=== PATIENT | female | born 1940 | race Caucasian/White ===

== ENCOUNTER → 2017-07-17 12:26 | Outpatient (CLI) | payer MEDICARE, OTHER, SELFPAY ==
--- NOTE | 2017-07-17 12:28 | BI_ITS ---
MAMMOGRAPHY - BILATERAL SCREENING REASON FOR EXAM: Female, 77 years old. Routine annual screening examination. PERTINENT HISTORY: Sister with breast cancer. TECHNIQUE: Digital bilateral breast polly (3D mammographic acquisition) in the CC and MLO projections. 2-D mediolateral oblique (MLO) and craniocaudad (CC) views of both breasts were obtained. CAD: Full Field Digital Mammography with Computer Added Detection was performed. COMPARISON: Comparison is made with prior study dated July 04, 2016 and June 26, 2015. FINDINGS: Breast Composition: There are scattered areas of fibroglandular density. There are no dominant masses or suspicious calcifications. No other significant abnormalities are identified. There has been no significant change since the prior study. BI/SCREENING MAMM (CAD), BILAT IMPRESSION: Stable bilateral screening mammogram. Yearly follow-up mammogram recommended. (A) ASSESSMENT CATEGORY: BIRADS Category 1: Negative. A letter regarding these results will be sent to the patient by the facility within 30 days. Approximately 10% of breast cancers are not detected by mammography. A normal mammogram should not delay biopsy of a clinically suspicious abnormality. [id number] Electronically Signed: Ash Pizarro MD at 14:23 EDT Tel [phone], Service support ,
== END ==
PROVIDERS: Family Provider Internal Medicine; PCP Internal Medicine; Visit Provider Internal Medicine
DX: Z12.31 Encounter for screening mammogram for malignant neoplasm of breast (principal); Z80.3 Family history of malignant neoplasm of breast
CPT/HCPCS: 77063; 77067

== ENCOUNTER → 2017-08-05 12:29 | Outpatient (CLI) | payer MEDICARE, OTHER, SELFPAY ==
--- NOTE | 2017-08-05 12:32 | STE_ITS ---
Reason For Study: Chest Pain Stress Results Protocol: Dobutamine Stress Echo Maximum Predicted HR: 145 bpm Target HR: 123 bpm% Maximum Pre dicted HR: 85 % DurationHeart Rate Stage (mm:ss) (bpm) BPCom ment Baseline 60 134/70 No Chest Pain DSE 10 MCG 3:01 58 138/64No Chest Pain DSE 20 MCG 3:00 82 138/71No Chest Pain DSE 30 MCG 3:00 11 3 127/61No Chest Pain DSE 40 MCG 1:47 12 3 154/49No Chest Pain Recovery 68 138/65 No Chest Pain Stress Duration: 10:48 mm:ss Maximum Stress HR: 123 bpmME TS: 1 Baseline Echocardiogram Findings The estimated ejection fraction is 65 %. Stress Echo Wall motion Data Resting WMIntermediate WMStress WM Resting Wall Motion Wall Motion Stress No regional wall motion No regional wall motion abnormalities noted. abnormalities noted. EKG Data The baseline ECG demonstrates normal sinus rhythm with at rate of _ beats per minute. The patient was titrated from 10 mcg to a maximum of 40 mcg of dobutamine during the stress. During dobutamine infusion, there were no ST or T wave changes noted to suggest ischemia. No clinical angina was noted. This was 85% of maximum predicted heart rate. The maximum heart rate attained was 123 beats per minute. Interpretation Summary The estimated ejection fraction is 65 %. Normal adequate dobutamine echocardiogram. Negative for ischemia by EKG and echocardiographic criteria. No anginal symptoms noted. Rare PVCs noted. Appropriate blood pressure response to dobutamine. Test terminated due to the attainment of target heart rate. Final LVEF is 75%. No complications. Ordering Physician: Jose Cannon Referring Physician: Jose Cannon Performed By: Eugenia Hills, ZENY, RVT
== END ==
PROVIDERS: Family Provider Internal Medicine; PCP Internal Medicine; Visit Provider Internal Medicine Cardiovascular Disease
DX: R07.9 Chest pain, unspecified (principal)
CPT/HCPCS: 93017; 93350; J7030; A4216

== ENCOUNTER → 2017-08-18 09:40 | Outpatient (CLI) | payer MEDICARE, OTHER, SELFPAY ==
[2017-08-18 11:17] LABS: AST(SGOT) 20 U/L (15-37); Alanine Aminotransfer ALT/SGPT 18 U/L (13-56); Albumin, Serum 3.5 g/dL (3.2-5.0); Alkaline Phosphatase 95 U/L (45-117); Bilirubin, Direct 0.11 mg/dL (0.00-0.30); Cholesterol 159 mg/dL (200); Globulin 3.4 g/dL (2.2-4.2); High Density Lipoprotein 47 mg/dL; Protein, Total 6.9 g/dL (6.4-8.2); Triglycerides 144 mg/dL; Very Low Density Lipoprotein 29 mg/dL (5-40)
== END ==
PROVIDERS: Family Provider Internal Medicine; PCP Internal Medicine; Visit Provider Internal Medicine Cardiovascular Disease
DX: E78.5 Hyperlipidemia, unspecified (principal); Z79.899 Other long term (current) drug therapy
CPT/HCPCS: 36415; 80061; 80076

== ENCOUNTER → 2018-05-25 11:33 | Outpatient (CLI) | payer MEDICARE, OTHER, SELFPAY ==
--- NOTE | 2018-05-25 11:37 | RAD_ITS ---
STUDY: X-RAY CHEST REASON FOR EXAM: Female, 78 years old. Chest pain. Cough TECHNIQUE: PA and lateral views of the chest. COMPARISON: Comparison is made with prior study dated February 25, 2017. FINDINGS: Hyperinflation. The lungs are clear. There is no demonstrated pleural abnormality. Normal size heart. Normal mediastinum and padmaja. Normal visualized pulmonary arteries. There is atherosclerotic tortuosity of the aortic arch and descending thoracic aorta. There is demineralization of the osseous structures. Mild levoscoliosis. Normal visualized ribs, clavicles, and shoulders. There is no demonstrated abnormality of the visualized soft tissue structures of the upper abdomen. RAD/Chest PA and Lateral IMPRESSION: Hyperinflation. The lungs are clear. Electronically Signed: Ash Pizarro MD at 12:26 EST , Service support ,
== END ==
PROVIDERS: Family Provider Internal Medicine; PCP Internal Medicine; Referring Provider Nurse Practitioner; Visit Provider Nurse Practitioner
DX: R05 Cough (principal)
CPT/HCPCS: 71046

== ENCOUNTER → 2018-07-19 08:25 | Outpatient (CLI) | payer MEDICARE, OTHER, SELFPAY ==
--- NOTE | 2018-07-19 08:29 | US_ITS ---
STUDY: THYROID ULTRASOUND REASON FOR EXAM: Female, 78 years old. Status post total thyroidectomy. Follow-up after treatment. TECHNIQUE: Ultrasound evaluation of the thyroid was performed with real-time and static delcid-scale imaging. COMPARISON: Thyroid ultrasound dated February 04, 2016. FINDINGS: RIGHT LOBE: The patient has had a total thyroidectomy. There are no demonstrated solid, cystic or complex lesions. LEFT LOBE: Patient has had a total thyroidectomy. There are no demonstrated solid, cystic or complex lesions. Prominent lymph nodes were measured. One node within the right neck measures 15.7 x 6.1 x 8.3 mm. This has benign appearance. A node was measured in the left neck measuring 7.8 x 2.8 x 7.1 mm. US/Thyroid IMPRESSION: Status post total thyroidectomy without sonographic evidence for tumor recurrence. Electronically Signed: Shanelle Quinones MD at 5:57 EDT , Service support ,
--- NOTE | 2018-07-19 08:52 | CDU_ITS ---
Reason For Study: Arteriosclerosis Rt. Velocities/BP Lt. Velocities/BP Prox CCA 70/14 cm/sec. Prox CCA 74/15 cm/sec. Mid CCA 45/12 cm/sec. Mid CCA 58/16 cm/sec. Dist CCA 50/13 cm/sec. Dist CCA 66/15 cm/sec. Prox ICA 145/32 cm/sec. Prox ICA 66/18 cm/sec. Mid ICA 114/25 cm/sec. Mid ICA 71/22 cm/sec. Dist ICA 98/28 cm/sec. Dist ICA 57/19 cm/sec. Rt. ICA/CCA = 3.3. Lt. ICA/CCA = 1.2. Prox ECA 57/7 cm/sec. Prox ECA 70/7 cm/sec. Rt. Vert. 45/12 cm/sec. Lt. Vert. 75/20 cm/sec. Right Extracranial There is heterogeneous, irregular atherosclerotic plaque noted in the right common carotid artery. There is heterogeneous, smooth atherosclerotic plaque noted in the right internal carotid artery. There is heterogeneous, smooth atherosclerotic plaque noted in the right external carotid artery. Antegrade flow is noted in the right vertebral artery. There is heterogeneous, irregular atherosclerotic plaque noted in the right bulb. Left Extracranial There is heterogeneous, irregular atherosclerotic plaque noted in the left common carotid artery. There is intimal thickening but no significant atherosclerotic plaque noted in the left internal carotid artery. There is intimal thickening but no significant atherosclerotic plaque noted in the left external carotid artery. Antegrade flow is noted in the left vertebral artery. Procedure Carotid Duplex [id number]. Exam performed in department. Interpretation Summary Moderate (50-69%) stenosis right extracranial internal carotid. Mild (<50%) stenosis left extracranial internal carotid. Flow within the vertebral arteries is antegrade bilaterally. Ordering Physician: Geeta Cruz Referring Physician: Geeta Cruz Performed By: Eugenia Hills, RDCS, RVT
== END ==
PROVIDERS: Family Provider Internal Medicine; PCP Internal Medicine; Referring Provider Internal Medicine; Visit Provider Internal Medicine
DX: I65.23 Occlusion and stenosis of bilateral carotid arteries (principal); C73 Malignant neoplasm of thyroid gland
CPT/HCPCS: 76536; 93880

== ENCOUNTER → 2018-08-13 08:59 | Outpatient (CLI) | payer MEDICARE, OTHER, SELFPAY ==
[2018-08-12 15:17] VITALS: BMI 26.2
[2018-08-13 09:43] LABS: Absolute Lymphocyte Count 1.31 X10^3/ul (0.83-4.51); Absolute Neutrophil Count 2.9 X10^3/uL (2.0-7.7); Basophil# 0.02 X10^3/uL; Basophil% 0.4 % (0-1); Eosinophil# 0.22 X10^3/uL; Eosinophils% 4.5 % (0-5); Hematocrit 39.6 % (37-47); Hemoglobin 13.1 g/dl (12.0-15.0); Lymphocyte # 1.31 X10^3/ul (4.0); Lymphocyte % 26.9 % (19-41); Mean Corp Hgb Conc 33.1 g/gl (32-36); Mean Corpuscular Hgb 29.1 pg (27.0-32.0); Mean Platelet Vol. 10.4 fl (6.2-12.0); Monocyte# 0.38 X10^3/uL; Monocyte% 7.8 % (0-10); Neutrophil # 2.93 X10^3/uL (2.7-7.7); Neutrophil % 60.2 % (47-70); Platelet Count 193 K/mm3 (150-450); White Blood Count 4.9 K/mm3 (4.4-11.0)
[2018-08-13 09:47] LABS: POSITIVE COUNT NO; POSITIVE DIFFERENTIAL NO; POSITIVE MORPHOLOGY NO
[2018-08-13 09:51] LABS: Prothrombin Time (Protime)PT. 13.1 SECONDS (11.7-14.9)
[2018-08-13 09:52] LABS: Partial Thromboplast Time 28.6 Seconds (24.1-36.2)
[2018-08-13 10:22] LABS: AST(SGOT) 23 U/L (15-37); Alanine Aminotransfer ALT/SGPT 18 U/L (13-56); Albumin, Serum 3.7 g/dL (3.2-5.0); Alkaline Phosphatase 85 U/L (45-117); Anion Gap 6 (5-15); BUN 20 mg/dL (7-18); BUN/Creat Ratio 19.8 RATIO (10-20); Bilirubin, Direct 0.14 mg/dL (0.00-0.30); Calcium,Total 8.9 mg/dL (8.5-10.1); Chloride 109 mmol/L (98-107); Cholesterol 171 mg/dL (200); Creatinine, Serum 1.01 mg/dL (0.55-1.02); EST Glomerular Filtration Rate 57 mL/min (>60); Est Glom Filt Rate - Afr Amer 68 mL/min (>60); Globulin 3.3 g/dL (2.2-4.2); Glucose 83 mg/dL (74-106); High Density Lipoprotein 66 mg/dL; Sodium Level 142 mmol/L (136-145); Triglycerides 91 mg/dL; Very Low Density Lipoprotein 18 mg/dL (5-40)
== END ==
PROVIDERS: Family Provider Internal Medicine; PCP Internal Medicine; Referring Provider Internal Medicine Cardiovascular Disease; Visit Provider Internal Medicine Cardiovascular Disease
DX: R07.9 Chest pain, unspecified (principal); R55 Syncope and collapse; E78.5 Hyperlipidemia, unspecified; Z86.73 Personal history of transient ischemic attack (TIA), and cerebral infarction without residual deficits
CPT/HCPCS: 36415; 80048; 80061; 80076; 85025; 85610; 85730

== ENCOUNTER 2018-08-18 07:56 | Day surgery (SDC) | payer MEDICARE, OTHER, SELFPAY ==
[2018-08-12 15:17] VITALS: BMI 26.2
--- NOTE | 2018-08-12 15:35 | HP_ITS ---
HPI HPI Surgical H&P: Yes Details: Chief Complaint: Routine f/u Details: Referring physician: Dr. Diego Mrs. oBne is a very pleasant 78-year-old female, with a history of hypertension, hypercholesterolemia, status post CVA approximately 4 years ago with residual tingling and mild weakness on the right upper and lower extremity as well as a mild dysarthria. She also has a history of papillary thyroid cancer status post total thyroidectomy in 2011, status post CHRISTINE/BSO in 1985, and status post appendectomy. She was incidentally found to have a large hiatal hernia when she was dilated for hematuria in December 2012. She was referred to our office for preop risk stratification, and underwent a stress echocardiogram in on 07/13/13 which was negative for inducible ischemia. In addition she underwent an echocardiogram shows normal LV function. From a cardiac standpoint she reports that she denies any exertional chest pain, angina but does complain of dyspnea with both exertion as well as at rest. She attributes this to her severe hiatal hernia. This is been going on constantly over the last several years. She underwent a non-walking SPECT Cardiolite on 08/19/11 which was negative for inducible ischemia. Her LVEF at that time was 70%. She reports she underwent a left heart catheterization after having several palpitations during a stress test in 1994. This was done by Dr. Chang at [facility]. I do not have those reports in front of me however she reports that her coronary arteries were normal, and no additional stenting was required. The patient reports that she underwent her esophageal dilatation without complications. However, she has had 2 episodes of lightheadedness and dizziness one of which cause her to lose sight, and blackout however she did not lose consciousness. This was while she was watering her plants, and the other time when she was in a very hot area in an outside sale. She has never actually lost consciousness,but rather is had presyncope. She is taking and tolerating her medicines well as well as the higher dose of Lopressor. She denies any palpitations. Her main complaint is fatigue and tiredness during the day. Her last stress test in September 2016 was negative for inducible ischemia. Since her last visit, the patient has had 2 episodes of presyncope, one when she was walking up an escalator, where she had a sit down at the top, became very lightheaded, recovering only after 15 minutes. The other time occurred at home. In addition she has had several episodes of exertional jaw pain to bilateral jaws. She denies any chest pain. Her most recent stress test was a dobutamine echocardiogram on 08/05/2017 which was negative for inducible ischemia. In our office today her blood pressure is 140/70 sitting and standing, and pulse is 56 and regular. Her physical exam is as below. Her lipids As a 08/15/16 show an LDL of 88 and HDL of 58. Her lipids as of 08/18/2017 showing LDL of 83 and HDL of 47.. EKG dated 06/14/15 showed normal sinus rhythm, normal axis, normal intervals, no evidence of previous myocardial infarction or acute changes. Echo dated 12/20/15 showed EF of 65%, stage I diastolic dysfunction, mild TR, RVSP of 42 mmHg. Intake Vital Signs 08/12/18 Height 5 ft 1 in 08/12/18 Weight: 139 lb 08/12/18 Body Mass Index (BMI) 26.2 08/12/18 Blood Pressure 140/70 H 08/12/18 Blood Pressure Location Lt brachial 08/12/18 Blood Pressure Position Sitting 08/12/18 Respiratory Rate 20 H 08/12/18 Pulse Rate 56 L 08/12/18 Pulse Source Auscultation Intake Visit Reasons: 6 M FU Allergies cephalexin monohydrate [From Keflex] Allergy (Severe, Verified 08/09/18 17:51) Vomiting lisinopril Allergy (Severe, Verified 08/09/18 17:51) Anaphylaxis peanut Allergy (Severe, Verified 08/09/18 17:51) Unknown shellfish derived Allergy (Severe, Verified 08/09/18 17:51) Anaphylaxis Penicillins [PCN] Allergy (Unknown, Verified 08/09/18 17:51) Anaphylaxis cefixime [From Suprax] Adverse Reaction (Severe, Verified 08/09/18 17:51) Vomiting doxycycline Adverse Reaction (Severe, Verified 08/09/18 17:51) Vomiting erythromycin base Adverse Reaction (Severe, Verified 08/09/18 17:51) hives grass pollen Adverse Reaction (Severe, Verified 08/09/18 17:51) Unknown metronidazole [From Flagyl] Adverse Reaction (Severe, Verified 08/09/18 17:51) Unknown ragweed pollen Adverse Reaction (Severe, Verified 08/09/18 17:51) Unknown tetracycline Adverse Reaction (Severe, Verified 08/09/18 17:51) Unknown Sulfa (Sulfonamide Antibiotics) Adverse Reaction (Intermediate, Verified 08/09/18 17:51) Unknown adhesive tape Adverse Reaction (Mild, Verified 08/09/18 17:51) Rash levofloxacin [From Levaquin] Adverse Reaction (Verified 08/09/18 17:51) Hives cats Adverse Reaction (Severe, Uncoded 07/02/17 09:52) Unknown histamine Adverse Reaction (Severe, Uncoded 07/02/17 09:52) Unknown peanuts Adverse Reaction (Severe, Uncoded 07/02/17 09:53) unknown trees Adverse Reaction (Severe, Uncoded 07/02/17 09:51) Unknown weeds Adverse Reaction (Severe, Uncoded 07/02/17 09:52) Unknown Medications Azelastine HCl [Astelin] 2 spray NASAL BID 12/16/15 [History Confirmed 08/12/18] HydrOXYzine [Atarax] 25 mg PO QHS 12/16/15 [History Confirmed 08/12/18] Potassium Chloride [K-Dur] 20 meq PO BID 12/16/15 [History Confirmed 08/12/18] Pantoprazole Sodium [Protonix] 20 mg PO BID 01/16/16 [History Confirmed 08/12/18] Albuterol IH (ProAir) [Proair Hfa] 2 puff INHALATION Q4H PRN PRN 01/29/16 [History Confirmed 08/12/18] Epi Pen (for allergic rxn) 0.3 mg IM X1 01/29/16 [History Confirmed 08/12/18] aspirin 81 mg tablet,delayed release 81 mg PO .daily #30 tab 07/02/17 [Rx Confirmed 08/12/18] conjugated estrogens 0.625 mg tablet 10 mg PO 2XW tab 07/02/17 [History Confirmed 08/12/18] metoprolol tartrate 50 mg tablet See Rx Instructions PO BID 07/02/17 [History Confirmed 08/12/18] Citalopram [Celexa] 20 mg PO DAILY 09/28/17 [History Confirmed 08/12/18] Clopidogrel Bisulfate [Plavix] 75 mg PO DAILY 09/28/17 [History Confirmed 08/12/18] Latanoprost 0.005% [Xalatan Opthalmic] EACHEYE DAILY 09/28/17 [History Confirmed 08/12/18] calcium polycarbophil 625 mg tablet 1,250 mg PO DAILY 02/08/18 [History Confirmed 08/12/18] ergocalciferol (vitamin D2) 50,000 unit capsule 50,000 unit PO .COMPLEX 02/08/18 [History Confirmed 08/12/18] rosuvastatin 10 mg tablet 10 mg PO DAILY #90 tab 08/06/18 [Rx Confirmed 08/12/18] levothyroxine 150 mcg tablet 150 mcg PO DAILY 08/12/18 [History Confirmed 08/12/18] [facility] Medical History Hypothyroidism (Chronic) PAC (premature atrial contraction) (Chronic) Rectocele (Chronic) History of thyroid cancer (Chronic) Stroke (Chronic) Dyslipidemia (Chronic) SVT (supraventricular tachycardia) (Acute) PVC (premature ventricular contraction) (Chronic) HTN (hypertension) (Chronic) Atrial tachycardia (Acute) GERD (gastroesophageal reflux disease) (Acute) History of hysterectomy (Acute) Stroke (Acute) Syncope (Acute) Thyroid disease (Acute) fundus repair (Acute) Surgical History History of repair of hiatal hernia (Chronic) H/O thyroidectomy (Acute) History of appendectomy (Acute) History of cholecystectomy (Acute) History of esophagogastroduodenoscopy (EGD) (Acute) Family History Father Cancer Mother Arthritis Heart disease CVA (cerebral vascular accident) Tuberculosis Breast cancer Skin cancer Social History Smoking Status: Never smoker ROS Const Const: Positive for other (A couple episodes of near syncope and things turning black since last ov.); negative for fatigue, weakness, body ache, fever(s), headache(s), chills, frequent falls, night sweats, daytime sleepiness, difficulty sleeping, excessive sweating, weight gain, weight loss, increased appetite, poor appetite or anorexia Eyes Eyes: Negative for blind spots, loss of peripheral vision, transient loss of vision, blurry vision, change in vision, double vision, floaters, tunnel vision or other ENT ENT: Negative for headache(s), dizziness, hearing loss, tinnitus, Nosebleed/epistaxis, balance problems, post nasal drip, lip swelling, tongue swelling, bleeding gums, hoarseness, neck pain, dry mouth or other Cardio Chest Pain: No (Has had some jaw pain a few times.) Palpitations: Yes ([place] heart racing when had near syncope episodes.) feels like its: fast Edema: None Muscle aches with walking: None Resp Respiratory: Positive for SOB with activity; negative for SOB at rest, SOB orthopnea\SOB lying down, Cough, Coughing up blood/hemoptysis, chest congestion, pain on inspiration, snoring, stridor, wheezing, crackles, paroxysmal nocturnal dyspnea or other GI GI: Negative nausea, vomiting, heartburn, constipation, belching, bloating, cramping, vomiting blood/hematemesis, bright, red blood in stools, black,tarry stools, loose stools, Difficulty Swallowing or other : Negative for hematuria, frequent nighttime urination/ nocturia, erectile dysfunction or abnormal vaginal bleeding Musc Musc: Negative for muscle aches/ myalgia, muscle weakness, joint pain or balance problems Skin Skin: Negative redness, non-healing lesions, rash, unusual bruising, skin ulcer, wounds, jaundice or other Neuro Neuro: Negative for dizziness, lightheadedness, near syncope, syncope, orthostatic symptoms, frequent falls, headache(s), weakness, confusion, memory loss, restless legs, blurry vision, double vision, vertigo, seizures, lack of coordination or other Satish Hematologic/Lymphatic: Negative for easy bleeding, easy bruising, enlarged lymph nodes or other Endo Endo: Negative for fatigue, cold intolerance, heat intolerance, excessive sweating, flushing, increased thirst/drinking, increased hunger, hair loss, hair growth or other Psych Psych: Negative for anxiety, depression, thoughts of harming anyone, thoughts of harming yourself, visual hallucinations, panic attacks or audible hallucinations Allergy Allergy/Immunology: Negative for throat swelling, Negative for tongue swelling, Negative for hives, Negative for rash, Negative for lip swelling Cardiology Exam Const Appearance: cooperative, healthy appearing and no acute distress Nutritional Appearance: well nourished Orientation: alert, oriented x3 and oriented to person Head Head: normal to inspection, normocephalic and atraumatic Nose: external nose normal Face and Sinus: face symmetric Mouth: oral mucosae normal Eyes General: appearance normal, both eyes and all related structures Eyelids: eyelids normal Conjunctivae: conjunctivae normal Pupils: PERRL and normal by confrontation EOM: EOM intact bilaterally Neck Neck: normal visual inspection and full ROM Carotids: normal carotid upstroke Chest Chest inspection: normal inspection of the chest Auscultation: Bilateral: Clear to Auscultation Cardio Palpation: normal PMI Rate: regular rate Rhythm: regular rhythm Heart sounds: S1 normal and S2 normal GI GI: normal to inspection, no hepatosplenomegaly and bowel sounds present Neuro General: alert, awake, oriented x3, CN's II-XI intact bilaterally and moves all extremities Skin Skin: no rashes or lesions noted Extremities Pulses: Normal: Right Femoral Pulse, Left Femoral Pulse, Right Dorsalis Pedis Pulse, Left Dorsalis Pedis Pulse, Right Posterior Tibial Pulse, Left Posterior Tibial Pulse, Right Radial Pulse, Left Radial Pulse Lower Extremity Edema: None: Bilateral Psych Psychological: normal affect Assessment & Plan 1. Chest pain R07.9 Plan 1. Chest pain: Patient has both episodes of chest pain but more importantly bilateral jaw pain with exertion, her last stress test was less than 1 year ago which was a dobutamine echocardiogram which was negative for inducible ischemia. I am concerned that the patient may have symptoms related to coronary artery disease particularly with her syncope and dyspnea. I recommended that she undergo a diagnostic left heart catheterization. In preparation for this she will continue on baby aspirin and Plavix. Orders Orders: 12 Lead EKG performed by [facility] Today Left Heart Cath/COR/LV Percut Today Basic Metabolic Profile (BMP) Today Prothrombin Time w/INR Today CBC W/Diff, Automated Today Chest PA and Lateral Today 2. Dyslipidemia E78.5 Plan 2. Hyperlipidemia: Her LDL and HDL cholesterol are fairly well-controlled. Continue Crestor. Orders Orders: Lipid Profile Today Liver Profile Today Chest PA and Lateral Today 3. Syncope R55 Plan 3. Syncope: I am concerned that the patient has had 2 episodes of syncope in the last 6 months, and that we do not have an adequate diagnosis. She appears to have normal LV function and a normal stress test less than 1 year ago. As part of her syncope work-up and given her jaw pain, I recommend that she undergo a left heart catheterization as well as a 30-day event monitor. 4. Return to office in 6 months. This note was generated using a voice recognition system and there may be incorrect words, spelling or punctuation that were not noted when reviewing the office note prior to saving. Orders Orders: Basic Metabolic Profile (BMP) Today Chest PA and Lateral Today Plan Detail Other Orders Orders: Lipid Profile Today I63.9 Liver Profile Today I63.9 Chest PA and Lateral Today I47.1 Follow Up +6M (Davis) Coding Level of Care Code Off vis,est,level 3 Diagnoses Chest pain R07.9 Dyslipidemia E78.5 Syncope R55 Coding Level of Care Code Off vis,est,level 3 Diagnoses Chest pain R07.9 Dyslipidemia E78.5 Syncope R55 Supplemental Info Supplemental Information Labs LDL Cholesterol 83 mg/dL (0-130) 08/18/17 HDL Cholesterol 47 mg/dL (40-) 08/18/17 Triglycerides 144 mg/dL (-199) 08/18/17 VLDL Cholesterol 29 mg/dL (5-40) 08/18/17 Diagnostics Electrocardiogram 09/12/16 Echocardiogram 07/08/13 Stress Echocardiogram 08/05/17 Abdomen Ultrasound 09/06/14 Chest X-Ray 05/25/18 Pulmonary Pulmonary Function Test 01/21/16 08/12/18 1535 <Electronically signed by Jose Cannon MD> Date Jose Cannon MD
[2018-08-17 08:51] VITALS: BMI 26.2
[2018-08-18] VITALS (27 sets, daily range): BP systolic 114–168; BP diastolic 60–99; PULSE 50–65; RESP 11–21; TEMP 36.5–36.8; O2SAT 92–100; BMI 24.5; BMI 26.2
--- NOTE | 2018-08-18 10:18 | PCM.HP.BLA ---
Problem List (1) Chest pain Status: Acute (2) SVT (supraventricular tachycardia) Status: Acute (3) Dyslipidemia Status: Chronic (4) HTN (hypertension) Status: Chronic (5) PAC (premature atrial contraction) Status: Chronic History and Physical Date of Admission: 08/18/18 HPI HPI Surgical H&P: Yes Details: Chief Complaint: Routine f/u Details: Referring physician: Dr. Diego Mrs. Bone is a very pleasant 78-year-old female, with a history of hypertension, hypercholesterolemia, status post CVA approximately 4 years ago with residual tingling and mild weakness on the right upper and lower extremity as well as a mild dysarthria. She also has a history of papillary thyroid cancer status post total thyroidectomy in 2011, status post CHRISTINE/BSO in 1985, and status post appendectomy. She was incidentally found to have a large hiatal hernia when she was dilated for hematuria in December 2012. She was referred to our office for preop risk stratification, and underwent a stress echocardiogram in on 07/13/13 which was negative for inducible ischemia. In addition she underwent an echocardiogram shows normal LV function. From a cardiac standpoint she reports that she denies any exertional chest pain, angina but does complain of dyspnea with both exertion as well as at rest. She attributes this to her severe hiatal hernia. This is been going on constantly over the last several years. She underwent a non-walking SPECT Cardiolite on 08/19/11 which was negative for inducible ischemia. Her LVEF at that time was 70%. She reports she underwent a left heart catheterization after having several palpitations during a stress test in 1994. This was done by Dr. Chang at [facility]. I do not have those reports in front of me however she reports that her coronary arteries were normal, and no additional stenting was required. The patient reports that she underwent her esophageal dilatation without complications. However, she has had 2 episodes of lightheadedness and dizziness one of which cause her to lose sight, and blackout however she did not lose consciousness. This was while she was watering her plants, and the other time when she was in a very hot area in an outside sale. She has never actually lost consciousness,but rather is had presyncope. She is taking and tolerating her medicines well as well as the higher dose of Lopressor. She denies any palpitations. Her main complaint is fatigue and tiredness during the day. Her last stress test in September 2016 was negative for inducible ischemia. Since her last visit, the patient has had 2 episodes of presyncope, one when she was walking up an escalator, where she had a sit down at the top, became very lightheaded, recovering only after 15 minutes. The other time occurred at home. In addition she has had several episodes of exertional jaw pain to bilateral jaws. She denies any chest pain. Her most recent stress test was a dobutamine echocardiogram on 08/05/2017 which was negative for inducible ischemia. In our office today her blood pressure is 140/70 sitting and standing, and pulse is 56 and regular. Her physical exam is as below. Her lipids As a 08/15/16 show an LDL of 88 and HDL of 58. Her lipids as of 08/18/2017 showing LDL of 83 and HDL of 47.. EKG dated 06/14/15 showed normal sinus rhythm, normal axis, normal intervals, no evidence of previous myocardial infarction or acute changes. Echo dated 12/20/15 showed EF of 65%, stage I diastolic dysfunction, mild TR, RVSP of 42 mmHg. Intake Vital Signs 08/12/18 Height 5 ft 1 in 08/12/18 Weight: 139 lb 08/12/18 Body Mass Index (BMI) 26.2 08/12/18 Blood Pressure 140/70 H 08/12/18 Blood Pressure Location Lt brachial 08/12/18 Blood Pressure Position Sitting 08/12/18 Respiratory Rate 20 H 08/12/18 Pulse Rate 56 L 08/12/18 Pulse Source Auscultation Intake Visit Reasons: 6 M FU Allergies cephalexin monohydrate [From Keflex] Allergy (Severe, Verified 08/09/18 17:51) Vomiting lisinopril Allergy (Severe, Verified 08/09/18 17:51) Anaphylaxis peanut Allergy (Severe, Verified 08/09/18 17:51) Unknown shellfish derived Allergy (Severe, Verified 08/09/18 17:51) Anaphylaxis Penicillins [PCN] Allergy (Unknown, Verified 08/09/18 17:51) Anaphylaxis cefixime [From Suprax] Adverse Reaction (Severe, Verified 08/09/18 17:51) Vomiting doxycycline Adverse Reaction (Severe, Verified 08/09/18 17:51) Vomiting erythromycin base Adverse Reaction (Severe, Verified 08/09/18 17:51) hives grass pollen Adverse Reaction (Severe, Verified 08/09/18 17:51) Unknown metronidazole [From Flagyl] Adverse Reaction (Severe, Verified 08/09/18 17:51) Unknown ragweed pollen Adverse Reaction (Severe, Verified 08/09/18 17:51) Unknown tetracycline Adverse Reaction (Severe, Verified 08/09/18 17:51) Unknown Sulfa (Sulfonamide Antibiotics) Adverse Reaction (Intermediate, Verified 08/09/18 17:51) Unknown adhesive tape Adverse Reaction (Mild, Verified 08/09/18 17:51) Rash levofloxacin [From Levaquin] Adverse Reaction (Verified 08/09/18 17:51) Hives cats Adverse Reaction (Severe, Uncoded 07/02/17 09:52) Unknown histamine Adverse Reaction (Severe, Uncoded 07/02/17 09:52) Unknown peanuts Adverse Reaction (Severe, Uncoded 07/02/17 09:53) unknown trees Adverse Reaction (Severe, Uncoded 07/02/17 09:51) Unknown weeds Adverse Reaction (Severe, Uncoded 07/02/17 09:52) Unknown Medications Azelastine HCl [Astelin] 2 spray NASAL BID 12/16/15 [History Confirmed 08/12/18] HydrOXYzine [Atarax] 25 mg PO QHS 12/16/15 [History Confirmed 08/12/18] Potassium Chloride [K-Dur] 20 meq PO BID 12/16/15 [History Confirmed 08/12/18] Pantoprazole Sodium [Protonix] 20 mg PO BID 01/16/16 [History Confirmed 08/12/18] Albuterol IH (ProAir) [Proair Hfa] 2 puff INHALATION Q4H PRN PRN 01/29/16 [History Confirmed 08/12/18] Epi Pen (for allergic rxn) 0.3 mg IM X1 01/29/16 [History Confirmed 08/12/18] aspirin 81 mg tablet,delayed release 81 mg PO .daily #30 tab 07/02/17 [Rx Confirmed 08/12/18] conjugated estrogens 0.625 mg tablet 10 mg PO 2XW tab 07/02/17 [History Confirmed 08/12/18] metoprolol tartrate 50 mg tablet See Rx Instructions PO BID 07/02/17 [History Confirmed 08/12/18] Citalopram [Celexa] 20 mg PO DAILY 09/28/17 [History Confirmed 08/12/18] Clopidogrel Bisulfate [Plavix] 75 mg PO DAILY 09/28/17 [History Confirmed 08/12/18] Latanoprost 0.005% [Xalatan Opthalmic] EACHEYE DAILY 09/28/17 [History Confirmed 08/12/18] calcium polycarbophil 625 mg tablet 1,250 mg PO DAILY 02/08/18 [History Confirmed 08/12/18] ergocalciferol (vitamin D2) 50,000 unit capsule 50,000 unit PO .COMPLEX 02/08/18 [History Confirmed 08/12/18] rosuvastatin 10 mg tablet 10 mg PO DAILY #90 tab 08/06/18 [Rx Confirmed 08/12/18] levothyroxine 150 mcg tablet 150 mcg PO DAILY 08/12/18 [History Confirmed 08/12/18] [facility] Medical History Hypothyroidism (Chronic) PAC (premature atrial contraction) (Chronic) Rectocele (Chronic) History of thyroid cancer (Chronic) Stroke (Chronic) Dyslipidemia (Chronic) SVT (supraventricular tachycardia) (Acute) PVC (premature ventricular contraction) (Chronic) HTN (hypertension) (Chronic) Atrial tachycardia (Acute) GERD (gastroesophageal reflux disease) (Acute) History of hysterectomy (Acute) Stroke (Acute) Syncope (Acute) Thyroid disease (Acute) fundus repair (Acute) Surgical History History of repair of hiatal hernia (Chronic) H/O thyroidectomy (Acute) History of appendectomy (Acute) History of cholecystectomy (Acute) History of esophagogastroduodenoscopy (EGD) (Acute) Family History Father Cancer Mother Arthritis Heart disease CVA (cerebral vascular accident) Tuberculosis Breast cancer Skin cancer Social History Smoking Status: Never smoker ROS Const Const: Positive for other (A couple episodes of near syncope and things turning black since last ov.); negative for fatigue, weakness, body ache, fever(s), headache(s), chills, frequent falls, night sweats, daytime sleepiness, difficulty sleeping, excessive sweating, weight gain, weight loss, increased appetite, poor appetite or anorexia Eyes Eyes: Negative for blind spots, loss of peripheral vision, transient loss of vision, blurry vision, change in vision, double vision, floaters, tunnel vision or other ENT ENT: Negative for headache(s), dizziness, hearing loss, tinnitus, Nosebleed/epistaxis, balance problems, post nasal drip, lip swelling, tongue swelling, bleeding gums, hoarseness, neck pain, dry mouth or other Cardio Chest Pain: No (Has had some jaw pain a few times.) Palpitations: Yes (Irving heart racing when had near syncope episodes.) feels like its: fast Edema: None Muscle aches with walking: None Resp Respiratory: Positive for SOB with activity; negative for SOB at rest, SOB orthopnea\SOB lying down, Cough, Coughing up blood/hemoptysis, chest congestion, pain on inspiration, snoring, stridor, wheezing, crackles, paroxysmal nocturnal dyspnea or other GI GI: Negative nausea, vomiting, heartburn, constipation, belching, bloating, cramping, vomiting blood/hematemesis, bright, red blood in stools, black,tarry stools, loose stools, Difficulty Swallowing or other : Negative for hematuria, frequent nighttime urination/ nocturia, erectile dysfunction or abnormal vaginal bleeding Musc Musc: Negative for muscle aches/ myalgia, muscle weakness, joint pain or balance problems Skin Skin: Negative redness, non-healing lesions, rash, unusual bruising, skin ulcer, wounds, jaundice or other Neuro Neuro: Negative for dizziness, lightheadedness, near syncope, syncope, orthostatic symptoms, frequent falls, headache(s), weakness, confusion, memory loss, restless legs, blurry vision, double vision, vertigo, seizures, lack of coordination or other Satish Hematologic/Lymphatic: Negative for easy bleeding, easy bruising, enlarged lymph nodes or other Endo Endo: Negative for fatigue, cold intolerance, heat intolerance, excessive sweating, flushing, increased thirst/drinking, increased hunger, hair loss, hair growth or other Psych Psych: Negative for anxiety, depression, thoughts of harming anyone, thoughts of harming yourself, visual hallucinations, panic attacks or audible hallucinations Allergy Allergy/Immunology: Negative for throat swelling, Negative for tongue swelling, Negative for hives, Negative for rash, Negative for lip swelling Cardiology Exam Const Appearance: cooperative, healthy appearing and no acute distress Nutritional Appearance: well nourished Orientation: alert, oriented x3 and oriented to person Head Head: normal to inspection, normocephalic and atraumatic Nose: external nose normal Face and Sinus: face symmetric Mouth: oral mucosae normal Eyes General: appearance normal, both eyes and all related structures Eyelids: eyelids normal Conjunctivae: conjunctivae normal Pupils: PERRL and normal by confrontation EOM: EOM intact bilaterally Neck Neck: normal visual inspection and full ROM Carotids: normal carotid upstroke Chest Chest inspection: normal inspection of the chest Auscultation: Bilateral: Clear to Auscultation Cardio Palpation: normal PMI Rate: regular rate Rhythm: regular rhythm Heart sounds: S1 normal and S2 normal GI GI: normal to inspection, no hepatosplenomegaly and bowel sounds present Neuro General: alert, awake, oriented x3, CN's II-XI intact bilaterally and moves all extremities Skin Skin: no rashes or lesions noted Extremities Pulses: Normal: Right Femoral Pulse, Left Femoral Pulse, Right Dorsalis Pedis Pulse, Left Dorsalis Pedis Pulse, Right Posterior Tibial Pulse, Left Posterior Tibial Pulse, Right Radial Pulse, Left Radial Pulse Lower Extremity Edema: None: Bilateral Psych Psychological: normal affect Assessment & Plan 1. Chest pain R07.9 Plan 1. Chest pain: Patient has both episodes of chest pain but more importantly bilateral jaw pain with exertion, her last stress test was less than 1 year ago which was a dobutamine echocardiogram which was negative for inducible ischemia. I am concerned that the patient may have symptoms related to coronary artery disease particularly with her syncope and dyspnea. I recommended that she undergo a diagnostic left heart catheterization. In preparation for this she will continue on baby aspirin and Plavix. Orders Orders: 12 Lead EKG performed by BMS Today Left Heart Cath/COR/LV Percut Today Basic Metabolic Profile (BMP) Today Prothrombin Time w/INR Today CBC W/Diff, Automated Today Chest PA and Lateral Today 2. Dyslipidemia E78.5 Plan 2. Hyperlipidemia: Her LDL and HDL cholesterol are fairly well-controlled. Continue Crestor. Orders Orders: Lipid Profile Today Liver Profile Today Chest PA and Lateral Today 3. Syncope R55 Plan 3. Syncope: I am concerned that the patient has had 2 episodes of syncope in the last 6 months, and that we do not have an adequate diagnosis. She appears to have normal LV function and a normal stress test less than 1 year ago. As part of her syncope work-up and given her jaw pain, I recommend that she undergo a left heart catheterization as well as a 30-day event monitor. 4. Return to office in 6 months. This note was generated using a voice recognition system and there may be incorrect words, spelling or punctuation that were not noted when reviewing the office note prior to saving. 5. Patient has had no additional changes to her history and physical examination since her last visit in the office. Left heart catheterization is to follow. Orders Orders: Basic Metabolic Profile (BMP) Today Chest PA and Lateral Today Plan Detail Other Orders Orders: Lipid Profile Today I63.9 Liver Profile Today I63.9 Chest PA and Lateral Today I47.1 Follow Up +6M (Cannon) Coding Level of Care Code Off vis,est,level 3 Diagnoses Chest pain R07.9 Dyslipidemia E78.5 Syncope R55 Coding Level of Care Code Off vis,est,level 3 Diagnoses Chest pain R07.9 Dyslipidemia E78.5 Syncope R55 Supplemental Info Supplemental Information Labs LDL Cholesterol 83 mg/dL (0-130) 08/18/17 HDL Cholesterol 47 mg/dL (40-) 08/18/17 Triglycerides 144 mg/dL (-199) 08/18/17 VLDL Cholesterol 29 mg/dL (5-40) 08/18/17 Diagnostics Electrocardiogram 09/12/16 Echocardiogram 07/08/13 Stress Echocardiogram 08/05/17 Abdomen Ultrasound 09/06/14 Chest X-Ray 05/25/18 Pulmonary Pulmonary Function Test 01/21/16
--- NOTE | 2018-08-18 11:19 | CL.I_ITS ---
Patient Name: VAZQUEZ JAMIL Study Date: 08/18/2018 Performing: Jose Cannon MD Ht: 61.02 inches 155 cm : 1940 Wt: 138.89 lbs 63 kg Age: 78 Gender: female BSA: 1.62 PROCEDURE(S) PERFORMED [id number]/COR/LV [id number] W OR WO PTCA, SINGLE CORONARY ARTERY [id number], CORONARY OR GRAFT, INITIAL VESSEL CLINICAL PROFILE AND CO-MORBIDITIES Indications: New Onset Angina <= 2 months, Suspected CAD, Cardiac Arrythmia Heart Failure: None Stress/Imaging Date: 08/05/2018 Stress Echocardiogram: Negative Angina Classification Anginal Classification w/in 2 Weeks: CCS III CAD Presentations: Unstable angina. Other: Dyspnea on exertion. Comorbidities/Risk Factors: Hypertension Dyslipidemia Cerebrovascular Disease CONCLUSIONS Normal Left Ventricular systolic function LVEF: by LV gram 65 % Elevated Left Ventricular End Diastolic Pressure Single vessel CAD of the mid OM#1 Non obstructive coronary arteries Successful PTCA/DYLLAN mid OM#1 with a 2.25 x 20 Promus Synergy; 75%-->0%, no dissection. FFR of proximal LCX negative. RECOMMENDATIONS FFR of proximal LCX and PCI of mid OM#1 Highly recommend quitting all tobacco products Follow up with primary wound nurse Risk factor modification ASA Indefinitley Plavix for at least 12 months Routine post interventional care Refer for Outpatient Cardiac Rehab Manual sheath removal per protocol Follow up with Dr. Cannon Manual sheath removal as pt is too shallow for Mynx closure. Start Imdur 30mg po qd for HTN and CHAIREZ; pt need low dose diuretic. DESCRIPTION OF PROCEDURE The patient arrived to the procedure lab. The risks and benefits of the procedure as well as a full d escription of our services here and lack of surgical backup were fully explained to the patient and/o r their significant other prior to the catheterization. The Timeout was completed, verifying the merlin ect patient and procedure. The patient's procedural site was prepped and draped in the usual fashion. Local anesthetic was given subcutaneously to right groin region with Lidocaine 2%. Using a modified Seldinger technique, arterial access was obtained via the right femoral artery, a 4Fr sheath was inse rted. Left Coronary Artery selective angiography was performed in multiple views using a 4 Fr. JL5 c atheter. Right Coronary Artery selective angiography was then performed in multiple views using a 4 F r. 3DRC catheter. Left Ventriculography was performed in MATHUR projection using a 4 Fr. Pigtail cathete r. LV to AO pullback pressures were then recorded. Left Coronary Artery selective angiography was performed in multiple views using a 4 Fr. JL6 catheterThe images were reviewed and op tions discussed. A decision was then made to proceed with an Intervention, IVUS or other adjunct proc edure. Arterial sheath was exchanged for a 6 Fr Sheath. EBU 3.5 Guide catheter was inserted and engaged into the LCA. The FFR/iFR wire was inserted. Adenosine was then given per protocol. Pressures and FFR /iFR were then recorded. FFR Ratio Baseline: 1.0 FFR Ratio post Adenosine: 0.98 FFR wire Guide wire w as repositioned to the 1st OM 2.0x12 Emerge Balloon catheter was advanced across lesion in the first obtuse marginal, mid. PTCA balloon inflated at 6 atms for 8 secs. Angiogram performed post balloon di latation. 2.25x16 synergy Drug Eluting stent was advanced across the lesion in the first obtuse sue nal, mid. Drug Eluting stent was removed intact, failed to cross lesion 2.25x20 synergy Drug Eluting stent was advanced across the lesion in the first diagonal, mid. Angiogram performed post stent deplo yment. The arterial sheath was sutured in place and capped CORONARY ANGIOGRAPHY DOMINANCE: Left Dominant LEFT HEART ASSESSMENT Left Ventricular Ejection Fraction: by LV Gram 65 % Normal Left Ventricular systolic function Elevated Left Ventricular End Diastolic Pressure Normal LV wall motion LEFT MAIN: Mild calcification, Non-obstructive LEFT ANTERIOR DESCENDING ARTERY: Mild calcification, Mild luminal irregularities less than 30% CIRCUMFLEX ARTERY: PROX CIRC: 30 % Stenosis OM 1: Mid - 75 % Stenosis RIGHT CORONARY ARTERY: Angiographically normal INTERVENTION INFORMATION LESION SITE: Circumflex (Proximal) Lesion Complexity: Non-High/Non-C, lesion at bifurcation: No, thrombus present: No, lesion length: 12 mm, culprit lesion: No Pre Stenosis: 30 % Pre intervention VIRAJ flow: 3 PROCEDURE: FFR FFR of proximal LCX=0.98 Post Stenosis: 30 % Post intervention VIRAJ flow: 3 Lesion Devices: to becience 12 Pressure Tubing PhishLabstronic 6 Fr EBU3.5 100cm Guide Catheter LESION SITE: 1st OM (Mid) Lesion Complexity: Non-High/Non-C, lesion at bifurcation: No, thrombus present: No, lesion length: 20 mm, culprit lesion: Yes Pre Stenosis: 75 % Pre intervention VIRAJ flow: 3 PROCEDURE: Drug Eluting Stent with pre dilatation. Post Stenosis: 0 % Post intervention VIRAJ flow: 3 Lesion Devices: Medtronic 6 Fr EBU3.5 100cm Guide Catheter Anthony Sci EMERGE MR 2.00x12 BALLOON Anthony Sci Synergy MR DYLLAN 2.25x16 Anthony Sci Synergy MR DYLLAN 2.25x20 COMPLICATIONS PROCEDURE MEDICATIONS Oxygen: 2 L/min via nasal cannula Adenosine drip for FFR 18.8 ml IV @ 08/18/2018 10:48:31 Heparin 6000 unit(s) IV 08/18/2018 10:41:25 Nitro 200 mcg IC 08/18/2018 10:37:46 Nitro 200 mcg IC 08/18/2018 10:37:46 Nitro glycerin 25mg / 250ml D5W @ 5 mcg/min IV started 08/18/2018 11:04:19 IV Bolus: .9 NaCl 200 ml total 08/18/2018 11:04:33 SUMMARY OF HEMODYNAMIC DATA Time AIR REST ECG 08:18:06 ECG 09:57:27 LV 178/-21, 16 10:34:33 LV 185/-20, 17 10:34:40 LVp 176/-21, 15 10:34:46 AOp 175/67 (109) 10:34:51 AO 170/66 (107) SA 10:34:57 Signed By Jose Cannon MD On 08/18/2018 11:19:13 Jose Cannon MD
[2018-08-18 11:20] LABS: ACT Activated Clotting Time 241 sec (74-137)
--- NOTE | 2018-08-18 12:44 | EKG12_ITS ---
Test Reason : AM EKG Blood Pressure : / mmHG Vent. Rate : 058 BPM Atrial Rate : 058 BPM P-R Int : 152 ms QRS Dur : 090 ms QT Int : 442 ms P-R-T Axes : 070 039 059 degrees QTc Int : 433 ms Sinus bradycardia Otherwise normal ECG When compared with ECG of 18-AUG-2018 11:57, MANUAL COMPARISON REQUIRED, DATA IS UNCONFIRMED Confirmed by KAYLAH TADEO ([id number]), makeup editor JW HARPER ([id number]) on 08/23/2018 2:28:54 PM Referred By: Jose Cannon Confirmed By:MILTON TADEO
[2018-08-18] MEDS: 0.9% Normal Saline 1,000 ML 150 ML IV (13:34)
--- NOTE | 2018-08-18 14:02 | CRPHASE1 ---
Patient Communication PHII Cardiac Rehab Discussed with Patient:: Yes Guide to Cardiac Rehab Given to Patient:: Yes Cardiac Rehab Facility Choice List Given to Patient:: Yes - [place] Choice Program [facility] CR PHII:: Communication Given to CR, Refer to [facility] Refer Phase II Cardiac Rehab:: Yes Sessions:: 36 sessions - 3 days/wk, 12 weeks Risk Factors/Lifestyle Smoking Status: Never smoker Hx Obesity: Yes Height: 1.55 m Weight:: 63 kg BMI: 26.2 Post-Menopausal: Yes ETOH: No Caffeine: Yes Substance Abuse: No Risk Factor for Sedentary Lifestyle: Lowest Risk Family History: Family History (Last Reviewed 08/12/18 @ 15:11 by Carey Loja) Father Cancer Mother Arthritis Heart disease CVA (cerebral vascular accident) Tuberculosis Breast cancer Skin cancer Phase I Education Given On:: [place] Issues Affecting Care:: None Knowledge of Condition:: Yes Hospital Course Cardiac Cath Date:: 08/18/18 Medical/Surgical History Angina:: Yes - JAW Diabetes Type II:: No Hypertension:: Yes CEA:: Yes PTCA:: Yes Discharge/Home/Social Eval Discharge Disposition: Home Marital Status: Cardiac Rehabilitation Info Cardiac Rehabilitation Program Information: Cardiac Rehabilitation is important for patients like you who are recovering from a heart problem. Cardiac rehabilitation programs are recognized as integral to the continued care of the patient with coronary heart disease. The cardiac rehabilitation program is designed to optimize a patient's physical, psychological, and social functioning. Health healthcare sales representative work in cardiac rehabilitation programs and assist you with getting the treatments you need to get stronger and healthier - like exercise, healthy eating habits, and medications. Cardiac rehabilitation has been show to help people with heart problems live longer and have better life enjoyment than people who do not go to cardiac rehabilitation. Please contact the Cardiac Rehabilitation Program at [facility] at in two weeks if you have not heard from them.
--- NOTE | 2018-08-18 14:06 | CRPHASE1_ITS ---
Patient Communication PHII Cardiac Rehab Discussed with Patient:: Yes Guide to Cardiac Rehab Given to Patient:: Yes Cardiac Rehab Facility Choice List Given to Patient:: Yes - [facility] PHII:: Communication Given to CR, Refer to [facility] Refer Phase II Cardiac Rehab:: Yes Sessions:: 36 sessions - 3 days/wk, 12 weeks Risk Factors/Lifestyle Smoking Status: Never smoker Hx Obesity: Yes Height: 1.55 m Weight:: 63 kg BMI: 26.2 Post-Menopausal: Yes ETOH: No Caffeine: Yes Substance Abuse: No Risk Factor for Sedentary Lifestyle: Lowest Risk Family History: Family History (Last Reviewed 08/12/18 @ 15:11 by Carey Loja) Father Cancer Mother Arthritis Heart disease CVA (cerebral vascular accident) Tuberculosis Breast cancer Skin cancer Phase I Education Given On:: [place] Issues Affecting Care:: None Knowledge of Condition:: Yes Hospital Course Cardiac Cath Date:: 08/18/18 Medical/Surgical History Angina:: Yes - JAW Diabetes Type II:: No Hypertension:: Yes CEA:: Yes PTCA:: Yes Discharge/Home/Social Eval Discharge Disposition: Home Marital Status: Cardiac Rehabilitation Info Cardiac Rehabilitation Program Information: Cardiac Rehabilitation is important for patients like you who are recovering from a heart problem. Cardiac rehabilitation programs are recognized as integral to the continued care of the patient with coronary heart disease. The cardiac rehabilitation program is designed to optimize a patient's physical, psychological, and social functioning. Health childcare center director work in cardiac rehabilitation programs and assist you with getting the treatments you need to get stronger and healthier - like exercise, healthy eating habits, and medications. Cardiac rehabilitation has been show to help people with heart problems live longer and have better life enjoyment than people who do not go to cardiac rehabilitation. Please contact the Cardiac Rehabilitation Program at [facility] at in two weeks if you have not heard from them.
--- NOTE | 2018-08-18 14:06 | CRPH1.INSTRU ---
General Education CAD and cardiac anatomy and function:: Patient communicates acknowledgment Explanation of diagnoses and procedures:: Patient communicates acknowledgment Sign/Symptoms of KS:: Patient communicates acknowledgment Antiplatelet therapy: Needs reinforcement Proper use of NTG-SL: Needs reinforcement Emergency procedures and activation of EMS: Patient communicates acknowledgment Compliance of all prescribed medications: Needs reinforcement Smoking Patient Nicotine/Smoking Risk Factors Are:: Never smoked Dyslipidemia Patient Dyslipidemia Risk Factors Are:: Total Cholesterol - 171, Triglycerides - 91, HDL - 87, LDL - 66 Recommendations Include:: Lipid profile provided Hypertension Hypertension:: Patient communicates acknowledgment Heart Disease Heart Disease Response Code:: Patient communicates acknowledgment Diabetes Patient Diabetes Risk Factors Are:: No documented hx of diabetes Metabolic Syndrome Patient Metabolic Syndrome Risk Factors Are [3 of 5]:: Hypertension Metabolic Syndrome Response Code:: Patient communicates acknowledgment Sedentary Patient Sedentary Risk Factors Are:: Lack of regular exercise Sedentary Response Code:: Patient communicates acknowledgment Stress Patient Stress Risk Factors Are:: Patient denies stress as a risk factor
[2018-08-18] MEDS: Sucralfate 1 GM Tablet PO (18:23)
[2018-08-18] MEDS: Latanoprost 0.005% 1 Bottle 1 DRP EACH EYE (21:28)
[2018-08-18] MEDS: Metoprolol Tartrate 25 MG Tablet PO (21:29)
[2018-08-18] MEDS: hydrOXYzine PAM 25 MG Capsule PO (21:29)
[2018-08-18] MEDS: Atorvastatin Calcium 20 MG Tablet PO (21:30)
[2018-08-19] VITALS (13 sets, daily range): BP systolic 122–157; BP diastolic 56–111; PULSE 51–72; RESP 8–20; TEMP 36.4–36.6; O2SAT 96–100
[2018-08-19] MEDS: amLODIPine 5 MG Tablet PO (00:24)
[2018-08-19 03:27] LABS: Hematocrit 35.7 % (37-47); Hemoglobin 11.7 g/dl (12.0-15.0); Mean Corp Hgb Conc 32.8 g/gl (32-36); Mean Corpuscular Hgb 28.6 pg (27.0-32.0); Mean Corpuscular Volume 87.3 fL (81-99); Mean Platelet Vol. 10.6 fl (6.2-12.0); Platelet Count 155 K/mm3 (150-450); RBC Distribution Width CV 13.9 % (11.6-14.6); RBC Distribution Width SD 43.1 fl (35.1-43.9); Red Blood Count 4.09 M/mm3 (4.2-5.4); White Blood Count 6.4 K/mm3 (4.4-11.0)
[2018-08-19 03:28] LABS: Scan Indicated on CBC? Y/N NO
[2018-08-19 03:38] LABS: Anion Gap 6 (5-15); BUN 18 mg/dL (7-18); BUN/Creat Ratio 18.9 RATIO (10-20); Calcium,Total 8.2 mg/dL (8.5-10.1); Chloride 109 mmol/L (98-107); Cholesterol 147 mg/dL (200); Creatinine, Serum 0.95 mg/dL (0.55-1.02); EST Glomerular Filtration Rate 60 mL/min (>60); Est Glom Filt Rate - Afr Amer 73 mL/min (>60); Estimated Creatinine Clearance 38.02 ml/min; Glucose 85 mg/dL (74-106); High Density Lipoprotein 58 mg/dL; Potassium 4.1 mmol/L (3.5-5.1); Sodium Level 142 mmol/L (136-145); Triglycerides 90 mg/dL; Very Low Density Lipoprotein 18 mg/dL (5-40)
--- NOTE | 2018-08-19 06:34 | PCM.DC.CCA ---
Discharge Diet: Low fat/ Low Cholesterol Discharge Activity: Return to Normal Activity May shower in (days): 1 - No tub baths for 5 days May resume sexual activity in: 1-2 weeks Weight Bearing Status: Weight bearing as tolerated Lifting Restrictions: Do not lift anything greater than 10 pounds for 3 days Call your doctor if your incision/area has: Continuous Slow Oozing, Sudden Increased Bleeding, Increased Pain/ Swelling, Increased Redness, Foul Smelling Discharge, Swelling at the incision site Call your doctor if you observe: Fever of 101 or Higher, Shortness of breath, Chest pain Remove Dressing in (days):: 1 Cleanse incision/area with: Soap & Water Additional Instructions: You will continue with aspirin therapy. He will remain on Plavix therapy for at least one year. If anyone asks you to stop this medication, please call the [facility] Office first at [phone]. You are scheduled for a post hospital follow-up with Dr. Cannon on 09/03/2018 at 10 AM. 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 cefixime [From Suprax] Adverse Reaction (Severe, Verified 08/09/18 17:51) Vomiting doxycycline Adverse Reaction (Severe, Verified 08/09/18 17:51) Vomiting erythromycin base Adverse Reaction (Severe, Verified 08/09/18 17:51) hives grass pollen Adverse Reaction (Severe, Verified 08/09/18 17:51) Unknown metronidazole [From Flagyl] Adverse Reaction (Severe, Verified 08/09/18 17:51) Unknown ragweed pollen Adverse Reaction (Severe, Verified 08/09/18 17:51) Unknown tetracycline Adverse Reaction (Severe, Verified 08/09/18 17:51) Unknown Sulfa (Sulfonamide Antibiotics) Adverse Reaction (Intermediate, Verified 08/09/18 17:51) Unknown adhesive tape Adverse Reaction (Mild, Verified 08/09/18 17:51) Rash levofloxacin [From Levaquin] Adverse Reaction (Verified 08/09/18 17:51) Hives cats Adverse Reaction (Severe, Uncoded 07/02/17 09:52) Unknown histamine Adverse Reaction (Severe, Uncoded 07/02/17 09:52) Unknown peanuts Adverse Reaction (Severe, Uncoded 07/02/17 09:53) unknown trees Adverse Reaction (Severe, Uncoded 07/02/17 09:51) Unknown weeds Adverse Reaction (Severe, Uncoded 07/02/17 09:52) Unknown Medications to take at Discharge Azelastine HCl [Astelin] 2 spray NASAL BID 12/16/15 HydrOXYzine [Atarax] 25 mg PO QHS 12/16/15 Potassium Chloride [K-Dur] 20 meq PO BID 12/16/15 Albuterol IH (ProAir) [Proair Hfa] 2 puff INHALATION Q4H PRN PRN 01/29/16 Epi Pen (for allergic rxn) 0.3 mg IM X1 01/29/16 aspirin 81 mg tablet,delayed release 81 mg PO .daily #30 tab 07/02/17 conjugated estrogens 0.625 mg tablet 10 mg PO 2XW tab 07/02/17 metoprolol tartrate 50 mg tablet See Rx Instructions PO BID 07/02/17 Citalopram [Celexa] 20 mg PO DAILY 09/28/17 Clopidogrel Bisulfate [Plavix] 75 mg PO DAILY 09/28/17 Latanoprost 0.005% [Xalatan Opthalmic] 1 drop EACHEYE DAILY 09/28/17 calcium polycarbophil 625 mg tablet 1,250 mg PO DAILY 02/08/18 ergocalciferol (vitamin D2) 50,000 unit capsule 50,000 unit PO .COMPLEX 02/08/18 rosuvastatin 10 mg tablet 10 mg PO DAILY #90 tab 08/06/18 levothyroxine 150 mcg tablet 150 mcg PO DAILY 08/12/18 Sucralfate [Carafate] 1 gm PO BID 08/18/18 Losartan Potassium [Cozaar] 25 mg PO DAILY tablet 08/19/18 Orders to be completed after discharge: Phase II, Outpatient Cardiac Rehab Location: None Selected Primary Care Physician: Anthony,Geeta, DO [Primary Care Provider] - Test Results: Test results from this visit will be discussed in further detail at your follow-up appointment, if applicable. Please Follow Up With: Dr. Cannon When: 09/03/2018 at 10 AM Proposed Discharge Date: 08/19/18 Cardiac Rehabilitation Info Cardiac Rehabilitation Program Information: Cardiac Rehabilitation is important for patients like you who are recovering from a heart problem. Cardiac rehabilitation programs are recognized as integral to the continued care of the patient with coronary heart disease. The cardiac rehabilitation program is designed to optimize a patient's physical, psychological, and social functioning. Health child day care teacher work in cardiac rehabilitation programs and assist you with getting the treatments you need to get stronger and healthier - like exercise, healthy eating habits, and medications. Cardiac rehabilitation has been show to help people with heart problems live longer and have better life enjoyment than people who do not go to cardiac rehabilitation. Please contact the Cardiac Rehabilitation Program at [facility] at in two weeks if you have not heard from them.
--- NOTE | 2018-08-19 06:38 | DCINST_ITS ---
Discharge Diet: Low fat/ Low Cholesterol Discharge Activity: Return to Normal Activity May shower in (days): 1 - No tub baths for 5 days May resume sexual activity in: 1-2 weeks Weight Bearing Status: Weight bearing as tolerated Lifting Restrictions: Do not lift anything greater than 10 pounds for 3 days Call your doctor if your incision/area has: Continuous Slow Oozing, Sudden Increased Bleeding, Increased Pain/ Swelling, Increased Redness, Foul Smelling Discharge, Swelling at the incision site Call your doctor if you observe: Fever of 101 or Higher, Shortness of breath, Chest pain Remove Dressing in (days):: 1 Cleanse incision/area with: Soap & Water Additional Instructions: You will continue with aspirin therapy. He will remain on Plavix therapy for at least one year. If anyone asks you to stop this medication, please call the [facility] Office first at [phone]. You are scheduled for a post hospital follow-up with Dr. Cannon on 09/03/2018 at 10 AM. 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 cefixime [From Suprax] Adverse Reaction (Severe, Verified 08/09/18 17:51) Vomiting doxycycline Adverse Reaction (Severe, Verified 08/09/18 17:51) Vomiting erythromycin base Adverse Reaction (Severe, Verified 08/09/18 17:51) hives grass pollen Adverse Reaction (Severe, Verified 08/09/18 17:51) Unknown metronidazole [From Flagyl] Adverse Reaction (Severe, Verified 08/09/18 17:51) Unknown ragweed pollen Adverse Reaction (Severe, Verified 08/09/18 17:51) Unknown tetracycline Adverse Reaction (Severe, Verified 08/09/18 17:51) Unknown Sulfa (Sulfonamide Antibiotics) Adverse Reaction (Intermediate, Verified 08/09/18 17:51) Unknown adhesive tape Adverse Reaction (Mild, Verified 08/09/18 17:51) Rash levofloxacin [From Levaquin] Adverse Reaction (Verified 08/09/18 17:51) Hives cats Adverse Reaction (Severe, Uncoded 07/02/17 09:52) Unknown histamine Adverse Reaction (Severe, Uncoded 07/02/17 09:52) Unknown peanuts Adverse Reaction (Severe, Uncoded 07/02/17 09:53) unknown trees Adverse Reaction (Severe, Uncoded 07/02/17 09:51) Unknown weeds Adverse Reaction (Severe, Uncoded 07/02/17 09:52) Unknown Medications to take at Discharge Azelastine HCl [Astelin] 2 spray NASAL BID 12/16/15 HydrOXYzine [Atarax] 25 mg PO QHS 12/16/15 Potassium Chloride [K-Dur] 20 meq PO BID 12/16/15 Albuterol IH (ProAir) [Proair Hfa] 2 puff INHALATION Q4H PRN PRN 01/29/16 Epi Pen (for allergic rxn) 0.3 mg IM X1 01/29/16 aspirin 81 mg tablet,delayed release 81 mg PO .daily #30 tab 07/02/17 conjugated estrogens 0.625 mg tablet 10 mg PO 2XW tab 07/02/17 metoprolol tartrate 50 mg tablet See Rx Instructions PO BID 07/02/17 Citalopram [Celexa] 20 mg PO DAILY 09/28/17 Clopidogrel Bisulfate [Plavix] 75 mg PO DAILY 09/28/17 Latanoprost 0.005% [Xalatan Opthalmic] 1 drop EACHEYE DAILY 09/28/17 calcium polycarbophil 625 mg tablet 1,250 mg PO DAILY 02/08/18 ergocalciferol (vitamin D2) 50,000 unit capsule 50,000 unit PO .COMPLEX 02/08/18 rosuvastatin 10 mg tablet 10 mg PO DAILY #90 tab 08/06/18 levothyroxine 150 mcg tablet 150 mcg PO DAILY 08/12/18 Sucralfate [Carafate] 1 gm PO BID 08/18/18 Losartan Potassium [Cozaar] 25 mg PO DAILY tablet 08/19/18 Orders to be completed after discharge: Phase II, Outpatient Cardiac Rehab Location: None Selected Primary Care Physician: Anthony,Geeta, DO [Primary Care Provider] - Test Results: Test results from this visit will be discussed in further detail at your follow- up appointment, if applicable. Please Follow Up With: Dr. Cannon When: 09/03/2018 at 10 AM Proposed Discharge Date: 08/19/18 Cardiac Rehabilitation Info Cardiac Rehabilitation Program Information: Cardiac Rehabilitation is important for patients like you who are recovering from a heart problem. Cardiac rehabilitation programs are recognized as integral to the continued care of the patient with coronary heart disease. The cardiac rehabilitation program is designed to optimize a patient's physical, psychological, and social functioning. Health grounds caretaker work in cardiac rehabilitation programs and assist you with getting the treatments you need to get stronger and healthier - like exercise, healthy eating habits, and medications. Cardiac rehabilitation has been show to help people with heart problems live longer and have better life enjoyment than people who do not go to cardiac rehabilitation. Please contact the Cardiac Rehabilitation Program at [facility] at in two weeks if you have not heard from them.
[2018-08-19] MEDS: Levothyroxine 150 MCG Tablet PO (07:16)
[2018-08-19] MEDS: Aspirin E.C. 81 MG Tablet PO (08:10)
[2018-08-19] MEDS: Sucralfate 1 GM Tablet PO (08:10)
--- NOTE | 2018-08-19 08:50 | PCM.PN.CARD ---
Subjectve: Patient doing very well this morning, no 24-hour events. Telemetry showed normal sinus rhythm with a burst of SVT and PVCs. No chest pain. The patient feels much better since angioplasty. Right groin is clean/dry/intact, without evidence of thrills, bruits or hematoma. EKG shows normal sinus rhythm, no acute changes. Hemoglobin and creatinine are within nominal limits. Objective: Vital Signs Temp Pulse Resp BP Pulse Ox 97.5 F L 56 L 16 133/86 H 96 08/19/18 04:00 08/19/18 06:00 08/19/18 06:00 08/19/18 06:00 08/19/18 06:00 Oxygen Delivery Method Room Air Weight: 139 lb 1.787 oz Body Mass Index (BMI) 24.5 Intake and Output for Last 24 Hours 08/17/18 08/18/18 08/19/18 23:59 23:59 23:59 Intake Total 2090 / 2090 150 / 150 Output Total 900 / 900 300 / 300 Balance 1190 / 1190 -150 / -150 General: Awake, Alert, Oriented x 3 HEENT: PERRL, EOMI, Sclera Non Icteric Neck: Supple, Good ROM, No Lymph Node Enlargement Lungs: Clear to auscultation Cardiovascular: Regular Rhythm, Normal S1, Normal S2, No Murmurs, No Rubs, No Gallops Vascular: No Carotid Bruits, Normal Femoral Pulses, Normal Radial Pulses, Normal Dorsalis Pedal Pulse, Normal Posterior Tibial Pulses Abdomen: Bowel Sounds Present, Soft, Non Tender, No HSM, No Organomegaly Extremities: No Cyanosis, No Clubbing, No edema Neurological: No Focal Motor or Sensory Deficit 08/19/18 03:05: WBC 6.4, RBC 4.09 L, Hgb 11.7 L, Hct 35.7 L, MCV 87.3, MCH 28.6, MCHC 32.8, RDW 13.9, RDW Differential 43.1, Plt Count 155, MPV 10.6 08/19/18 03:05: Sodium 142, Potassium 4.1, Chloride 109 H, Carbon Dioxide 27.0, Anion Gap 6, BUN 18, Creatinine 0.95, Est GFR (MDRD) Af Amer 73, Est GFR (MDRD) Non-Af 60, BUN/Creatinine Ratio 18.9, Glucose 85, Calcium 8.2 L, Triglycerides 90, Cholesterol 147, LDL Cholesterol 71, VLDL Cholesterol 18, HDL Cholesterol 58 Rhythm: EKG: ECHO: Stress Test: Cardiac Cath: PCI: CT Surgery: Holter monitor: EPS: PPM: CXR: Chest CT Scan: Medical Necessity - Tobacco Use Smoking Status: Never smoker Assessment/Plan 1. Coronary artery disease: The patient was found to have a significant obtuse marginal stenosis requiring a 2.25 ex-20 Promus Synergy stent. She also had a questionable proximal left circumflex and a dominant vessel which was evaluated with FFR which was found to be normal. The patient feels much better, and I believe a good component of her shortness of breath is due to hypertension. We will start the patient on losartan 25 mg p.o. daily and titrate up from there. Should the patient continue to have dyspnea on exertion despite optimal medical therapy during cardiac rehab I have a low threshold to return for angioplasty and stenting of her circumflex artery despite the FFR evaluation. Patient will be discharged home today follow-up with Dr. Cannon going forward. She will be enrolled in cardiac rehab at which time we will adjust her antihypertensive medications and titrate this for optimal blood pressure control. 2. Hyperlipidemia: We will continue Lipitor therapy. Her LDL and HDL cholesterol are optimized. Her LDL is 71 and her HDL is 58. 3. Patient will be discharged home and follow-up with Dr. Cannon going forward. Code Visit Inpatient E&M: 49968 Subs Hosp L2
[2018-08-19] MEDS: Isosorbide Mononitrate 30 MG Tablet PO (09:37)
[2018-08-19] MEDS: Citalopram 20 MG Tablet PO (09:38)
[2018-08-19] MEDS: Metoprolol Tartrate 25 MG Tablet PO (09:38)
[2018-08-19] MEDS: Losartan Potassium 25 MG Tablet PO (09:38)
[2018-08-19] MEDS: Clopidogrel Bisulfate 75 MG Tablet PO (09:38)
[2018-08-19] MEDS: Azelastine HCl NASAL.SRY 2 SPRAY NASAL (09:41)
--- NOTE | 2018-08-19 10:00 | EKG12_ITS ---
Test Reason : POST PCI Blood Pressure : / mmHG Vent. Rate : 052 BPM Atrial Rate : 052 BPM P-R Int : 154 ms QRS Dur : 088 ms QT Int : 456 ms P-R-T Axes : 063 026 033 degrees QTc Int : 424 ms Sinus bradycardia Otherwise normal ECG When compared with ECG of 12-SEP-2016 15:43, No significant change was found Confirmed by KAYLAH TADEO ([id number]), editorial project manager JW HARPER ([id number]) on 08/23/2018 2:31:09 PM Referred By: Jose Cannon Confirmed By:MILTON TADEO
[2018-08-24 12:46] LABS: ACT Activated Clotting Time 153 sec (74-137)
[2018-08-24 12:46] LABS: ACT Activated Clotting Time 180 sec (74-137)
== END 2018-08-19 11:05 | disposition home or self-care (01) ==
LOC: CLSP 07:57 → ICU 10:55
PROVIDERS: Family Provider Internal Medicine; PCP Internal Medicine; Referring Provider Internal Medicine Cardiovascular Disease; Visit Provider Internal Medicine Cardiovascular Disease
DX: I25.110 Atherosclerotic heart disease of native coronary artery with unstable angina pectoris (principal); I10 Essential (primary) hypertension; E78.5 Hyperlipidemia, unspecified; I69.322 Dysarthria following cerebral infarction; I49.1 Atrial premature depolarization; E03.9 Hypothyroidism, unspecified; K44.9 Diaphragmatic hernia without obstruction or gangrene; K21.9 Gastro-esophageal reflux disease without esophagitis; Z79.02 Long term (current) use of antithrombotics/antiplatelets; Z79.82 Long term (current) use of aspirin; Z79.899 Other long term (current) drug therapy; Z88.0 Allergy status to penicillin; Z88.1 Allergy status to other antibiotic agents; Z88.2 Allergy status to sulfonamides; Z85.850 Personal history of malignant neoplasm of thyroid; Z95.5 Presence of coronary angioplasty implant and graft; Z90.49 Acquired absence of other specified parts of digestive tract; Z90.722 Acquired absence of ovaries, bilateral
CPT/HCPCS: 80048; 80061; 85027; 85347; 92928; 93005; 93458; 93571; 97802; J0153; J7030; J7040; C1725; C1769; C1874; C1887; C1894; C9600; Q9967

== ENCOUNTER → 2018-08-24 08:43 | Outpatient (CLI) | payer MEDICARE, OTHER, SELFPAY ==
[2018-08-18 12:42] VITALS: BMI 24.5
[2018-08-18 14:05] VITALS: BMI 26.2
--- NOTE | 2018-08-24 08:48 | PCM.CR.HP2 ---
CR - History & Physical - General Arrival date:: 08/24/18 Arrival time:: 08:45 Date of Referral:: 08/18/18 Date of CR Evaluation:: 08/24/18 Referring Physician: DR. FER MANZO Primary Diagnosis: PTCA, PCI W/CORONARY STENT PLACEMENT - History of Present Cardiac Event Onset Date: Enter Onset Date of cardiac illnesses in Comment field below PTCA or coronary stenting:: Yes - 08/18/2018 Type of Symptoms:: SHORTNESS OF BREATH WITH W/EXERTION WELL AT REST. SHE HAD BEEN HOSPITALIZED AT AGE OF 4 WITH PNEUMONIA AND DUE TO LONG HOSPITALIZATION HAD TO BE REINSTRUCTED IN WALKING ETC. SHE UNDERWENT PRE-OPERATIVE TESTING AFTER HAVING SEVERAL PALPITATIONS DURING 2 EPISODES OF PRESYNCOPE AND RELATED JAW PAIN TO BILATERAL JAWS. Interventions with present event:: HEART CATH. Were there any complications?: NONE - Medications Home Medications: Ambulatory Orders Medication Instructions Recorded Azelastine HCl [Astelin] 2 spray NASAL BID 12/16/15 HydrOXYzine [Atarax] 25 mg PO QHS 12/16/15 Potassium Chloride [K-Dur] 20 meq PO BID 12/16/15 Albuterol IH (ProAir) [Proair Hfa] 2 puff INHALATION Q4H PRN PRN 01/29/16 Epi Pen (for allergic rxn) 0.3 mg IM X1 01/29/16 aspirin 81 mg tablet,delayed 81 mg PO .daily #30 tab 07/02/17 release conjugated estrogens 0.625 mg 10 mg PO 2XW tab 07/02/17 tablet metoprolol tartrate 50 mg tablet See Rx Instructions PO BID 07/02/17 Citalopram [Celexa] 20 mg PO DAILY 09/28/17 Clopidogrel Bisulfate [Plavix] 75 mg PO DAILY 09/28/17 Latanoprost 0.005% [Xalatan 1 drop EACHEYE DAILY 09/28/17 Opthalmic] calcium polycarbophil 625 mg tablet 1,250 mg PO DAILY 02/08/18 ergocalciferol (vitamin D2) 50,000 50,000 unit PO .COMPLEX 02/08/18 unit capsule rosuvastatin 10 mg tablet 10 mg PO DAILY #90 tab 08/06/18 levothyroxine 150 mcg tablet 150 mcg PO DAILY 08/12/18 Sucralfate [Carafate] 1 gm PO BID 08/18/18 Losartan Potassium [Cozaar] 25 mg PO DAILY tablet 08/19/18 losartan 25 mg tablet 25 mg PO DAILY #90 tab 08/19/18 - Allergies 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 cefixime [From Suprax] Adverse Reaction (Severe, Verified 08/09/18 17:51) Vomiting doxycycline Adverse Reaction (Severe, Verified 08/09/18 17:51) Vomiting erythromycin base Adverse Reaction (Severe, Verified 08/09/18 17:51) hives grass pollen Adverse Reaction (Severe, Verified 08/09/18 17:51) Unknown metronidazole [From Flagyl] Adverse Reaction (Severe, Verified 08/09/18 17:51) Unknown ragweed pollen Adverse Reaction (Severe, Verified 08/09/18 17:51) Unknown tetracycline Adverse Reaction (Severe, Verified 08/09/18 17:51) Unknown Sulfa (Sulfonamide Antibiotics) Adverse Reaction (Intermediate, Verified 08/09/18 17:51) Unknown adhesive tape Adverse Reaction (Mild, Verified 08/09/18 17:51) Rash levofloxacin [From Levaquin] Adverse Reaction (Verified 08/09/18 17:51) Hives cats Adverse Reaction (Severe, Uncoded 07/02/17 09:52) Unknown histamine Adverse Reaction (Severe, Uncoded 07/02/17 09:52) Unknown peanuts Adverse Reaction (Severe, Uncoded 07/02/17 09:53) unknown trees Adverse Reaction (Severe, Uncoded 07/02/17 09:51) Unknown weeds Adverse Reaction (Severe, Uncoded 07/02/17 09:52) Unknown - Sleep Disorder Evaluation Hx of Sleep Apnea: No Do you snore loudly (louder than talking or can be heard through closed doors)?: Yes - SOMETIMES, WAKES HER UP AND REPOSITIONS HERSELF IN BED. Do you often feel tired/ fatigued/ sleepy during daytime?: Yes Has anyone observed you stop breathing during sleep?: No History of Hypertension (for STOP score): Yes STOP Results: Positive Advanced Directives - Advanced Directives Power of Casualty Claims Supervisor: No Living Will: No Advance Directives Information Provided: Yes Advance Directives on File: No DNR Order?:: No - MOLST See MOLST form: No Past Medical History - Past Medical Illness Medical History: Past Medical History (Last Updated 08/18/18 @ 12:05 by Carey Loja) Atherosclerotic heart disease of [place] coronary artery without angina pectoris (Chronic) I25.10 Successful PTCA/DYLLAN mid OM#1 with a 2.25 x 20 Promus Synergy; FFR of proximal LCX negative. PER PRABHJOT @ [facility] 08/18/2018 Near syncope (Acute) R55 Jaw pain (Acute) R68.84 Chest pain (Acute) R07.9 Hypothyroidism (Chronic) E03.9 PAC (premature atrial contraction) (Chronic) I49.1 Rectocele (Chronic) N81.6 History of thyroid cancer (Chronic) Z85.850 Stroke (Chronic) I63.9 Dyslipidemia (Chronic) E78.5 SVT (supraventricular tachycardia) (Acute) I47.1 PVC (premature ventricular contraction) (Chronic) I49.3 HTN (hypertension) (Chronic) I10 Atrial tachycardia I47.1 GERD (gastroesophageal reflux disease) K21.9 History of hysterectomy Z90.710 Stroke I63.9 Syncope R55 Thyroid disease E07.9 fundus repair - Past Surgical History Surgical History: Past Surgical History (Last Reviewed 08/24/18 @ 09:13 by Jeremias Mckeon, DRAPERY INSTALLER, BEHAVIORAL HEALTH THERAPIST, BS) Stented coronary artery (Chronic) Onset Date: 08/18/18 Z95.5 Successful PTCA/DYLLAN mid OM#1 with a 2.25 x 20 Promus Synergy; FFR of proximal LCX negative. PER DJN @ [facility] 08/18/2018 History of repair of hiatal hernia (Chronic) Z98.890, Z87.19 H/O thyroidectomy E89.0 History of appendectomy Z90.49 History of cholecystectomy Z90.49 History of esophagogastroduodenoscopy (EGD) Z98.890 with biopsies Surgical History: hysterectomy, - - appendectemy, left ovary removed, hysterectemy,thyroid eventually totally removed, cataract surgery, achilles tendon, cholecystectemy, selvin - Family History Summary Family History: Family History (Last Reviewed 08/12/18 @ 15:11 by Carey Loja) Father Cancer Mother Arthritis Heart disease CVA (cerebral vascular accident) Tuberculosis Breast cancer Skin cancer Social History - Smoking History Smoking Status: Never smoker Hx Tobacco Use: No Hx Smoking Exposure: No - Substance Abuse Hx Substance Use: No - Occupation Occupation (List type of work in comments):: Retired - Hobbies, Recreation, Social Activities Hobbies: Reading - LOVE TO READ NOVELS., Exercise - YEARS AGO DID EXERCISE CLASSES, WALKING, AND JAZZERCISE. LAST 6 MONTHS HAVE REALLY SLOWED DOWN. Recreational Activities: I am able to engage in most, but not all activities Social Environment - Status Marital Status: - Current Living Arrangements Living Environment:: Spouse - Children How many children do you have?: 0 - Safety Do you feel safe in your surroundings?: Yes Review of Systems - Review of Systems Hints: Right click = Denies (Slash). Left click = Reports ([place]) Review of Present Symptoms: Reports: Shortness of Breath at Rest, Shortness of Breath with Exertion - ONGOING SHORTNESSOF BREATH AND HAS HAD THAT FOR A LONG TIME. THE SHORTNESS OF BREATH HAS REALLY SLOWED HER DOWN OVER THE PAST FEW YEARS., Fatigue, Appetite - Normal, Appetite - Special Diet - TRY TO EAT HEALTHY; NO SALT SHAKER!, Sleep - Normal. Denies: Dizziness/Lightheadedness, Sexual Changes - Pain Is Patient Pain Free?: Yes Pain Location: none Pain Level: 0/10 Risk Factor Assessment - Chief Complaint Chief Complaint: PATIENT IS A VERY PLEASENT 78 YR OLD FEMALE WHO PRESENTS TO CR TODAY FOLLOWING RECENT PCIW/CORONARY STENT DONE ON 08/18/[address] MANZO. SHE HAS A HISTORY OF PAPILLARY THYROID CANCER STATUS POST THYROIDECTOMY IN 2011, STATUS POST CHRISTINE/BSO IN 1985, AND STATUS POST APPENDECTOMY. SHE WAS INCIDENTLY FOUND TO HAVE A LARGE HIATAL HERNIA WHICH SHE UNDERWENT SURGERY. - Vital Signs Temperature: 98.7 F Respiratory Rate: 14 Pulse Ox: 95 Blood Pressure: 132/68 Nailbeds:: NORMAL - Pulse Pulse Rate: 56 Pulse Rhythm: Regular - Hypertension Blood Pressure Sitting - Right Arm: 140/70 Blood Pressure Sitting - Left Arm: 132/68 - Stress Stress: - - DENIED ANY STRESS - Blood Cholesterol/Lipids Total Cholesterol (mg/dL) Goal = less than 200 mg/dL: 147 HDL Cholesterol (mg/dL) Goal = less than 40 mg/dL: 58 LDL Cholesterol (mg/dL) Goal = less than 70 mg/dL: 71 Triglycerides (mg/dL) Goal = less than 150 mg/dL: 90 - Diabetes Nutrition Referral for Diabetes: No - Obesity Height: 5 ft 1 in Weight:: 139 lb Weight in Pounds: 139.0 lbs Weight Source: Standing Scale Body Mass Index (BMI): 26.2 Nutritional Referral for Obesity: No - Physical Inactivity Physical Inactivity: Reg Exercise 30 min/day - ACTIVE DAILY MORE THAN 30 MINUTES EACH DAY. - Risk Stratification Risk Guidelines: Lowest Risk: Risk Factor for Smoking, Risk Factor for Dyslipidemia, Risk Factor for Diabetes, Risk Factor for Obesity, Risk Factor for Hypertension, Risk Factor for Sedentary Lifestyle, Risk Factor for Depression - For Smoking Smoking Risk Guidelines: Smoking Low Risk: None or quit greater than 6 months ago. Smoking Moderate Risk: Smoker or quit 6 months or less ago. Smoking High Risk: Smoker - For Dyslipidemia Dyslipidemia Risk Guidelines: Low Risk: Moderate Risk: High Risk: 15-25% fat 25.1-29% fat >/= 30% fat. <7% sat fat 7-9% sat fat >9% sat fat. <150 mg chol 150-299 mg chol >/= 300 mg chol. LDL <100 LDL 100-129 LDL >/= 130. Chol/HDL ratio <5.0 Chol/HDL ratio 5.0-6.0 Chol/HDL ratio >6.0. Triglycerides <100 Triglycerides 100-149 Triglycerides >/= 150 - For Diabetes Mellitus Diabetes Risk Guidelines: Diabetes Low Risk: HgA1c <6.5% and/or FBG <120. Diabetes Moderate Risk: HgA1c 6.6-7.9% and/or FBG 120-180. Diabetes High Risk: HgA1c >/= 8% and/or FBG >180 - For Obesity/Overweight Obesity/Overweight Risk Guidelines: Obesity Low Risk: BMI <25.0. Obesity Moderate Risk: BMI 25-29.9. Obesity High Risk: BMI >/= 30.0 - For Hypertension Hypertension Risk Guidelines: Hypertension Low Risk: Systolic <120 and Diastolic <80. Hypertension Moderate Risk: Systolic 120-139 and Diastolic 80-89. Hypertension High Risk: Systolic >/= 140 and Diastolic >/= 90 - For Sedentary Lifestyle Sedentary Lifestyle Risk Guidelines: Sedentary Lifestyle Low Risk: >/= 1,500 kcal/week. Sedentary Lifestyle Moderate Risk: 700-1,499 kcal/week. Sedentary Lifestyle High Risk: < 700 kcal/week - For Depression Depression Risk Guidelines: Depression Low Risk: Not clinically depressed. Depression Moderate Risk: Mildly depressed. Depression High Risk: Clinically depressed - Family History Family History: Family History (Last Reviewed 08/12/18 @ 15:11 by Carey Loja) Father Cancer Mother Arthritis Heart disease CVA (cerebral vascular accident) Tuberculosis Breast cancer Skin cancer Motivation - Motivation to Participate On a scale of 1 to 10, how prepared are you to commit to attending program?: 5 - I know it is something I need to do. What do you see as barriers to successfully being able to complete the program?: syncope prior to PCI; just don't want to experience that again. What do you see as the benefits of succesfully completing the program? In other words, what do you hope to get out of participating in the program?: being able to walk neighborhood and incline around our home. Are there issues you are dealing with that will interfere with completing the program?: none; maybe just preset doctor appointments Do you have a spouse or signficant other, family or friends who will help support you to complete the program?: yes
--- NOTE | 2018-08-24 09:08 | CR.ITP_ITS ---
General Information - General Information Admitting Diagnosis: PCI W/CORONARY STENT PLACEMENT - Education/Goals Barriers to Learning: None Individual Counseling: Initial Assessment: High Blood Pressure, Sedentary Lifestyle Cardiac Rehabilitation Goals: 1. Maintain the individual as the primary focus of care. 2. To improve the patient's quality of life. 3. Identification of cardiac risk factors and provide cardiac risk factor management. 4. Enhance the psychosocial status of the patient. 5. Reconditioning enough to allow the patient to resume customary activities. 6. Control symptoms of cardiac disease Scale for measuring improvement of personal goals: Enter appropriate number in Comments. 2 = Unchanged. 3 = Slightly Better. 4 = Moderate Improvement. 5 = Met my Goal Personal Goals: Initial Assessment: Improve energy level, Participate in home exercise program, Improve knowledge of cardiac disease, Improve muscle strength and endurance, Improve diet and eating habits (eat healthier), Control risk factors (learn risk factor modification) Exercise - Initial Assessment - Visit Date of Eval: 08/24/18 Session #:: 0 - START ON - Stages of Change Stages of Change:: Action - Physician Prescribed Exercise Modalities: Treadmill, Rower, Airdyne, NuStep Frequency (days/week): 3x/week for 12 weeks [36 sessions] Duration (Minutes):: 30-45 MIN Intensity: 60-80% age predicted maximum heart rate reserve METs - Progression: 0.5-1.0 MET, RPE 11-14 WEEK: 2.5 Target Heart Rate:: 94-122 - Hypertension Do any of the following apply?: Yes, Medication Resting Blood Pressure:: 140/70 - Intervention Home Exercise/Activity Goal:: Moderate Exercise 30 min/day x 5 days/wk - Education Goals:: Warm-up, RPE ANA Scale, S/S, Safe Exercise, Self-Monitoring - Exercise Program Goals Exercise Program Goals: Aerobic Activity >30 min, B/P <130/80 Nutrition - Initial Assessment - Program Goals Nutrition Program Goals: LDL <70. Total Cholesterol <200. HDL >45. Triglycerides <150. HgbA1C <7%. BMI <25 - Visit Date of Assessment:: 08/24/18 - Stages of Change Stages of Change:: Action - Lipids Total Cholesterol (mg/dL) Goal = less than 200 mg/dL: 147 HDL Cholesterol (mg/dL) Goal = less than 45 mg/dL: 58 LDL Cholesterol (mg/dL) Goal = less than 70 mg/dL: 71 Triglycerides (mg/dL) Goal = less than 150 mg/dL: 90 - Diabetes Diabetes:: No Insulin: No Non-Insulin Dependent?: No Do you monitor your blood sugar at home?: No - Weight Management Height: 5 ft 1 in Weight:: 139 lb Body Fat %:: 26.2 - Intervention Referral to dietitian:: No Referral to Diabetic Clinic:: No Will attend diet classes:: Yes - Education Gave educational materials for:: Healthy eating Tobacco - Initial Assessment - Program Goals Tobacco Program Goals: Complete smoking cessation. Attend education classes. Improve Knowledge Test score - Stage of Change Stages of Change:: Action - Learning Barriers Learning Barriers: Ready to Learn - Family Support Do you have family support?: Yes - Tobacco Use Tobacco Use: Non-smoker Do you use smokeless tobacco?: No - Intervention Smoking Cessation Referral:: No Individual Education/Counseling:: No Education Schedule Given:: Yes - Education Gave educational material for:: Coronary artery disease, Risk factors, Sexuality, Medical compliance, Cardiac A&P, Angina signs & symptoms Psychosocial - Initial Assess - Target Goals Target Goals: Assess presence or absence of depression. Using a valid screening tool, maximizes coping skills. Positive support system - Stages of Change Stages of Change:: Action - Psychosocial Test Tool Used:: HANDS Depression Questionnaire - Intervention PS - Interventions: Yes Attend Stress Management Classes, No Referral to Mental Health, No Referral to [facility] Case Management, No Referral to Physician, No Uses Stress Management Skills - Education Gave educational materials for:: Coping techniques, Signs & symptoms of depression, Stress management, Relaxation techniques - Patient/Program Goal Preventative Medication(s):: Aspirin, Clopidogrel, Beta nury, Statin/lipid - Assistive Devices Assistive Devices:: None Fall Risk Assessed:: Yes Patient Health Questionnaire Initial Assessment 1. Little interest or pleasure in doing things: Not at all 2. Feeling down, depressed, or hopeless: Not at all 3. Trouble falling or staying asleep, or sleeping too much: Nearly every day 4. Feeling tired or having little energy: Nearly every day 5. Poor appetite or overeating: Not at all 6. Feeling bad about yourself -- or that you are a failure or have let yourself or your family down: Not at all 7. Trouble concentrating on things, such as reading the newspaper or watching television: More than half the days 8. Moving or speaking so slowly that other people could have noticed. Or the opposite - being so fidgety or restless that you have been moving around a lot more than usual: Several days 9. Thoughts that you would be better off , or of hurting yourself in some way: Not at all How difficult have these problems made it for you to do your work, take care of things at home, or get along with other people?: Somewhat difficult Total Score: 9 NERY-Q SV Test - Statements CAD is a disease of the arteries in the heart: False Examples of risk factors for heart disease: True Angina is chest pain or discomfort: True The benefits of resistance training include: True Eating more meat and dairy products: False Anti-platelet medications such as aspirin are important: True The only effective way to manage stress: False An exercise warm-up slowly increases heart rate: True Prepared, processed foods usually have high sodium: True Depression is common after a heart attack: True The statin medications lower cholesterol: True To control blood pressure, lower the amount of sodium: True If someone gets chest discomfort during walking: False Transfats are partially hydrogenated vegetable oils: True Sleep apnea that is not treated increases the risk: False To control cholesterol, one should become a vegetarian: False Someone knows if he/she is exercising at the right level: False Diabetes cannot be prevented with exercise & health eating: True Stress is a large risk for heart attack: True A diet that can help lower blood pressure is rich in: True - Total Score Total Correct Responses: 18 Self-Efficacy Initial Assessment We would like to know how confident you are in doing certain activities. Please select your confidence level for:: Select your confidence level for the following using the scale 1-10 where 1 is not at all confident and 10 is totally confident. Your score is the average of all 6 responses. Fatigue: How confident are you that you can keep the fatigue caused by your disease from interfering with the things you want to do? Select Number: 1 Physical Discomfort or Pain: How confident are you that you can keep the physical discomfort or pain of your disease from interfering with the things you want to do? Select Number: 1 Emotional Distress: How confident are you that you can keep the emotional distress caused by your disease from interfering with the things you want to do? Select Number: 4 Other Symptoms or Health Problems: How confident are you that you can keep other symptoms or health problems from interfering with the things you want to do? Select Number: 3 Different Tasks and Activities: How confident are you that you can do the different tasks and activities needed to manage your health condition so as to reduce your need to see a doctor? Select Number: 4 Medication: How confident are you that you can do things other than just taking medication to reduce how much your illness affects your everyday life? Select Number: 4 Total Score:: 2 Nutrition Survey - Nutrition Survey Instructions Scoring Instructions: Scoring is as follows: Yes = 1 points. No = 0 point. Patient score that is >/=12 is considered to be at potential nutritional risk and could benefit from a referral to a registered dietitian. - Nutrition Survey Initial Have you lost >10 lbs over the past 2 months without trying?: No Are you following a special diet at home for diabetes, low fat, or low salt?: Yes Are you interested in meeting with a dietitian for help understanding your diet?: Yes Do you eat less than 3 meals a day?: No Do you eat fatty meats (swanson, sausage, ribs, etc), fried foods, desserts, large amounts of salad dressings, margarine, butter, or cheese most days?: Yes - SOMEWHAT Do you have food allergies? [Enter types in comment field]: Yes - PEANUTS, CAILIFLOWER, PEAS, PEPPER Do you eat in restaurants more than 3 times a week?: Yes Do you season food with salt, seasoning salt, or garlic salt?: Yes - SOMETIMES Do you used canned, boxed, frozen meals, or soups, seasoning packets?: Yes - Patient could benefit from individual consult with Diet[facility] Nutrit[facility] Services [phone] Total Score:: 7
[2018-08-24 09:35] VITALS: BP 140/70
[2018-08-24 09:47] VITALS: BP 132/68; BP 140/70; PULSE 56; RESP 14; TEMP 37.1; O2SAT 95; BMI 26.2
== END ==
PROVIDERS: Family Provider Internal Medicine; PCP Internal Medicine; Referring Provider Internal Medicine Cardiovascular Disease; Visit Provider Internal Medicine Cardiovascular Disease
DX: I10 Essential (primary) hypertension (principal); E78.5 Hyperlipidemia, unspecified; E07.9 Disorder of thyroid, unspecified; K21.9 Gastro-esophageal reflux disease without esophagitis

== ENCOUNTER 2018-09-10 10:15 | Outpatient (RCR) | payer MEDICARE, OTHER, SELFPAY ==
[2018-08-18 14:05] VITALS: BMI 26.2
[2018-08-24 09:47] VITALS: BMI 26.2
== END 2018-09-10 23:59 ==
LOC: CR 10:15
PROVIDERS: Family Provider Internal Medicine; PCP Internal Medicine; Referring Provider Internal Medicine Cardiovascular Disease; Visit Provider Internal Medicine Cardiovascular Disease
DX: I25.10 Atherosclerotic heart disease of native coronary artery without angina pectoris (principal); Z95.5 Presence of coronary angioplasty implant and graft
CPT/HCPCS: 93798

== ENCOUNTER → 2018-09-23 14:55 | Outpatient (CLI) | payer MEDICARE, OTHER, SELFPAY ==
[2018-08-18 12:42] VITALS: BMI 24.5
[2018-08-18 14:05] VITALS: BMI 26.2
[2018-09-11 01:23] VITALS: BMI 26.2
--- NOTE | 2018-09-23 15:02 | BI_ITS ---
MAMMOGRAPHY - BILATERAL SCREENING REASON FOR EXAM: Female, 78 years old. Routine annual screening examination. PERTINENT HISTORY: Sister with breast cancer. TECHNIQUE: Digital bilateral breast marisol (3D mammographic acquisition) in the CC and MLO projections. 2-D mediolateral oblique (MLO) and craniocaudad (CC) views of both breasts were obtained. CAD: Full Field Digital Mammography with Computer Added Detection was performed. COMPARISON: Comparison is made with prior study dated July 17, 2017 and July 04, 2016. FINDINGS: Breast Composition: There are scattered areas of fibroglandular density. There are no dominant masses or suspicious calcifications. No other significant abnormalities are identified. There has been no significant change since the prior study. BI/SCREEN MAMM (CAD) W/MARISOL BILAT IMPRESSION: Stable bilateral screening mammogram. Yearly follow-up mammogram recommended. (A) ASSESSMENT CATEGORY: BIRADS Category 1: Negative. A letter regarding these results will be sent to the patient by the facility within 30 days. Approximately 10% of breast cancers are not detected by mammography. A normal mammogram should not delay biopsy of a clinically suspicious abnormality. [id number] Electronically Signed: Ash Pizarro, at 8:26 EDT , Service support ,
[2018-09-23 15:23] LABS: Absolute Lymphocyte Count 1.36 X10^3/ul (0.83-4.51); Absolute Neutrophil Count 2.7 X10^3/uL (2.0-7.7); Basophil# 0.02 X10^3/uL; Basophil% 0.4 % (0-1); Eosinophil# 0.18 X10^3/uL; Eosinophils% 3.8 % (0-5); Hematocrit 36.8 % (37-47); Hemoglobin 12.1 g/dl (12.0-15.0); Lymphocyte # 1.36 X10^3/ul (4.0); Lymphocyte % 28.8 % (19-41); Mean Corp Hgb Conc 32.9 g/gl (32-36); Mean Corpuscular Volume 88.2 fL (81-99); Mean Platelet Vol. 10.4 fl (6.2-12.0); Monocyte# 0.45 X10^3/uL; Monocyte% 9.5 % (0-10); Neutrophil # 2.72 X10^3/uL (2.7-7.7); Neutrophil % 57.5 % (47-70); Platelet Count 160 K/mm3 (150-450); RBC Distribution Width CV 13.4 % (11.6-14.6); Red Blood Count 4.17 M/mm3 (4.2-5.4); White Blood Count 4.7 K/mm3 (4.4-11.0)
--- NOTE | 2018-09-23 15:23 | BD_ITS ---
STUDY: DUAL ENERGY X-RAY ABSORPTIOMETRY / DXA REASON FOR EXAM: Female, 78 years old. The patient is postmenopausal. Loss of height. TECHNIQUE: Bone Mineral Density (BMD) measurements of lumbar spine and bilateral hips were obtained. COMPARISON: Comparison is made with prior study dated June 26, 2015. FINDINGS: Lumbar Spine (L1-L4): g/cm2 (1.095) / T-score (-0.9) / Z-score (0.9) Findings are suggestive of normal bone density with a low fracture risk. Left Femur Total: g/cm2 (0.895) / T-score (-0.9) / Z-score (0.9) Left Femoral Neck: g/cm2 (0.845) / T-score (-1.4) / Z-score (0.6) Right Femur Total: g/cm2 (0.837) / T-score (-1.4) / Z-score (0.5) Right Femoral Neck: g/cm2 (0.793) / T-score (-1.8) / Z-score (0.2) The T-Scores on the most recent prior examination were: Lumbar Spine (L1-L4): There has been worsening of bone density since the previous examination. Left Femur Total: which represents an improvement of 0.6%. Right Femur Total: which represents a worsening of 5.4%. BD/Dexa Bone Density Study IMPRESSION: The patient is considered osteopenic as outlined below according to World [employer] Organization (WHO) criteria with a moderate fracture risk. There has been worsening of bone density since the previous examination. Reference Information: The T-score is the number of standard deviations above or below the standard which is normal for young adults at their peak bone mineral density. The World Health Organization (WHO) interprets the T-scores as follows: Above -1 Normal bone density Between -1 and -2.5 Osteopenia Equal to / or below -2.5 Osteoporosis As a practical clinical guideline, osteopenia may be graded as follows: Mild -1 through -1.5 Moderate -1.6 through -2.0 Severe -2.1 through -2.4 The Z-score is the number of standard deviations above or below age-matched controls. A Z-score of less than -1.5 would be considered abnormal. References: 1. NIH Osteoporosis and Related Bone Diseases http://www.osteo.org 2. International Society for Clinical Densitometry http://www.iscd.org 3. National Osteoporosis Foundation http://www.nof.org Electronically Signed: Ash Pizarro, at 9:54 EDT , Service support ,
[2018-09-23 15:24] LABS: POSITIVE COUNT NO; POSITIVE DIFFERENTIAL NO; POSITIVE MORPHOLOGY NO
[2018-09-23 16:09] LABS: ALB/GLOB Ratio 0.9 RATIO (0.9-2.4); AST(SGOT) 21 U/L (15-37); Alanine Aminotransfer ALT/SGPT 18 U/L (13-56); Albumin, Serum 3.2 g/dL (3.2-5.0); Alkaline Phosphatase 86 U/L (45-117); Anion Gap 6 (5-15); BUN 21 mg/dL (7-18); BUN/Creat Ratio 19.4 RATIO (10-20); Calcium,Total 8.9 mg/dL (8.5-10.1); Chloride 109 mmol/L (98-107); Creatinine, Serum 1.08 mg/dL (0.55-1.02); EST Glomerular Filtration Rate 52 mL/min (>60); Est Glom Filt Rate - Afr Amer 63 mL/min (>60); Globulin 3.4 g/dL (2.2-4.2); Glucose 85 mg/dL (74-106); Potassium 4.3 mmol/L (3.5-5.1); Protein, Total 6.6 g/dL (6.4-8.2); Sodium Level 144 mmol/L (136-145); Thyroid Stim Hormone (TSH) 0.14 uIU/mL (0.358-3.74)
[2018-09-28 16:06] LABS: Thyroglobulin Antibody < 1.0 IU/mL (0.0-0.9)
== END ==
PROVIDERS: Family Provider Internal Medicine; PCP Internal Medicine; Referring Provider Internal Medicine Medical Oncology; Visit Provider Internal Medicine
DX: Z12.31 Encounter for screening mammogram for malignant neoplasm of breast (principal); Z78.0 Asymptomatic menopausal state; Z85.850 Personal history of malignant neoplasm of thyroid; Z80.3 Family history of malignant neoplasm of breast
CPT/HCPCS: 36415; 77063; 77067; 77080; 80053; 84443; 85025; 86800

== ENCOUNTER 2018-10-08 10:15 | Outpatient (RCR) | payer MEDICARE, OTHER, SELFPAY ==
[2018-08-18 14:05] VITALS: BMI 26.2
[2018-09-11 01:23] VITALS: BMI 26.2
[2018-09-24 08:58] VITALS: BP 112/62; BP 134/64
--- NOTE | 2018-09-24 08:58 | CR.ITP_ITS ---
Exercise - 30-day Assessment - Visit Date of Eval: 09/24/18 Session #:: 9 - Stages of Change Stages of Change:: Action - Physician Prescribed Exercise Modalities: Treadmill, Airdyne, NuStep Frequency (days/week): 3 Duration (Minutes):: 30-45 Intensity: 60-80% age predicted maximum heart rate reserve METs - Progression: 0.5-1.0 MET, RPE 11-14 WEEK: 3.1 (patient lacks motivation to increase intensity) Target Heart Rate:: 94-122 w/max HR 83 - Hypertension Resting Blood Pressure:: 112/62 Peak Exercise Blood Pressure:: 134/64 Medication Changes:: No - Intervention Home Exercise/Activity Goal:: Sitting Time <3 hrs/day - Education Goals:: Warm-up, RPE ANA Scale, S/S, Safe Exercise, Self-Monitoring - Exercise Program Goals Exercise Program Goals: Aerobic Activity >30 min Nutrition - Initial Assessment - Program Goals Nutrition Program Goals: LDL <70. Total Cholesterol <200. HDL >45. Triglycerides <150. HgbA1C <7%. BMI <25 - Diabetes Do you monitor your blood sugar at home?: No Nutrition - 30-Day Assessment - Program Goals Nutrition Program Goals: LDL <70. Total Cholesterol <200. HDL >45. Triglyceri tati <150. HgbA1C <7%. BMI <25 - Visit Date of Eval: 09/24/18 - Stages of Change Stages of Change:: Action - Lipids Has the patient seen the dietitian?: No - Diabetes Diabetes:: No - Weight Management Weight:: 139 lb - stable - Intervention Referral to dietitian:: No Referral to Diabetic Clinic:: No Will attend diet classes:: Yes - Education Attended class for:: Healthy eating Tobacco - Initial Assessment - Program Goals Tobacco Program Goals: Complete smoking cessation. Attend education classes. Improve Knowledge Test score - Learning Barriers Learning Barriers: Ready to Learn Tobacco - 30-Day Assessment - Program Goals Tobacco Program Goals: Complete smoking cessation. Attend education classes. Improve Knowledge Test score - Stage of Change Stages of Change:: Action - Learning Barriers Learning Barriers: Participates in education - Family Support Do you have family support?: Yes - Tobacco Use Tobacco Use: Non-smoker Do you use smokeless tobacco?: No - Intervention Education Schedule Given:: Yes - Education Attended class for:: Coronary artery disease, Risk factors, Sexuality, Medical compliance, Cardiac A&P, Angina signs & symptoms Psychosocial - Initial Assess - Target Goals Target Goals: Assess presence or absence of depression. Using a valid screening tool, maximizes coping skills. Positive support system - Psychosocial Test Tool Used:: HANDS Depression Questionnaire - Assistive Devices Fall Risk Assessed:: Yes Psychosocial - 30-Day Assess - Target Goals Target Goals: Assess presence or absence of depression. Using a valid screening tool, maximizes coping skills. Positive support system - Stages of Change Stages of Change:: Action - Psychosocial Test Tool Used:: HANDS Depression Questionnaire - Intervention PS - Interventions: Yes Attend Stress Management Classes, No Referral to Mental Health, No Referral to [facility] Case Management, No Referral to Physician, No Uses Stress Management Skills - Education Attended classes for:: Coping techniques, Signs & symptoms of depression, Stress management, Relaxation techniques - Patient/Program Goal Preventative Medication(s):: Aspirin, Clopidogrel, Beta nury, Statin/lipid - Assistive Devices Assistive Devices:: None Fall Risk Assessed:: Yes Patient Health Questionnaire 30-Day Re-eval Assessment 1. Little interest or pleasure in doing things: Not at all 2. Feeling down, depressed, or hopeless: Not at all 3. Trouble falling or staying asleep, or sleeping too much: More than half the days 4. Feeling tired or having little energy: Nearly every day 5. Poor appetite or overeating: Not at all 6. Feeling bad about yourself -- or that you are a failure or have let yourself or your family down: Not at all 7. Trouble concentrating on things, such as reading the newspaper or watching television: Several days 8. Moving or speaking so slowly that other people could have noticed. Or the opposite - being so fidgety or restless that you have been moving around a lot more than usual: Several days 9. Thoughts that you would be better off , or of hurting yourself in some way: Not at all How difficult have these problems made it for you to do your work, take care of things at home, or get along with other people?: Somewhat difficult Total Score: 7 Self-Efficacy 30-Day Re-eval Assessment We would like to know how confident you are in doing certain activities. Please select your confidence level for:: Select your confidence level for the following using the scale 1-10 where 1 is not at all confident and 10 is totally confident. Your score is the average of all 6 responses. Fatigue: How confident are you that you can keep the fatigue caused by your disease from interfering with the things you want to do? Select Number: 2 Physical Discomfort or Pain: How confident are you that you can keep the physical discomfort or pain of your disease from interfering with the things you want to do? Select Number: 2 Emotional Distress: How confident are you that you can keep the emotional distress caused by your disease from interfering with the things you want to do? Select Number: 5 Other Symptoms or Health Problems: How confident are you that you can keep other symptoms or health problems from interfering with the things you want to do? Select Number: 4 Different Tasks and Activities: How confident are you that you can do the different tasks and activities needed to manage your health condition so as to reduce your need to see a doctor? Select Number: 5 Medication: How confident are you that you can do things other than just taking medication to reduce how much your illness affects your everyday life? Select Number: 5 Total Score:: 3
== END 2018-10-10 23:59 ==
LOC: CR 10:15
PROVIDERS: Family Provider Internal Medicine; PCP Internal Medicine; Referring Provider Internal Medicine Cardiovascular Disease; Visit Provider Internal Medicine Cardiovascular Disease
DX: I25.10 Atherosclerotic heart disease of native coronary artery without angina pectoris (principal); Z95.5 Presence of coronary angioplasty implant and graft
CPT/HCPCS: 93798

== ENCOUNTER → 2018-10-11 13:09 | Outpatient (CLI) | payer MEDICARE, OTHER, SELFPAY ==
[2018-08-18 14:05] VITALS: BMI 26.2
[2018-09-29 14:41] VITALS: BMI 26.2
--- NOTE | 2018-10-11 13:10 | CT_ITS ---
STUDY: CT SOFT TISSUE NECK WITH CONTRAST REASON FOR EXAM: Female, 78 years old. History of thyroid cancer and hypertension. Surgery x 2 with lymph node removal. RADIATION DOSAGE (If Supplied By Facility): CTDIvol = ( 12.67 ) mGy, DLP = ( 325.83 ) mGycm TECHNIQUE: The patient was scanned in a multi-detector CT scanner. High resolution transaxial imaging was performed following intravenous administration of 75mL IV Isovue 300. Sagittal and coronal images were reconstructed. Individualized dose optimization techniques were used for this CT. COMPARISON: CT soft tissues of the neck March 16, 2017. FINDINGS: Normal bilateral parotid glands. Normal bilateral [employer] spaces. Normal bilateral parapharyngeal spaces. There is mixed calcified and noncalcified atherosclerotic plaque along the posterior wall of the right carotid bulb as well as at the proximal left subclavian artery without significant stenosis. Normal bilateral sublingual and submandibular glands and spaces. Normal visualized nasopharynx. Normal retropharyngeal space. Normal perivertebral space. Normal visualized bilateral faucial tonsils. The visualized tongue, tongue base and oropharynx are normal. The visualized cervical lymph nodes (levels I-) are within normal size limits, and maintain normal morphology. There is no demonstrated solid or cystic mass lesion. There is no abnormal contrast enhancement. Normal epiglottis, bilateral vallecula and hypopharynx. The pre-epiglottic and paraglottic adipose spaces are normal. Normal visualized bilateral piriform sinuses, aryepiglottic folds, vocal cords, and arytenoid-cricoid articulations. Normal subglottic trachea. The thyroid gland is surgically absent. Normal visualized pulmonary apices. Normal visualized paranasal sinuses. Incidental note of cathy bullosa of the left middle turbinate. There is stable multilevel degenerative changes of the cervical spine. CT/Soft Tissue Neck WITH Contrast IMPRESSION: 1. Prior thyroidectomy. No new mass or adenopathy of the soft tissues of the neck. 2. Stable mixed calcified and noncalcified atherosclerotic plaque at the right carotid bulb without hemodynamically significant stenosis. Electronically Signed: Eduardo Martinez MD at 13:50 EDT , Service support ,
== END ==
PROVIDERS: Family Provider Internal Medicine; PCP Internal Medicine; Referring Provider Internal Medicine Medical Oncology; Visit Provider Internal Medicine Medical Oncology
DX: Z85.850 Personal history of malignant neoplasm of thyroid (principal)
CPT/HCPCS: 70491; Q9967

== ENCOUNTER → 2018-10-19 08:46 | Outpatient (CLI) | payer MEDICARE, OTHER, SELFPAY ==
[2018-08-18 14:05] VITALS: BMI 26.2
[2018-09-29 14:41] VITALS: BMI 26.2
[2018-10-19 09:32] LABS: AST(SGOT) 18 U/L (15-37); Alanine Aminotransfer ALT/SGPT 16 U/L (13-56); Albumin, Serum 3.5 g/dL (3.2-5.0); Alkaline Phosphatase 88 U/L (45-117); Bilirubin, Direct 0.11 mg/dL (0.00-0.30); Cholesterol 155 mg/dL (200); Globulin 3.5 g/dL (2.2-4.2); High Density Lipoprotein 65 mg/dL; Triglycerides 77 mg/dL; Very Low Density Lipoprotein 15 mg/dL (5-40)
== END ==
PROVIDERS: Family Provider Internal Medicine; PCP Internal Medicine; Referring Provider Internal Medicine Cardiovascular Disease; Visit Provider Internal Medicine Cardiovascular Disease
DX: E78.5 Hyperlipidemia, unspecified (principal); I25.10 Atherosclerotic heart disease of native coronary artery without angina pectoris; Z79.899 Other long term (current) drug therapy
CPT/HCPCS: 36415; 80061; 80076

== ENCOUNTER 2018-11-10 10:15 | Outpatient (RCR) | payer MEDICARE, OTHER, SELFPAY ==
[2018-08-18 14:05] VITALS: BMI 26.2
[2018-09-29 14:41] VITALS: BMI 26.2
[2018-10-11 00:55] VITALS: BP 112/62; BP 134/64
--- NOTE | 2018-10-25 07:09 | PCM.CR.ITP ---
Exercise - 60-Day Assessment - Visit Date of Eval: 10/25/18 Session #:: 21 - Stages of Change Stages of Change:: Action - Physician Prescribed Exercise Modalities: Treadmill, Airdyne, NuStep Frequency (days/week): 3 Duration (Minutes):: 30-45 Intensity: 60-80% age predicted maximum heart rate reserve METs - Progression: 0.5-1.0 MET, RPE 11-14 WEEK: 3.9 Target Heart Rate:: 94-122 - Hypertension Resting Blood Pressure:: 120/74 Peak Exercise Blood Pressure:: 136/64 Medication Changes:: No - Intervention Home Exercise/Activity Goal:: Moderate Exercise 30 min/day x 5 days/wk - Education Goals:: Warm-up, RPE ANA Scale, S/S, Safe Exercise, Self-Monitoring - Exercise Program Goals Exercise Program Goals: Aerobic Activity >30 min Nutrition - Initial Assessment - Program Goals Nutrition Program Goals: LDL <70. Total Cholesterol <200. HDL >45. Triglycerides <150. HgbA1C <7%. BMI <25 - Diabetes Do you monitor your blood sugar at home?: No Nutrition - 60-Day Assessment - Program Goals Nutrition Program Goals: LDL <70. Total Cholesterol <200. HDL >45. Triglycerides <150. HgbA1C <7%. BMI <25 - Visit Date of Eval: 10/25/18 - Stages of Change Stages of Change:: Action - Lipids Has the patient seen the dietitian?: No - Diabetes Diabetes:: No - Weight Management Weight:: 138 lb 8 oz - stable +/- 1-2 pounds - Intervention Referral to dietitian:: No Referral to Diabetic Clinic:: No Will attend diet classes:: Yes - Education Attended class for:: Healthy eating Tobacco - Initial Assessment - Program Goals Tobacco Program Goals: Complete smoking cessation. Attend education classes. Improve Knowledge Test score - Learning Barriers Learning Barriers: Ready to Learn Tobacco - 60-Day Assessment - Program Goals Tobacco Program Goals: Complete smoking cessation. Attend education classes. Improve Knowledge Test score - Stage of Change Stages of Change:: Action - Learning Barriers Learning Barriers: Participates in education - Family Support Do you have family support?: Yes - Tobacco Use Tobacco Use: Non-smoker Do you use smokeless tobacco?: No - Intervention Smoking Cessation Referral:: No Education Schedule Given:: Yes - Education Attended class for:: Treating Heart Disease, How The Heart Works, What it means to have Heart Disease, How Coronary Artery Disease is Diagnosed, Heart Procedures, What Heart Medications Do, Risk Factors & Modifications, Living an Active Life, Nutrition, Emotions & Heart Disease, Stress Management & Relaxation, Sleep Disorders & Heart Disease Psychosocial - Initial Assess - Target Goals Target Goals: Assess presence or absence of depression. Using a valid screening tool, maximizes coping skills. Positive support system - Psychosocial Test Tool Used:: HANDS Depression Questionnaire - Assistive Devices Fall Risk Assessed:: Yes Psychosocial - 60-Day Assess - Target Goals Target Goals: Assess presence or absence of depression. Using a valid screening tool, maximizes coping skills. Positive support system - Stages of Change Stages of Change:: Action - Psychosocial Test Tool Used:: HANDS Depression Questionnaire - Intervention PS - Interventions: Yes Attend Stress Management Classes, Yes Uses Stress Management Skills, No Referral to Mental Health, No Referral to [facility] Case Management, No Referral to Physician - Education Attended classes for:: Coping techniques, Signs & symptoms of depression, Stress management, Relaxation techniques - Patient/Program Goal Preventative Medication(s):: Aspirin, DOMINGO inhibitor, Clopidogrel, Beta nury, Statin/lipid - Assistive Devices Assistive Devices:: None Fall Risk Assessed:: Yes Patient Health Questionnaire 60-Day Re-eval Assessment 1. Little interest or pleasure in doing things: Not at all 2. Feeling down, depressed, or hopeless: Not at all 3. Trouble falling or staying asleep, or sleeping too much: Several days 4. Feeling tired or having little energy: Not at all 5. Poor appetite or overeating: Not at all 6. Feeling bad about yourself -- or that you are a failure or have let yourself or your family down: Not at all 7. Trouble concentrating on things, such as reading the newspaper or watching television: Not at all 8. Moving or speaking so slowly that other people could have noticed. Or the opposite - being so fidgety or restless that you have been moving around a lot more than usual: Not at all 9. Thoughts that you would be better off , or of hurting yourself in some way: Not at all How difficult have these problems made it for you to do your work, take care of things at home, or get along with other people?: Not difficult at all Total Score: 1 Self-Efficacy 60-Day Re-eval Assessment We would like to know how confident you are in doing certain activities. Please select your confidence level for:: Select your confidence level for the following using the scale 1-10 where 1 is not at all confident and 10 is totally confident. Your score is the average of all 6 responses. Fatigue: How confident are you that you can keep the fatigue caused by your disease from interfering with the things you want to do? Select Number: 3 Physical Discomfort or Pain: How confident are you that you can keep the physical discomfort or pain of your disease from interfering with the things you want to do? Select Number: 3 Emotional Distress: How confident are you that you can keep the emotional distress caused by your disease from interfering with the things you want to do? Select Number: 3 Other Symptoms or Health Problems: How confident are you that you can keep other symptoms or health problems from interfering with the things you want to do? Select Number: 5 Different Tasks and Activities: How confident are you that you can do the different tasks and activities needed to manage your health condition so as to reduce your need to see a doctor? Select Number: 6 Medication: How confident are you that you can do things other than just taking medication to reduce how much your illness affects your everyday life? Select Number: 6 Total Score:: 4
[2018-10-25 07:13] VITALS: BP 120/74; BP 136/64
== END 2018-11-10 23:59 ==
LOC: CR 10:15
PROVIDERS: Family Provider Internal Medicine; PCP Internal Medicine; Referring Provider Internal Medicine Cardiovascular Disease; Visit Provider Internal Medicine Cardiovascular Disease
DX: I25.10 Atherosclerotic heart disease of native coronary artery without angina pectoris (principal); Z95.5 Presence of coronary angioplasty implant and graft
CPT/HCPCS: 93798

== ENCOUNTER 2018-11-26 13:00 | Outpatient (RCR) | payer MEDICARE, OTHER, SELFPAY ==
[2018-08-18 14:05] VITALS: BMI 26.2
[2018-10-26 13:13] VITALS: BMI 26.2
[2018-11-11 00:53] VITALS: BP 120/74; BP 136/64
--- NOTE | 2018-11-24 07:27 | PCM.CR.ITP ---
General Information - General Information Admitting Diagnosis: PCI With Stent - Education/Goals Barriers to Learning: None Cardiac Rehabilitation Goals: 1. Maintain the individual as the primary focus of care. 2. To improve the patient's quality of life. 3. Identification of cardiac risk factors and provide cardiac risk factor management. 4. Enhance the psychosocial status of the patient. 5. Reconditioning enough to allow the patient to resume customary activities. 6. Control symptoms of cardiac disease Scale for measuring improvement of personal goals: Enter appropriate number in Comments. 2 = Unchanged. 3 = Slightly Better. 4 = Moderate Improvement. 5 = Met my Goal Exercise - 90-Day Assessment - Visit Date of Eval: 11/24/18 Session #:: 35 - Stages of Change Stages of Change:: Action - Physician Prescribed Exercise Modalities: Treadmill, NuStep, SciFit Frequency (days/week): 3 Duration (Minutes):: 30-45 Intensity: 60-80% age predicted maximum heart rate reserve METs - Progression: 0.5-1.0 MET, RPE 11-14 WEEK: 3.9 Target Heart Rate:: 94-122 Max HR 91 - Hypertension Resting Blood Pressure:: 108/62 Peak Exercise Blood Pressure:: 144/70 - Education Goals:: Warm-up, RPE ANA Scale, S/S, Safe Exercise, Self-Monitoring - Exercise Program Goals Exercise Program Goals: Aerobic Activity >30 min, B/P <130/80 Nutrition - Initial Assessment - Program Goals Nutrition Program Goals: LDL <70. Total Cholesterol <200. HDL >45. Triglycerides <150. HgbA1C <7%. BMI <25 - Diabetes Do you monitor your blood sugar at home?: No Nutrition - 90-Day Assessment - Program Goals Nutrition Program Goals: LDL <70. Total Cholesterol <200. HDL >45. Triglycerides <150. HgbA1C <7%. BMI <25 - Visit Date of Eval: 11/24/18 - Stages of Change Stages of Change:: Action - Weight Management Weight:: 63.276 kg - Intervention Referral to dietitian:: No Referral to Diabetic Clinic:: No Will attend diet classes:: Yes - Education Attended class for:: Signs & symptoms of hypoglycemia, Signs & symptoms of hyperglycemia, Relate diabetes to coronary artery disease, Healthy eating Tobacco - Initial Assessment - Program Goals Tobacco Program Goals: Complete smoking cessation. Attend education classes. Improve Knowledge Test score - Learning Barriers Learning Barriers: Ready to Learn Tobacco - 90-Day Assessment - Program Goals Tobacco Program Goals: Complete smoking cessation. Attend education classes. Improve Knowledge Test score - Stage of Change Stages of Change:: Action - Learning Barriers Learning Barriers: Participates in education - Tobacco Use Tobacco Use: Non-smoker Do you use smokeless tobacco?: No - Intervention Smoking Cessation Referral:: No Individual Education/Counseling:: No Education Schedule Given:: Yes - Education Attended class for:: Treating Heart Disease, How The Heart Works, What it means to have Heart Disease, How Coronary Artery Disease is Diagnosed, Heart Procedures, What Heart Medications Do, Risk Factors & Modifications, Living an Active Life, Nutrition, Emotions & Heart Disease, Stress Management & Relaxation, Sleep Disorders & Heart Disease Psychosocial - Initial Assess - Target Goals Target Goals: Assess presence or absence of depression. Using a valid screening tool, maximizes coping skills. Positive support system - Psychosocial Test Tool Used:: HANDS Depression Questionnaire - Assistive Devices Fall Risk Assessed:: Yes Psychosocial - 90-Day Assess - Target Goals Target Goals: Assess presence or absence of depression. Using a valid screening tool, maximizes coping skills. Positive support system - Stages of Change Stages of Change:: Action - Psychosocial Test Tool Used:: HANDS Depression Questionnaire - Intervention PS - Interventions: Yes Attend Stress Management Classes, Yes Uses Stress Management Skills, No Referral to Mental Health, No Referral to [facility] Case Management, No Referral to Physician - Education Attended classes for:: Coping techniques, Signs & symptoms of depression, Stress management, Relaxation techniques - Assistive Devices Assistive Devices:: None Fall Risk Assessed:: Yes Patient Health Questionnaire 90-Day Re-eval Assessment 1. Little interest or pleasure in doing things: Not at all 2. Feeling down, depressed, or hopeless: Not at all 3. Trouble falling or staying asleep, or sleeping too much: Several days 4. Feeling tired or having little energy: Not at all 5. Poor appetite or overeating: Not at all 6. Feeling bad about yourself -- or that you are a failure or have let yourself or your family down: Not at all 7. Trouble concentrating on things, such as reading the newspaper or watching television: Not at all 8. Moving or speaking so slowly that other people could have noticed. Or the opposite - being so fidgety or restless that you have been moving around a lot more than usual: Not at all 9. Thoughts that you would be better off , or of hurting yourself in some way: Not at all How difficult have these problems made it for you to do your work, take care of things at home, or get along with other people?: Not difficult at all Total Score: 1 Self-Efficacy 90-Day Re-eval Assessment We would like to know how confident you are in doing certain activities. Please select your confidence level for:: Select your confidence level for the following using the scale 1-10 where 1 is not at all confident and 10 is totally confident. Your score is the average of all 6 responses. Fatigue: How confident are you that you can keep the fatigue caused by your disease from interfering with the things you want to do? Select Number: 4 Physical Discomfort or Pain: How confident are you that you can keep the physical discomfort or pain of your disease from interfering with the things you want to do? Select Number: 4 Emotional Distress: How confident are you that you can keep the emotional distress caused by your disease from interfering with the things you want to do? Select Number: 4 Other Symptoms or Health Problems: How confident are you that you can keep other symptoms or health problems from interfering with the things you want to do? Select Number: 5 Different Tasks and Activities: How confident are you that you can do the different tasks and activities needed to manage your health condition so as to reduce your need to see a doctor? Medication: How confident are you that you can do things other than just taking medication to reduce how much your illness affects your everyday life? Select Number: 6
[2018-11-24 07:31] VITALS: BP 108/62; BP 144/70
== END 2018-12-11 23:59 ==
LOC: CR 13:00
PROVIDERS: Family Provider Internal Medicine; PCP Internal Medicine; Referring Provider Internal Medicine Cardiovascular Disease; Visit Provider Internal Medicine Cardiovascular Disease
DX: I25.10 Atherosclerotic heart disease of native coronary artery without angina pectoris (principal); Z95.5 Presence of coronary angioplasty implant and graft
CPT/HCPCS: 93798

== ENCOUNTER → 2019-01-17 14:59 | Outpatient (CLI) | payer MEDICARE, OTHER, SELFPAY ==
[2018-08-18 14:05] VITALS: BMI 26.2
[2019-01-17 14:35] VITALS: BMI 26.2
--- NOTE | 2019-01-17 15:02 | EKG12_ITS ---
Test Reason : PREPROCEDURE Blood Pressure : / mmHG Vent. Rate : 062 BPM Atrial Rate : 062 BPM P-R Int : 148 ms QRS Dur : 088 ms QT Int : 444 ms P-R-T Axes : 082 036 055 degrees QTc Int : 450 ms Sinus rhythm with occasional Premature ventricular complexes and Possible Premature atrial complexes with Aberrant conduction Otherwise normal ECG Confirmed by DANELLE KRAMER, CARMINE ([id number]), sound editor IMELDA VILLEGAS ([id number]) on 01/19/2019 2:29:40 PM Referred By: Jose Cannon Confirmed By:CARMINE MCCLENDON MD
== END ==
PROVIDERS: Family Provider Internal Medicine; PCP Internal Medicine; Referring Provider Internal Medicine Cardiovascular Disease; Visit Provider Internal Medicine Cardiovascular Disease
DX: I25.10 Atherosclerotic heart disease of native coronary artery without angina pectoris (principal); R07.9 Chest pain, unspecified; Z95.5 Presence of coronary angioplasty implant and graft
CPT/HCPCS: 93005

== ENCOUNTER → 2019-01-26 10:54 | Outpatient (CLI) | payer MEDICARE, OTHER, SELFPAY ==
[2018-08-18 14:05] VITALS: BMI 26.2
[2019-01-17 14:23] VITALS: BMI 26.2
[2019-01-17 14:35] VITALS: BMI 26.2
--- NOTE | 2019-01-26 10:56 | ECHOD_ITS ---
Reason For Study: CP Procedure This was a 2D Doppler, Color Flow transthoracic echocardiogram. Exam performed in department. Left Ventricle Normal size and thickness. The estimated ejection fraction is 65 %. Stage 2 diastolic dysfunction. No regional wall motion abnormalities noted. Right Ventricle Normal size and thickness. Normal systolic function. Atria Normal left atrium. Normal right atrium. Normal atrial septum. Mitral Valve Mild diffuse mitral valve thickening. Mild (1+) mitral valve insufficiency. Tricuspid Valve Normal tricuspid valve. Mild (1+) tricuspid valve insufficiency. Right ventricular systolic pressure estimated to be 37 mmHg. Aortic Valve Trisinus/trileaflet aortic valve. Mild (1+) aortic valve insufficiency. Pulmonic Valve Normal pulmonic valve. Great Vessels Normal aortic root. Normal arch. Normal inferior vena cava. Inferior vena cava collapse with sniff. Pericardium/Pleural No pericardial effusion. MMode/2D Measurements & Calculations LVIDd: 4.1 cm IVSd: 1.0 cm LA dimension: 3.4 cm LVIDs: 2.3 cm LVPWd: 0.77 cm RVDd: 3.5 cm FS: 43.0 % LAV(MOD-bp): 45.0 ml LA A4 area: 16.2 cm2 RA A4 area: 11.7 cm2 LAV(MOD-bp) Indexed: 27.6 ml/m2 LAV(MOD-sp2): 44.3 ml LAV(MOD-sp4): 41.3 ml Time Measurements MV dec time: 0.17 sec Doppler Measurements & Calculations MV E max anoop: 90.1 cm/sec Lat Peak E' Anoop: 8.3 cm/sec Med Peak E' Anoop: 7.2 cm/sec MV A max anoop: 71.2 cm/sec E/E' lat: 10.9 E/E' med: 12.6 MV E/A: 1.3 MV V2 max: 83.6 cm/sec MV P1/2t max anoop: 83.6 cm/sec Ao V2 max: 144.9 cm/sec MV max P.8 mmHg MV P1/2t: 77.3 msec Ao max P.4 mmHg MV V2 mean: 40.0 cm/sec MV dec slope: 316.8 cm/sec2 Ao V2 mean: 93.0 cm/sec MV mean P.82 mmHg MVA(P1/2t): 2.8 cm2 Ao mean P.0 mmHg MV V2 VTI: 27.2 cm Ao V2 VTI: 31.3 cm AI max anoop: 501.8 cm/sec LV V1 max: 93.8 cm/sec MR max anoop: 491.1 cm/sec AI max P.7 mmHg LV V1 max P.5 mmHg MR max P.5 mmHg LV V1 mean P.7 mmHg MR mean anoop: 379.1 cm/sec AI dec slope: 207.9 cm/sec2 LV V1 mean: 60.1 cm/sec MR mean P.9 mmHg AI P1/2t: 706.9 msec LV V1 VTI: 21.3 cm MR VTI: 189.6 cm PA V2 max: 75.1 cm/sec PI end-d anoop: 91.5 cm/sec TR max anoop: 282.7 cm/sec TR max P.0 mmHg Interpretation Summary The estimated ejection fraction is 65 %. Stage 2 diastolic dysfunction. Mild (1+) mitral valve insufficiency. Mild (1+) tricuspid valve insufficiency. Right ventricular systolic pressure estimated to be 37 mmHg. Mild (1+) aortic valve insufficiency. Compared to echo report dated 09/13/2016, no appreciable changes noted. Ordering Physician: Jose Cannon Referring Physician: Jose Cannon Performed By: Phan Pacheco RCS
== END ==
PROVIDERS: Family Provider Internal Medicine; PCP Internal Medicine; Referring Provider Internal Medicine Cardiovascular Disease; Visit Provider Internal Medicine Cardiovascular Disease
DX: R07.9 Chest pain, unspecified (principal); I25.10 Atherosclerotic heart disease of native coronary artery without angina pectoris; Z95.5 Presence of coronary angioplasty implant and graft
CPT/HCPCS: 93306

== ENCOUNTER → 2019-01-28 13:26 | Outpatient (CLI) | payer MEDICARE, OTHER, SELFPAY ==
[2018-08-18 14:05] VITALS: BMI 26.2
[2019-01-17 14:23] VITALS: BMI 26.2
[2019-01-17 14:35] VITALS: BMI 26.2
--- NOTE | 2019-01-28 13:29 | STE_ITS ---
Reason For Study: CHEST PAIN Stress Results Protocol: Stress Echocardiogram Maximum Predicted HR: 144 bpm Target HR: 122 bpm % Maximum Predicted HR: 90 % DurationHeart Rate Stage (mm:ss) (bpm) BP Comment BASELINE 66 112/78 MODBRUCE- STAGE 1 3:00 97 124/74NO CP OR SOB MODBRUCE- STAGE 2 3:00 100 130/72SL SOB MODBRUCE- STAGE 3 3:00 114 124/64SOB, NO CP MODBRUCE- STAGE 4 1:27 130 / SOB, NO CP RECOVERY 75 122/84DENIES COMPLAINT Stress Duration: 10:27 mm:ss Maximum Stress HR: 130 bpm Baseline Echocardiogram Findings The estimated ejection fraction is 65 %. Stress Echo Wall motion Data Resting WM Intermediate WM Stress WM Wall Motion Stress No regional wall motion abnormalities noted. EKG Data The baseline ECG displays normal sinus rhythm. During stress, there were no ST or T wave changes noted to suggest ischemia. No clinical angina was noted. Interpretation Summary The estimated ejection fraction is 65 %. Normal, adequate, modified Celestine treadmill echocardiogram. Negative for ischemia by EKG and echocardiographic criteria. No anginal symptoms noted. Rare PVC during recovery. Appropriate blood pressure response to exercise. Average exercise capacity for age. Final LVEF is 75%. Test terminated due to the attainment of target heart rate and dyspnea. No complications. Ordering Physician: Jose Cannon Referring Physician: Jose Cannon Performed By: Larisa Archer, ZENY, RVT
== END ==
PROVIDERS: Family Provider Internal Medicine; PCP Internal Medicine; Referring Provider Internal Medicine Cardiovascular Disease; Visit Provider Internal Medicine Cardiovascular Disease
DX: I25.10 Atherosclerotic heart disease of native coronary artery without angina pectoris (principal); R07.9 Chest pain, unspecified; I47.1 Supraventricular tachycardia; I10 Essential (primary) hypertension; E78.5 Hyperlipidemia, unspecified; Z95.5 Presence of coronary angioplasty implant and graft
CPT/HCPCS: 93017; 93350

== ENCOUNTER → 2019-02-02 12:43 | Outpatient (CLI) | payer MEDICARE, OTHER, SELFPAY ==
[2018-08-18 14:05] VITALS: BMI 26.2
[2019-01-17 14:35] VITALS: BMI 26.2
--- NOTE | 2019-02-02 12:45 | CDU_ITS ---
Reason For Study: Syncope Rt. Velocities/BP Lt. Velocities/BP Prox CCA 70/11 cm/sec. Prox CCA 74/14 cm/sec. Mid CCA 57/10 cm/sec. Mid CCA 72/14 cm/sec. Dist CCA 41/10 cm/sec. Dist CCA 77/17 cm/sec. Prox ICA 81/11 cm/sec. Prox ICA 69/13 cm/sec. Mid ICA 109/22 cm/sec. Mid ICA 69/15 cm/sec. Dist ICA 103/20 cm/sec. Dist ICA 81/23 cm/sec. Rt. ICA/CCA = 1.9. Lt. ICA/CCA = 1.1. Prox ECA 177/15 cm/sec. Prox ECA 72/6 cm/sec. Rt. Vert. 47/7 cm/sec. Lt. Vert. 46/10 cm/sec. Right Extracranial There is heterogeneous, irregular atherosclerotic plaque noted in the right common carotid artery. There is heterogeneous, smooth atherosclerotic plaque noted in the right internal carotid artery. There is heterogeneous, irregular atherosclerotic plaque noted in the right external carotid artery. Antegrade flow is noted in the right vertebral artery. Left Extracranial There is heterogeneous, irregular atherosclerotic plaque noted in the left common carotid artery. There is intimal thickening but no significant atherosclerotic plaque noted in the left internal carotid artery. There is no significant atherosclerotic plaque noted in the left external carotid artery. Antegrade flow is noted in the left vertebral artery. Procedure Carotid Duplex 12533. Exam performed in department. Interpretation Summary Irregular calcific plague right carotid bulb, proximal internal and external carotid arteries. <50% stenosis right internal carotid <50% stenosis right external carotid No significant plague left internal or external carotid arteries. <50% stenosis left internal carotid <50% stenosis left external carotid Patent and antegrade vertebrals bilaterally No significant change since 07/19/18 other than no significant velocity elevation right internal carotid . Ordering Physician: Henrry Aguilar Referring Physician: Geeta Cruz Performed By: Eugenia Hills RDCS, RVT
== END ==
PROVIDERS: Family Provider Internal Medicine; PCP Internal Medicine; Referring Provider Psychiatry & Neurology Neurology; Visit Provider Psychiatry & Neurology Neurology
DX: R55 Syncope and collapse (principal)
CPT/HCPCS: 93880

== ENCOUNTER → 2019-09-26 11:25 | Outpatient (CLI) | payer MEDICARE, OTHER, SELFPAY ==
[2018-08-18 14:05] VITALS: BMI 26.2
[2019-01-17 14:35] VITALS: BMI 26.2
--- NOTE | 2019-09-26 11:28 | BI_ITS ---
MAMMOGRAPHY - BILATERAL SCREENING REASON FOR EXAM: Female, 79 years old. Routine annual screening examination. PERTINENT HISTORY: Sister with breast cancer. TECHNIQUE: Digital bilateral breast marisol (3D mammographic acquisition) in the CC and MLO projections. 2-D mediolateral oblique (MLO) and craniocaudad (CC) views of both breasts were obtained. CAD: Full Field Digital Mammography with Computer Added Detection was performed. COMPARISON: Comparison is made with prior examination dated 05/26/2018 and July 17, 2017. FINDINGS: Breast Composition: There are scattered areas of fibroglandular density. There are no dominant masses or suspicious calcifications. Stable macrocalcifications in the central portion of the left breast. No other significant abnormalities are identified. There has been no significant change since the prior study. BI/SCREEN MAMM (CAD) W/MARISOL BILAT IMPRESSION: Stable bilateral screening mammogram. Yearly follow-up mammogram recommended. (A) ASSESSMENT CATEGORY: BIRADS Category 2: Benign. A letter regarding these results will be sent to the patient by the facility within 30 days. Approximately 10% of breast cancers are not detected by mammography. A normal mammogram should not delay biopsy of a clinically suspicious abnormality. [id number] Electronically Signed: Ash Pizarro, at 12:28 EDT , Service support ,
== END ==
PROVIDERS: PCP Internal Medicine; Referring Provider Internal Medicine; Visit Provider Internal Medicine
DX: Z12.31 Encounter for screening mammogram for malignant neoplasm of breast (principal); Z78.0 Asymptomatic menopausal state
CPT/HCPCS: 77063; 77067

== ENCOUNTER → 2019-11-18 09:09 | Outpatient (CLI) | payer MEDICARE, OTHER, SELFPAY ==
[2018-08-18 14:05] VITALS: BMI 26.2
[2019-11-10 10:35] VITALS: BMI 26.9
[2019-11-18 10:38] LABS: AST(SGOT) 18 U/L (15-37); Alanine Aminotransfer ALT/SGPT 17 U/L (13-56); Albumin, Serum 3.7 g/dL (3.2-5.0); Alkaline Phosphatase 88 U/L (45-117); Bilirubin, Direct 0.16 mg/dL (0.00-0.30); Cholesterol 153 mg/dL (200); Globulin 3.3 g/dL (2.2-4.2); High Density Lipoprotein 58 mg/dL; Triglycerides 91 mg/dL; Very Low Density Lipoprotein 18 mg/dL (5-40)
== END ==
PROVIDERS: PCP Internal Medicine; Visit Provider Internal Medicine Cardiovascular Disease
DX: I25.10 Atherosclerotic heart disease of native coronary artery without angina pectoris (principal); E78.5 Hyperlipidemia, unspecified
CPT/HCPCS: 36415; 80061; 80076

== ENCOUNTER → 2019-11-21 10:50 | Outpatient (CLI) | payer MEDICARE, OTHER, SELFPAY ==
[2018-08-18 14:05] VITALS: BMI 26.2
[2019-11-10 10:35] VITALS: BMI 26.9
--- NOTE | 2019-11-21 10:51 | ART_ITS ---
Reason For Study: Claudication Procedure A bilateral lower extremity continuous wave Doppler with analog waveform analysis,segmental pressures,and ankle brachial indexes with exercise. Left Segmental Pressures Left brachial= 134mmHg. Left posterior tibial artery = 138mmHg. Left dorsalis pedis artery = 145mmHg. Left digit = 68 mmHg. The left dorsalis pedis waveforms are biphasic. The left posterior tibial artery waveforms are biphasic. Right Segmental Pressures Right brachial= 140mmHg. Right posterior tibial artery = 137mmHg. Right dorsalis pedis artery = 142mmHg. Right digit = 83 mmHg. The right dorsalis pedis waveforms are biphasic. The right posterior tibial artery waveforms are biphasic. Indices The right ankle brachial index by the dorsalis pedis is 1.01. The right ankle brachial index by the posterior tibial artery is 0.98. The right digital-brachial index is 0.59. The right post exercise ankle brachial index is 0.55. The left ankle brachial index by the dorsalis pedis is 1.04. The left ankle brachial index by the posterior tibial artery is 0.99. The left digital-brachial index is 0.49. The left post exercise ankle brachial index is 0.82. Interpretation Summary Normal resting bilateral lower extremity ankle-brachial indices however bilateral dorsalis pedis and posterior tibialis Doppler waveforms are only biphasic suspicious for moderately severe occlusive disease Digital brachial indices are abnormal Exercise indices are abnormal bilaterally more significantly on the right than the left with recovery on the left by 7 minutes and incomplete recovery of the right by 9 minutes Ordering Physician: Jose Cannon Referring Physician: Geeta Cruz M.D. Performed By: Marialuisa Nogueira RVT and Student
== END ==
PROVIDERS: PCP Internal Medicine; Referring Provider Internal Medicine Cardiovascular Disease; Visit Provider Internal Medicine Cardiovascular Disease
DX: I73.9 Peripheral vascular disease, unspecified (principal); M79.605 Pain in left leg; I25.10 Atherosclerotic heart disease of native coronary artery without angina pectoris; Z95.5 Presence of coronary angioplasty implant and graft; Z86.73 Personal history of transient ischemic attack (TIA), and cerebral infarction without residual deficits; E78.5 Hyperlipidemia, unspecified
CPT/HCPCS: 93924

== ENCOUNTER → 2020-01-06 09:13 | Outpatient (CLI) | payer MEDICARE, OTHER, SELFPAY ==
[2018-08-18 14:05] VITALS: BMI 26.2
[2019-11-10 10:35] VITALS: BMI 26.9
[2020-01-06 10:31] LABS: Glucose 75GTT - 30 minutes 129 mg/dL (100-160)
[2020-01-06 10:32] LABS: Glucose 75GTT - Fasting 87 mg/dL (70-99)
[2020-01-06 10:38] LABS: Vitamin B12 317 pg/mL (211-911)
[2020-01-06 10:50] LABS: CRP 4.24 mg/L (0.0-3.0); Thyroid Stim Hormone (TSH) 1.36 uIU/mL (0.358-3.74)
[2020-01-06 11:47] LABS: Glucose 75GTT - 60 minutes 116 mg/dL (100-160)
[2020-01-06 12:21] LABS: Glucose 75GTT - 120 minutes 92 mg/dL (70-140)
== END ==
PROVIDERS: PCP Internal Medicine; Referring Provider Psychiatry & Neurology Neurology; Visit Provider Psychiatry & Neurology Neurology
DX: G62.9 Polyneuropathy, unspecified (principal); R53.83 Other fatigue
CPT/HCPCS: 36415; 82607; 82951; 82952; 83921; 84443; 86140

== ENCOUNTER → 2020-01-23 08:13 | Outpatient (CLI) | payer MEDICARE, OTHER, SELFPAY ==
[2018-08-18 14:05] VITALS: BMI 26.2
[2019-11-10 10:35] VITALS: BMI 26.9
--- NOTE | 2020-01-23 08:16 | CT_ITS ---
HISTORY: PVD, RT BUTTOCK/LEG PAIN FOR YEARS TECHNIQUE: CT angiogram images of the abdomen, pelvis and lower extremities were obtained with 100mL Isovue-370 IV contrast. Enteric contrast was not administered. 3D MIP images reviewed to aid in vascular evaluation. Number of images including paperwork: [id number]. A radiation dose optimization technique was used for this scan. COMPARISON: None FINDINGS: AORTA: No aneurysm or dissection. Mild atherosclerotic plaque. VISCERAL ARTERIES: Unremarkable. RIGHT SIDE: Patent common iliac, internal iliac, external iliac, common femoral, femoral and popliteal arteries. Motion artifact somewhat limits evaluation of runoff arteries. There appears to be moderate diffuse disease of the anterior and posterior tibial arteries although both are opacified through the ankle. Patent right peroneal artery. LEFT SIDE: Patent common iliac, internal iliac, external iliac, common femoral, femoral and popliteal arteries. Motion artifact somewhat limits evaluation of runoff arteries. There appears to be moderate diffuse disease of the anterior and posterior tibial arteries. A segment of the distal anterior tibial artery is occluded in the lower leg with reconstitution distally. Patent left peroneal artery. VENOUS STRUCTURES: Limited evaluation due to phase of contrast but grossly unremarkable. CHEST BASE: No consolidation or pleural effusion. Small hiatal hernia. LIVER AND BILIARY TRACT: No concerning lesion in the imaged liver. Cholecystectomy. No significant biliary dilatation. SPLEEN: Unremarkable. PANCREAS: Unremarkable. ADRENAL GLANDS: Unremarkable. KIDNEYS/URETERS: Unremarkable. BOWEL: Unremarkable. LYMPH NODES: Unremarkable. FREE FLUID: No significant free fluid. FREE AIR: None. PELVIS: Decompressed bladder. Hysterectomy. OSSEOUS AND SOFT TISSUE STRUCTURES: No acute skeletal findings. Mild degenerative changes. CT/CTA Abd w/Runoff W/WO Contrast IMPRESSION: Bilateral runoff disease, as described. Individualized dose optimization techniques were used for this CT. at 0039 Reported and signed by: Betsy Rice MD Electronically Signed: Betsy Rice MD at 0:39 EDT Tel , Service support ,
== END ==
PROVIDERS: PCP Internal Medicine; Referring Provider Nurse Practitioner Primary Care; Visit Provider Nurse Practitioner Primary Care
DX: I73.9 Peripheral vascular disease, unspecified (principal); I70.209 Unspecified atherosclerosis of native arteries of extremities, unspecified extremity
CPT/HCPCS: 75635; Q9967

== ENCOUNTER → 2020-10-02 14:29 | Outpatient (CLI) | payer MEDICARE, OTHER, SELFPAY ==
[2018-08-18 14:05] VITALS: BMI 26.2
[2020-07-03 14:16] VITALS: BMI 26.9
--- NOTE | 2020-10-02 14:31 | BI_ITS ---
MAMMOGRAPHY - BILATERAL SCREENING 3-D TOMOSYNTHESIS REASON FOR EXAM: Female, 80 years old. Annual screening mammogram. PERTINENT HISTORY: No significant family history. TECHNIQUE: 2-D mammograms and 3-D Tomosynthesis of the breast (s) were performed. CAD was performed. COMPARISON: 09/23/2018. FINDINGS: The breast composition is composed of scattered fibroglandular density. Scattered benign calcifications are seen. No dense spiculated masses or suspicious microcalcifications are identified. No architectural distortion is identified. There is no skin thickening or retraction. There has been no significant change since the prior study. BI/SCRN MAMM (CAD)W/MARISOL BILAT IMPRESSION: No mammographic signs of malignancy. Routine yearly mammograms recommended. ASSESSMENT CATEGORY: BIRADS Category 2: Benign. A letter regarding these results will be sent to the patient by the facility within 30 days. FOLLOW UP RECOMMENDATION: Yearly follow up mammogram recommended. (A) Approximately 10% of breast cancers are not detected by mammography. A normal mammogram should not delay biopsy of a clinically suspicious abnormality. Electronically Signed: Ambrocio Cordova MD at 12:26 EDT , Service support ,
== END ==
PROVIDERS: PCP Internal Medicine; Referring Provider Internal Medicine; Visit Provider Internal Medicine
DX: Z12.31 Encounter for screening mammogram for malignant neoplasm of breast (principal); Z78.0 Asymptomatic menopausal state
CPT/HCPCS: 77063; 77067

== ENCOUNTER → 2020-10-10 09:22 | Outpatient (CLI) | payer MEDICARE, OTHER, SELFPAY ==
[2018-08-18 14:05] VITALS: BMI 26.2
[2020-07-03 14:16] VITALS: BMI 26.9
--- NOTE | 2020-10-10 09:36 | BD_ITS ---
STUDY: DUAL ENERGY X-RAY ABSORPTIOMETRY / DXA REASON FOR EXAM: Female, 80 years old. [id number]. The patient is postmenopausal. TECHNIQUE: Bone Mineral Density (BMD) measurements of lumbar spine and bilateral hips were obtained. COMPARISON: Comparison is made with prior study dated 06/26/2015. FINDINGS: Lumbar Spine (L1-L4): g/cm2 (1.098) / T-score (-0.7) / Z-score (1.1) Findings are suggestive of normal bone density with a low fracture risk. Left Femur Total: g/cm2 (0.875) / T-score (-1.1) / Z-score (0.9) Left Femoral Neck: g/cm2 (0.794) / T-score (-1.8) / Z-score (0.3) Right Femur Total: g/cm2 (0.836) / T-score (-1.4) / Z-score (0.6) Right Femoral Neck: g/cm2 (0.798) / T-score (-1.7) / Z-score (0.4) The T-Scores on the most recent prior examination were: Lumbar Spine (L1-L4): There has been worsening of bone density since the previous examination. Left Femur Total: which represents a worsening of 2.2%. Right Femur Total: which represents a worsening of 0.1%. BD/Dexa Bone Density Study IMPRESSION: The patient is considered osteopenic as outlined below according to World [employer] Organization (WHO) criteria with a moderate fracture risk. There has been worsening of bone density since the previous examination. Reference Information: The T-score is the number of standard deviations above or below the standard which is normal for young adults at their peak bone mineral density. The World Health Organization (WHO) interprets the T-scores as follows: Above -1 Normal bone density Between -1 and -2.5 Osteopenia Equal to / or below -2.5 Osteoporosis As a practical clinical guideline, osteopenia may be graded as follows: Mild -1 through -1.5 Moderate -1.6 through -2.0 Severe -2.1 through -2.4 The Z-score is the number of standard deviations above or below age-matched controls. A Z-score of less than -1.5 would be considered abnormal. References: 1. NIH Osteoporosis and Related Bone Diseases www osteo.org 2. International Society for Clinical Densitometry www iscd.org 3. National Osteoporosis Foundation www nof.org Electronically Signed: Ash Pizarro MD at 10:57 EDT , Service support ,
== END ==
PROVIDERS: PCP Internal Medicine; Referring Provider Internal Medicine; Visit Provider Internal Medicine
DX: Z78.0 Asymptomatic menopausal state (principal); M85.80 Other specified disorders of bone density and structure, unspecified site
CPT/HCPCS: 77080

== ENCOUNTER 2021-06-19 11:48 | Outpatient (CLI) | payer MEDICARE, OTHER, SELFPAY ==
[2018-08-18 14:05] VITALS: BMI 26.2
[2021-06-19 12:15] LABS: Troponin-I HS 7 pg/mL (3.0-54.0)
== END 2021-06-19 23:59 | disposition home or self-care (01) ==
LOC: LABSPEC 11:49
PROVIDERS: PCP Internal Medicine; Visit Provider Internal Medicine
DX: R07.89 Other chest pain (principal)
CPT/HCPCS: 84484

== ENCOUNTER 2021-07-17 07:08 | Outpatient (CLI) | payer MEDICARE, OTHER, SELFPAY ==
[2018-08-18 14:05] VITALS: BMI 26.2
--- NOTE | 2021-07-17 07:19 | ECHOD_ITS ---
Reason For Study: PHTN Procedure This was a 2D Doppler, Color Flow transthoracic echocardiogram. Exam performed in department. Left Ventricle Normal left ventricle. Left ventricular systolic function is normal. The estimated ejection fraction is 55 %. Stage 1 diastolic dysfunction. No regional wall motion abnormalities noted. Right Ventricle Normal RV size. Normal systolic function. Atria The left atrium is mildly enlarged. Normal right atrium. Mitral Valve Normal mitral valve. Tricuspid Valve Normal tricuspid valve. Mild (1+) tricuspid valve insufficiency. Pulmonary artery systolic pressure is 36 mmHg. Aortic Valve Trisinus/trileaflet aortic valve. Mild focal aortic valve calcification. Mild (1+) eccentric aortic valve insufficiency. Pulmonic Valve Normal pulmonic valve. Great Vessels Normal aortic root. The pulmonary artery is normal size. Normal inferior vena cava. Pericardium/Pleural No pericardial effusion. MMode/2D Measurements & Calculations LVIDd: 4.1 cm IVSd: 0.98 cm LAV(MOD-bp): 58.7 ml LVIDs: 2.4 cm LVPWd: 0.99 cm LAV(MOD-bp) Indexed: 35.9 ml/m2 RVDd: 3.0 cm FS: 41.0 % LAV(MOD-sp2): 55.0 ml LAV(MOD-sp4): 59.1 ml LA dimension(2D): 4.0 cm LA A4 area: 20.1 cm2 RA A4 area: 14.8 cm2 Time Measurements MV dec time: 0.21 sec Doppler Measurements & Calculations MV E max anoop: 93.9 cm/sec Lat Peak E' Anoop: 8.9 cm/sec Med Peak E' Anoop: 5.3 cm/sec MV A max anoop: 86.9 cm/sec E/E' lat: 10.5 E/E' med: 17.7 MV E/A: 1.1 Ao V2 max: 170.0 cm/sec AI max anoop: 449.3 cm/sec LV V1 max: 98.1 cm/sec Ao max P.6 mmHg AI max P.9 mmHg LV V1 max P.8 mmHg AI dec slope: 306.3 cm/sec2 AI P1/2t: 429.6 msec PA V2 max: 137.6 cm/sec TR max anoop: 288.6 cm/sec PI dec slope: 189.3 cm/sec2 TR max P.7 mmHg ECHO/Echo Complete Interpretation Summary Normal left ventricle. Left ventricular systolic function is normal. The estimated ejection fraction is 55 %. Stage 1 diastolic dysfunction. Mild (1+) eccentric aortic valve insufficiency. Pulmonary artery systolic pressure is 36 mmHg. Ordering Physician: Geeta Cruz Referring Physician: Geeta Cruz Performed By: Larisa Archer RDCS, RVT
--- NOTE | 2021-07-17 12:14 | STRESSREP ---
Stress Test Report Pharmacologic myocardial perfusion stress test. 81-year-old lady with a history of hypertension hyperlipidemia status post several vascular accident and coronary artery disease. Stress protocol: Resting EKG demonstrates sinus rhythm with a rate of 63 bpm normal intervals are noted resting blood pressure is 122/72 mmHg. Occasional premature ventricular complexes noted. 0.4 mg of regadenoson was infused per usual protocol followed by rapid intravenous saline flush injection continuous EKG monitoring was performed. The maximum heart rate attained was 86 bpm which was 60% of max impact at heart rate the maximum workload was 1 metabolic equivalent. At rest were no ST or T wave changes noted to suggest abnormal flow reserve and at peak infusion nonspecific ST changes were noted with did not meet the criteria for ischemia. No clinical angina was noted. Myocardial perfusion protocol. 12.0 mCi of technetium 99m sestamibi was injected at rest. 0.4 mg of regadenoson was infused per usual protocol. At peak infusion 36.0 mCi of technetium 99m sestamibi was injected stress images were obtained stress and rest images were reconstructed in comparing the short axis vertical long and horizontal long axis. Gated images were also obtained. Perfusion SPECT analysis: Review of the stress images demonstrate normal uptake of tracer noted in all areas of the myocardium. The resting images similarly demonstrate normal uptake of tracer noted in all areas of the myocardium. No previous infarct is noted. Gated SPECT analysis: The gated ejection fraction was normal. Conclusion: Normal pharmacologic myocardial perfusion stress test.
== END 2021-07-17 23:59 | disposition home or self-care (01) ==
PROVIDERS: PCP Internal Medicine; Referring Provider Internal Medicine; Visit Provider Internal Medicine
DX: R07.89 Other chest pain (principal); I27.20 Pulmonary hypertension, unspecified; Z51.89 Encounter for other specified aftercare
CPT/HCPCS: 78452; 93017; 93225; 93226; 93306; A9500; A4216; J2785

== ENCOUNTER → 2021-10-04 | Outpatient (CLI) | payer MEDICARE, OTHER, SELFPAY ==
[2018-08-18 14:05] VITALS: BMI 26.2
--- NOTE | 2021-10-04 08:28 | BI_ITS ---
MAMMOGRAPHY - BILATERAL SCREENING REASON FOR EXAM: Female, 81 years old. Routine annual screening examination. PERTINENT HISTORY: Sister with breast cancer. TECHNIQUE: Digital bilateral breast marisol (3D mammographic acquisition) in the CC and MLO projections. 2-D mediolateral oblique (MLO) and craniocaudad (CC) views of both breasts were obtained. CAD: Full Field Digital Mammography with Computer Added Detection was performed. COMPARISON: Comparison mammogram from 10/02/2020, 09/26/2019, 09/23/2018, 07/17/2017. FINDINGS: Breast Composition: There are scattered areas of fibroglandular density. There are no dominant masses or suspicious calcifications. Stable scattered bilateral benign-appearing calcifications. No other significant abnormalities are identified. There has been no significant change since the prior study. BI/SCRN MAMM (CAD)W/MARISOL BILAT IMPRESSION: Stable bilateral screening mammogram. Yearly follow-up mammogram recommended. (A) ASSESSMENT CATEGORY: BIRADS Category 2: Benign. A letter regarding these results will be sent to the patient by the facility within 30 days. Approximately 10% of breast cancers are not detected by mammography. A normal mammogram should not delay biopsy of a clinically suspicious abnormality. [id number] Electronically Signed: Mitchel Bates, at 16:14 EDT ,
== END | disposition home or self-care (01) ==
LOC: OPBI 08:27
PROVIDERS: PCP Internal Medicine; Visit Provider Internal Medicine
DX: Z12.31 Encounter for screening mammogram for malignant neoplasm of breast (principal); Z80.3 Family history of malignant neoplasm of breast
CPT/HCPCS: 77063; 77067

== ENCOUNTER 2021-12-31 10:35 | Inpatient (IN) | payer MEDICARE, OTHER, SELFPAY ==
[2018-08-18 14:05] VITALS: BMI 26.2
[2021-12-31] VITALS (13 sets, daily range): BP systolic 123–150; BP diastolic 54–116; PULSE 59–90; RESP 16–23; TEMP 35.7–36.7; O2SAT 94–100; BMI 26.5; BMI 26.9
[2021-12-31 11:02] LABS: Absolute Lymphocyte Count 1.55 X10^3/uL (0.83-4.51); Basophil# 0.03 X10^3/uL; Basophil% 0.6 % (0-1); Eosinophil# 0.17 X10^3/uL; Eosinophils% 3.3 % (0-5); Hematocrit 41.1 % (37-47); Hemoglobin 13.6 g/dL (12.0-15.0); Lymphocyte # 1.55 X10^3/ul (0.83-4.51); Lymphocyte % 29.6 % (19-41); Mean Corp Hgb Conc 33.1 g/dL (32-36); Mean Corpuscular Hgb 29.9 pg (27.0-32.0); Mean Corpuscular Volume 90.3 fL (81-99); Monocyte# 0.52 X10^3/uL; Monocyte% 9.9 % (0-10); NRBC Flagged by Analyzer 0 % (0-5); Neutrophil # 2.95 X10^3/uL (2.7-7.7); Neutrophil % 56.4 % (47-70); Platelet Count 189 K/mm3 (150-450); RBC Distribution Width CV 13.2 % (11.6-14.6); RBC Distribution Width SD 44.2 fl (35.1-43.9); Red Blood Count 4.55 M/mm3 (4.2-5.4); White Blood Count 5.2 K/mm3 (4.4-11.0)
[2021-12-31] MEDS: Aspirin 81 MG TAB.CHEW 324 MG PO (11:02)
[2021-12-31] MEDS: Nitroglycerin SL (ED/IMG/CATH) 0.4 MG TABLET SL (11:03)
[2021-12-31 11:15] LABS: Prothrombin Time (Protime)PT. 12.9 SECONDS (11.7-14.9)
[2021-12-31 11:22] LABS: Anion Gap 8 (5-15); BUN 22 mg/dL (7-18); Calcium,Total 9.7 mg/dL (8.5-10.1); Chloride 109 mmol/L (98-107); Creatinine, Serum 1.22 mg/dL (0.55-1.02); EST Glomerular Filtration Rate 45 mL/min (>60); Est Glom Filt Rate - Afr Amer 55 mL/min (>60); Estimated Creatinine Clearance 29.57 ml/min; Glucose 100 mg/dL (74-106); Magnesium 1.9 mg/dL (1.6-2.6); Potassium 3.6 mmol/L (3.5-5.1); Sodium Level 142 mmol/L (136-145); Troponin-I HS (w/2H Reflex) 55 pg/mL (3.0-54.0)
--- NOTE | 2021-12-31 11:25 | RAD_ITS ---
INDICATION: chest pain EXAMINATION/TECHNIQUE: X-RAY - XR Chest 2 Views COMPARISON: 05/25/2018. FINDINGS: LINES/DEVICES: None. LUNGS: No consolidation, edema or effusion. No pneumothorax. MEDIASTINUM AND CARDIOVASCULAR STRUCTURES: Cardiac silhouette not enlarged. Central airways and mediastinal contour are unremarkable. BONES AND SOFT TISSUES: Unremarkable. RAD/Chest PA and Lateral IMPRESSION: No radiographic evidence of acute cardiopulmonary disease. Electronically Signed: Ronald Combs MD at 11:48 EDT ,
--- NOTE | 2021-12-31 12:07 | ED.VIS.CHEST ---
HPI History of Present Illness Chief Complaint: Chest Pain Informant: patient Narrative Narrative: Patient is a 81-year-old female with history of coronary artery disease, prior stent placement, hypertension, hyperlipidemia and stroke presenting with chest pain. Patient states she woke up this morning and had pretty severe pain in the middle of her chest that she describes as a pressure. Denies any radiation of pain. She had associated nausea and an episode of vomiting. This lasted on and off for about an hour. She is a patient of Dr. Calix and notes that she did recently have a chemical stress test. She reports that prior to seeing Dr. Calix she saw Dr. Cannon and was told that she likely needed another stent. She notes that she has been having increased episodes of chest discomfort and shortness of breath for the past few months that seem be worse with exertion. She denies any fever or chills. No other complaints at this time States has been compliant with her home medications but did not take anything today. Chart view shows that patient had a stress test on 07/17/21 which was normal. Prior Similar Symptoms: With Prior [facility] Medical History Atherosclerotic heart disease of [place] coronary artery without angina pectoris Diarrhea Dyslipidemia Essential (primary) hypertension GERD (gastroesophageal reflux disease) History of CVA (cerebrovascular accident) History of thyroid cancer Hypothyroidism Near syncope PAC (premature atrial contraction) PVC (premature ventricular contraction) Rectocele SVT (supraventricular tachycardia) Syncope Home Medications azelastine 137 mcg (0.1 %) nasal spray aerosol 2 spray NASAL BID Check with primary doctor 12/16/15 [History Last Taken 12/30/21] hydroxyzine HCl 25 mg tablet 25 mg PO QHS anxiety 12/16/15 [History Last Taken 12/30/21] epinephrine 0.3 mg/0.3 mL injection, auto-injector 0.3 mg IM X1 allergic reaction 01/29/16 [History Last Taken Unknown] citalopram 20 mg tablet 20 mg PO DAILY mood 09/28/17 [History Last Taken 12/30/21] clopidogrel 75 mg tablet 75 mg PO DAILY blood thinner 09/28/17 [History Last Taken 12/30/21] latanoprost 0.005 % eye drops 1 drp EACHEYE DAILY eye 09/28/17 [History Last Taken 12/30/21] calcium polycarbophil 625 mg tablet (FiberCon) 1,250 mg PO DAILY Check with primary doctor 02/08/18 [History Last Taken 12/30/21] ergocalciferol (vitamin D2) 1,250 mcg (50,000 unit) capsule 50,000 unit PO .COMPLEX supplement 02/08/18 [History Last Taken 12/30/21] sucralfate 1 gram tablet 1 gm PO BID Check with primary doctor 08/18/18 [History Last Taken 12/30/21] levothyroxine 112 mcg tablet 112 mcg PO DAILY thyroid 07/04/21 [History Last Taken 12/30/21] metoprolol tartrate 50 mg tablet 50 mg PO BID blood pressure 07/04/21 [History Last Taken 12/30/21] rosuvastatin 20 mg tablet 20 mg PO DAILY cholesterol 07/04/21 [History Last Taken 12/30/21] aspirin 81 mg tablet,delayed release 81 mg PO DAILY Check with primary doctor 12/31/21 [History Last Taken 12/31/21] losartan 25 mg tablet 25 mg PO DAILY blood pressure\ 12/31/21 [History Last Taken 12/30/21] potassium chloride 20 mEq tablet,extended release(part/cryst) 20 meq PO BID hypokalemia 12/31/21 [History Last Taken 12/30/21] Allergy/AdvReac Type Severity Reaction Status Date / Time cephalexin monohydrate Allergy Severe Vomiting Verified 12/31/21 10:37 [From Keflex] lisinopril Allergy Severe Anaphylaxis Verified 12/31/21 10:37 peanut Allergy Severe Unknown Verified 12/31/21 10:37 shellfish derived Allergy Severe Anaphylaxis Verified 12/31/21 10:37 Penicillins [PCN] Allergy Unknown Anaphylaxis Verified 12/31/21 10:37 cat dander AdvReac Severe NEEDS Verified 12/31/21 10:37 FOLLOW-UP cefixime [From Suprax] AdvReac Severe Vomiting Verified 12/31/21 10:37 doxycycline AdvReac Severe Vomiting Verified 12/31/21 10:37 erythromycin base AdvReac Severe hives Verified 12/31/21 10:37 grass pollen AdvReac Severe Unknown Verified 12/31/21 10:37 metronidazole [From Flagyl] AdvReac Severe Unknown Verified 12/31/21 10:37 ragweed pollen AdvReac Severe Unknown Verified 12/31/21 10:37 tetracycline AdvReac Severe Unknown Verified 12/31/21 10:37 tree and shrub pollen AdvReac Severe NEEDS Verified 12/31/21 10:37 FOLLOW-UP weed pollen AdvReac Severe NEEDS Verified 12/31/21 10:37 FOLLOW-UP Sulfa (Sulfonamide AdvReac Intermediate Unknown Verified 12/31/21 10:37 Antibiotics) adhesive tape AdvReac Mild Rash Verified 12/31/21 10:37 levofloxacin [From Levaquin] AdvReac Hives Verified 12/31/21 10:37 Family History Father Cancer Mother Arthritis Heart disease CVA (cerebral vascular accident) Tuberculosis Breast cancer Skin cancer Surgical History fundus repair H/O thyroidectomy History of appendectomy History of cholecystectomy History of coronary artery stent placement (08/18/18) History of esophagogastroduodenoscopy (EGD) History of hysterectomy History of repair of hiatal hernia Social History (Updated 12/31/21 @ 14:15 by Brittani Matt) housing: house Smoking Status: Never smoker ROS ROS ED Constitutional Constitutional ED: Denies chills or fever(s) Eyes Eyes: Denies blurry vision ENT ENT ED: Denies sore throat Cardiovascular Cardiovascular: Reports as per HPI and chest pain Respiratory/Chest Respiratory/Chest: Reports dyspnea; Denies cough Gastrointestinal Gastrointestinal: Reports nausea and vomiting; Denies abdominal pain Genitourinary Genitourinary ED: Denies dysuria Musculoskeletal Musculoskeletal: Denies back pain or neck pain Integumentary Denies rash Neurologic Neurologic: Denies headache(s) or weakness Psychiatric Psychiatric: Denies anxiety Hematologic/Lymphatic Hematologic/Lymphatic: Denies easy bleeding or easy bruising EXAM Physical Exam Const Vital Signs: 12/31/21 10:37 12/31/21 10:58 12/31/21 10:59 Temperature 97.4 F L Temperature Source Temporal Pulse Rate 69 Pulse Strength Respiratory Rate 20 H Respiratory Effort Respiratory Depth Respiratory Pattern Normal Blood Pressure 134/87 H Blood Pressure Mean 102 Blood Pressure Source Blood Pressure Position Blood Pressure Location Pulse Ox 100 Oxygen Delivery Method Room Air Room Air 12/31/21 11:03 12/31/21 11:46 12/31/21 12:37 Temperature 98.1 F Temperature Source Temporal Pulse Rate 74 67 64 Pulse Strength Respiratory Rate 17 23 H Respiratory Effort Respiratory Depth Respiratory Pattern Blood Pressure 145/116 H 125/61 H 134/67 H Blood Pressure Mean 82 89 Blood Pressure Source Blood Pressure Position Blood Pressure Location Pulse Ox 95 94 Oxygen Delivery Method Room Air Room Air 12/31/21 13:55 12/31/21 14:21 12/31/21 14:00 Temperature 97.1 F L Temperature Source Temporal Pulse Rate 67 Pulse Strength Normal (2+) Respiratory Rate 16 Respiratory Effort Normal Non-Labored Respiratory Depth Normal Respiratory Pattern Normal Blood Pressure 150/54 H Blood Pressure Mean 86 Blood Pressure Source Monitor Blood Pressure Position Semi-Fowlers Blood Pressure Location Right Arm Pulse Ox 100 Oxygen Delivery Method Room Air Room Air 12/31/21 13:34 Temperature Temperature Source Pulse Rate 59 L Pulse Strength Respiratory Rate Respiratory Effort Respiratory Depth Respiratory Pattern Blood Pressure Blood Pressure Mean Blood Pressure Source Blood Pressure Position Blood Pressure Location Pulse Ox Oxygen Delivery Method Positive well nourished and well developed General Appearance ED: well developed and NAD HEENT Reports moist mucous membranes normocephalic and atraumatic Eyes PERRL and EOMs intact bilaterally Neck supple and no JVD Chest Wall inspection of chest normal and palpation of chest normal Resp normal respiratory effort and clear to auscultation bilaterally Cardio regular rate, regular rhythm and no murmurs Peripheral Pulses: pulses 2+ throughout GI normal to inspection, nondistended, normoactive bowel sounds Extremity normal to inspection General Extremety ED: Negative for edema General Extremity: Negative for edema Neuro oriented x3 Motor Exam: Negative for general weakness Psych mental status grossly normal Mood & Affect: tearful Skin no rashes or lesions noted Heart Score History: Highly Suspicious ECG: Significant ST-Depression Age: >/= 65 years Risk Factors: >/= 3 Risk Factors or History of CAD Troponin: >1 - <3 Normal Limit Score: 9 MDM MDM MDM Narrative Medical decision making narrative: Patient evaluated for sudden onset of chest pain. EKG shows ST depressions in the anterior lateral leads . Patient given sublingual nitroglycerin with resolution of her pain. Her high since he troponin is mildly elevated at 55. Given concerning history, EKG changes and elevated troponin Case discussed with Dr. Levi, we reviewed the patient's chart. We will start patient on a heparin drip with likely plans for cardiac catheterization tomorrow with trending of troponins today. Patient is agreeable to this plan of care. Lab Data Attestation: I reviewed the patient's lab results. Labs: Laboratory Results - last 24 hr 12/31/21 12/31/21 12/31/21 10:40 10:40 10:40 WBC 5.2 RBC 4.55 Hgb 13.6 Hct 41.1 MCV 90.3 MCH 29.9 MCHC 33.1 RDW Std Deviation 44.2 H RDW Coeff of Onur 13.2 Plt Count 189 MPV 10.0 Immature Gran % (Auto) 0.200 Neut % (Auto) 56.4 Lymph % (Auto) 29.6 [place] % (Auto) 9.9 Eos % (Auto) 3.3 Baso % (Auto) 0.6 Absolute Neuts (auto) 3.0 Absolute Lymphs (auto) 1.55 Nucleated RBC % 0 PT 12.9 INR 1.0 APTT Sodium 142 Potassium 3.6 Chloride 109 H Carbon Dioxide 25.0 Anion Gap 8 BUN 22 H Creatinine 1.22 H Estim Creat Clear Calc 29.57 Est GFR (MDRD) Af Amer 55 L Est GFR (MDRD) Non-Af 45 L BUN/Creatinine Ratio 18.0 Glucose 100 Calcium 9.7 Phosphorus Magnesium 1.9 Troponin I High Sens 55 H 12/31/21 12/31/21 12/31/21 10:40 10:40 13:06 WBC RBC Hgb Hct MCV MCH MCHC RDW Std Deviation RDW Coeff of Onur Plt Count MPV Immature Gran % (Auto) Neut % (Auto) Lymph % (Auto) [place] % (Auto) Eos % (Auto) Baso % (Auto) Absolute Neuts (auto) Absolute Lymphs (auto) Nucleated RBC % PT INR APTT 26.9 Sodium Potassium Chloride Carbon Dioxide Anion Gap BUN Creatinine Estim Creat Clear Calc Est GFR (MDRD) Af Amer Est GFR (MDRD) Non-Af BUN/Creatinine Ratio Glucose Calcium Phosphorus 3.2 Magnesium Troponin I High Sens 231 H* Radiography Chest X-Ray - ED: 2 View, Read by ED Physician and No Acute Disease Diagnostic Testing: Clinical Impression(s) from Imaging Studies Chest X-Ray 12/31/21 11:25 IMPRESSION: No radiographic evidence of acute cardiopulmonary disease. Electronically Signed: Ronald Combs MD at 11:48 EDT , Rhythm Strip Rhythm Strip: Sinus Rhythm Rate: 67 Ectopy: PVC(s) EKG Initial EKG: Attestation: I personally reviewed and interpreted this EKG as follows: Interpretation: Sinus Rhythm Comments: Sinus rhythm at a rate of 67 with PVCs Normal axis Normal intervals ST depressions in anterior lateral leads New compared to prior EKG on 01/17/ Discharge Plan Dx/Rx/DC Orders Clinical Impression: NSTEMI, initial episode of care, Chest pain, Abnormal ECG Disposition Disposition: Acute Care Hospital [facility] Discharge Date/Time: 12/31/21 13:16
--- NOTE | 2021-12-31 12:27 | PCM.HP.STD ---
HPI - General General Date of Admission: 12/31/21 Date of Service: 12/31/21 Chief Complaint: Chest pressure and shortness of breath on exertion worse for last few weeks HPI Narrative VAZQUEZ JAMIL, is a 81 F with history of coronary artery status post stent in obtuse marginal in 2018 came to ER for gradual worsening of shortness of breath and chest pressure for few weeks. Patient stated she has mild shortness of breath on exertion started about 6 months ago when this problem is getting worse as he feels even at rest. In reviewing Dr. Cannon note in August 2018, it seems patient had dyspnea on exertion at that time was thought to be due to hypotension and losartan 25 mg daily was started then. She also feels chest pressure midsternal, 10/10 intensity mainly on exertion, climbing stairs but sometimes even on minimal exertion. Yesterday she had shortness of breath even at rest that prompted her to come to ED. Denies dizziness, lightheadedness, syncope now but she has history of vasovagal syncope. She follows Dr. Calix last visit was in June 2021. In ED, twelve-lead EKG shows mild ST depression in the anterior lateral leads. Patient was given nitroglycerin sublingual, chest pain resolved. First isolated troponin 55, upper lipid normal. Second troponin pending. Patient was given aspirin 325 and started on heparin drip and further admitted. [facility] Medical History Atherosclerotic heart disease of [place] coronary artery without angina pectoris Diarrhea Dyslipidemia Essential (primary) hypertension GERD (gastroesophageal reflux disease) History of CVA (cerebrovascular accident) History of thyroid cancer Hypothyroidism Near syncope PAC (premature atrial contraction) PVC (premature ventricular contraction) Rectocele SVT (supraventricular tachycardia) Syncope Home Medications azelastine 137 mcg (0.1 %) nasal spray aerosol 2 spray NASAL BID Check with primary doctor 12/16/15 [History Last Taken 09/12/16] hydroxyzine HCl 25 mg tablet 25 mg PO QHS anxiety 12/16/15 [History Last Taken 09/11/16] epinephrine 0.3 mg/0.3 mL injection, auto-injector 0.3 mg IM X1 allergic reaction 01/29/16 [History Last Taken Unknown] citalopram 20 mg tablet 20 mg PO DAILY Check with primary doctor 09/28/17 [History Last Taken Unknown] clopidogrel 75 mg tablet 75 mg PO DAILY blood thinner 09/28/17 [History Last Taken 08/17/18] latanoprost 0.005 % eye drops 1 drp EACHEYE DAILY Check with primary doctor 09/28/17 [History Last Taken Unknown] calcium polycarbophil 625 mg tablet (FiberCon) 1,250 mg PO DAILY Check with primary doctor 02/08/18 [History Last Taken Unknown] ergocalciferol (vitamin D2) 1,250 mcg (50,000 unit) capsule 50,000 unit PO .COMPLEX Check with primary doctor 02/08/18 [History Last Taken Unknown] sucralfate 1 gram tablet 1 gm PO BID Check with primary doctor 08/18/18 [History Last Taken 08/18/18] levothyroxine 112 mcg tablet 112 mcg PO DAILY thyroid 07/04/21 [History Last Taken Unknown] metoprolol tartrate 50 mg tablet 50 mg PO BID blood pressure 07/04/21 [History Last Taken Unknown] rosuvastatin 20 mg tablet 20 mg PO DAILY cholesterol 07/04/21 [History Last Taken Unknown] aspirin 81 mg tablet,delayed release 81 mg PO DAILY Check with primary doctor 12/31/21 [History Last Taken Unknown] losartan 25 mg tablet 25 mg PO DAILY blood pressure\ 12/31/21 [History Last Taken Unknown] potassium chloride 20 mEq tablet,extended release(part/cryst) 20 meq PO BID hypokalemia 12/31/21 [History Last Taken Unknown] Allergy/AdvReac Type Severity Reaction Status Date / Time cephalexin monohydrate Allergy Severe Vomiting Verified 12/31/21 10:37 [From Keflex] lisinopril Allergy Severe Anaphylaxis Verified 12/31/21 10:37 peanut Allergy Severe Unknown Verified 12/31/21 10:37 shellfish derived Allergy Severe Anaphylaxis Verified 12/31/21 10:37 Penicillins [PCN] Allergy Unknown Anaphylaxis Verified 12/31/21 10:37 cat dander AdvReac Severe NEEDS Verified 12/31/21 10:37 FOLLOW-UP cefixime [From Suprax] AdvReac Severe Vomiting Verified 12/31/21 10:37 doxycycline AdvReac Severe Vomiting Verified 12/31/21 10:37 erythromycin base AdvReac Severe hives Verified 12/31/21 10:37 grass pollen AdvReac Severe Unknown Verified 12/31/21 10:37 metronidazole [From Flagyl] AdvReac Severe Unknown Verified 12/31/21 10:37 ragweed pollen AdvReac Severe Unknown Verified 12/31/21 10:37 tetracycline AdvReac Severe Unknown Verified 12/31/21 10:37 tree and shrub pollen AdvReac Severe NEEDS Verified 12/31/21 10:37 FOLLOW-UP weed pollen AdvReac Severe NEEDS Verified 12/31/21 10:37 FOLLOW-UP Sulfa (Sulfonamide AdvReac Intermediate Unknown Verified 12/31/21 10:37 Antibiotics) adhesive tape AdvReac Mild Rash Verified 12/31/21 10:37 levofloxacin [From Levaquin] AdvReac Hives Verified 12/31/21 10:37 Family History Father Cancer Mother Arthritis Heart disease CVA (cerebral vascular accident) Tuberculosis Breast cancer Skin cancer Surgical History fundus repair H/O thyroidectomy History of appendectomy History of cholecystectomy History of coronary artery stent placement (08/18/18) History of esophagogastroduodenoscopy (EGD) History of hysterectomy History of repair of hiatal hernia Social History Smoking Status: Never smoker ROS ROS Narrative Constitutional: Reports fatigue and weakness. No fever HEENT: History of vasovagal syncope. Reports systems reviewed and no addt'l complaints, except as documented Respiratory/Chest: As described in HPI Gastrointestinal: Denies coffee ground emesis, hematemesis or vomiting Genitourinary: Denies burning urination or new urinary tract symptoms Musculoskeletal: Reports mild knee joint pain and limited range of motion. Mild gait incoordination, fall. Uses cane Neurologic: Denies seizure-like activity skin: skin bruise over left posterior calf due to recent fall. Endocrinology: Reports systems reviewed and no addt'l complaints, except as documented Hematologic/Lymphatic: Reports systems reviewed and no addt'l complaints, except as documented Rest 14 ROS are negative except as mentioned in HPI Vital Signs Vital Signs Vital Signs: 12/31/21 10:37 12/31/21 10:58 12/31/21 10:59 Temperature 97.4 F L Temperature Source Temporal Pulse Rate 69 Respiratory Rate 20 H Respiratory Pattern Normal Blood Pressure 134/87 H Blood Pressure Mean 102 Pulse Ox 100 Oxygen Delivery Method Room Air Room Air 12/31/21 11:03 12/31/21 11:46 Temperature Temperature Source Pulse Rate 74 67 Respiratory Rate 17 Respiratory Pattern Blood Pressure 145/116 H 125/61 H Blood Pressure Mean 82 Pulse Ox 95 Oxygen Delivery Method Room Air Weight Weight: 145 lb 1.027 oz Body Mass Index (BMI) 26.5 Physical Exam Narrative Physical exam General: Alert, Oriented x3, Cooperative HEENT: Atraumatic, PERRLA, EOMI, Normocephalic Oral: No Gingival or Mucosal Lesions/ Ulcerations Neck: Supple, No JVD, Negative Carotid Bruits Lungs: Air entry equal in bilateral lung bases. No crepitation/rhonchi Cardiovascular: Regular rate, Regular Rhythm, Normal S1, Normal S2, No murmurs Abdomen: Bowel Sounds Present, Soft, Non Tender, Non-Distended : No renal angle tenderness. No suprapubic tenderness. Extremities: Mild bilateral ankle edema, Capillary Refill Less than 3 Seconds Skin: Small skin bruise/ecchymosis on left calf due to fall. No hematoma or ulcer Musculoskeletal: No Tenderness to Palpation of Joints or Extremities. Mild bilateral knee arthritis Neurological: Cranial nerves II-XII grossly intact, DTR 2+/4 and Symmetrical, Neuro grossly intact Psych/Mental Status: Normal Affect, Appropriate. Results Lab / Micro Data Result Diagrams: 12/31/21 10:40 12/31/21 10:40 Labs: Laboratory Results - last 24 hr 12/31/21 10:40: WBC 5.2, RBC 4.55, Hgb 13.6, Hct 41.1, MCV 90.3, MCH 29.9, MCHC 33.1, RDW Std Deviation 44.2 H, RDW Coeff of Onur 13.2, Plt Count 189, MPV 10.0, Immature Gran % (Auto) 0.200, Neut % (Auto) 56.4, Lymph % (Auto) 29.6, [place] % (Auto) 9.9, Eos % (Auto) 3.3, Baso % (Auto) 0.6, Absolute Neuts (auto) 3.0, Absolute Lymphs (auto) 1.55, Nucleated RBC % 0 12/31/21 10:40: PT 12.9, INR 1.0 12/31/21 10:40: Sodium 142, Potassium 3.6, Chloride 109 H, Carbon Dioxide 25.0, Anion Gap 8, BUN 22 H, Creatinine 1.22 H, Estim Creat Clear Calc 29.57, Est GFR (MDRD) Af Amer 55 L, Est GFR (MDRD) Non-Af 45 L, BUN/Creatinine Ratio 18.0, Glucose 100, Calcium 9.7, Magnesium 1.9, Troponin I High Sens 55 H Rhythm Strip Rhythm Strip: Sinus Rhythm Rate: 67 Ectopy: PVC(s) Radiology Impression Chest X-Ray 12/31/21 11:25 IMPRESSION: No radiographic evidence of acute cardiopulmonary disease. Electronically Signed: Ronald Combs MD at 11:48 EDT , Assessment & Plan Assessment/Plan (1) NSTEMI, initial episode of care: PLAN: This is 81-year-old pleasant lady admitted with ongoing chest pressure and shortness of breath for last few months to weeks, got worse recently. 1. Atypical chest pain/non-STEMI with history of coronary artery PCI in August 2018 and chronic HFpEF: VIRAJ risk score is 6 out of 7. Patient is being admitted in PCU. Is started on aspirin, heparin drip. Furnace Tapper is consulted. Patient has recent myocardial pharmacological stress test in July 2021 reported normal. 2D echo was done reported EF 55%, normal LV systolic function, stage I diastolic dysfunction, mild AI, RVSP 36 mmHg consistent with chronic HFpEF. Serum magnesium and phosphorus level are normal. Second troponin is high at 231. Trend troponin and repeat EKG on admission. Possible cardiac cath tomorrow AM. Lipid profile tomorrow AM. 2. Essential primary hypertension: Blood pressure is controlled. Continue home medication 3. Dyslipidemia: On rosuvastatin. 4. Thyroid cancer thyroid lobectomy, hypothyroidism on levothyroxine: She follows Dr. Wynne. Clinically in remission thyroglobulin antibody less than 1.0 in September 2021. Thyroglobulin less than 2.0 in October 2019. TSH ordered tomorrow AM. 5. Other comorbidities include SVT, PVC, GERD: Home medication reconciliation done. VTE prophylaxis: Patient is on heparin drip. Living will/advanced directive/end of life care: Patient does not have living will or advanced directive. Her is power of document review attorney for health. After discussion of benefits/risks procedures involved with full code, DNR CC arrest and DNR CC, the patient opted for DNRCC arrest with no intubation Patient does not want artificial life support including intubation, tube feed, ventilator and/chest compression, central venous catheter, vasopressor and DC shock if needed Total time spent in [id number] encounter in discussion of advanced directive 16 minutes. Laboratory Results 12/31/21 10:40: WBC 5.2, RBC 4.55, Hgb 13.6, Hct 41.1, MCV 90.3, MCH 29.9, MCHC 33.1, RDW Std Deviation 44.2 H, RDW Coeff of Onur 13.2, Plt Count 189, MPV 10.0, Immature Gran % (Auto) 0.200, Neut % (Auto) 56.4, Lymph % (Auto) 29.6, [place] % (Auto) 9.9, Eos % (Auto) 3.3, Baso % (Auto) 0.6, Absolute Neuts (auto) 3.0, Absolute Lymphs (auto) 1.55, Nucleated RBC % 0 12/31/21 10:40: PT 12.9, INR 1.0 12/31/21 10:40: Sodium 142, Potassium 3.6, Chloride 109 H, Carbon Dioxide 25.0, Anion Gap 8, BUN 22 H, Creatinine 1.22 H, Estim Creat Clear Calc 29.57, Est GFR (MDRD) Af Amer 55 L, Est GFR (MDRD) Non-Af 45 L, BUN/Creatinine Ratio 18.0, Glucose 100, Calcium 9.7, Magnesium 1.9, Troponin I High Sens 55 H 12/31/21 10:40: APTT 26.9 12/31/21 10:40: Phosphorus 3.2 12/31/21 13:06: Troponin I High Sens 231 H* Clinical Impression(s) from Imaging Studies Chest X-Ray 12/31/21 11:25 IMPRESSION: No radiographic evidence of acute cardiopulmonary disease. Charges/Coding Visit Charges Inpatient E&M: 61222 Init Hosp L3 Procedures Hospitalists Procedures: 36340 Advncd Care Plan 30 Min
[2021-12-31] MEDS: Heparin Injection (Vial) 5,000 UNIT/ML VIAL 4500 UNIT IV (12:46)
[2021-12-31] MEDS: HEPARIN/D5w 25,000 UNITS 25,000 UNITS/250 ML IV.SOLN. 10 UNITS CONT INF (12:46)
[2021-12-31 12:54] LABS: Phosphorus 3.2 mg/dL (2.5-4.9)
[2021-12-31 12:58] LABS: Reflex Troponin-HS? (from REC) Y
[2021-12-31 13:06] LABS: Partial Thromboplast Time 26.9 Seconds (24.1-36.2)
--- NOTE | 2021-12-31 13:12 | NURSING ---
[address] UNSTABLE ANGINA
[2021-12-31 13:49] LABS: Troponin-I HS 231 pg/mL (3.0-54.0)
--- NOTE | 2021-12-31 14:51 | CON.PCM.CA_ITS ---
Assessment & Plan Assessment/Plan (1) NSTEMI, initial episode of care: PLAN: The patient presents with findings compatible with an acute non-ST segment elevation NM. At the present time she appears to be symptomatically improved. She will continue to be monitored. She will continue medical therapy which will include antiplatelet therapy, nitrates, beta-blockers, lipid-lowering agents, and anticoagulant therapy as deemed appropriate. She will be scheduled for upcoming further evaluation with diagnostic cardiac catheterization. The procedure and risks of been discussed with her with her present. She was agreeable to this approach. (2) CAD (coronary artery disease): PLAN: The patient has a history of CAD. She now presents with symptoms concerning for unstable angina pectoris/an acute coronary syndrome compatible with an acute non-ST segment elevation NM. Her noninvasive studies have been noted. She will continue medical management. She will be scheduled for upcoming diagnostic cardiac catheterization. (3) History of coronary artery stent placement: PLAN: The patient has undergone previous evaluation and care leading to PCI the OM distribution as noted. At the present time based upon her acute coronary syndrome event she will continue medical therapy and be scheduled for upcoming diagnostic cardiac catheterization. (4) Cardiac dysrhythmia: PLAN: The patient has a history of PACs and PVCs as well as PSVT. She has demonstrated her PACs and PVCs on her ECG. She appears to be stable with her underlying cardiac ectopy and dysrhythmias at this time. She will continue her current therapy which does include beta-nury therapy. (5) Syncope: PLAN: The patient states she has a history of vasovagal syncope. She denies any recent events. She will need to be monitored for any recurrent similar type events. (6) Dyslipidemia: PLAN: The patient has been on lipid-lowering therapy with rosuvastatin/Crestor. Her medications will be continued and adjusted accordingly. (7) Essential (primary) hypertension: PLAN: The patient has a history of hypertension. Her blood pressures will be followed. Her medicines can be adjusted as necessary. Addt'l Comments The above was discussed and viewed with the patient with her present. They were both agreeable to the aforementioned evaluation care plan. The patient's case has been previously discussed with Dr. Khalil of the [facility] emergency department staff. Thank you for allowing me to participate in the care of your patient. This note was generated using a voice recognition system and there may be incorrect words, spelling or punctuation that were not noted when reviewing the office note prior to saving. HPI Consult Data Date of Consult: 12/31/21 HPI Narrative HPI Narrative: VAZQUEZ JAMIL, is a 81 year old white female who presents for evaluation of symptoms of unstable angina and findings compatible with an acute non-ST segment elevation NM superimposed upon a history of underlying CAD status post previous PTCA/stent (), cardiac dysrhythmia history with PACs, PVCs, PSVT, history of syncope, hyperlipidemia, hypertension, CVA, hypothyroidism, and thyroid carc inoma. She states she was doing well until recently. Recently she has noted intermittent episodes of chest discomfort but more so has noted progressive shortness of breath/dyspnea including difficulty going up a flight of stairs. She notes today she had approximately 1 hours worth of centralized chest pressure associated with nausea, emesis, and diaphoresis. She also felt somewhat more short of breath. She was subsequently brought to the emergency department for further evaluation. By the time she arrived here she felt better. She notes in the emergency department she received medical therapy with aspirin and nitroglycerin sublingual. After the nitroglycerin sublingual she states her pain dissipated. She has denied orthopnea or PND. She has had no ongoing peripheral pitting edema. She states she does have a history of syncope which she states she was told it was vasovagal mediated syncope. She states she has not had a syncopal event recently. In the emergency department her initial high-sensitivity troponin I level was 55. It is subsequently increased to 231. Her initial ECG done rated sinus rhythm with PACs/PVCs and non-specific ST/T wave abnormality concerning for m yocardial ischemia in the anterior lateral distribution. A follow-up ECG performed at the time of her cardiovascular consultation demonstrated sinus rhythm with improvement in her previously noted ST/T wave abnormality. Chest x- ray was reported as demonstrating no acute cardiopulmonary disease process. She had undergone previous noninvasive cardiovascular evaluation earlier this year. This included a transthoracic echocardiogram and a pharmacologic stress nuclear imaging study. Her previous diagnostic cardiac catheterization/PCI procedure was performed in August 2018 at [facility]. [facility], LATER [facility] Medical History Atherosclerotic heart disease of koi coronary artery without angina pectoris Diarrhea Dyslipidemia Essential (primary) hypertension GERD (gastroesophageal reflux disease) History of CVA (cerebrovascular accident) History of thyroid cancer Hypothyroidism Near syncope PAC (premature atrial contraction) PVC (premature ventricular contraction) Rectocele SVT (supraventricular tachycardia) Syncope Home Medications azelastine 137 mcg (0.1 %) nasal spray aerosol 2 spray NASAL BID Check with primary doctor 12/16/15 [History Last Taken 12/30/21] hydroxyzine HCl 25 mg tablet 25 mg PO QHS anxiety 12/16/15 [History Last Taken 12/30/21] epinephrine 0.3 mg/0.3 mL injection, auto-injector 0.3 mg IM X1 allergic r eaction 01/29/16 [History Last Taken Unknown] citalopram 20 mg tablet 20 mg PO DAILY mood 09/28/17 [History Last Taken 12/30/21] clopidogrel 75 mg tablet 75 mg PO DAILY blood thinner 09/28/17 [History Last Taken 12/30/21] latanoprost 0.005 % eye drops 1 drp EACHEYE DAILY eye 09/28/17 [History Last T aken 12/30/21] calcium polycarbophil 625 mg tablet (FiberCon) 1,250 mg PO DAILY Check with primary doctor 02/08/18 [History Last Taken 12/30/21] ergocalciferol (vitamin D2) 1,250 mcg (50,000 unit) capsule 50,000 unit PO .COMPLEX supplement 02/08/18 [History Last Taken 12/30/21] sucralfate 1 gram tablet 1 gm PO BID Check with primary doctor 08/18/18 [History Last Taken 12/30/21] levothyroxine 112 mcg tablet 112 mcg PO DAILY thyroid 07/04/21 [History Last Taken 12/30/21] metoprolol tartrate 50 mg tablet 50 mg PO BID blood pressure 07/04/21 [History Last Taken 12/30/21] rosuvastatin 20 mg tablet 20 mg PO DAILY cholesterol 07/04/21 [History Last Taken 12/30/21] aspirin 81 mg tablet,delayed release 81 mg PO DAILY Check with primary doctor 12/31/21 [History Last Taken 12/31/21] losartan 25 mg tablet 25 mg PO DAILY blood pressure\ 12/31/21 [History Last Taken 12/30/21] potassium chloride 20 mEq tablet,extended release(part/cryst) 20 meq PO BID hypokalemia 12/31/21 [History Last Taken 12/30/21] Allergy/AdvReac Type Severity Reaction Status Date / Time cephalexin monohydrate Allergy Severe Vomiting Verified 12/31/21 10:37 [From Keflex] lisinopril Allergy Severe Anaphylaxis Verified 12/31/21 10:37 peanut Allergy Severe Unknown Verified 12/31/21 10:37 shellfish derived Allergy Severe Anaphylaxis Verified 12/31/21 10:37 Penicillins [PCN] Allergy Unknown Anaphylaxis Verified 12/31/21 10:37 cat dander AdvReac Severe NEEDS Verified 12/31/21 10:37 FOLLOW-UP cefixime [From Suprax] AdvReac Severe Vomiting Verified 12/31/21 10:37 doxycycline AdvReac Severe Vomiting Verified 12/31/21 10:37 erythromycin base AdvReac Severe hives Verified 12/31/21 10:37 grass pollen AdvReac Severe Unknown Verified 12/31/21 10:37 metronidazole [From Flagyl] AdvReac Severe Unknown Verified 12/31/21 10:37 ragweed pollen AdvReac Severe Unknown Verified 12/31/21 10:37 tetracycline AdvReac Severe Unknown Verified 12/31/21 10:37 tree and shrub pollen AdvReac Severe NEEDS Verified 12/31/21 10:37 FOLLOW-UP weed pollen AdvReac Severe NEEDS Verified 12/31/21 10:37 FOLLOW-UP Sulfa (Sulfonamide AdvReac Intermediate Unknown Verified 12/31/21 10:37 Antibiotics) adhesive tape AdvReac Mild Rash Verified 12/31/21 10:37 levofloxacin [From Levaquin] AdvReac Hives Verified 12/31/21 10:37 Family History Father Cancer Mother Arthritis Heart disease CVA (cerebral vascular accident) Tuberculosis Breast cancer Skin cancer Surgical History fundus repair H/O thyroidectomy History of appendectomy History of cholecystectomy History of coronary artery stent placement (08/18/18) History of esophagogastroduodenoscopy (EGD) History of hysterectomy History of repair of hiatal hernia Social History (Updated 12/31/21 @ 14:15 by Brittani Matt) housing: house Smoking Status: Never smoker ROS Constitutional Constitutional: Reports as per HPI Eyes Eyes: Reports as per HPI ENT HEENT: Reports as per HPI Cardiovascular Cardiovascular: Reports chest pain at rest, diaphoresis, dyspnea on exertion, nausea and vomiting Respiratory/Chest Respiratory/Chest: Reports dyspnea on exertion Gastrointestinal Gastrointestinal: Reports nausea and vomiting Genitourinary Genitourinary: Reports as per HPI Musculoskeletal Musculoskeletal: Reports as per HPI Integumentary Integumentary: Reports as per HPI Neurologic Neurologic: Reports as per HPI Physical Exam Const alert, oriented x3 and no apparent distress HEENT normocephalic, head/scalp atraumatic and hearing grossly normal bilaterally Eyes PERRL, EOMs intact bilaterally, conjunctivae normal and no scleral icterus Neck full ROM, supple and no JVD Carotids: normal carotid upstroke Resp normal respiratory effort and clear to auscultation bilaterally Cardio regular rate, regular rhythm, S1 normal heart sound and S2 normal heart sound GI normal to inspection, nondistended, normoactive bowel sounds Extremity normal to inspection, full ROM and no pedal edema Skin no rashes or lesions noted Psych mental status grossly normal Risk Stratification Risk Stratification Applicable: Yes Age >/= 65: Yes >/= 3 CAD Risk Factors (HTN, HLD, DM, family hx of CAD, or current smoker): Yes Aspirin Use in the Past 7 Days: Yes Severe Angina (>/= episodes in 24 hours): Yes EKG ST Changes >/= 0.5mm: Yes Positive Cardiac Marker: Yes VIRAJ Risk Stratification Score: 6 VIRAJ % Risk: 41% Risk Procedure Criteria Type of Procedure Procedure Type: Elective Elective Risks - COVID COVID Risk Discussion: The surgeon/proceduralist and patient have discussed in detail the risk of expo sure to and/or potential harm posed by the COVID-19 virus with having a surgery/procedure at this time versus the risk of delaying the surgery/procedure. It is not possible to know either the risk of delaying the surgery or procedure or chance of getting an infection with perfect accuracy, but a joint decision was made between the patient and the surgeon/proceduralist to proceed at this time with the scheduled surgery/procedure as indicated on the consent form. Objective Data Vital Signs: Vital Signs Temp Pulse Resp BP Pulse Ox O2 Del Method 97.1 F L 67 16 150/54 H 100 Room Air 12/31/21 13:55 12/31/21 13:55 12/31/21 13:55 12/31/21 13:55 12/31/21 13:55 12/31/21 14:00 Oxygen Delivery Method Room Air Weight: 142 lb 13.753 oz Body Mass Index (BMI) 26.9 Lab / Micro Data Result Diagrams: 12/31/21 10:40 12/31/21 10:40 Labs: Laboratory Results - last 24 hr 12/31/21 10:40: WBC 5.2, RBC 4.55, Hgb 13.6, Hct 41.1, MCV 90.3, MCH 29.9, MCHC 33.1, RDW Std Deviation 44.2 H, RDW Coeff of Onur 13.2, Plt Count 189, MPV 10.0, Immature Gran % (Auto) 0.200, Neut % (Auto) 56.4, Lymph % (Auto) 29.6, [place] % (Auto) 9.9, Eos % (Auto) 3.3, Baso % (Auto) 0.6, Absolute Neuts (auto) 3.0, Absolute Lymphs (auto) 1.55, Nucleated RBC % 0 12/31/21 10:40: PT 12.9, INR 1.0 12/31/21 10:40: Sodium 142, Potassium 3.6, Chloride 109 H, Carbon Dioxide 25.0, Anion Gap 8, BUN 22 H, Creatinine 1.22 H, Estim Creat Clear Calc 29.57, Est GFR (MDRD) Af Amer 55 L, Est GFR (MDRD) Non-Af 45 L, BUN/Creatinine Ratio 18.0, Glucose 100, Calcium 9.7, Magnesium 1.9, Troponin I High Sens 55 H 12/31/21 10:40: APTT 26.9 12/31/21 10:40: Phosphorus 3.2 12/31/21 13:06: Troponin I High Sens 231 H* Rhythm Strip Rhythm Strip: Sinus Rhythm Rate: 67 Ectopy: PVC(s) Cardiology Labs/Tests 12/31/21 10:40: WBC 5.2, RBC 4.55, Hgb 13.6, Hct 41.1, MCV 90.3, MCH 29.9, MCHC 33.1, Plt Count 189, MPV 10.0, Immature Gran % (Auto) 0.200, Neut % (Auto) 56.4, Lymph % (Auto) 29.6, [place] % (Auto) 9.9, Eos % (Auto) 3.3, Baso % (Auto) 0.6, Absolute Neuts (auto) 3.0, Nucleated RBC % 0 12/31/21 10:40: PT 12.9, INR 1.0 12/31/21 10:40: Sodium 142, Potassium 3.6, Chloride 109 H, Carbon Dioxide 25.0, Anion Gap 8, BUN 22 H, Creatinine 1.22 H, Est GFR (MDRD) Af Amer 55 L, Est GFR (MDRD) Non-Af 45 L, BUN/Creatinine Ratio 18.0, Glucose 100, Calcium 9.7, Magnesium 1.9 12/31/21 10:40: APTT 26.9 12/31/21 10:40: Phosphorus 3.2 Rhythm: Sinus rhythm EKG: As noted above ECHO: 07-17-2021 Interpretation Summary Normal left ventricle. Left ventricular systolic function is normal. The estimated ejection fraction is 55 %. Stage 1 diastolic dysfunction. Mild (1+) eccentric aortic valve insufficiency. Pulmonary artery systolic pressure is 36 mmHg. Stress Test: 07-17-2021 Stress Test Report Pharmacologic myocardial perfusion stress test. 81-year-old lady with a history of hypertension hyperlipidemia status post several vascular accident and coronary artery disease. Stress protocol: Resting EKG demonstrates sinus rhythm with a rate of 63 bpm normal intervals are noted resting blood pressure is 122/72 mmHg.? Occasional premature ventricular complexes noted.? 0.4 mg of regadenoson was infused per usual protocol followed by rapid intravenous saline flush injection continuous EKG monitoring was performed.? The maximum heart rate attained was 86 bpm which was 60% of max impact at heart rate the maximum workload was 1 metabolic equivalent.? At rest were no ST or T wave changes noted to suggest abnormal flow reserve and at peak infusion nonspecific ST changes were noted with did not meet the criteria for ischemia.? No clinical angina was noted. Myocardial perfusion protocol. 12.0 mCi of technetium 99m sestamibi was injected at rest.? 0.4 mg of regadenoson was infused per usual protocol.? At peak infusion 36.0 mCi of technetium 99m sestamibi was injected stress images were obtained stress and rest images were reconstructed in comparing the short axis vertical long and horizontal long axis.? Gated images were also obtained. Perfusion SPECT analysis: Review of the stress images demonstrate normal uptake of tracer noted in all areas of the myocardium.? The resting images similarly demonstrate normal uptake of tracer noted in all areas of the myocardium.? No previous infarct is noted. Gated SPECT analysis: The gated ejection fraction was normal. Conclusion: Normal pharmacologic myocardial perfusion stress test. Cardiac Cath/PCI: 08-18-2018 CONCLUSIONS Normal Left Ventricular systolic function LVEF: by LV gram 65 % Elevated Left Ventricular End Diastolic Pressure Single vessel CAD of the mid OM#1 Non obstructive coronary arteries Successful PTCA/DYLLAN mid OM#1 with a 2.25 x 20 Promus Synergy; 75%-->0%, no dissection. FFR of proximal LCX negative. RECOMMENDATIONS FFR of proximal LCX and PCI of mid OM#1 Highly recommend quitting all tobacco products Follow up with primary gambling supervisor Risk factor modification ASA Indefinitley Plavix for at least 12 months Routine post interventional care Refer for Outpatient Cardiac Rehab Manual sheath removal per protocol Follow up with Dr. Cannon Manual sheath removal as pt is too shallow for Mynx closure. Start Imdur 30mg po qd for HTN and CHAIREZ; pt need low dose diuretic. DESCRIPTION OF? PROCEDURE The patient arrived to the procedure lab. The risks and benefits of the procedure as well as a full description of our services here and lack of surgical backup were fully explained to the patient and/or their significant other prior to the catheterization. The Timeout was completed, verifying the correct patient and procedure. The patient's procedural site was prepped and draped in the usual fashion. Local anesthetic was given subcutaneously to right groin region with Lidocaine 2%. Using a modified Seldinger technique, arterial access was obtained via the right femoral artery, a 4Fr sheath was inserted.? Left Coronary Artery selective angiography was performed in multiple views using a 4 Fr. JL5 catheter. Right Coronary Artery selective angiography was then performed in multiple views using a 4 Fr. 3DRC catheter. Left Ventriculography was performed in MATHUR projection using a 4 Fr. Pigtail catheter. LV to AO pullback pressures were then recorded. Left Coronary Artery selective angiography was performed in multiple views using a 4 Fr. JL6 catheterThe images were reviewed and options discussed. A decision was then made to proceed with an Intervention, IVUS or other adjunct procedure. ? ? Arterial sheath was exchanged for a 6 Fr Sheath. EBU 3.5 Guide catheter was inserted and engaged into the LCA. The FFR/iFR wire was inserted. Adenosine was then given per protocol. Pressures and FFR/iFR were then recorded. FFR Ratio Baseline: 1.0 FFR Ratio post Adenosine: 0.98 FFR wire Guide wire was repositioned to the 1st OM 2.0x12 Emerge Balloon catheter was advanced across lesion in the first obtuse marginal, mid. PTCA balloon inflated at 6 atms for 8 secs. Angiogram performed post balloon dilatation. 2.25x16 synergy Drug Eluting stent was advanced across the lesion in the first obtuse marginal, mid. Drug Eluting stent was removed intact, failed to cross lesion 2.25x20 synergy Drug Eluting stent was advanced across the lesion in the first diagonal, mid. Angiogram performed post stent deployment. ? The arterial sheath was sutured in place and capped CORONARY ANGIOGRAPHY DOMINANCE:? Left Dominant LEFT HEART ASSESSMENT Left Ventricular Ejection Fraction: by LV Gram 65 % Normal Left Ventricular systolic function Elevated Left Ventricular End Diastolic Pressure Normal LV wall motion LEFT MAIN: ?Mild calcification, Non-obstructive LEFT ANTERIOR DESCENDING ARTERY: Mild calcification, Mild luminal irregularities less than 30% CIRCUMFLEX ARTERY: PROX CIRC: 30 % Stenosis OM 1: Mid - 75 % Stenosis RIGHT CORONARY ARTERY: Angiographically normal INTERVENTION INFORMATION LESION SITE: Circumflex (Proximal) Lesion Complexity: Non-High/Non-C, lesion at bifurcation: No, thrombus present: No, lesion length: 12 mm, culprit lesion: No ?Pre Stenosis: 30 % Pre intervention VIRAJ flow: 3 PROCEDURE: FFR FFR of proximal LCX=0.98 Post Stenosis: 30 %? Post intervention VIRAJ flow: 3 Lesion Devices: Patel Creative Logic Mediacience 12 Pressure Tubing Medtronic 6 Fr EBU3.5 100cm Guide Catheter LESION SITE: 1st OM (Mid) Lesion Complexity: Non-High/Non-C, lesion at bifurcation: No, thrombus present: No, lesion length: 20 mm, culprit lesion: Yes ?Pre Stenosis: 75 %? Pre intervention VIRAJ flow: 3 PROCEDURE: Drug Eluting Stent with pre dilatation. Post Stenosis: 0 %? Post intervention VIRAJ flow: 3 Lesion Devices: Medtronic 6 Fr EBU3.5 100cm Guide Catheter Anthony Sci EMERGE MR 2.00x12 BALLOON Anthony Sci Synergy MR DYLLAN 2.25x16 Anthony Sci Synergy MR DYLLAN 2.25x20 Radiography Diagnostic Testing: Radiology Impression Chest X-Ray 12/31/21 11:25 IMPRESSION: No radiographic evidence of acute cardiopulmonary disease. Electronically Signed: Ronald Combs MD at 11:48 EDT ,
[2021-12-31] MEDS: Clopidogrel Bisulfate 75 MG Tablet PO (15:05)
[2021-12-31] MEDS: Potassium Chloride Oral Tablet 20 MEQ PO (16:17)
[2021-12-31] MEDS: Sucralfate 1 GM Tablet PO (16:17)
[2021-12-31 18:49] LABS: Troponin-I HS 466 pg/mL (3.0-54.0)
[2021-12-31 19:26] LABS: Partial Thromboplast Time 148.8 Seconds (24.1-36.2)
[2021-12-31] MEDS: Azelastine HCl NASAL.SRY 2 SPRAY NASAL (21:01)
[2021-12-31] MEDS: Atorvastatin Calcium 40 MG Tablet PO (21:02)
[2021-12-31] MEDS: DiphenhydrAMINE 25 MG Capsule 50 MG PO (21:02)
[2021-12-31] MEDS: predniSONE 20 MG Tablet 60 MG PO (21:03)
[2021-12-31] MEDS: Latanoprost 0.005% 1 Bottle 1 DRP EACH EYE (21:03)
[2021-12-31] MEDS: Metoprolol Tartrate 50 MG Tablet PO (21:03)
[2021-12-31] MEDS: Nitroglycerin Oint 1 INCH PACKET TD (23:17)
[2022-01-01] VITALS (22 sets, daily range): BP systolic 103–145; BP diastolic 46–96; PULSE 51–64; RESP 12–18; TEMP 35.8–36.6; O2SAT 95–99
[2022-01-01 04:04] LABS: Absolute Lymphocyte Count 0.77 X10^3/uL (0.83-4.51); Absolute Neutrophil Count 4.4 X10^3/uL (2.0-7.7); Basophil# 0.01 X10^3/uL; Basophil% 0.2 % (0-1); Eosinophil# 0.01 X10^3/uL; Eosinophils% 0.2 % (0-5); Hematocrit 39.2 % (37-47); Hemoglobin 12.5 g/dL (12.0-15.0); Lymphocyte # 0.77 X10^3/ul (0.83-4.51); Lymphocyte % 14.5 % (19-41); Mean Corp Hgb Conc 31.9 g/dL (32-36); Mean Corpuscular Hgb 28.9 pg (27.0-32.0); Mean Corpuscular Volume 90.7 fL (81-99); Mean Platelet Vol. 10.1 fl (6.2-12.0); Monocyte% 1.9 % (0-10); NRBC Flagged by Analyzer 0 % (0-5); Neutrophil # 4.39 X10^3/uL (2.7-7.7); Neutrophil % 82.8 % (47-70); Platelet Count 186 K/mm3 (150-450); RBC Distribution Width CV 13.2 % (11.6-14.6); RBC Distribution Width SD 43.4 fl (35.1-43.9); Red Blood Count 4.32 M/mm3 (4.2-5.4); White Blood Count 5.3 K/mm3 (4.4-11.0)
[2022-01-01 04:19] LABS: Partial Thromboplast Time 65.4 Seconds (24.1-36.2)
[2022-01-01 04:41] LABS: ALB/GLOB Ratio 0.9 RATIO (0.9-2.4); AST(SGOT) 25 U/L (15-37); Alanine Aminotransfer ALT/SGPT 19 U/L (13-56); Albumin, Serum 3.2 g/dL (3.2-5.0); Alkaline Phosphatase 74 U/L (45-117); Anion Gap 8 (5-15); BUN 20 mg/dL (7-18); BUN/Creat Ratio 16.4 RATIO (10-20); Calcium,Total 8.6 mg/dL (8.5-10.1); Chloride 109 mmol/L (98-107); Cholesterol 179 mg/dL (200); Creatinine, Serum 1.22 mg/dL (0.55-1.02); EST Glomerular Filtration Rate 45 mL/min (>60); Est Glom Filt Rate - Afr Amer 55 mL/min (>60); Estimated Creatinine Clearance 28.22 ml/min; Globulin 3.5 g/dL (2.2-4.2); Glucose 163 mg/dL (74-106); High Density Lipoprotein 61 mg/dL; Potassium 4.3 mmol/L (3.5-5.1); Protein, Total 6.7 g/dL (6.4-8.2); Sodium Level 140 mmol/L (136-145); Thyroid Stim Hormone (TSH) 0.27 uIU/mL (0.358-3.74); Triglycerides 52 mg/dL; Troponin-I HS 582 pg/mL (3.0-54.0); Very Low Density Lipoprotein 10 mg/dL (5-40)
--- NOTE | 2022-01-01 05:55 | EKG12_ITS ---
Test Reason : Blood Pressure : / mmHG Vent. Rate : 072 BPM Atrial Rate : 072 BPM P-R Int : 150 ms QRS Dur : 080 ms QT Int : 450 ms P-R-T Axes : 054 025 047 degrees QTc Int : 492 ms Sinus rhythm with occasional Premature ventricular complexes Prolonged QT Abnormal ECG When compared with ECG of 31-DEC-2021 10:38, MANUAL COMPARISON REQUIRED, DATA IS UNCONFIRMED Confirmed by OTIS KRAMER, FABIO ([id number]), video tape editor JW HARPER ([id number]) on 01/01/2022 1:42:14 PM Referred By: VENICE Confirmed By:FABIO BERG MD
[2022-01-01] MEDS: DiphenhydrAMINE 25 MG Capsule 50 MG PO (06:46)
[2022-01-01] MEDS: Nitroglycerin Oint 1 INCH PACKET TD (06:46)
[2022-01-01] MEDS: predniSONE 20 MG Tablet 60 MG PO (06:47)
[2022-01-01] MEDS: Levothyroxine 112 MCG Tablet PO (06:47)
[2022-01-01] MEDS: Metoprolol Tartrate 50 MG Tablet PO (06:47)
[2022-01-01] MEDS: Clopidogrel Bisulfate 75 MG Tablet PO (06:47)
[2022-01-01] MEDS: Aspirin E.C. 81 MG Tablet PO (06:48)
[2022-01-01] MEDS: Losartan Potassium 25 MG Tablet PO (06:48)
[2022-01-01] MEDS: Potassium Chloride Oral Tablet 20 MEQ PO ×2 (08:08→21:53)
[2022-01-01] MEDS: Azelastine HCl NASAL.SRY 2 SPRAY NASAL ×2 (08:09→21:44)
[2022-01-01] MEDS: Ergocalciferol 1.25 MG (50, 000 UNIT) Capsule PO (08:09)
[2022-01-01] MEDS: Citalopram 20 MG Tablet PO (08:10)
--- NOTE | 2022-01-01 12:17 | PN.HOSP_ITS ---
Subjective Subjective Follow-up for non-STEMI. Objective Data Objective Data Vital Signs: Vital Signs Temp Pulse Resp BP Pulse Ox O2 Del Method 98 F 55 L 16 133/67 H 97 Room Air 01/01/22 08:03 01/01/22 08:03 01/01/22 08:03 01/01/22 08:03 01/01/22 08:03 01/01/22 08:10 Oxygen Delivery Method Room Air Weight: 141 lb 12.116 oz Body Mass Index (BMI) 26.9 Intake & Output: Intake and Output for Last 24 Hours 12/30/21 12/31/21 01/01/22 23:59 23:59 23:59 Intake Total 67.33 / 67.33 43.05 / 43.05 Balance 67.33 / 67.33 43.05 / 43.05 Lab / Micro Data Result Diagrams: 01/01/22 03:51 01/01/22 03:51 Labs: Laboratory Results - last 24 hr 12/31/21 10:40: APTT 26.9 12/31/21 10:40: Phosphorus 3.2 12/31/21 13:06: Troponin I High Sens 231 H* 12/31/21 17:04: Troponin I High Sens 466 H* 12/31/21 18:46: APTT 148.8 H* 01/01/22 03:51: WBC 5.3, RBC 4.32, Hgb 12.5, Hct 39.2, MCV 90.7, MCH 28.9, MCHC 31.9 L, RDW Std Deviation 43.4, RDW Coeff of Onur 13.2, Plt Count 186, MPV 10.1, Immature Gran % (Auto) 0.400, Neut % (Auto) 82.8 H, Lymph % (Auto) 14.5 L, [place]urt[place] % (Auto) 1.9, Eos % (Auto) 0.2, Baso % (Auto) 0.2, Absolute Neuts (auto) 4.4, Absolute Lymphs (auto) 0.77 L, Nucleated RBC % 0 01/01/22 03:51: Sodium 140, Potassium 4.3, Chloride 109 H, Carbon Dioxide 23.0, Anion Gap 8, BUN 20 H, Creatinine 1.22 H, Estim Creat Clear Calc 28.22, Est GFR (MDRD) Af Amer 55 L, Est GFR (MDRD) Non-Af 45 L, BUN/Creatinine Ratio 16.4, Glucose 163 H, Calcium 8.6, Total Bilirubin 0.40, AST 25, ALT 19, Alkaline Phosphatase 74, Troponin I High Sens 582 H*, Total Protein 6.7, Albumin 3.2, Globulin 3.5, Albumin/Globulin Ratio 0.9, Triglycerides 52, Cholesterol 179, LDL Cholesterol 108, VLDL Cholesterol 10, HDL Cholesterol 61, TSH 0.27 L 01/01/22 03:51: APTT 65.4 H Rhythm Strip Rhythm Strip: Sinus Rhythm Rate: 67 Ectopy: PVC(s) Physical Exam Narrative Patient had mild chest pressure last evening/night with radiation to jaw. Shortness of breath is better. No dizziness lightheadedness. Plan for cardiac cath today Physical exam General: Alert, Oriented x3, Cooperative HEENT: Atraumatic, PERRLA, EOMI, Normocephalic Oral: No Gingival or Mucosal Lesions/ Ulcerations Neck: Supple, No JVD, Negative Carotid Bruits Lungs: Air entry equal in bilateral lung bases. No crepitation/rhonchi Cardiovascular: Regular rate, Regular Rhythm, Normal S1, Normal S2, No murmurs Abdomen: Bowel Sounds Present, Soft, Non Tender, Non-Distended : No renal angle tenderness. No suprapubic tenderness. Extremities: Mild bilateral ankle edema, Capillary Refill Less than 3 Seconds Skin: Small skin bruise/ecchymosis on left calf due to fall. No hematoma or ulcer Musculoskeletal: No Tenderness to Palpation of Joints or Extremities. Mild bilateral knee arthritis Neurological: Cranial nerves II-XII grossly intact, DTR 2+/4 and Symmetrical, Neuro grossly intact Psych/Mental Status: Normal Affect, Appropriate. Assessment & Plan Assessment/Plan (1) NSTEMI, initial episode of care: PLAN: This is 81-year-old pleasant lady admitted with ongoing chest pressure and shortness of breath for last few months to weeks, got worse recently. 1. Atypical chest pain/non-STEMI with history of coronary artery PCI in August 2018 and chronic HFpEF: VIRAJ risk score is 6 out of 7. Patient is being admitted in PCU. Is started on aspirin, heparin drip. Customer Assistance Associate is consulted. Patient has recent myocardial pharmacological stress test in July 2021 reported normal. 2D echo was done reported EF 55%, normal LV systolic function, stage I diastolic dysfunction, mild AI, RVSP 36 mmHg consistent with chronic HFpEF. Serum magnesium and phosphorus level are normal. Second troponin is high at 231. Trend troponin and repeat EKG on admission. 01/01: Repeat EKG shows mild visualization of anterolateral ischemia. Serial troponins were high. Patient went for cardiac cath today. Severe coronary artery disease, high-grade 95% proximal left circumflex, moderately severe disease involving distal circumflex, moderate calcification of LAD, diffuse up to 60% and severe disease of ostial first diagonal. EF by LV gram 60%. Normal systolic function. Patient had PCI to proximal and distal circumflex. Fasting profile shows LDL 108, triglyceride 52, TC 179, HDL 61. 2. Essential primary hypertension: Blood pressure is controlled. Continue home medication 3. Dyslipidemia: On rosuvastatin. 4. Thyroid cancer thyroid lobectomy, hypothyroidism on levothyroxine: She follows Dr. Wynne. Clinically in remission thyroglobulin antibody less than 1.0 in September 2021. Thyroglobulin less than 2.0 in October 2019. 01/01 TSH low 0.27. Free T4 tomorrow a.m. 5. Other comorbidities include SVT, PVC, GERD: Home medication reconciliation done. VTE prophylaxis: Patient is on heparin drip. Total time of the visit including total time spent in counseling or coordination of care, (more than 50% of the total time, spent in obtaining medical information from nurses and other ancillary care providers,explaining to the patient about labs, imaging, diagnosis and management of active complex medical conditions), discussion with consultants, review of labs and imaging is 40 minutes. Living will/advanced directive/end of life care: Patient does not have living will or advanced directive. Her is power of deputy attorney general for health. After discussion of benefits/risks procedures involved with full code, DNR CC arrest and DNR CC, the patient opted for DNRCC arrest with no intubation Patient does not want artificial life support including intubation, tube feed, ventilator and/chest compression, central venous catheter, vasopressor and DC shock if needed Laboratory Results 12/31/21 10:40: APTT 26.9 12/31/21 10:40: Phosphorus 3.2 12/31/21 13:06: Troponin I High Sens 231 H* 12/31/21 17:04: Troponin I High Sens 466 H* 12/31/21 18:46: APTT 148.8 H* 01/01/22 03:51: WBC 5.3, RBC 4.32, Hgb 12.5, Hct 39.2, MCV 90.7, MCH 28.9, MCHC 31.9 L, RDW Std Deviation 43.4, RDW Coeff of Onur 13.2, Plt Count 186, MPV 10.1, Immature Gran % (Auto) 0.400, Neut % (Auto) 82.8 H, Lymph % (Auto) 14.5 L, [place] % (Auto) 1.9, Eos % (Auto) 0.2, Baso % (Auto) 0.2, Absolute Neuts (auto) 4.4, Absolute Lymphs (auto) 0.77 L, Nucleated RBC % 0 01/01/22 03:51: Sodium 140, Potassium 4.3, Chloride 109 H, Carbon Dioxide 23.0, Anion Gap 8, BUN 20 H, Creatinine 1.22 H, Estim Creat Clear Calc 28.22, Est GFR (MDRD) Af Amer 55 L, Est GFR (MDRD) Non-Af 45 L, BUN/Creatinine Ratio 16.4, Glucose 163 H, Calcium 8.6, Total Bilirubin 0.40, AST 25, ALT 19, Alkaline Phosphatase 74, Troponin I High Sens 582 H*, Total Protein 6.7, Albumin 3.2, Globulin 3.5, Albumin/Globulin Ratio 0.9, Triglycerides 52, Cholesterol 179, LDL Cholesterol 108, VLDL Cholesterol 10, HDL Cholesterol 61, TSH 0.27 L 01/01/22 03:51: APTT 65.4 H Clinical Impression(s) from Imaging Studies Chest X-Ray 12/31/21 11:25 IMPRESSION: No radiographic evidence of acute cardiopulmonary disease. (2) CAD (coronary artery disease): Charges/Coding Visit Charges Inpatient E&M: 52891 Subs Hosp L3
--- NOTE | 2022-01-01 12:20 | PCM.PN.CARD ---
Subjective Subjective The patient was seen and evaluated. Underwent cardiac catheterization today Objective Data Vital Signs: Vital Signs Temp Pulse Resp BP Pulse Ox O2 Del Method 98 F 55 L 16 133/67 H 97 Room Air 01/01/22 08:03 01/01/22 08:03 01/01/22 08:03 01/01/22 08:03 01/01/22 08:03 01/01/22 08:10 Oxygen Delivery Method Room Air Weight: 141 lb 12.116 oz Body Mass Index (BMI) 26.9 Intake & Output: Intake and Output for Last 24 Hours 12/30/21 12/31/21 01/01/22 23:59 23:59 23:59 Intake Total 67.33 / 67.33 43.05 / 43.05 Balance 67.33 / 67.33 43.05 / 43.05 Lab / Micro Data Result Diagrams: 01/01/22 03:51 01/01/22 03:51 Labs: Laboratory Results - last 24 hr 12/31/21 10:40: APTT 26.9 12/31/21 10:40: Phosphorus 3.2 12/31/21 13:06: Troponin I High Sens 231 H* 12/31/21 17:04: Troponin I High Sens 466 H* 12/31/21 18:46: APTT 148.8 H* 01/01/22 03:51: WBC 5.3, RBC 4.32, Hgb 12.5, Hct 39.2, MCV 90.7, MCH 28.9, MCHC 31.9 L, RDW Std Deviation 43.4, RDW Coeff of Onur 13.2, Plt Count 186, MPV 10.1, Immature Gran % (Auto) 0.400, Neut % (Auto) 82.8 H, Lymph % (Auto) 14.5 L, Valley % (Auto) 1.9, Eos % (Auto) 0.2, Baso % (Auto) 0.2, Absolute Neuts (auto) 4.4, Absolute Lymphs (auto) 0.77 L, Nucleated RBC % 0 01/01/22 03:51: Sodium 140, Potassium 4.3, Chloride 109 H, Carbon Dioxide 23.0, Anion Gap 8, BUN 20 H, Creatinine 1.22 H, Estim Creat Clear Calc 28.22, Est GFR (MDRD) Af Amer 55 L, Est GFR (MDRD) Non-Af 45 L, BUN/Creatinine Ratio 16.4, Glucose 163 H, Calcium 8.6, Total Bilirubin 0.40, AST 25, ALT 19, Alkaline Phosphatase 74, Troponin I High Sens 582 H*, Total Protein 6.7, Albumin 3.2, Globulin 3.5, Albumin/Globulin Ratio 0.9, Triglycerides 52, Cholesterol 179, LDL Cholesterol 108, VLDL Cholesterol 10, HDL Cholesterol 61, TSH 0.27 L 01/01/22 03:51: APTT 65.4 H Rhythm Strip Rhythm Strip: Sinus Rhythm Rate: 67 Ectopy: PVC(s) Cardiology Labs/Tests 12/31/21 10:40: APTT 26.9 12/31/21 10:40: Phosphorus 3.2 12/31/21 18:46: APTT 148.8 H* 01/01/22 03:51: WBC 5.3, RBC 4.32, Hgb 12.5, Hct 39.2, MCV 90.7, MCH 28.9, MCHC 31.9 L, Plt Count 186, MPV 10.1, Immature Gran % (Auto) 0.400, Neut % (Auto) 82.8 H, Lymph % (Auto) 14.5 L, Valley % (Auto) 1.9, Eos % (Auto) 0.2, Baso % (Auto) 0.2, Absolute Neuts (auto) 4.4, Nucleated RBC % 0 01/01/22 03:51: Sodium 140, Potassium 4.3, Chloride 109 H, Carbon Dioxide 23.0, Anion Gap 8, BUN 20 H, Creatinine 1.22 H, Est GFR (MDRD) Af Amer 55 L, Est GFR (MDRD) Non-Af 45 L, BUN/Creatinine Ratio 16.4, Glucose 163 H, Calcium 8.6, Total Bilirubin 0.40, Triglycerides 52, Cholesterol 179, LDL Cholesterol 108, VLDL Cholesterol 10, HDL Cholesterol 61 01/01/22 03:51: APTT 65.4 H Rhythm: EKG: ECHO: Stress Test: Cardiac Cath: PCI: CT Surgery: Holter monitor: EPS: PPM: CXR: Chest CT Scan: Physical Exam Const alert, oriented x3 and no apparent distress HEENT normocephalic, head/scalp atraumatic and hearing grossly normal bilaterally Eyes PERRL, EOMs intact bilaterally, conjunctivae normal and no scleral icterus Neck full ROM, supple and no JVD Carotids: normal carotid upstroke Resp normal respiratory effort and clear to auscultation bilaterally Cardio regular rate, regular rhythm, S1 normal heart sound and S2 normal heart sound GI normal to inspection, nondistended, normoactive bowel sounds Extremity normal to inspection, full ROM and no pedal edema Skin no rashes or lesions noted Psych mental status grossly normal Assessment & Plan Assessment/Plan (1) NSTEMI, initial episode of care: PLAN: Patient had a non-ST elevation myocardial infarction. Underwent cardiac catheterization today which demonstrated a high-grade proximal 95% left circumflex artery stenosis. The previous stent in the obtuse marginal branch was patent. The LAD had 50 to 60% stenosis with a first diagonal with an 80% stenosis The distal circumflex artery had an 80% stenosis The right coronary artery was nondominant. Based on the above we will attempt PCI to the proximal left circumflex artery and the distal circumflex artery. (2) History of coronary artery stent placement: PLAN: Patient had previously stented first obtuse marginal branch. The plan to be to continue current medical therapy. (3) Essential (primary) hypertension: PLAN: Patient has a history of hypertension and will continue with aggressive risk factor modification (4) Dyslipidemia: PLAN: Patient has a history of hyperlipidemia and will continue with aggressive risk factor modification.
--- NOTE | 2022-01-01 12:29 | CL.D_ITS ---
Patient Name: VAZQUEZ JAMIL Study Date: 01/01/2022 Performing: Jay Calix MD Ht: 61 inches 154.94 cm : 1940 Wt: 141.76 lbs 64.3 kg Age: 81 Gender: female BSA: 1.63 PROCEDURE(S) PERFORMED DC01-([id number])LHC/COR/LV CLINICAL PROFILE AND INDICATIONS Indications: Other Heart Failure: None Stress/Imaging Stress/Image Study Performed: No CAD Presentations: Unstable angina. CONCLUSIONS Severe coronary disease involving the proximal left circumflex artery and moderately severe disease involving the distal circumflex artery. Moderate calcification noted of the left anterior descending artery and severe disease of the ostial first diagonal vessel. RECOMMENDATIONS Referred for immediate PCI DESCRIPTION OF PROCEDURE The patient arrived to the procedure lab. The risks and benefits of the procedure as well as a full description of our services here and current unavailability of surgical backup were fully explained to the patient and/or their significant other prior to the catheterization. The Timeout was completed, verifying the correct patient and procedure. The patient's procedural site was prepped and draped in the usual fashion. Local anesthetic was given subcutaneously to right radial region with Lidocaine 2%. Local anesthetic was given subcutaneously to right groin region with Lidocaine 2%. Using a modified Seldinger technique, arterial access was obtained via the right femoral artery, a 5Fr sheath was inserted. Left Coronary Artery selective angiography was performed in multiple views using a 5 Fr. JL4 catheter. Right Coronary Artery selective angiography was then performed in multiple views using a 5 Fr. 3DRC (Dennis) catheter. Left Ventriculography was performed in MATHUR projection using a 5 Fr. Pigtail catheter. LV to AO pullback pressures were then recorded. CORONARY ANGIOGRAPHY DOMINANCE: Left Dominant LEFT HEART ASSESSMENT Left Ventricular Ejection Fraction: by LV Gram 60 % Normal LV wall motion Normal Left Ventricular systolic function LEFT MAIN: Mild calcification LEFT ANTERIOR DESCENDING ARTERY: MID LAD: Moderate calcification, Diffusely diseased up to 60 % DIAGONAL 1: Ostial - 90 % Stenosis CIRCUMFLEX ARTERY: PROX CIRC: 95 % Stenosis DISTAL CIRC: 70 % Stenosis OM 1: Proximal - Previously placed stent is patent RAMUS: No significant disease noted RIGHT CORONARY ARTERY: Mild luminal irregularities COMPLICATIONS PROCEDURE MEDICATIONS Fentanyl 50 mcg IV Versed 1 mg IV Oxygen: 2 L/min via nasal cannula Heparin 5000 unit(s) IV 01/01/2022 12:25:52 Solu-cortef 100 mg IV 01/01/2022 12:03:58 SUMMARY OF HEMODYNAMIC DATA Time AIR REST AO 118/51 (77) SA 12:07:36 LV 130/10, 18 12:14:00 LV 130/11, 19 12:14:08 LV 120/15, 22 12:14:43 LV 121/15, 21 12:14:51 LVp 127/16, 23 12:14:57 AOp 0/-29 (58) 12:15:04 Signed By Jay Calix MD On 01/01/2022 12:28:53 Jay Calix MD
--- NOTE | 2022-01-01 13:15 | EKG12_ITS ---
Test Reason : AM EKG Blood Pressure : / mmHG Vent. Rate : 059 BPM Atrial Rate : 059 BPM P-R Int : 162 ms QRS Dur : 080 ms QT Int : 506 ms P-R-T Axes : 072 031 007 degrees QTc Int : 500 ms Sinus bradycardia with occasional Premature ventricular complexes Prolonged QT Abnormal ECG When compared with ECG of 31-DEC-2021 14:22, Inverted T waves have replaced nonspecific T wave abnormality in Inferior leads Confirmed by OTIS KRAMER, FABIO ([id number]), editorial cartoonist JW HARPER ([id number]) on 01/07/2022 1:07:19 PM Referred By: Celestine Confirmed By:FABIO BERG MD
--- NOTE | 2022-01-01 13:28 | CL.I_ITS ---
Patient Name: VAZQUEZ JAMIL Study Date: 01/01/2022 Performing: Sofy Ferrara MD Ht: 61 inches 154.94 cm : 1940 Wt: 141.76 lbs 64.3 kg Age: 81 Gender: female BSA: 1.63 PROCEDURE(S) PERFORMED IC01-([id number])PTCA, SINGLE CORONARY ARTERY CLINICAL PROFILE AND CO-MORBIDITIES Indications: Other Heart Failure: None Stress/Imaging Stress/Image Study Performed: No CAD Presentations: Unstable angina. CONCLUSIONS Successful DYLLAN Prox LCX using 3.0x13 mm stent, post-dilated distally using 3.5 mm balloon Successful DYLLAN distal LCX using 2.25x15 mm stent, post-dilated using 2.5 mm balloon RECOMMENDATIONS ASA Indefinitley Plavix for at least 12 months Routine post interventional care DESCRIPTION OF PROCEDURE The patient arrived to the procedure lab. The risks and benefits of the procedure as well as a full description of our services here and current unavailability of surgical backup were fully explained to the patient and/or their significant other prior to the catheterization. The Timeout was completed, verifying the correct patient and procedure. The patient's procedural site was prepped and draped in the usual fashion. Local anesthetic was given subcutaneously to right radial region with Lidocaine 2%. Local anesthetic was given subcutaneously to right groin region with Lidocaine 2% Using a modified Seldinger technique,arterial access was obtained via the right femoral artery, a 5Fr sheath was inserted. Left Coronary Artery selective angiography was performed in multiple views using a 5 Fr. JL4 catheter. Right Coronary Artery selective angiography was then performed in multiple views using a 5 Fr. 3DRC (Dennis) catheter. Left Ventriculography was performed in MATHUR projection using a 5 Fr. Pigtail catheter. LV to AO pullback pressures were then recorded. Arterial sheath was exchanged for a 6 Fr Sheath. cb3.5 Guide catheter was inserted and engaged into the LCA. runthrough Guide wire was advanced to the Circumflex. orsiro 3x13 Drug Eluting stent was inserted. Drug Eluting stent was advanced across the lesion in the circumflex, proximal. Angiogram performed pre stent deployment. Angiogram performed post stent deployment. nc emerge 3.5x8 Balloon catheter was inserted. Balloon catheter was advanced across lesion in the circumflex, proximal. emerge 3x12 nc Balloon catheter was inserted post stent. Angiogram performed pre balloon dilatation. Angiogram performed post balloon dilatation. Angiogram performed pre balloon dilatation. Angiogram performed post balloon dilatation. 2.25x15 Drug Eluting stent was inserted. Drug Eluting stent was advanced across the lesion in the circumflex, distal. Angiogram performed pre stent deployment. Angiogram performed post stent deployment. 2.5x15 nc emerge Balloon catheter was inserted. Balloon catheter was inserted post stent. Angiogram performed post balloon dilatation. Angiogram performed pre balloon dilatation. Contrast was injected through the sheath and the Right Iliac and Femoral artery were assessed for possible closure device. The arterial sheath was pulled and a Perclose closure device was deployed for hemostasis INTERVENTION INFORMATION LESION SITE: Circumflex (Proximal) Lesion Complexity: Non-High/Non-C, culprit lesion: Yes Pre Stenosis: 95 % Pre intervention VIRAJ flow: 3 PROCEDURE: Drug Eluting Stent with post dilatation Post Stenosis: 0 % Post intervention VIRAJ flow: 3 Lesion Devices: Cardinal 6 Fr XB3.5 100cm Guide Catheter Terumo .014 Runthrough Extra Floppy 180cm straight piALGO Technologiespromed[facility] MR DYLLAN 3.0x13 Anthony Sci [place] EMERGE MR 3.50x08 BALLOON Anthony Sci NC EMERGE MR 3.00x12 BALLOON LESION SITE: Circumflex (Distal) Lesion Complexity: Non-High/Non-C Pre Stenosis: 75 % Pre intervention VIRAJ flow: 3 PROCEDURE: Drug Eluting Stent with post dilatation Post Stenosis: 0 % Post intervention VIRAJ flow: 3 Lesion Devices: Cardinal 6 Fr XB3.5 100cm Guide Catheter Terumo .014 Runthrough Extra Floppy 180cm straight [facility] DYLLAN 2.25x15 Anthony Sci NC EMERGE MR 2.50x15 BALLOON COMPLICATIONS No Complications PROCEDURE MEDICATIONS Fentanyl 50 mcg IV Versed 1 mg IV Oxygen: 2 L/min via nasal cannula Heparin 5000 unit(s) IV 01/01/2022 12:25:52 Heparin 2000 unit(s) IV 01/01/2022 12:36:59 Nitro 200 mcg IC 01/01/2022 12:50:41 Plavix 300 mg PO 01/01/2022 13:06:20 Solu-cortef 100 mg IV 01/01/2022 12:03:58 SUMMARY OF HEMODYNAMIC DATA Time AIR REST AO 118/51 (77) SA 12:07:36 LV 130/10, 18 12:14:00 LV 130/11, 19 12:14:08 LV 120/15, 22 12:14:43 LV 121/15, 21 12:14:51 LVp 127/16, 23 12:14:57 AOp 0/-29 (58) 12:15:04 13:27:08 Signed By Sofy Ferrara MD On 01/01/2022 13:27:43 Sofy Ferrara MD
[2022-01-01] MEDS: 0.9% Normal Saline 1,000 ML 100 ML IV (13:45)
--- NOTE | 2022-01-01 14:28 | CASEMGMT ---
RN CM Face to Face with patient for initial transition planning/care coordination assessment. RN CM introduced self and role at [facility]. Patient lying in bed, alert and oriented, at bedside. Patient willing to participate in assessment and is able to answer all questions appropriately. Care providers, pharmacy, and demographics verified. Patient wishes to discharge home, denies need for home health at this time. Patient states she has no further needs or concerns at this time. CM to follow for discharge planning needs that may arise. PCP: Anthony Specialists: Lauren, neurologist; Fifi, chef german; Ricci, oncologist Preferred Pharmacy:[facility] Insurance: [employer], [employer] Prescription Benefit: yes Living Will/HPOA: none LNOK: Living Arrangements: Patient lives with in a single story home with 1 step to enter. Patient is independent at home. Transportation: self, DME/HHC: Patient states she has built in shower chair, cane, and walker at home. Patient denies previous HHC or SNF. Disposition Plan: Patient to discharge home with family support and follow-up plans in place. Marialuisa BARBOSA, RN, CM
--- NOTE | 2022-01-01 15:00 | CRPHASE1 ---
Patient Communication Former Patient:: Phase I, Phase II PHII Cardiac Rehab Discussed with Patient:: Yes Guide to Cardiac Rehab Given to Patient:: Yes Cardiac Rehab Facility Choice List Given to Patient:: Yes - pt chooses [facility] Choice Program [facility] CR PHII:: Communication Given to CR, Refer to [facility] Rehabilitation Consultant:: Sofy Ferrara Phase II Cardiac Rehab:: Yes Sessions:: 36 sessions - 3 days/wk, 12 weeks Cardiac Rehabilitation Info Cardiac Rehabilitation Program Information: Cardiac Rehabilitation is important for patients like you who are recovering from a heart problem. Cardiac rehabilitation programs are recognized as integral to the continued care of the patient with coronary heart disease. The cardiac rehabilitation program is designed to optimize a patient's physical, psychological, and social functioning. Health senior care manager work in cardiac rehabilitation programs and assist you with getting the treatments you need to get stronger and healthier - like exercise, healthy eating habits, and medications. Cardiac rehabilitation has been show to help people with heart problems live longer and have better life enjoyment than people who do not go to cardiac rehabilitation. Please contact the Cardiac Rehabilitation Program at [facility] at in two weeks if you have not heard from them.
--- NOTE | 2022-01-01 15:02 | CRPH1.INSTRU ---
General Education CAD and cardiac anatomy and function:: Needs reinforcement Explanation of diagnoses and procedures:: Needs reinforcement Sign/Symptoms of ND:: Needs reinforcement Antiplatelet therapy: Needs reinforcement Proper use of NTG-SL: Needs reinforcement Emergency procedures and activation of EMS: Needs reinforcement Compliance of all prescribed medications: Needs reinforcement Smoking Patient Nicotine/Smoking Risk Factors Are:: Non-smoker Dyslipidemia Dyslipidemia Response Code:: Needs reinforcement Overweight/Obesity Patient Overweight/Obesity Risk Factors Are:: BMI Normal [24-29 & > 65 years old] Hypertension Hypertension:: Needs reinforcement Heart Disease Heart Disease Response Code:: Needs reinforcement Diabetes Diabetes:: Not instructed Metabolic Syndrome Metabolic Syndrome Response Code:: Not instructed Sedentary Sedentary Response Code:: Needs reinforcement
--- NOTE | 2022-01-01 18:27 | NURSING ---
Reviewed charting with Pedro Vigil Rn.
[2022-01-01] MEDS: Atorvastatin Calcium 40 MG Tablet PO (21:44)
[2022-01-01] MEDS: Latanoprost 0.005% 1 Bottle 1 DRP EACH EYE (21:45)
[2022-01-02 03:00] VITALS: BP 104/51; PULSE 56; PULSE 61; RESP 18; TEMP 36.6; O2SAT 98
--- NOTE | 2022-01-02 03:00 | NURSING ---
0300 : [employer] called this RN into room d/t pt confusion talking about rearranging furniture and trying to get out of bed alone. NIH completed, score:0. vitals obtained and within normal limits. pt able to be reoriented and alert to person place & time. Pt assisted back into bed with this RN and [employer].
[2022-01-02 05:00] LABS: Hematocrit 31.7 % (37-47); Hemoglobin 10.2 g/dL (12.0-15.0); Mean Corp Hgb Conc 32.2 g/dL (32-36); Mean Corpuscular Hgb 28.8 pg (27.0-32.0); Mean Corpuscular Volume 89.5 fL (81-99); Mean Platelet Vol. 10.4 fl (6.2-12.0); Platelet Count 179 K/mm3 (150-450); RBC Distribution Width CV 13.6 % (11.6-14.6); Red Blood Count 3.54 M/mm3 (4.2-5.4); White Blood Count 11.6 K/mm3 (4.4-11.0)
--- NOTE | 2022-01-02 05:00 | NURSING ---
patients bed exit going off. pt told aide she is allowed to walk be herself and very irritated. This RN called to room and talking with patient. Charge nurse going in room with patient to talk after SHOT TUBE MACHINE TENDER and this RN in room. charge nurse in room with patient at this time.
--- NOTE | 2022-01-02 05:00 | NURSING ---
Pt up out of bed and getting loud with web services developer and primary RN called to the room. This relief charge weigher in to speak with pt. Pt states that she's getting dressed and going home because the RN and GED TUTOR accused her of having alzheimers last night when she woke up confused. This RN tried to explain that d/t her confusion her RN was concerned that she might have something acute happening like a stroke and that she did an NIHSS with her to test that, which this RN witnessed. This relief charge weigher also informed her that we, as nurses, don't have a test for Alzheimer's but pt continued to insist that her RN did an alzheimer's test on her. Pt states that she saw orbs on the floor that were going into the phones. This relief charge weigher attempted to understand what pt meant by this and investigate but ultimately explained that she might have been disoriented when she woke in a strange place in the dark. Pt continued to verbalize her distaste for the way she was treated because both her mom and sister had alzheimers and it was triggering and upsetting to be labeled this. This RN offered apologies and asked how to move forward, offered another RN in place of her current RN as well as not have web services developer back in room so that she would stay for wound care coordinator to see her and be discharged appropriately. Pt eventually agreed that she didn't need anything but was willing to stay.
[2022-01-02 05:33] LABS: AST(SGOT) 27 U/L (15-37); Alanine Aminotransfer ALT/SGPT 16 U/L (13-56); Albumin, Serum 2.9 g/dL (3.2-5.0); Alkaline Phosphatase 63 U/L (45-117); Anion Gap 8 (5-15); BUN 20 mg/dL (7-18); BUN/Creat Ratio 18.5 RATIO (10-20); Calcium,Total 7.9 mg/dL (8.5-10.1); Chloride 112 mmol/L (98-107); Creatinine, Serum 1.08 mg/dL (0.55-1.02); EST Glomerular Filtration Rate 52 mL/min (>60); Est Glom Filt Rate - Afr Amer 63 mL/min (>60); Estimated Creatinine Clearance 31.87 ml/min; Globulin 2.8 g/dL (2.2-4.2); Glucose 121 mg/dL (74-106); Potassium 3.9 mmol/L (3.5-5.1); Protein, Total 5.7 g/dL (6.4-8.2); Sodium Level 142 mmol/L (136-145)
[2022-01-02 07:02] VITALS: O2SAT 98
[2022-01-02 08:07] VITALS: BP 130/57; PULSE 64; RESP 16; TEMP 36.4; O2SAT 94
[2022-01-02] MEDS: Sucralfate 1 GM Tablet PO (08:16)
[2022-01-02] MEDS: Levothyroxine 112 MCG Tablet PO (08:16)
[2022-01-02] MEDS: Aspirin E.C. 81 MG Tablet PO (08:16)
[2022-01-02] MEDS: Azelastine HCl NASAL.SRY 2 SPRAY NASAL (08:17)
[2022-01-02] MEDS: Citalopram 20 MG Tablet PO (08:17)
[2022-01-02] MEDS: Potassium Chloride Oral Tablet 20 MEQ PO (08:17)
[2022-01-02 08:18] VITALS: BP 130/57; PULSE 64
[2022-01-02] MEDS: Clopidogrel Bisulfate 75 MG Tablet PO (08:18)
[2022-01-02] MEDS: Losartan Potassium 25 MG Tablet PO (08:18)
[2022-01-02] MEDS: Metoprolol Tartrate 50 MG Tablet PO (08:18)
--- NOTE | 2022-01-02 08:35 | PCM.PN.CARD ---
Subjective Subjective Patient seen and related. Appears to be doing quite well this morning. Objective Data Vital Signs: Vital Signs Temp Pulse Resp BP Pulse Ox O2 Del Method 97.6 F L 64 16 130/57 H 94 Room Air 01/02/22 08:07 01/02/22 08:18 01/02/22 08:07 01/02/22 08:18 01/02/22 08:07 01/02/22 08:07 Oxygen Delivery Method Room Air Weight: 141 lb 12.116 oz Body Mass Index (BMI) 26.9 Intake & Output: Intake and Output for Last 24 Hours 12/31/21 01/01/22 01/02/22 23:59 23:59 23:59 Intake Total 67.33 / 67.33 1103.05 / 1103.05 Balance 67.33 / 67.33 1103.05 / 1103.05 Lab / Micro Data Result Diagrams: 01/02/22 04:14 01/02/22 04:14 Labs: Laboratory Results - last 24 hr 01/02/22 04:14: WBC 11.6 H, RBC 3.54 L, Hgb 10.2 L, Hct 31.7 L, MCV 89.5, MCH 28.8, MCHC 32.2, RDW Std Deviation 45.0 H, RDW Coeff of Onur 13.6, Plt Count 179, MPV 10.4 01/02/22 04:14: Sodium 142, Potassium 3.9, Chloride 112 H, Carbon Dioxide 22.0, Anion Gap 8, BUN 20 H, Creatinine 1.08 H, Estim Creat Clear Calc 31.87, Est GFR (MDRD) Af Amer 63, Est GFR (MDRD) Non-Af 52 L, BUN/Creatinine Ratio 18.5, Glucose 121 H, Calcium 7.9 L, Total Bilirubin 0.50, AST 27, ALT 16, Alkaline Phosphatase 63, Total Protein 5.7 L, Albumin 2.9 L, Globulin 2.8, Albumin/Globulin Ratio 1.0 Rhythm Strip Rhythm Strip: Sinus Rhythm Rate: 67 Ectopy: PVC(s) Cardiology Labs/Tests 01/02/22 04:14: WBC 11.6 H, RBC 3.54 L, Hgb 10.2 L, Hct 31.7 L, MCV 89.5, MCH 28.8, MCHC 32.2, Plt Count 179, MPV 10.4 01/02/22 04:14: Sodium 142, Potassium 3.9, Chloride 112 H, Carbon Dioxide 22.0, Anion Gap 8, BUN 20 H, Creatinine 1.08 H, Est GFR (MDRD) Af Amer 63, Est GFR (MDRD) Non-Af 52 L, BUN/Creatinine Ratio 18.5, Glucose 121 H, Calcium 7.9 L, Total Bilirubin 0.50 Rhythm: EKG: ECHO: Stress Test: Cardiac Cath: PCI: CT Surgery: Holter monitor: EPS: PPM: CXR: Chest CT Scan: Physical Exam Const alert, oriented x3 and no apparent distress HEENT normocephalic, head/scalp atraumatic and hearing grossly normal bilaterally Eyes PERRL, EOMs intact bilaterally, conjunctivae normal and no scleral icterus Neck full ROM, supple and no JVD Carotids: normal carotid upstroke Resp normal respiratory effort and clear to auscultation bilaterally Cardio regular rate, regular rhythm, S1 normal heart sound and S2 normal heart sound GI normal to inspection, nondistended, normoactive bowel sounds Extremity normal to inspection, full ROM and no pedal edema Skin no rashes or lesions noted Psych mental status grossly normal Assessment & Plan Assessment/Plan (1) NSTEMI, initial episode of care: PLAN: Patient had a non-ST elevation myocardial infarction. Underwent cardiac catheterization today which demonstrated a high-grade proximal 95% left circumflex artery stenosis. The previous stent in the obtuse marginal branch was patent. The LAD had 50 to 60% stenosis with a first diagonal with an 80% stenosis The distal circumflex artery had an 80% stenosis The right coronary artery was nondominant. Based on the above she underwent angioplasty and stenting of the proximal and distal circumflex artery. This morning she is doing quite well. We will plan on discharging for for outpatient follow-up. (2) History of coronary artery stent placement: PLAN: Patient had previously stented first obtuse marginal branch. The plan to be to continue current medical therapy. (3) Essential (primary) hypertension: PLAN: Patient has a history of hypertension and will continue with aggressive risk factor modification (4) Dyslipidemia: PLAN: Patient has a history of hyperlipidemia and will continue with aggressive risk factor modification.
--- NOTE | 2022-01-02 08:38 | DCINST_ITS ---
Discharge Instructions Diet Discharge Diet: 2000 mg Sodium Diet Activity Discharge Activity: Return to Normal Activity Weight Bearing Status: Weight bearing as tolerated Dressing / Incision Call your doctor if you observe: Fever of 101 or Higher, Coldness, Increased Pain, Numbness or Tingling, Change in Color, Inability to urinate, Inability to have a bowel movement, Shortness of breath, Dizziness, Fainting spells, Swelling in the ankles, Chest pain, Prolonged hiccupping, Increased palpitations (irregular heartbeat), Calf discomfort and Uncontrolled pain Follow Up Care Test Results: Test results from this visit will be discussed in further detail at your follow- up appointment, if applicable. Discharge Plan Admission Admit Date/Time: 12/31/21 14:38 Primary Reason for Your Visit: Non-STEMI Attending Provider: Gael Sprague Primary Care Provider: Geeta Cruz Consulting Providers: Sergio Levi Discharge Orders/Prescriptions Prescriptions: New nitroglycerin 0.4 mg Tablet, Sublingual 0.4 mg sublingual Q5M PRN (Reason: Chest pain) Qty: 30 0RF levothyroxine 100 mcg tablet 100 mcg PO DAILY Qty: 30 2RF Continued calcium polycarbophil [FiberCon] 625 mg tablet 1,250 mg PO DAILY hydroxyzine HCl 25 MG tablet 25 mg PO QHS Label Comments: anxiety azelastine 1 SPRAY aerosol,spray 2 spray NASAL BID Label Comments: nasal spray epinephrine 0.3 MG syringe 0.3 mg IM X1 Label Comments: ALERGIC REACTION latanoprost 1 DROP bottle 1 drp EACHEYE DAILY citalopram 20 MG tablet 20 mg PO DAILY ergocalciferol (vitamin D2) 50,000 unit capsule 50,000 unit PO .COMPLEX Label Comments: 50,000 unit PO twice weekly; Rx Instructions: 50,000 unit PO twice weekly Thursday and Thursday. sucralfate 1 GM tablet 1 gm PO BID aspirin 81 mg tablet,delayed release (DR/EC) 81 mg PO DAILY potassium chloride 20 mEq tablet,ER particles/crystals 20 meq PO BID losartan 25 mg tablet 25 mg PO DAILY Qty: 30 2RF metoprolol tartrate 50 mg tablet 50 mg PO BID Qty: 60 1RF Label Comments: TAKE 1 TABLET TWICE DAILY rosuvastatin 20 mg tablet 20 mg PO DAILY Qty: 30 1RF clopidogrel 75 MG tablet 75 mg PO DAILY Qty: 30 3RF Discontinued levothyroxine 112 mcg tablet 112 mcg PO DAILY Label Comments: Take 1 tablet by mouth daily Referrals / Follow Up: Jay Calix MD [Med Staff - Active Staff] - 01/10/22 2:30 pm (or as scheduled) Geeta Cruz DO [Primary Care Provider] - 01/03/22 9:00 am Disposition Disposition (needs filled in before D/C Order can be placed): Home, Self Care
--- NOTE | 2022-01-02 08:55 | PCM.DC.SUM ---
Providers Date of Admission: 12/31/21 Date of Discharge: 01/02/22 Primary Care Physician: Dr. Geeta Cruz, Consultations 12/31/21 13:46 Consult: Cardiology Routine Consulting Provider: Sergio Levi Reason for Consult: Chest Pain/nstemi EMERGENT Consult: No MD Notified: Yes Date Notified: 12/31/21 Time Notified: 12:23 Method of Notification: ED Physician Initiated Reason For Visit: ATYPICAL CHEST PAIN Diagnosis Discharge Diagnosis (1) NSTEMI, initial episode of care: Status: Acute Code(s): I21.4 - Non-ST elevation (NSTEMI) myocardial infarction (2) History of coronary artery stent placement: Status: Resolved Code(s): Z95.5 - Presence of coronary angioplasty implant and graft (3) Essential (primary) hypertension: Status: Chronic Code(s): I10 - Essential (primary) hypertension (4) Dyslipidemia: Status: Chronic Code(s): E78.5 - Hyperlipidemia, unspecified Medications at Discharge Home Medications azelastine 137 mcg (0.1 %) nasal spray aerosol 2 spray NASAL BID Check with primary doctor 12/16/15 hydroxyzine HCl 25 mg tablet 25 mg PO QHS anxiety 12/16/15 epinephrine 0.3 mg/0.3 mL injection, auto-injector 0.3 mg IM X1 allergic reaction 01/29/16 citalopram 20 mg tablet 20 mg PO DAILY mood 09/28/17 latanoprost 0.005 % eye drops 1 drp EACHEYE DAILY eye 09/28/17 calcium polycarbophil 625 mg tablet (FiberCon) 1,250 mg PO DAILY Check with primary doctor 02/08/18 ergocalciferol (vitamin D2) 1,250 mcg (50,000 unit) capsule 50,000 unit PO .COMPLEX supplement 02/08/18 sucralfate 1 gram tablet 1 gm PO BID Check with primary doctor 08/18/18 aspirin 81 mg tablet,delayed release 81 mg PO DAILY Check with primary doctor 12/31/21 potassium chloride 20 mEq tablet,extended release(part/cryst) 20 meq PO BID hypokalemia 12/31/21 clopidogrel 75 mg tablet 75 mg PO DAILY blood thinner #30 tabs 01/02/22 levothyroxine 100 mcg tablet 100 mcg PO DAILY #30 tabs 01/02/22 losartan 25 mg tablet 25 mg PO DAILY blood pressure\ #30 tabs 01/02/22 metoprolol tartrate 50 mg tablet 50 mg PO BID blood pressure #60 tabs 01/02/22 nitroglycerin 0.4 mg sublingual tablet 0.4 mg sublingual Q5M PRN Chest pain #30 tabs 01/02/22 rosuvastatin 20 mg tablet 20 mg PO DAILY cholesterol #30 tabs 01/02/22 Hospital Course Summary of Care Provided Hospital Course: This is 81-year-old pleasant lady admitted with ongoing chest pressure and shortness of breath for last few months to weeks, got worse recently. 1. Atypical chest pain/non-STEMI with history of coronary artery PCI in August 2018 and chronic HFpEF: VIRAJ risk score is 6 out of 7. Patient is being admitted in PCU. Is started on aspirin, heparin drip. Corporate Attorney is consulted. Patient has recent myocardial pharmacological stress test in July 2021 reported normal. 2D echo was done reported EF 55%, normal LV systolic function, stage I diastolic dysfunction, mild AI, RVSP 36 mmHg consistent with chronic HFpEF. Serum magnesium and phosphorus level are normal. Second troponin is high at 231. Trend troponin and repeat EKG on admission. 01/01: Repeat EKG shows mild visualization of anterolateral ischemia. Serial troponins were high. Patient went for cardiac cath today. Severe coronary artery disease, high-grade 95% proximal left circumflex, moderately severe disease involving distal circumflex, moderate calcification of LAD, diffuse up to 60% and severe disease of ostial first diagonal. EF by LV gram 60%. Normal systolic function. Patient had PCI to proximal and distal circumflex. Fasting profile shows LDL 108, triglyceride 52, TC 179, HDL 61. 01/02: Uneventful night. Heart rate and blood pressure controlled. Patient has aspirin, Plavix, metoprolol, losartan and rosuvastatin at home, prescriptions given. New prescription for levothyroxine and nitroglycerin sublingual tablets given. Discussed with the thermal technician. Discharged home 2. Essential primary hypertension: Blood pressure is controlled. Continue home medication 3. Dyslipidemia: On rosuvastatin. 4. Thyroid cancer thyroid lobectomy, hypothyroidism on levothyroxine: She follows Dr. Wynne. Clinically in remission thyroglobulin antibody less than 1.0 in September 2021. Thyroglobulin less than 2.0 in October 2019. 01/01 TSH low 0.27. Free T4 tomorrow a.m. 5. Other comorbidities include SVT, PVC, GERD: Home medication reconciliation done. VTE prophylaxis: Heparin drip discontinued prior to heart cath. Discharge medication reconciliation done. Discharge follow-up instructions completed. Discharge process discussed with the patient and all questions were answered to patient's satisfaction. Total time spent, exact 35 minutes on discharge meds reconciliation, examination, coordination of care with nurses and ancillary staff, review of imaging and blood test and discussion with the patient on follow-up instructions. Living will/advanced directive/end of life care: Patient does not have living will or advanced directive. Her is power of insurance defense attorney for health. After discussion of benefits/risks procedures involved with full code, DNR CC arrest and DNR CC, the patient opted for DNRCC arrest with no intubation Patient does not want artificial life support including intubation, tube feed, ventilator and/chest compression, central venous catheter, vasopressor and DC shock if needed Laboratory Results 01/02/22 04:14: WBC 11.6 H, RBC 3.54 L, Hgb 10.2 L, Hct 31.7 L, MCV 89.5, MCH 28.8, MCHC 32.2, RDW Std Deviation 45.0 H, RDW Coeff of Onur 13.6, Plt Count 179, MPV 10.4 01/02/22 04:14: Sodium 142, Potassium 3.9, Chloride 112 H, Carbon Dioxide 22.0, Anion Gap 8, BUN 20 H, Creatinine 1.08 H, Estim Creat Clear Calc 31.87, Est GFR (MDRD) Af Amer 63, Est GFR (MDRD) Non-Af 52 L, BUN/Creatinine Ratio 18.5, Glucose 121 H, Calcium 7.9 L, Total Bilirubin 0.50, AST 27, ALT 16, Alkaline Phosphatase 63, Total Protein 5.7 L, Albumin 2.9 L, Globulin 2.8, Albumin/Globulin Ratio 1.0 Clinical Impression(s) from Imaging Studies Chest X-Ray 12/31/21 11:25 IMPRESSION: No radiographic evidence of acute cardiopulmonary disease. Physical Exam Narrative Patient had right groin approach after failed right radial artery wrist. No chest pain or shortness of breath. General: Alert, Oriented x3, Cooperative HEENT: Atraumatic, PERRLA, EOMI, Normocephalic Oral: No Gingival or Mucosal Lesions/ Ulcerations Neck: Supple, No JVD, Negative Carotid Bruits Lungs: Air entry equal in bilateral lung bases. No crepitation/rhonchi Cardiovascular: Regular rate, Regular Rhythm, Normal S1, Normal S2, No murmurs Abdomen: Bowel Sounds Present, Soft, Non Tender, Non-Distended : No renal angle tenderness. No suprapubic tenderness. Extremities: Mild bilateral ankle edema, Capillary Refill Less than 3 Seconds Skin: No hematoma bruise over right radial artery or right femoral artery access site. Small skin bruise/ecchymosis on left calf due to fall healed no hematoma or ulcer Musculoskeletal: No Tenderness to Palpation of Joints or Extremities. Mild bilateral knee arthritis Neurological: Cranial nerves II-XII grossly intact, DTR 2+/4 and Symmetrical, Neuro grossly intact Psych/Mental Status: Normal Affect, Appropriate. Weight / BMI Weight Weight: 141 lb 12.116 oz Body Mass Index (BMI) 26.9 ABG / Lab / Microbiology Data Result Diagrams: 01/02/22 04:14 01/02/22 04:14 Laboratory: Laboratory Results - last 24 hr 01/02/22 04:14: WBC 11.6 H, RBC 3.54 L, Hgb 10.2 L, Hct 31.7 L, MCV 89.5, MCH 28.8, MCHC 32.2, RDW Std Deviation 45.0 H, RDW Coeff of Onur 13.6, Plt Count 179, MPV 10.4 01/02/22 04:14: Sodium 142, Potassium 3.9, Chloride 112 H, Carbon Dioxide 22.0, Anion Gap 8, BUN 20 H, Creatinine 1.08 H, Estim Creat Clear Calc 31.87, Est GFR (MDRD) Af Amer 63, Est GFR (MDRD) Non-Af 52 L, BUN/Creatinine Ratio 18.5, Glucose 121 H, Calcium 7.9 L, Total Bilirubin 0.50, AST 27, ALT 16, Alkaline Phosphatase 63, Total Protein 5.7 L, Albumin 2.9 L, Globulin 2.8, Albumin/Globulin Ratio 1.0 D/C Instructions Discharge Diet: 2000 mg Sodium Diet Weight Bearing Status: Weight bearing as tolerated Call your doctor if you observe: Fever of 101 or Higher, Coldness, Increased Pain, Numbness or Tingling, Change in Color, Inability to urinate, Inability to have a bowel movement, Shortness of breath, Dizziness, Fainting spells, Swelling in the ankles, Chest pain, Prolonged hiccupping, Increased palpitations (irregular heartbeat), Calf discomfort and Uncontrolled pain Meaningful Use Info Meaningful Use Diagnoses (Choose all that apply): AMI AMI/Post PCI/Angioplasty Aspirin given w/in 24hrs of arrival?: Yes ASA at discharge?: Yes Statins at discharge?: Yes Justo/ARB at discharge?: Yes Beta Anabella at discharge?: Yes Done w/ Acute TX measure.: Yes Discharge Plan Admission Admit Date/Time: 12/31/21 14:38 Primary Reason for Your Visit: Non-STEMI Attending Provider: Gael Sprague Primary Care Provider: Geeta Cruz Consulting Providers: Sergio Levi Discharge Orders/Prescriptions Prescriptions: New nitroglycerin 0.4 mg Tablet, Sublingual 0.4 mg sublingual Q5M PRN (Reason: Chest pain) Qty: 30 0RF levothyroxine 100 mcg tablet 100 mcg PO DAILY Qty: 30 2RF Continued calcium polycarbophil [FiberCon] 625 mg tablet 1,250 mg PO DAILY hydroxyzine HCl 25 MG tablet 25 mg PO QHS Label Comments: anxiety azelastine 1 SPRAY aerosol,spray 2 spray NASAL BID Label Comments: nasal spray epinephrine 0.3 MG syringe 0.3 mg IM X1 Label Comments: ALERGIC REACTION latanoprost 1 DROP bottle 1 drp EACHEYE DAILY citalopram 20 MG tablet 20 mg PO DAILY ergocalciferol (vitamin D2) 50,000 unit capsule 50,000 unit PO .COMPLEX Label Comments: 50,000 unit PO twice weekly; Rx Instructions: 50,000 unit PO twice weekly Thursday and Thursday. sucralfate 1 GM tablet 1 gm PO BID aspirin 81 mg tablet,delayed release (DR/EC) 81 mg PO DAILY potassium chloride 20 mEq tablet,ER particles/crystals 20 meq PO BID losartan 25 mg tablet 25 mg PO DAILY Qty: 30 2RF metoprolol tartrate 50 mg tablet 50 mg PO BID Qty: 60 1RF Label Comments: TAKE 1 TABLET TWICE DAILY rosuvastatin 20 mg tablet 20 mg PO DAILY Qty: 30 1RF clopidogrel 75 MG tablet 75 mg PO DAILY Qty: 30 3RF Discontinued levothyroxine 112 mcg tablet 112 mcg PO DAILY Label Comments: Take 1 tablet by mouth daily Referrals / Follow Up: Jay Calix MD [Med Staff - Active Staff] - 01/10/22 2:30 pm (or as scheduled) Geeta Cruz DO [Primary Care Provider] - 01/03/22 9:00 am Disposition Disposition (needs filled in before D/C Order can be placed): Home, Self Care Charges/Coding Visit Charges Inpatient E&M: 64115 Disch Hosp
[2022-01-02 09:08] VITALS: PULSE 62
--- NOTE | 2022-01-02 10:23 | PHA.DC.MR ---
Pharmacy Service has performed discharge medication reconciliation for this patient. Home Medications azelastine 137 mcg (0.1 %) nasal spray aerosol 2 spray NASAL BID Check with primary doctor 12/16/15 hydroxyzine HCl 25 mg tablet 25 mg PO QHS anxiety 12/16/15 epinephrine 0.3 mg/0.3 mL injection, auto-injector 0.3 mg IM X1 allergic reaction 01/29/16 citalopram 20 mg tablet 20 mg PO DAILY mood 09/28/17 latanoprost 0.005 % eye drops 1 drp EACHEYE DAILY eye 09/28/17 calcium polycarbophil 625 mg tablet (FiberCon) 1,250 mg PO DAILY Check with primary doctor 02/08/18 ergocalciferol (vitamin D2) 1,250 mcg (50,000 unit) capsule 50,000 unit PO .COMPLEX supplement 02/08/18 sucralfate 1 gram tablet 1 gm PO BID Check with primary doctor 08/18/18 aspirin 81 mg tablet,delayed release 81 mg PO DAILY Check with primary doctor 12/31/21 potassium chloride 20 mEq tablet,extended release(part/cryst) 20 meq PO BID hypokalemia 12/31/21 clopidogrel 75 mg tablet 75 mg PO DAILY blood thinner #30 tabs 01/02/22 levothyroxine 100 mcg tablet 100 mcg PO DAILY #30 tabs 01/02/22 losartan 25 mg tablet 25 mg PO DAILY blood pressure\ #30 tabs 01/02/22 metoprolol tartrate 50 mg tablet 50 mg PO BID blood pressure #60 tabs 01/02/22 nitroglycerin 0.4 mg sublingual tablet 0.4 mg sublingual Q5M PRN Chest pain #30 tabs 01/02/22 rosuvastatin 20 mg tablet 20 mg PO DAILY cholesterol #30 tabs 01/02/22 The patient's discharge medication list was reviewed for discrepancies and discrepancies were resolved.
--- NOTE | 2022-01-02 10:41 | NURSING ---
Charting by Pedro Vigil reviewed.
== END 2022-01-02 10:31 | disposition home or self-care (01) | DRG 247 ==
LOC: ED 11:27 → PCU 12:38
PROVIDERS: Internal Medicine Cardiovascular Disease; Admitting Provider Internal Medicine; Emergency Provider Emergency Medicine; PCP Internal Medicine; Visit Provider Internal Medicine
DX: I21.4 Non-ST elevation (NSTEMI) myocardial infarction (principal); I47.1 Supraventricular tachycardia; I50.32 Chronic diastolic (congestive) heart failure; I11.0 Hypertensive heart disease with heart failure; I25.110 Atherosclerotic heart disease of native coronary artery with unstable angina pectoris; E78.5 Hyperlipidemia, unspecified; E89.0 Postprocedural hypothyroidism; K21.9 Gastro-esophageal reflux disease without esophagitis; I35.1 Nonrheumatic aortic (valve) insufficiency; M17.0 Bilateral primary osteoarthritis of knee; I49.3 Ventricular premature depolarization; Z66 Do not resuscitate; Z79.82 Long term (current) use of aspirin; Z79.02 Long term (current) use of antithrombotics/antiplatelets; Z79.890 Hormone replacement therapy; Z85.850 Personal history of malignant neoplasm of thyroid; Z86.73 Personal history of transient ischemic attack (TIA), and cerebral infarction without residual deficits; Z95.5 Presence of coronary angioplasty implant and graft
CPT/HCPCS: 36415; 71046; 80048; 80053; 80061; 83735; 84100; 84443; 84484; 85025; 85027; 85610; 85730; 92928; 93005; 93458; 99152; 99153; 99284; C1874; J7030; Q9967; A4216; C1725; C1760; C1769; C1887; C1894; C9600

== ENCOUNTER → 2022-01-24 | Outpatient (CLI) | payer MEDICARE, OTHER, SELFPAY ==
[2022-01-24 14:15] VITALS: BMI 28.5
[2022-01-24 16:34] LABS: Troponin-I HS 8 pg/mL (3.0-54.0)
== END | disposition home or self-care (01) ==
LOC: LAB 14:58
PROVIDERS: PCP Internal Medicine; Visit Provider Nurse Practitioner Family
DX: R10.9 Unspecified abdominal pain (principal); R68.84 Jaw pain; R06.02 Shortness of breath; I25.2 Old myocardial infarction
CPT/HCPCS: 36415; 84484

== ENCOUNTER → 2022-01-24 | Outpatient (CLI) | payer MEDICARE, OTHER, SELFPAY ==
[2018-08-18 14:05] VITALS: BMI 26.2
--- NOTE | 2022-01-24 13:52 | CR.HP_ITS ---
CR - History & Physical - General Arrival date:: 01/24/22 Arrival time:: 13:53 Date of Referral:: 01/03/22 Date of CR Evaluation:: 01/24/22 Referring Physician: Dr. Jay Calix Primary Diagnosis: NSTEMI, PCI w/coronary stenting - History of Present Cardiac Event Onset Date: Enter Onset Date of cardiac illnesses in Comment field below Acute Myocardial Infarction within 12 months:: Yes - NSTEMI 12/31/2021 PTCA or coronary stenting:: Yes - 12/31/2021 Type of Symptoms:: Midsternal chest pain, jaw and neck pain didn't realize it was the heart, then for about an hour the pain/pressure in the chest became worse and came to the hospital. Interventions with present event:: Heart cath Were there any complications?: None; has recurring pain in jaw difficulty chewing. - Sleep Disorder Evaluation Hx of Sleep Apnea: No Do you snore loudly (louder than talking or can be heard through closed doors)?: No Do you often feel tired/ fatigued/ sleepy during daytime?: Yes Has anyone observed you stop breathing during sleep?: No History of Hypertension (for STOP score): Yes STOP Results: Positive - Medications Home Medications: Ambulatory Orders Medication Instructions Recorded azelastine 137 mcg (0.1 %) nasal 2 spray NASAL BID Check with 12/16/15 spray aerosol primary doctor hydroxyzine HCl 25 mg tablet 25 mg PO QHS anxiety 12/16/15 epinephrine 0.3 mg/0.3 mL 0.3 mg IM X1 allergic reaction 01/29/16 injection, auto-injector citalopram 20 mg tablet 20 mg PO DAILY mood 09/28/17 latanoprost 0.005 % eye drops 1 drp EACHEYE DAILY eye 09/28/17 calcium polycarbophil 625 mg 1,250 mg PO DAILY Check with 02/08/18 tablet (FiberCon) primary doctor ergocalciferol (vitamin D2) 1,250 50,000 unit PO .COMPLEX supplement 02/08/18 mcg (50,000 unit) capsule sucralfate 1 gram tablet 1 gm PO BID Check with primary 08/18/18 doctor aspirin 81 mg tablet,delayed 81 mg PO DAILY Check with primary 12/31/21 release doctor potassium chloride 20 mEq 20 meq PO BID hypokalemia 12/31/21 tablet,extended release(part/cryst) clopidogrel 75 mg tablet 75 mg PO DAILY blood thinner #30 01/02/22 tabs levothyroxine 100 mcg tablet 100 mcg PO DAILY #30 tabs 01/02/22 losartan 25 mg tablet 25 mg PO DAILY blood pressure\ #30 01/02/22 tabs metoprolol tartrate 50 mg tablet 50 mg PO BID blood pressure #60 01/02/22 tabs nitroglycerin 0.4 mg sublingual 0.4 mg sublingual Q5M PRN Chest 01/02/22 tablet pain #30 tabs rosuvastatin 20 mg tablet 20 mg PO DAILY cholesterol #30 tabs 01/02/22 ranolazine 500 mg tablet,extended 500 mg PO BID #60 tabs 01/10/22 release,12 hr (Ranexa) - Allergies Allergies/Adverse Reactions: Allergies cephalexin monohydrate [From Keflex] Allergy (Severe, Verified 01/10/22 10:26) Vomiting lisinopril Allergy (Severe, Verified 01/10/22 10:26) Anaphylaxis peanut Allergy (Severe, Verified 01/10/22 10:26) Unknown shellfish derived Allergy (Severe, Verified 01/10/22 10:26) Anaphylaxis Penicillins [PCN] Allergy (Unknown, Verified 01/10/22 10:26) Anaphylaxis EXPERIANCED AT AGE 4YRS OLD-WAS TOLD TO NEVER HAVE PCN cat dander Adverse Reaction (Severe, Verified 01/10/22 10:26) NEEDS FOLLOW-UP cefixime [From Suprax] Adverse Reaction (Severe, Verified 01/10/22 10:26) Vomiting doxycycline Adverse Reaction (Severe, Verified 01/10/22 10:26) Vomiting erythromycin base Adverse Reaction (Severe, Verified 01/10/22 10:26) hives grass pollen Adverse Reaction (Severe, Verified 01/10/22 10:26) Unknown metronidazole [From Flagyl] Adverse Reaction (Severe, Verified 01/10/22 10:26) Unknown ragweed pollen Adverse Reaction (Severe, Verified 01/10/22 10:26) Unknown tetracycline Adverse Reaction (Severe, Verified 01/10/22 10:26) Unknown tree and shrub pollen Adverse Reaction (Severe, Verified 01/10/22 10:26) NEEDS FOLLOW-UP weed pollen Adverse Reaction (Severe, Verified 01/10/22 10:26) NEEDS FOLLOW-UP Sulfa (Sulfonamide Antibiotics) Adverse Reaction (Intermediate, Verified 01/10/22 10:26) Unknown adhesive tape Adverse Reaction (Mild, Verified 01/10/22 10:26) Rash levofloxacin [From Levaquin] Adverse Reaction (Verified 01/10/22 10:26) Hives Advanced Directives - Advanced Directives Power of Director Of Math: No Living Will: No Advance Directives Information Provided: Yes Advance Directives on File: No DNR Order?:: No - MOLST See MOLST form: No Past Medical History - Covid-19 Screening Fever: No Unexplained muscle aches: No Current respiratory symptoms: No Upper respiratory infections symptoms: No Gastro-intestinal symptoms: No - GERD and Thyroid Cancer Yyl-Azko-Zxdisg symptoms: No Has tested positive for COVID-19 in last 30 days: No Date of testin01/24/22 - Had two vaccines and One of the boosters Had contact w/person w/symptoms or Covid-19 (+) last 14 days: No Has High Risk Exposures ID'd by Health dept/Inf Control team: No 65 years or older:: Yes Lives in Assisted Living facility:: No Has a chronic lung disease or moderate to severe asthma:: No Has a serious heart condition:: Yes Immunocompromised:: No Diabetic:: No Has chronic kidney disease undergoing dialysis:: No Has liver disease:: No - Past Medical Illness Medical History: Past Medical History (Last Reviewed 01/10/22 @ 15:[address] Jay Calix MD) Atherosclerotic heart disease of [place] coronary artery without angina pectoris I25.10 Cardiac dysrhythmia I49.9 Diarrhea R19.7 Dyslipidemia E78.5 Essential (primary) hypertension I10 GERD (gastroesophageal reflux disease) K21.9 History of CVA (cerebrovascular accident) Z86.73 History of non-ST elevation myocardial infarction (NSTEMI) Onset Date: 12/31/21 I25.2 History of thyroid cancer Z85.850 No evidence of disease clinically. Hypothyroidism E03.9 Near syncope R55 PAC (premature atrial contraction) I49.1 PVC (premature ventricular contraction) I49.3 Rectocele N81.6 SVT (supraventricular tachycardia) I47.1 Syncope R55 Syncope R55 - Past Surgical History Surgical History: Past Surgical History (Last Reviewed 09/30/22 @ 15:[address] Jay Calix MD) fundus repair H/O thyroidectomy E89.0 History of appendectomy Z90.49 History of cholecystectomy Z90.49 History of coronary artery stent placement Onset Date: 01/01/22 Z95.5 PCI-DYLLAN mid OM#1 with a 2.25 x 20 Promus Synergy 08/18/2018; CGB-NOC-Vvfj LCX w/ 3.0 x 13 mm Orsiro Stent and DYLLAN- distal LCX w/ 2.25 x 15 mm Orsiro 12/31/2021 History of esophagogastroduodenoscopy (EGD) Z98.890 with biopsies History of hysterectomy Z90.710 History of repair of hiatal hernia Z98.890, Z87.19 Surgical History: hysterectomy, - - appendectemy, left ovary removed, hysterect ema,thyroid eventually totally removed, cataract surgery, achilles tendon, cholecystectemy, selvin - Family History Summary Family History: Family History (Last Reviewed 01/10/22 @ 15:[address] Jay Calix MD) Father Cancer Mother Arthritis Heart disease CVA (cerebral vascular accident) Tuberculosis Breast cancer Skin cancer Social History - Smoking History Smoking Status: Never smoker Hx Tobacco Use: No Hx Smoking Exposure: No - Alcohol Use Alcohol Usage: No - Substance Abuse Hx Substance Use: No - Occupation Occupation (List type of work in comments):: Retired - Hobbies, Recreation, Social Activities Hobbies: Walking, Exercise, Other - Geneology-history, going out to eat to be social. Recreational Activities: I am able to engage in a few activities Social Environment - Status Marital Status: - 0 - Current Living Arrangements Living Environment:: Spouse - Children How many children do you have?: 0 Do any of your children live nearby?: No - Safety Do you feel safe in your surroundings?: Yes - Assistance Do you need any assistance at home?: no Review of Systems - Review of Systems Hints: Right click = Denies (Slash). Left click = Reports ([place]) Review of Present Symptoms: Reports: Shortness of Breath with Exertion, Angina - still having the pressure in the chest, and jaw to the point it is difficult to eat., Dizziness/Lightheadedness, Fatigue, Heart Arrhythmia/Irregularities - H/O PVCs PACs, SVT, Appetite - Normal, Sleep - Normal. Denies: Shortness of Breath at Rest, Appetite - Special Diet, Sexual Changes - Pain Is Patient Pain Free?: Yes Pain Location: none Pain Level: 0/10 Risk Factor Assessment - Chief Complaint Chief Complaint: Patient is a 81 yr female patient of Dr. Calix who presents to CR following recent NSTEMI and PCI w/coronary stent. Patient is a previous CR patient who participated in CR following previous PCI and MIs. - Vital Signs Temperature: 97.6 F Respiratory Rate: 16 Pulse Ox: 97 Blood Pressure: 104/68 - Pulse Pulse Rate: 58 Pulse Rhythm: Regular - Hypertension Blood Pressure Sitting - Left Arm: 104/68 - Stress Stress: Recent - Blood Cholesterol/Lipids Total Cholesterol (mg/dL) Goal = less than 200 mg/dL: 179 HDL Cholesterol (mg/dL) Goal = less than 40 mg/dL: 61 LDL Cholesterol (mg/dL) Goal = less than 70 mg/dL: 108 Triglycerides (mg/dL) Goal = less than 150 mg/dL: 52 - Obesity Height: 5 ft Weight:: 146 lb Weight in Pounds: 146.0 lbs Weight Source: Estimated by Patient Body Mass Index (BMI): 28.5 Nutritional Referral for Obesity: No - Physical Inactivity Physical Inactivity: Reg Exercise 30 min/day - sits < 3 hours daily, physically active, Recreational activity - walking - Risk Stratification Risk Guidelines: Lowest Risk: Risk Factor for Smoking, Risk Factor for Dyslipidemia, Risk Factor for Diabetes, Risk Factor for Hypertension, Risk Factor for Sedentary Lifestyle, Moderate Risk: Risk Factor for Obesity - Family History Family History: Family History (Last Reviewed 01/10/22 @ 15:[address] Jay Calix MD) Father Cancer Mother Arthritis Heart disease CVA (cerebral vascular accident) Tuberculosis Breast cancer Skin cancer Motivation - Motivation to Participate On a scale of 1 to 10, how prepared are you to commit to attending program?: 10 - What do you see as barriers to successfully being able to complete the program?: get very short of breath with exercise. What do you see as the benefits of succesfully completing the program? In other words, what do you hope to get out of participating in the program?: getting healthier, increase stamina and endurance Are there issues you are dealing with that will interfere with completing the program?: shortness of breath, still having some pressure in upper abdomen and chest Do you have a spouse or signficant other, family or friends who will help support you to complete the program?: Yes
--- NOTE | 2022-01-24 13:53 | CR.ITP_ITS ---
Diagnosis - General Information Admitting Diagnosis: NSTEMI, PCI w/coronary stenting Secondary Diagnosis: ASHD Dyslipidemia, HTN, previous MT, Stents Barriers to Learning: No Barriers Stage of change r/t lifestyle modifications:: Action Gave educational material for:: Treating Heart Disease, Emotions & Heart Disease, Stress Management & Relaxation, Sleep Disorders & Heart Disease, How The Heart Works, What it means to have Heart Disease, How Coronary Artery Disease is Diagnosed, Heart Procedures, What Heart Medications Do, Risk Factors & Modifications, Living an Active Life, Nutrition - Education/Goals Individual Counseling: Initial Assessment: Abnormal Cholesterol Levels, High Blood Pressure Cardiac Rehabilitation Goals: 1. Maintain the individual as the primary focus of care. 2. To improve the patient's quality of life. 3. Identification of cardiac risk factors and provide cardiac risk factor management. 4. Enhance the psychosocial status of the patient. 5. Reconditioning enough to allow the patient to resume customary activities. 6. Control symptoms of cardiac disease Scale for measuring improvement of personal goals: Enter appropriate number in Comments. 2 = Unchanged. 3 = Slightly Better. 4 = Moderate Improvement. 5 = Met my Goal - Diagnosis & Disease Process Outcomes/Goals: Pt IDs own risk factors & lifestyle modifications by Session 10, Verbalizes symptoms of angina & response by session 3., Pt independently manages Plan/Interventions: Assist Pt to ID & engage in lifestyle modification to reduce CVD risk, Instruct on individual risk factors, Review symptoms of angina & emergency actions, Review secondary diagnosis & identify educational needs. - Safety Referral to Physical Therapy: No Referral to [facility] Case Management: No Fall Risk Assessed:: Yes Assistive Devices:: None Exercise - Initial Assessment - Visit Date of Eval: 01/24/22 Session #:: 0 - Pre-cardiac rehab evaluation Mets: Pre-: >7 METS for 30 minutes by discharge - Physician Prescribed Exercise Modalities: Treadmill, Airdyne, NuStep Frequency: 3x/week for 12 weeks [36 sessions] Intensity: 60-80% of age predicted maximum heart rate reserve Duration: 30 - 45 minutes Current METSs:: 4.0 Resting Blood Pressure: 104/68 - H/O Near Syncope/Collapse EKG Type: Sinus Bradycardia w/rare PVC, H/O SVT, PACs, PVCs - Outcomes & Goals Goals:: Verbalizes understanding of THR, RPE & goal METS by session 6, Documents in home exercise log/reports 30 min aerobic 5 day/wk by DC, Demonstrates accurate pulse taking by DC - Intervention & Plan Exercise Program Goals: Instruct on personal THR & RPE, Instruct on MET level & personal MET goal, Show patient to take own pulse /validate performance until accurate, Instruct on home exercise - Physical Activity Home Exercise Physical Activity - Home Exercise: Safe Exercise, Warm-up, Self-monitoring, Cool-Down, Home Exercise > 30 min Daily, Sitting Time <3 hours/daily - Outcomes & Goals Outcomes/Goals: Demonstrates correct Warm-up/exercise Cool-Down (S3) if = 2.5 METs, Verbalizes symptoms of exercise intolerance by Session 3 (S3), Demonstrate safe equipment use (S3) & follows exercise prescrition (6) - Intervention & Plan Plan/Intervention: Instruct warm-up & cool-down if exercising at > 2 METs, Instruct on symptoms of exercise intolerance & actions to take, Instruct & monitor on saf, Assess intial functional capacity & safety risk Nutrition - Initial Assessment - Program Goals Nutrition Program Goals: LDL <100 optimal. 100 - 129 Near optimal. 130 - 159 Borderline High. 160 - 189 High. Total Cholesterol <200 desirable. 200 - 239 Borderline High. >/= 240 High. HDL < 40 Low >/=60 High. Triglycerides <150 desirable. <199 optimal. VlDL 5 - 40. HgbA1C <7%. BMI <25 Patient has diagnosis of Hyperlipidemia (ICD E78)?: Yes - Visit Date of Assessment:: 01/24/22 Session #:: 0 - Pre-cardiac rehab evaluation - Cholesterol/Lipids (Other Core Measures) Triglycerides (mg/dL): 52 Total Cholesterol (mg/dL): 179 LDL Cholesterol (mg/dL): 108 HDL Cholesterol (mg/dL): 61 Determine presence & major risk factors that modify LDL goal: Hypertension or hypertensive medication, Family history of premature CHD in Male < 55 years: female <65 yearsFa, Age men > 45 years; women >/= 55 years Outcomes/Goals: Pt IDs own risk factors & lifestyle modifications by Session 10, Verbalizes symptoms of angina & response by session 3., Pt independently manages Intervention/Plan: Instruct on personal lipid levels & lipid goals/NCEP guidelines, Instruct on cholesterol Referral to dietitian:: Yes - Medical Nutrition Therapy - Diabetes (Other Core Measures) Diabetes Type: Not Applicable - Weight Mgt (Other Care) Not Applicable: Yes Height: 5 ft Weight:: 146 lb BMI: 28.5 Diagnosis Overweight/Obesity BMI> 30% ICD-10 E66: No Diagnosis High BMI/Morbid Obesity BMI> 35% ICD-10 Z68: No Outcomes/Goals: Pt sets, maintains & shows weight loss goal & trend during rehab Intervention/Plan: Instruct on ideal BMI & set weight loss goal w/patient - Healthy Eating Habits Will attend diet classes:: Yes Outcomes/Goals:: Consume diet rich in vegs,fruits,whole grain/high fiber,fish,lean meat, Limit sat/trans fats,cholesterol & added salts & sugars Intervention/Plan:: Assess current eating habits - Education Gave educational materials for:: Healthy eating Nutrition - 30-Day Assessment Nutrition - 60-Day Assessment Nutrition - 90-Day Assessment Nutrition - Final Assessment Core - Initial Assessment - Visit Date of Eval: 01/24/22 Session #:: 0 - Pre-cardiac Rehab Evaluation - Medication Compliance Preventative Medication(s):: Aspirin, Clopidogrel/P2Y12 inhibit, Statin/lipid, Beta nury H/O mental health issues: depression, anxiety, or addiction?: No Doesn?t believe in the benefits of treatment?: No Believes medications are unnecessary or harmful?: No Has a concern about medication side effects?: No Expresses concern over the cost of medications?: No Outcomes/Goals: Verbalizes medications,desired effect & common side effects @ DC, Pt self-reports following medication regimen, Keeps card in wallet w/medications listed by DC Interventions/plans: Instruct on medication effects & side effects, Review medication list w/patient every two weeks, Instruct importance of taking meds as ordered & assist problem solving - Tobacco Use Tobacco Use: Non-smoker - Hypertension Hypertension Diagnosis:: Hypertension ICD-10 I10 Resting Blood Pressure:: 104/68 [place] [employer] Hypertension Guidelines: [place] [employer] Hypertension Guidelines. Normal BP Less than 120/80. Elevated BP 120/80. Hypertension Stage 1: BP 130-139/80-89. Hypertesnion Stage 2: BP 140 or higher/90 or higher. Hypertension Crisis: BP higher than 180/120 Outcomes/Goals: Able to verbalize/achieve optimal blood pressure <130/80, Incorporates diet changes & exercise for blood pressure control by DC Interventions/plan: Instruct on optimal blood pressure, hypertension & medicati ons, Instruct on effects of sodium, alcohol, stress, exercise &hypertension - Tobacco Cessation Referral Smoking Cessation Referral:: No Individual Education/Counseling:: No Education Schedule Given:: Yes Core - 30-Day Assessment Core - 60-Day Assessment Core - 90 Day Assessment Core - Final Assessment Psychosocial - Initial Assess - VIsit Date of Eval: 01/24/22 Session #:: 0 - Pre-cardiac rehab evaluation Not Applicable: Yes History of previous Mental disease:: No - Psychosocial Test Tool Used:: [employer] Power QOL Cardiac, PHQ-9 Questionnaire phq-9 Severity: Severity. 1-4 Minimal Depression. 5-9 Mild Depression. 10-14 Moderate Depression. 15-19 Moderately Sever Depression. 20-27 Severe Depression. Rule: - Referral to Behavioral Health PS - Interventions: Yes Attend Stress Management Classes, No Referral to Behavioral Health if PHQ-9 score >9:, No Referral to [facility], No Referral to Physician if PHQ-9 if score is 5-9: - Outcomes/Goals: See list Psychosocial Outcomes/Goals:: ID's personal stressors & 2 strategies to manage stress by discharge - Intervention/Plan: See List Interventions/Plan:: Assess stressors,coping strategies & signs of derpression on admission, Instruct/assist pt to develop coping & personal stress Mgt strategies, Instruct patient to recognize signs & symptoms of depression, Instruct patient to recog Psychosocial - 30-Day Assess Psychosocial - 60-Day Assess Psychosocial - 90-Day Assess Psychosocial - Final Assessmen Nutrition Survey
[2022-01-24 14:15] VITALS: BP 104/68; BMI 28.5
[2022-01-24 14:33] VITALS: BP 104/68; PULSE 58; RESP 16; TEMP 36.4; O2SAT 97; BMI 28.5
== END | disposition home or self-care (01) ==
LOC: CR 13:47
PROVIDERS: PCP Internal Medicine; Referring Provider Internal Medicine Cardiovascular Disease; Visit Provider Internal Medicine Cardiovascular Disease
DX: I21.4 Non-ST elevation (NSTEMI) myocardial infarction (principal); Z95.5 Presence of coronary angioplasty implant and graft

== ENCOUNTER 2022-02-10 09:30 | Outpatient (RCR) | payer MEDICARE, OTHER, SELFPAY ==
[2022-01-24 14:15] VITALS: BMI 28.5
== END 2022-02-10 23:59 ==
LOC: CR 09:30
PROVIDERS: PCP Internal Medicine; Referring Provider Internal Medicine Cardiovascular Disease; Visit Provider Internal Medicine Cardiovascular Disease
DX: I21.4 Non-ST elevation (NSTEMI) myocardial infarction (principal); Z95.5 Presence of coronary angioplasty implant and graft
CPT/HCPCS: 93798

== ENCOUNTER → 2022-03-10 | Outpatient (CLI) | payer MEDICARE, OTHER, SELFPAY ==
[2022-02-24 14:09] VITALS: BMI 28.5
--- NOTE | 2022-03-10 12:57 | VDLE_ITS ---
Reason For Study: Pain RIGHT LEFT GSV is normal. GSV is normal. CFV is compressible, spontaneous, phasic, CFV is compressible, spontaneous, phasic, competent and demonstrates normal competent, and demonstrates normal augmentation. augmentation. FV is compressible, spontaneous, phasic, FV is compressible, spontaneous, phasic, competent and demonstrates normal competent and demonstrates normal augmentation. augmentation. POP V is compressible, spontaneous, phasic, POP V is compressible, spontaneous, phasic, competent and demonstrates normal competent and demonstrates normal augmentation. augmentation. T/P Trunk is compressible. T/P Trunk is compressible. PTV is compressible. PTV is compressible. RT PerV is compressible. LT PerV is compressible. Procedure This is a venous duplex using B-mode, color flow and spectral Doppler. Exam performed in department. A preliminary report was called and/or faxed to Sarah RUIZ. VL/Venous Duplex US - Charlie Extrem Interpretation Summary No evidence for acute deep venous thrombosis bilateral lower extremities with p atent and compressible bilateral great saphenous veins. Ordering Physician: Jay Calix Referring Physician: Geeta Cruz M.D. Performed By: Marialuisa Nogueira RVT
== END | disposition home or self-care (01) ==
LOC: CVS 12:56
PROVIDERS: PCP Internal Medicine; Referring Provider Internal Medicine Cardiovascular Disease; Visit Provider Internal Medicine Cardiovascular Disease
DX: M79.661 Pain in right lower leg (principal); M79.662 Pain in left lower leg; I25.10 Atherosclerotic heart disease of native coronary artery without angina pectoris; I25.2 Old myocardial infarction; Z95.5 Presence of coronary angioplasty implant and graft; Z86.73 Personal history of transient ischemic attack (TIA), and cerebral infarction without residual deficits
CPT/HCPCS: 93798; 93970

== ENCOUNTER 2022-03-12 09:30 | Outpatient (RCR) | payer MEDICARE, OTHER, SELFPAY ==
[2022-01-24 14:15] VITALS: BMI 28.5
--- NOTE | 2022-02-24 13:58 | PCM.CR.ITP ---
Diagnosis Exercise - 30-day Assessment - Visit Date of Eval: 02/24/22 Session #:: 13 - Physician Prescribed Exercise Modalities: Treadmill, NuStep, SciFit Frequency: 3x/week for 12 weeks [36 sessions] Intensity: 60-80% of age predicted maximum heart rate reserve Duration: 30 - 45 minutes Current METSs:: 3.0 Target Heart Rate:: 90-119 Current RPE:: 11 Maximum Excercise HR:: 76 Resting Blood Pressure: 124/52 Maximum Exercise Blood Pressure: 130/70 EKG Type: Sinus zaynab to Sinus rhythm with occas. episodes ectopic atrial rhythm Current Physical Activity or Exercising minutes: 37:28 - Outcomes & Goals Goals:: Verbalizes understanding of THR, RPE & goal METS by session 6, Documents in home exercise log/reports 30 min aerobic 5 day/wk by DC, Demonstrates accurate pulse taking by DC - Intervention & Plan Exercise Program Goals: Instruct on personal THR & RPE, Instruct on MET level & personal MET goal, Show patient to take own pulse /validate performance until accurate, Instruct on home exercise - 30-day Reassessments 30 day Reassessments:: Progressing - Physical Activity Home Exercise Physical Activity - Home Exercise: Safe Exercise, Warm-up, Self-monitoring, Cool-Down, Home Exercise > 30 min Daily, Sitting Time <3 hours/daily - Outcomes & Goals Outcomes/Goals: Demonstrates correct Warm-up/exercise Cool-Down (S3) if = 2.5 METs, Verbalizes symptoms of exercise intolerance by Session 3 (S3), Demonstrate safe equipment use (S3) & follows exercise prescrition (6) - Intervention & Plan Plan/Intervention: Instruct warm-up & cool-down if exercising at > 2 METs, Instruct on symptoms of exercise intolerance & actions to take, Instruct & monitor on saf, Assess intial functional capacity & safety risk - 30-day Reassessments 30 day Reassessments:: Met Nutrition - Initial Assessment Nutrition - 30-Day Assessment - Program Goals Nutrition Program Goals: LDL <100 optimal. 100 - 129 Near optimal. 130 - 159 Borderline High. 160 - 189 High. Total Cholesterol <200 desirable. 200 - 239 Borderline High. >/= 240 High. HDL < 40 Low >/=60 High. Triglycerides <150 desirable. <199 optimal. VlDL 5 - 40. HgbA1C <7%. BMI <25 Patient has diagnosis of Hyperlipidemia (ICD E78)?: Yes - Visit Date of Assessment:: 02/24/22 Session #:: 13 - last drawn 01/01/22 - Cholesterol/Lipids (Other Core Measures) Determine presence & major risk factors that modify LDL goal: Hypertension or hypertensive medication, Family history of premature CHD in Male < 55 years: female <65 yearsFa, Age men > 45 years; women >/= 55 years Outcomes/Goals: Pt IDs own risk factors & lifestyle modifications by Session 10, Verbalizes symptoms of angina & response by session 3., Pt independently manages Intervention/Plan: Instruct on personal lipid levels & lipid goals/NCEP guidelines, Instruct on cholesterol Referral to dietitian:: Yes - Medical Nutrition Therapy 30-day Reassessments:: Progressing - Diabetes (Other Core Measures) Diabetes Type: Not Applicable - Weight Mgt (Other Care) Not Applicable: Yes Height: 5 ft Weight:: 146 lb BMI: 28.5 Diagnosis Overweight/Obesity BMI> 30% ICD-10 E66: No Diagnosis High BMI/Morbid Obesity BMI> 35% ICD-10 Z68: No Outcomes/Goals: Pt sets, maintains & shows weight loss goal & trend during rehab Intervention/Plan: Instruct on ideal BMI & set weight loss goal w/patient, Assist pt to ID & incorporate diet changes for weight loss by S9 30 day Reassessments:: Progressing - Healthy Eating Habits Will attend diet classes:: Yes Outcomes/Goals:: Consume diet rich in vegs,fruits,whole grain/high fiber,fish,lean meat, Limit sat/trans fats,cholesterol & added salts & sugars Intervention/Plan:: Assess current eating habits 30-day Reassessments:: Progressing - Education Gave educational materials for:: Healthy eating Nutrition - 60-Day Assessment Nutrition - 90-Day Assessment Nutrition - Final Assessment Core - Initial Assessment Core - 30-Day Assessment - Visit Date of Eval: 02/24/22 Session #:: 13 - Medication Compliance Preventative Medication(s):: Aspirin, Clopidogrel/P2Y12 inhibit, Statin/lipid, Beta nury H/O mental health issues: depression, anxiety, or addiction?: No Doesn?t believe in the benefits of treatment?: No Believes medications are unnecessary or harmful?: No Has a concern about medication side effects?: No Expresses concern over the cost of medications?: No Outcomes/Goals: Verbalizes medications,desired effect & common side effects @ DC, Pt self-reports following medication regimen, Keeps card in wallet w/medications listed by DC Interventions/plans: Instruct on medication effects & side effects, Review medication list w/patient every two weeks, Instruct importance of taking meds as ordered & assist problem solving 30-day Reassessments:: Met - Tobacco Use Tobacco Use: Non-smoker - Hypertension Hypertension Diagnosis:: Hypertension ICD-10 I10 Resting Blood Pressure:: 124/52 [place] [employer] Hypertension Guidelines: [place] [employer] Hypertension Guidelines. Normal BP Less than 120/80. Elevated BP 120/80. Hypertension Stage 1: BP 130-139/80-89. Hypertesnion Stage 2: BP 140 or higher/90 or higher. Hypertension Crisis: BP higher than 180/120 Peak Exercise Blood Pressure:: 130/70 Outcomes/Goals: Able to verbalize/achieve optimal blood pressure <130/80, Incorporates diet changes & exercise for blood pressure control by DC Interventions/plan: Instruct on optimal blood pressure, hypertension & medications, Instruct on effects of sodium, alcohol, stress, exercise &hypertension 30 day Reassessments:: Met - Tobacco Cessation Referral Smoking Cessation Referral:: No Individual Education/Counseling:: No Education Schedule Given:: Yes Core - 60-Day Assessment Core - 90 Day Assessment Core - Final Assessment Psychosocial - Initial Assess Psychosocial - 30-Day Assess - VIsit Date of Eval: 02/24/22 Session #:: 13 Not Applicable: Yes History of previous Mental disease:: No - Psychosocial Test Tool Used:: PHQ-9 Questionnaire phq-9 Severity: Severity. 1-4 Minimal Depression. 5-9 Mild Depression. 10-14 Moderate Depression. 15-19 Moderately Sever Depression. 20-27 Severe Depression. Rule: - Referral to Behavioral Health PS - Interventions: Yes Attend Stress Management Classes, No Referral to Behavioral Health if PHQ-9 score >9:, No Referral to [facility], No Referral to Physician if PHQ-9 if score is 5-9: - Outcomes/Goals: See list Psychosocial Outcomes/Goals:: ID's personal stressors & 2 strategies to manage stress by discharge - Intervention/Plan: See List Interventions/Plan:: Assess stressors,coping strategies & signs of derpression on admission, Instruct/assist pt to develop coping & personal stress Mgt strategies, Instruct patient to recognize signs & symptoms of depression, Instruct patient to recog - 30-day Reassessments: 30 day Reassessments:: Progressing Psychosocial - 60-Day Assess Psychosocial - 90-Day Assess Psychosocial - Final Assessmen Patient Health Questionnaire 30-Day Re-eval Assessment 2. Feeling down, depressed, or hopeless: Nearly every day 3. Trouble falling or staying asleep, or sleeping too much: Nearly every day 4. Feeling tired or having little energy: Nearly every day 5. Poor appetite or overeating: Not at all 6. Feeling bad about yourself -- or that you are a failure or have let yourself or your family down: Not at all 7. Trouble concentrating on things, such as reading the newspaper or watching television: Not at all 8. Moving or speaking so slowly that other people could have noticed. Or the opposite - being so fidgety or restless that you have been moving around a lot more than usual: Not at all 9. Thoughts that you would be better off , or of hurting yourself in some way: Not at all How difficult have these problems made it for you to do your work, take care of things at home, or get along with other people?: Somewhat difficult Total Score: 9 Self-Efficacy 30-Day Re-eval Assessment We would like to know how confident you are in doing certain activities. Please select your confidence level for:: Select your confidence level for the following using the scale 1-10 where 1 is not at all confident and 10 is totally confident. Your score is the average of all 6 responses. Fatigue: How confident are you that you can keep the fatigue caused by your disease from interfering with the things you want to do? Select Number: 5 Physical Discomfort or Pain: How confident are you that you can keep the physical discomfort or pain of your disease from interfering with the things you want to do? Select Number: 5 Emotional Distress: How confident are you that you can keep the emotional distress caused by your disease from interfering with the things you want to do? Select Number: 7 Other Symptoms or Health Problems: How confident are you that you can keep other symptoms or health problems from interfering with the things you want to do? Select Number: 7 Different Tasks and Activities: How confident are you that you can do the different tasks and activities needed to manage your health condition so as to reduce your need to see a doctor? Select Number: 6 Medication: How confident are you that you can do things other than just taking medication to reduce how much your illness affects your everyday life? Select Number: 7 Total Score:: 6 Nutrition Survey - Nutrition Survey Initial Have you lost >10 lbs over the past 2 months without trying?: No Are you following a special diet at home for diabetes, low fat, or low salt?: No Are you interested in meeting with a dietitian for help understanding your diet?: No Do you eat less than 3 meals a day?: No Do you eat fatty meats (swanson, sausage, ribs, etc), fried foods, desserts, large amounts of salad dressings, margarine, butter, or cheese most days?: Yes Do you have food allergies? [Enter types in comment field]: No Do you eat in restaurants more than 3 times a week?: Yes Do you season food with salt, seasoning salt, or garlic salt?: No Do you used canned, boxed, frozen meals, or soups, seasoning packets?: Yes Total Score:: 3
[2022-02-24 14:09] VITALS: BP 124/52; BP 130/70; BMI 28.5
== END 2022-03-12 23:59 ==
LOC: CR 09:30
PROVIDERS: PCP Internal Medicine; Referring Provider Internal Medicine Cardiovascular Disease; Visit Provider Internal Medicine Cardiovascular Disease
DX: Z85.850 Personal history of malignant neoplasm of thyroid (principal); I25.2 Old myocardial infarction; E03.9 Hypothyroidism, unspecified; K21.9 Gastro-esophageal reflux disease without esophagitis
CPT/HCPCS: 93798

== ENCOUNTER 2022-04-11 09:30 | Outpatient (RCR) | payer MEDICARE, OTHER, SELFPAY ==
[2022-02-24 14:09] VITALS: BMI 28.5
[2022-03-13 00:36] VITALS: BP 124/52; BP 130/70
--- NOTE | 2022-03-26 08:23 | CR.ITP_ITS ---
Diagnosis Exercise - 60-day Assessment - Visit Date of Eval: 03/26/22 Session #:: 24 - Physician Prescribed Exercise Modalities: Treadmill, NuStep, SciFit Intensity: 60-80% of age predicted maximum heart rate reserve Current METSs:: 3.5 Target Heart Rate:: 91-119 Current RPE:: 10-13 Maximum Excercise HR:: 81 Resting Blood Pressure: 128/72 Maximum Exercise Blood Pressure: 128/72 EKG Type: SB to NSR with rare to occas episodes of ectopic atrial rhythm vs sinus arr - Outcomes & Goals Goals:: Verbalizes understanding of THR, RPE & goal METS by session 6, Documents in home exercise log/reports 30 min aerobic 5 day/wk by DC, Demonstrates accurate pulse taking by DC, Other additional outcome/goals: see below - Intervention & Plan Exercise Program Goals: Instruct on personal THR & RPE, Instruct on MET level & personal MET goal, Show patient to take own pulse /validate performance until accurate, Instruct on home exercise, Other additional plan/int - 30-day Reassessments 30 day Reassessments:: Progressing - THR explained - Physical Activity Home Exercise Physical Activity - Home Exercise: Safe Exercise, Warm-up, Self-monitoring, Cool-Down, Home Exercise > 30 min Daily, Sitting Time <3 hours/daily - Outcomes & Goals Outcomes/Goals: Demonstrates correct Warm-up/exercise Cool-Down (S3) if = 2.5 METs, Verbalizes symptoms of exercise intolerance by Session 3 (S3), Demonstrate safe equipment use (S3) & follows exercise prescrition (6), Other: See below - Intervention & Plan Plan/Intervention: Instruct warm-up & cool-down if exercising at > 2 METs, Instruct on symptoms of exercise intolerance & actions to take, Instruct & monitor on saf, Assess intial functional capacity & safety risk, Other See below - 30-day Reassessments 30 day Reassessments:: Progressing - cool down explained Nutrition - Initial Assessment Nutrition - 30-Day Assessment Nutrition - 60-Day Assessment - Program Goals Nutrition Program Goals: LDL <100 optimal. 100 - 129 Near optimal. 130 - 159 Borderline High. 160 - 189 High. Total Cholesterol <200 desirable. 200 - 239 Borderline High. >/= 240 High. HDL < 40 Low >/=60 High. Triglycerides <150 desirable. <199 optimal. VlDL 5 - 40. HgbA1C <7%. BMI <25 Patient has diagnosis of Hyperlipidemia (ICD E78)?: Yes - Visit Date of Assessment:: 03/26/22 Session #:: 24 - Cholesterol/Lipids (Other Core Measures) Determine presence & major risk factors that modify LDL goal: Hypertension or hypertensive medication, Low HDL cholesterol <40 mg/dL*, Family history of premature CHD in Male < 55 years: female <65 yearsFa, Age men > 45 years; women >/= 55 years Outcomes/Goals: Pt IDs own risk factors & lifestyle modifications by Session 10, Verbalizes symptoms of angina & response by session 3., Pt independently manages, Other Additional Outcomes/Goals: Intervention/Plan: Advocate for lipid panel cholesterol medication if applicable, Instruct on personal lipid levels & lipid goals/NCEP guidelines, Instruct on cholesterol, Other additional plan/int Referral to dietitian:: Yes - medical nutrition therapy 30-day Reassessments:: Progressing - risk factors explained - Diabetes (Other Core Measures) Diabetes Type: Not Applicable - Weight Mgt (Other Care) Height: 5 ft Weight:: 66.678 kg BMI: 28.7 Diagnosis Overweight/Obesity BMI> 30% ICD-10 E66: No Diagnosis High BMI/Morbid Obesity BMI> 35% ICD-10 Z68: No Outcomes/Goals: Pt sets, maintains & shows weight loss goal & trend during rehab, Other additional outcomes/goals Intervention/Plan: Instruct on ideal BMI & set weight loss goal w/patient, Assist pt to ID & incorporate diet changes for weight loss by S9, Refer to Structured Weight Loss program as appropriate, Encourage goal of using 250- 300dcal per session for weight loss, Other additional plan/interventions 30 day Reassessments:: Met - normal BMI - Healthy Eating Habits Will attend diet classes:: Yes Outcomes/Goals:: Consume diet rich in vegs,fruits,whole grain/high fiber,fish,lean meat, Limit sat/trans fats,cholesterol & added salts & sugars, Other additional outcome/goals: Intervention/Plan:: Assess current eating habits, Other Additional plan/interventions 30-day Reassessments:: Met - normal bmi - Education Gave educational materials for:: Signs & symptoms of hypoglycemia, Signs & symptoms of hyperglycemia, Relate diabetes to coronary artery disease, Healthy eating Nutrition - 90-Day Assessment Nutrition - Final Assessment Core - Initial Assessment Core - 30-Day Assessment Core - 60-Day Assessment - Visit Date of Eval: 03/26/22 Session #:: 24 - Medication Compliance Preventative Medication(s):: Aspirin, Clopidogrel/P2Y12 inhibit, Statin/lipid, Beta nury H/O mental health issues: depression, anxiety, or addiction?: No Doesn?t believe in the benefits of treatment?: No Believes medications are unnecessary or harmful?: No Has a concern about medication side effects?: No Expresses concern over the cost of medications?: No Outcomes/Goals: Verbalizes medications,desired effect & common side effects @ DC, Pt self-reports following medication regimen, Keeps card in wallet w/medications listed by DC, Other additional outcome/goals: Interventions/plans: Instruct on medication effects & side effects, Review me dication list w/patient every two weeks, Instruct importance of taking meds as ordered & assist problem solving, Other additional 30-day Reassessments:: Progressing - encpuraged to take meds - Tobacco Use Tobacco Use: Non-smoker Do you use smokeless tobacco?: No 30-day Reassessments:: Not Met - nonsmoker - Hypertension Hypertension Diagnosis:: Hypertension ICD-10 I10 Resting Blood Pressure:: 128/72 [place] [employer] Hypertension Guidelines: [place] [employer] Hypertension Guidelines. Normal BP Less than 120/80. Elevated BP 120/80. Hypertension Stage 1: BP 130-139/80-89. Hypertesnion Stage 2: BP 140 or higher/90 or higher. Hypertension Crisis: BP higher than 180/120 Peak Exercise Blood Pressure:: 128/72 Outcomes/Goals: Able to verbalize/achieve optimal blood pressure <130/80, Incorporates diet changes & exercise for blood pressure control by DC, Other additional outcomes/goals Interventions/plan: Instruct on optimal blood pressure, hypertension & medications, Instruct on effects of sodium, alcohol, stress, exercise &hypertension, Other additional plan/interventions 30 day Reassessments:: Progressing - encouraged to take meds - Tobacco Cessation Referral Smoking Cessation Referral:: No Individual Education/Counseling:: No Education Schedule Given:: Yes Core - 90 Day Assessment Core - Final Assessment Psychosocial - Initial Assess Psychosocial - 30-Day Assess Psychosocial - 60-Day Assess - VIsit Date of Eval: 03/26/22 Session #:: 24 History of previous Mental disease:: No - Outcomes/Goals: See list Psychosocial Outcomes/Goals:: ID's personal stressors & 2 strategies to manage stress by discharge, Other Additional outcome/goals: - Intervention/Plan: See List Interventions/Plan:: Assess stressors,coping strategies & signs of derpression on admission, Instruct/assist pt to develop coping & personal stress Mgt strategies, Refer to Behavioral Health if appropriate, Refer to Physician if appropriate, Instruct patient to recognize signs & symptoms of depression, Instruct patient to recog, Other additional plan/intervention - 30-day Reassessments: 30 day Reassessments:: Met Psychosocial - 90-Day Assess Psychosocial - Final Assessmen Patient Health Questionnaire 60-Day Re-eval Assessment 1. Little interest or pleasure in doing things: Nearly every day 2. Feeling down, depressed, or hopeless: Nearly every day 3. Trouble falling or staying asleep, or sleeping too much: Nearly every day 4. Feeling tired or having little energy: Not at all 5. Poor appetite or overeating: Not at all 6. Feeling bad about yourself -- or that you are a failure or have let yourself or your family down: Not at all 7. Trouble concentrating on things, such as reading the newspaper or watching television: Not at all 8. Moving or speaking so slowly that other people could have noticed. Or the opposite - being so fidgety or restless that you have been moving around a lot more than usual: Not at all 9. Thoughts that you would be better off , or of hurting yourself in some way: Not at all How difficult have these problems made it for you to do your work, take care of things at home, or get along with other people?: Somewhat difficult Total Score: 9 Self-Efficacy 60-Day Re-eval Assessment We would like to know how confident you are in doing certain activities. Please select your confidence level for:: Select your confidence level for the following using the scale 1-10 where 1 is not at all confident and 10 is totally confident. Your score is the average of all 6 responses. Fatigue: How confident are you that you can keep the fatigue caused by your disease from interfering with the things you want to do? Select Number: 5 Physical Discomfort or Pain: How confident are you that you can keep the physical discomfort or pain of your disease from interfering with the things you want to do? Select Number: 5 Emotional Distress: How confident are you that you can keep the emotional distress caused by your disease from interfering with the things you want to do? Select Number: 7 Other Symptoms or Health Problems: How confident are you that you can keep other symptoms or health problems from interfering with the things you want to do? Select Number: 7 Different Tasks and Activities: How confident are you that you can do the different tasks and activities needed to manage your health condition so as to reduce your need to see a doctor? Select Number: 6 Medication: How confident are you that you can do things other than just taking medication to reduce how much your illness affects your everyday life? Select Number: 7 Total Score:: 6 Nutrition Survey
[2022-03-26 08:47] VITALS: BP 128/72; BMI 28.7
== END 2022-04-12 23:59 ==
LOC: CR 09:30
PROVIDERS: PCP Internal Medicine; Referring Provider Internal Medicine Cardiovascular Disease; Visit Provider Internal Medicine Cardiovascular Disease
DX: I21.4 Non-ST elevation (NSTEMI) myocardial infarction (principal); Z95.5 Presence of coronary angioplasty implant and graft
CPT/HCPCS: 93798

== ENCOUNTER 2022-04-28 09:30 | Outpatient (RCR) | payer MEDICARE, OTHER, SELFPAY ==
[2022-03-26 08:47] VITALS: BMI 28.7
[2022-04-13 00:29] VITALS: BP 128/72
== END 2022-05-13 23:59 ==
LOC: CR 09:30
PROVIDERS: PCP Internal Medicine; Referring Provider Internal Medicine Cardiovascular Disease; Visit Provider Internal Medicine Cardiovascular Disease
DX: Z95.5 Presence of coronary angioplasty implant and graft (principal)
CPT/HCPCS: 93798

== ENCOUNTER 2022-07-27 00:13 | Emergency (ER) | payer MEDICARE, OTHER, SELFPAY ==
[2022-03-26 08:47] VITALS: BMI 28.7
[2022-07-27] VITALS (8 sets, daily range): BP systolic 144–166; BP diastolic 66–109; PULSE 52–141; RESP 10–21; TEMP 36.1–36.6; O2SAT 94–100; BMI 28.7
--- NOTE | 2022-07-27 00:25 | EKG12_ITS ---
Test Reason : CP Blood Pressure : / mmHG Vent. Rate : 140 BPM Atrial Rate : 000 BPM P-R Int : 000 ms QRS Dur : 082 ms QT Int : 334 ms P-R-T Axes : 000 059 022 degrees QTc Int : 509 ms Atrial fibrillation with rapid ventricular response ST & T wave abnormality, consider inferior ischemia Abnormal ECG Confirmed by JUAN XAVIER ([id number]), news video editor JW HARPER ([id number]) on 07/29/2022 7:06:59 AM Referred By: Confirmed By:JUAN XAVIER
--- NOTE | 2022-07-27 00:30 | RAD_ITS ---
EXAM: XR Chest 1 View INDICATION: Female, 82 years old. Chest pain TECHNIQUE: Single AP view COMPARISON: 12/31/2021 FINDINGS: DEVICES: None LUNGS: No confluent airspace opacity. Mild prominence of interstitial markings at the lung bases, unchanged.. No concerning pulmonary nodule. No pleural effusion or pneumothorax. MEDIASTINUM: Cardiac and mediastinal silhouettes are within normal limits. No central pulmonary vascular congestion. . SKELETAL STRUCTURES: Mild S-shaped scoliosis of the thoracal lumbar spine with multilevel degenerative change. UPPER ABDOMEN: Unremarkable RAD/Chest 1 View (Portable) IMPRESSION: No acute cardiopulmonary disease Electronically Signed: Arie Gallardo MD at 0:45 EDT ,
[2022-07-27 00:32] LABS: Absolute Lymphocyte Count 1.98 X10^3/uL (0.83-4.51); Absolute Neutrophil Count 4.3 X10^3/uL (2.0-7.7); Basophil# 0.04 X10^3/uL; Basophil% 0.6 % (0-1); Eosinophil# 0.32 X10^3/uL; Eosinophils% 4.4 % (0-5); Hematocrit 39.7 % (37-47); Hemoglobin 13.1 g/dL (12.0-15.0); Lymphocyte # 1.98 X10^3/ul (0.83-4.51); Lymphocyte % 27.4 % (19-41); Mean Corpuscular Hgb 30.3 pg (27.0-32.0); Mean Corpuscular Volume 91.9 fL (81-99); Mean Platelet Vol. 9.8 fl (6.2-12.0); Monocyte# 0.59 X10^3/uL; Monocyte% 8.2 % (0-10); NRBC Flagged by Analyzer 0 % (0-5); Neutrophil # 4.28 X10^3/uL (2.7-7.7); Neutrophil % 59.1 % (47-70); Platelet Count 201 K/mm3 (150-450); RBC Distribution Width CV 13.6 % (11.6-14.6); RBC Distribution Width SD 46.2 fl (35.1-43.9); Red Blood Count 4.32 M/mm3 (4.2-5.4); White Blood Count 7.2 K/mm3 (4.4-11.0)
[2022-07-27 00:54] LABS: Anion Gap 3 (5-15); BUN 26 mg/dL (7-18); BUN/Creat Ratio 17.7 RATIO (10-20); Calcium,Total 9.8 mg/dL (8.5-10.1); Chloride 109 mmol/L (98-107); Creatinine, Serum 1.47 mg/dL (0.55-1.02); EST Glomerular Filtration Rate 36 mL/min (>60); Est Glom Filt Rate - Afr Amer 44 mL/min (>60); Estimated Creatinine Clearance 23.03 ml/min; Glucose 98 mg/dL (74-106); Potassium 4.1 mmol/L (3.5-5.1); Sodium Level 138 mmol/L (136-145); Troponin-I HS (w/2H Reflex) 9 pg/mL (3.0-54.0)
[2022-07-27 01:38] LABS: Prothrombin Time (Protime)PT. 12.8 SECONDS (11.7-14.9)
[2022-07-27 01:39] LABS: Partial Thromboplast Time 26.1 Seconds (24.1-36.2)
--- NOTE | 2022-07-27 01:40 | EKG12_ITS ---
Test Reason : RHYTHM CHANGE Blood Pressure : / mmHG Vent. Rate : 058 BPM Atrial Rate : 058 BPM P-R Int : 162 ms QRS Dur : 084 ms QT Int : 436 ms P-R-T Axes : 054 020 040 degrees QTc Int : 428 ms Sinus bradycardia Otherwise normal ECG Confirmed by JUAN XAVIER ([id number]), metropolitan editor JW HARPER ([id number]) on 07/29/2022 7:06:41 AM Referred By: Confirmed By:JUAN XAVIER
--- NOTE | 2022-07-27 01:41 | EDS_ITS ---
HPI History of Present Illness Chief Complaint: Chest Pain Informant: patient Narrative Narrative: Patient is an 82-year-old female with history of coronary artery disease with heart attack in the fall 2021. She is presenting with chest discomfort. Patient states she has been having intermittent chest discomfort like today for the past few months. She states that started this evening and became worse and she tried to go to bed around 11 PM. Does not radiate. She describes as a pressure. She notes she has been feeling lightheaded today. She is on Plavix. She denies any other blood thinners. She think she does have a remote history of atrial fibrillation but is not certain. No other complaints at this time. Denies any cough, dyspnea on exertion, edema, nausea, diaphoresis. [facility] Medical History Atherosclerotic heart disease of [place] coronary artery without angina pectoris Cardiac dysrhythmia Diarrhea Dyslipidemia Essential (primary) hypertension GERD (gastroesophageal reflux disease) History of CVA (cerebrovascular accident) History of non-ST elevation myocardial infarction (NSTEMI) (12/31/21) History of thyroid cancer Hypothyroidism Near syncope PAC (premature atrial contraction) PVC (premature ventricular contraction) Rectocele SVT (supraventricular tachycardia) Syncope Syncope Home Medications azelastine 137 mcg (0.1 %) nasal spray aerosol 2 spray NASAL BID allergies 12/16/15 [History Last Taken 12/30/21] hydroxyzine HCl 25 mg tablet 25 mg PO QHS anxiety 12/16/15 [History Last Taken 12/30/21] epinephrine 0.3 mg/0.3 mL injection, auto-injector 0.3 mg IM X1 allergic reaction 01/29/16 [History Last Taken Unknown] citalopram 20 mg tablet 20 mg PO DAILY mood 09/28/17 [History Last Taken 12/30/21] latanoprost 0.005 % eye drops 1 drp EACHEYE DAILY eye 09/28/17 [History Last Taken 12/30/21] calcium polycarbophil 625 mg tablet (FiberCon) 1,250 mg PO DAILY laxative 02/08/18 [History Last Taken 12/30/21] ergocalciferol (vitamin D2) 1,250 mcg (50,000 unit) capsule 50,000 unit PO .COMPLEX supplement 10/29/18 [History Last Taken 12/30/21] sucralfate 1 gram tablet 1 gm PO BID PRN PRN Indigestion 08/18/18 [History Last Taken 12/30/21] potassium chloride 20 mEq tablet,extended release(part/cryst) 20 meq PO BID hypokalemia 12/31/21 [History Last Taken 12/30/21] clopidogrel 75 mg tablet 75 mg PO DAILY blood thinner #30 tabs 01/02/22 [Rx Last Taken Unknown] levothyroxine 100 mcg tablet 100 mcg PO DAILY #30 tabs 01/02/22 [Rx Last Taken Unknown] losartan 25 mg tablet 25 mg PO DAILY blood pressure\ #30 tabs 01/02/22 [Rx Last Taken Unknown] metoprolol tartrate 50 mg tablet 50 mg PO BID blood pressure #60 tabs 01/02/22 [Rx Last Taken Unknown] rosuvastatin 20 mg tablet 20 mg PO DAILY cholesterol #30 tabs 01/02/22 [Rx Last Taken Unknown] ranolazine 500 mg tablet,extended release,12 hr 1,000 mg PO BID #60 tabs 07/15/22 [Rx Last Taken Unknown] apixaban 5 mg tablet (Eliquis) 5 mg PO BID #60 tabs 07/27/22 [Rx Last Taken Unknown] Allergy/AdvReac Type Severity Reaction Status Date / Time cephalexin monohydrate Allergy Severe Vomiting Verified 07/27/22 00:16 [From Keflex] lisinopril Allergy Severe Anaphylaxis Verified 07/27/22 00:16 peanut Allergy Severe Unknown Verified 07/27/22 00:16 shellfish derived Allergy Severe Anaphylaxis Verified 07/27/22 00:16 Penicillins [PCN] Allergy Unknown Anaphylaxis Verified 07/27/22 00:16 cat dander AdvReac Severe NEEDS Verified 07/27/22 00:16 FOLLOW-UP cefixime [From Suprax] AdvReac Severe Vomiting Verified 07/27/22 00:16 doxycycline AdvReac Severe Vomiting Verified 07/27/22 00:16 erythromycin base AdvReac Severe hives Verified 07/27/22 00:16 grass pollen AdvReac Severe Unknown Verified 07/27/22 00:16 metronidazole [From Flagyl] AdvReac Severe Unknown Verified 07/27/22 00:16 ragweed pollen AdvReac Severe Unknown Verified 07/27/22 00:16 tetracycline AdvReac Severe Unknown Verified 07/27/22 00:16 tree and shrub pollen AdvReac Severe NEEDS Verified 07/27/22 00:16 FOLLOW-UP weed pollen AdvReac Severe NEEDS Verified 07/27/22 00:16 FOLLOW-UP Sulfa (Sulfonamide AdvReac Intermediate Unknown Verified 07/27/22 00:16 Antibiotics) adhesive tape AdvReac Mild Rash Verified 07/27/22 00:16 levofloxacin [From Levaquin] AdvReac Hives Verified 07/27/22 00:16 Family History Father Cancer Mother Arthritis Heart disease CVA (cerebral vascular accident) Tuberculosis Breast cancer Skin cancer Surgical History fundus repair H/O thyroidectomy History of appendectomy History of cholecystectomy History of coronary artery stent placement (01/01/22) History of esophagogastroduodenoscopy (EGD) History of hysterectomy History of repair of hiatal hernia Social History housing: house Smoking Status: Never smoker ROS ROS ED Constitutional Constitutional ED: Denies chills or fever(s) Eyes Eyes: Denies change in vision ENT ENT ED: Denies sore throat Cardiovascular Cardiovascular: Reports as per HPI, chest pain and racing heartbeat Respiratory/Chest Respiratory/Chest: Denies cough Gastrointestinal Gastrointestinal: Denies abdominal pain, nausea or vomiting Musculoskeletal Musculoskeletal: Denies arthralgias or myalgias Integumentary Denies rash Neurologic Neurologic: Denies headache(s) Psychiatric Psychiatric: Denies anxiety Hematologic/Lymphatic Hematologic/Lymphatic: Denies easy bleeding or easy bruising EXAM Physical Exam Const Vital Signs: 07/27/22 00:14 07/27/22 00:37 07/27/22 00:39 Temperature 97.8 F Temperature Source Temporal Pulse Rate 141 H 114 H Respiratory Rate 18 21 H Respiratory Effort Blood Pressure 144/95 H 155/103 H Blood Pressure Mean 111 120 Pulse Ox 99 100 Oxygen Delivery Method Room Air Room Air Room Air 07/27/22 00:43 07/27/22 01:45 07/27/22 02:00 Temperature Temperature Source Pulse Rate 60 59 L Respiratory Rate 19 H 18 Respiratory Effort Normal Non-Labored Blood Pressure 152/98 H 152/109 H Blood Pressure Mean 116 123 Pulse Ox 96 97 Oxygen Delivery Method Room Air Room Air 07/27/22 03:00 07/27/22 04:00 07/27/22 05:47 Temperature 97 F L Temperature Source Pulse Rate 56 L 54 L 52 L Respiratory Rate 14 10 L 14 Respiratory Effort Blood Pressure 166/74 H 149/76 H 159/68 H Blood Pressure Mean 104 100 Pulse Ox 96 96 Oxygen Delivery Method Room Air Room Air 07/27/22 05:00 Temperature Temperature Source Pulse Rate 55 L Respiratory Rate 12 Respiratory Effort Blood Pressure 146/66 H Blood Pressure Mean 92 Pulse Ox 94 Oxygen Delivery Method Room Air Positive well nourished and well developed General Appearance ED: well developed and NAD HEENT Reports moist mucous membranes normocephalic and atraumatic Eyes PERRL Neck supple and no JVD Chest Wall inspection of chest normal and palpation of chest normal Resp normal respiratory effort and clear to auscultation bilaterally Cardio no murmurs Rate: tachycardic Rhythm: abnormal rhythm irregularly irregular GI normal to inspection, nondistended, normoactive bowel sounds and soft to palpation Extremity normal to inspection General Extremety ED: Negative for edema General Extremity: Negative for edema Neuro oriented x3 Sensorium / Orientation: awake Motor Exam: Negative for general weakness Psych mental status grossly normal Skin no rashes or lesions noted and no wounds MDM MDM MDM Narrative Medical decision making narrative: Patient is evaluated for chest pressure. She is found to be in atrial fibrillation with RVR. This appears to be new. Patient is given 5 mg of IV metoprolol and does not have significant rate improvement. However she walks to the bathroom after this and self converts back to normal sinus rhythm. Her symptoms have resolved. She has no further chest discomfort. Work-up including CBC, BMP, delta high-sensitivity troponin and TSH performed. Patient's high- sensitivity troponin is stable at 9 and 12. Her TSH is mildly elevated at 6.14 however she does have a history of hypothyroid and is on Synthroid. I do not think the TSH is high enough to explain her presentation today. On repeat EKG she is in fact in normal sinus rhythm and no longer has any ischemic/strain pattern. She is feeling well at this time. Case is discussed with cardiology on-call, Dr. Jasmine, who is agreeable with starting the patient on Eliquis as she does have an elevated [id number] 2 score and increased risk of stroke associated with atrial fibrillation. She is already on metoprolol. We will stop her aspirin as she is also on Plavix. Patient has follow-up appointment coming up in the next week or so with cardiology. She is encouraged to keep it. Patient is counseled on the risk of bleeding associated with Eliquis. She denies any history of any bleeding or history of GI bleeding/black or blood in her stool. Patient and are agreeable this plan of care. She is discharged home in stable and improved condition. Is given return precautions. At this time I think her chest pain was related to her atrial fibrillation and not ACS. Lab Data Attestation: I reviewed the patient's lab results. Labs: Laboratory Results - last 24 hr 07/27/22 07/27/22 07/27/22 00:28 00:28 00:28 WBC 7.2 RBC 4.32 Hgb 13.1 Hct 39.7 MCV 91.9 MCH 30.3 MCHC 33.0 RDW Std Deviation 46.2 H RDW Coeff of Onur 13.6 Plt Count 201 MPV 9.8 Immature Gran % (Auto) 0.300 Neut % (Auto) 59.1 Lymph % (Auto) 27.4 Lake % (Auto) 8.2 Eos % (Auto) 4.4 Baso % (Auto) 0.6 Absolute Neuts (auto) 4.3 Absolute Lymphs (auto) 1.98 Nucleated RBC % 0 PT INR APTT Sodium 138 Potassium 4.1 Chloride 109 H Carbon Dioxide 26.0 Anion Gap 3 L BUN 26 H Creatinine 1.47 H Estim Creat Clear Calc 23.03 Est GFR (MDRD) Af Amer 44 L Est GFR (MDRD) Non-Af 36 L BUN/Creatinine Ratio 17.7 Glucose 98 Calcium 9.8 Troponin I High Sens 9 TSH 6.14 H 07/27/22 07/27/22 00:28 03:20 WBC RBC Hgb Hct MCV MCH MCHC RDW Std Deviation RDW Coeff of Onur Plt Count MPV Immature Gran % (Auto) Neut % (Auto) Lymph % (Auto) Lake % (Auto) Eos % (Auto) Baso % (Auto) Absolute Neuts (auto) Absolute Lymphs (auto) Nucleated RBC % PT 12.8 INR 1.0 APTT 26.1 Sodium Potassium Chloride Carbon Dioxide Anion Gap BUN Creatinine Estim Creat Clear Calc Est GFR (MDRD) Af Amer Est GFR (MDRD) Non-Af BUN/Creatinine Ratio Glucose Calcium Troponin I High Sens 12 TSH Radiography Chest X-Ray - ED: 1 View, Read by ED Physician, Read by Radiologist and No Acute Disease Diagnostic Testing: Clinical Impression(s) from Imaging Studies Chest X-Ray 07/27/22 00:30 IMPRESSION: No acute cardiopulmonary disease Electronically Signed: Arie Gallardo MD at 0:45 EDT , Rhythm Strip Rhythm Strip: A-fib Rate: 140 Ectopy: None EKG Initial EKG: Attestation: I personally reviewed and interpreted this EKG as follows: Interpretation: Atrial Fibrillation Comments: Atrial fibrillation with rapid ventricular response at a rate of 140 bpm Normal axis Normal QRS and QT Nonspecific ST and T wave abnormality is more pronounced in the inferior leads Prior: Changed Follow-up EKG: Attestation: I personally reviewed and interpreted this EKG as follows: Interpretation: Sinus Bradycardia Comments: Sinus bradycardia rate of 53 bpm Normal axis Normal intervals Normal ST segments Compared to prior EKG atrial fibrillation has not resolved as well as ST changes Discharge Plan Triage Chief Complaint: Chest Pain ED Provider: Anne Khalil Dx/Rx/DC Orders Clinical Impression: Paroxysmal atrial fibrillation with rapid ventricular response, Chest pain Instructions: ED AFIB Prescriptions: New Eliquis 5 mg tablet 5 mg PO BID Qty: 60 0RF Discontinued aspirin 81 mg tablet,delayed release (DR/EC) 81 mg PO DAILY No Action calcium polycarbophil [FiberCon] 625 mg tablet 1,250 mg PO DAILY ranolazine 500 mg tablet extended release 12 hr 1,000 mg PO BID Qty: 60 4RF hydroxyzine HCl 25 MG tablet 25 mg PO QHS Label Comments: anxiety azelastine 1 SPRAY aerosol,spray 2 spray NASAL BID Label Comments: nasal spray epinephrine 0.3 MG syringe 0.3 mg IM X1 Label Comments: ALERGIC REACTION latanoprost 1 DROP bottle 1 drp EACHEYE DAILY citalopram 20 MG tablet 20 mg PO DAILY ergocalciferol (vitamin D2) 50,000 unit capsule 50,000 unit PO .COMPLEX Label Comments: 50,000 unit PO twice weekly; Rx Instructions: 50,000 unit PO twice weekly Thursday and Thursday. sucralfate 1 GM tablet 1 gm PO BID PRN PRN (Reason: Indigestion) potassium chloride 20 mEq tablet,ER particles/crystals 20 meq PO BID levothyroxine 100 mcg tablet 100 mcg PO DAILY Qty: 30 2RF losartan 25 mg tablet 25 mg PO DAILY Qty: 30 2RF metoprolol tartrate 50 mg tablet 50 mg PO BID Qty: 60 1RF Label Comments: TAKE 1 TABLET TWICE DAILY rosuvastatin 20 mg tablet 20 mg PO DAILY Qty: 30 1RF Hold Instructions: Myalgias clopidogrel 75 MG tablet 75 mg PO DAILY Qty: 30 3RF Primary Care Provider: Geeta Cruz Referrals: Jay Calix MD [Med Staff - Active Staff] - As soon as possible Geeta Cruz, [Primary Care Provider] - Activity Restrictions/Additional Instructions: Your heart was in an abnormal rhythm; atrial fibrillation. It went back to normal sinus rhythm while in the emergency room. I suspect that was causing your chest discomforts. Atrial fibrillation increases the risk of stroke which is why we have started you on a blood thinner. Stop taking your daily aspirin. Take the next dose of your Eliquis (the blood thinner) Thursday evening. You will then take it twice a day. 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 Call them if you have further questions or concerns or feel you need to be seen sooner. If anything changes, you develop chest pain again or have any other problems please return to the emergency room. Disposition Disposition: Home, Self Care Discharge Date/Time: 07/27/22 05:48
[2022-07-27] MEDS: Aspirin 81 MG TAB.CHEW 324 MG PO (01:43)
[2022-07-27 01:55] LABS: Thyroid Stim Hormone (TSH) 6.14 uIU/mL (0.358-3.74)
[2022-07-27 04:15] LABS: Troponin-I HS 12 pg/mL (3.0-54.0)
[2022-07-27] MEDS: APIXABAN 5 MG TABLET PO (05:29)
== END 2022-07-27 05:48 | disposition home or self-care (01) ==
PROVIDERS: Emergency Provider Emergency Medicine; PCP Internal Medicine; Visit Provider Emergency Medicine
DX: I48.0 Paroxysmal atrial fibrillation (principal); I25.10 Atherosclerotic heart disease of native coronary artery without angina pectoris; I10 Essential (primary) hypertension; E78.5 Hyperlipidemia, unspecified; E03.9 Hypothyroidism, unspecified; Z79.02 Long term (current) use of antithrombotics/antiplatelets; Z79.899 Other long term (current) drug therapy; I25.2 Old myocardial infarction; Z86.73 Personal history of transient ischemic attack (TIA), and cerebral infarction without residual deficits
CPT/HCPCS: 71045; 80048; 84443; 84484; 85025; 85610; 85730; 93005; 99284; A4216

== ENCOUNTER → 2022-08-08 | Outpatient (CLI) | payer MEDICARE, OTHER, SELFPAY ==
[2022-03-26 08:47] VITALS: BMI 28.7
[2022-08-08 16:33] LABS: Anion Gap 3 (5-15); BUN 23 mg/dL (7-18); BUN/Creat Ratio 15.8 RATIO (10-20); Calcium,Total 9.2 mg/dL (8.5-10.1); Chloride 108 mmol/L (98-107); Creatinine, Serum 1.46 mg/dL (0.55-1.02); EST Glomerular Filtration Rate 37 mL/min (>60); Est Glom Filt Rate - Afr Amer 44 mL/min (>60); Glucose 94 mg/dL (74-106); Potassium 4.7 mmol/L (3.5-5.1); Sodium Level 136 mmol/L (136-145); Thyroid Stim Hormone (TSH) 1.62 uIU/mL (0.358-3.74)
== END | disposition home or self-care (01) ==
LOC: LAB 14:37
PROVIDERS: PCP Internal Medicine; Referring Provider Nurse Practitioner Family; Visit Provider Nurse Practitioner Family
DX: R06.02 Shortness of breath (principal); I48.0 Paroxysmal atrial fibrillation; I25.2 Old myocardial infarction; R07.9 Chest pain, unspecified; I65.21 Occlusion and stenosis of right carotid artery; Z85.850 Personal history of malignant neoplasm of thyroid
CPT/HCPCS: 36415; 80048; 83880; 84443

== ENCOUNTER 2022-09-28 16:12 | Emergency (ER) | payer MEDICARE, OTHER, SELFPAY ==
[2022-03-26 08:47] VITALS: BMI 28.7
[2022-09-28 16:13] VITALS: BP 161/66; PULSE 58; RESP 18; TEMP 35.7; O2SAT 100; BMI 27.9
--- NOTE | 2022-09-28 16:31 | EDS_ITS ---
HPI History of Present Illness Chief Complaint: Chest Pain Informant: patient Onset/Context/Timing Onset: Today Current Severity: Mild Maximum Severity: Moderate Narrative Narrative: Patient presents secondary to chest pain. She has a history of coronary disease as well as an NSTEMI. She does have cardiac stents. It appears her last cardiac cath was in December 2021. Patient was seen in the cardiology office earlier this week for routine follow-up. She is been continuing to have intermittent episodes of chest pain. Her medications have been adjusted incl uding isosorbide and amlodipine. She states overall her symptoms are improving but she still has episodes of chest pain. Approximately 30 minutes prior to arrival she developed chest pain while lying down and resting. She states her pain was about a 7 out of 10. She took 2 nitro prior to arrival and at this time reports only minimal pain. She states she does feel short of breath but that is not any different than her baseline. She did not break out in a sweat. She is currently on Eliquis and has been compliant with this medication. [facility] Medical History Atherosclerotic heart disease of [place] coronary artery without angina pectoris Cardiac dysrhythmia Diarrhea Dyslipidemia Essential (primary) hypertension GERD (gastroesophageal reflux disease) History of CVA (cerebrovascular accident) History of non-ST elevation myocardial infarction (NSTEMI) (12/31/21) History of thyroid cancer Hypothyroidism Near syncope PAC (premature atrial contraction) PVC (premature ventricular contraction) Rectocele SVT (supraventricular tachycardia) Syncope Home Medications azelastine 137 mcg (0.1 %) nasal spray aerosol 2 spray NASAL BID allergies 12/16/15 [History Last Taken 12/30/21] hydroxyzine HCl 25 mg tablet 25 mg PO QHS anxiety 12/16/15 [History Last Taken 12/30/21] epinephrine 0.3 mg/0.3 mL injection, auto-injector 0.3 mg IM X1 allergic reaction 01/29/16 [History Last Taken Unknown] citalopram 20 mg tablet 20 mg PO DAILY mood 09/28/17 [History Last Taken 12/30/21] latanoprost 0.005 % eye drops 1 drp EACHEYE DAILY eye 09/28/17 [History Last Taken 12/30/21] calcium polycarbophil 625 mg tablet (FiberCon) 1,250 mg PO DAILY laxative 02/08/18 [History Last Taken 12/30/21] ergocalciferol (vitamin D2) 1,250 mcg (50,000 unit) capsule 50,000 unit PO .COMPLEX supplement 02/08/18 [History Last Taken 12/30/21] sucralfate 1 gram tablet 1 gm PO BID PRN PRN Indigestion 08/18/18 [History Last Taken 12/30/21] potassium chloride 20 mEq tablet,extended release(part/cryst) 20 meq PO BID hypokalemia 12/31/21 [History Last Taken 12/30/21] clopidogrel 75 mg tablet 75 mg PO DAILY blood thinner #30 tabs 01/02/22 [Rx Last Taken Unknown] levothyroxine 100 mcg tablet 100 mcg PO DAILY #30 tabs 01/02/22 [Rx Last Taken Unknown] losartan 25 mg tablet 25 mg PO DAILY blood pressure\ #30 tabs 01/02/22 [Rx Last Taken Unknown] metoprolol tartrate 50 mg tablet 50 mg PO BID blood pressure #60 tabs 01/02/22 [Rx Last Taken Unknown] ranolazine 500 mg tablet,extended release,12 hr 1,000 mg PO BID #60 tabs 07/15/22 [Rx Last Taken Unknown] furosemide 40 mg tablet 40 mg PO DAILY #30 tabs 08/12/22 [Rx Last Taken Unknown] amlodipine 5 mg tablet 5 mg PO DAILY #30 tabs 08/26/22 [Rx Last Taken Unknown] apixaban 5 mg tablet (Eliquis) 5 mg PO BID #60 tabs 08/26/22 [Rx Last Taken Unknown] rosuvastatin 20 mg tablet 20 mg PO DAILY cholesterol #90 tabs 09/09/22 [Rx Last Taken Unknown] isosorbide mononitrate 30 mg tablet,extended release 24 hr 30 mg PO DAILY #30 tabs 09/17/22 [Rx Last Taken Unknown] nitroglycerin 0.4 mg sublingual tablet (Nitrostat) 0.4 mg sublingual Q5-15M PRN chest pain #25 tabs 09/17/22 [Rx Last Taken Unknown] Allergy/AdvReac Type Severity Reaction Status Date / Time cephalexin monohydrate Allergy Severe Vomiting Verified 09/28/22 16:14 [From Keflex] lisinopril Allergy Severe Anaphylaxis Verified 09/28/22 16:14 peanut Allergy Severe Unknown Verified 09/28/22 16:14 shellfish derived Allergy Severe Anaphylaxis Verified 09/28/22 16:14 Penicillins [PCN] Allergy Unknown Anaphylaxis Verified 09/28/22 16:14 cat dander AdvReac Severe NEEDS Verified 09/28/22 16:14 FOLLOW-UP cefixime [From Suprax] AdvReac Severe Vomiting Verified 09/28/22 16:14 doxycycline AdvReac Severe Vomiting Verified 09/28/22 16:14 erythromycin base AdvReac Severe hives Verified 09/28/22 16:14 grass pollen AdvReac Severe Unknown Verified 09/28/22 16:14 metronidazole [From Flagyl] AdvReac Severe Unknown Verified 09/28/22 16:14 ragweed pollen AdvReac Severe Unknown Verified 09/28/22 16:14 tetracycline AdvReac Severe Unknown Verified 09/28/22 16:14 tree and shrub pollen AdvReac Severe NEEDS Verified 09/28/22 16:14 FOLLOW-UP weed pollen AdvReac Severe NEEDS Verified 09/28/22 16:14 FOLLOW-UP Sulfa (Sulfonamide AdvReac Intermediate Unknown Verified 09/28/22 16:14 Antibiotics) adhesive tape AdvReac Mild Rash Verified 09/28/22 16:14 levofloxacin [From Levaquin] AdvReac Hives Verified 09/28/22 16:14 Family History Father Cancer Mother Arthritis Heart disease CVA (cerebral vascular accident) Tuberculosis Breast cancer Skin cancer Surgical History fundus repair H/O thyroidectomy History of appendectomy History of cholecystectomy History of coronary artery stent placement (01/01/22) History of esophagogastroduodenoscopy (EGD) History of hysterectomy History of repair of hiatal hernia Social History housing: house Smoking Status: Never smoker ROS ROS ED Constitutional Constitutional ED: Denies chills or fever(s) Eyes Eyes: Denies change in vision or discharge from eye(s) ENT ENT ED: Denies discharge from eye(s), rhinorrhea or sore throat Cardiovascular Cardiovascular: Reports chest pain; Denies palpitations Respiratory/Chest Respiratory/Chest: Reports dyspnea; Denies cough Gastrointestinal Gastrointestinal: Denies abdominal pain, diarrhea, nausea or vomiting Genitourinary Genitourinary ED: Denies dysuria Musculoskeletal Musculoskeletal: Denies back pain or extremity pain Integumentary Denies Abrasions or rash Neurologic Neurologic: Denies headache(s) or weakness Psychiatric Psychiatric: Denies anxiety or depression Allergic/Immunologic Allergic/Immunologic ED: Denies lip swelling or urticaria EXAM Physical Exam Const Vital Signs: 09/28/22 16:13 09/28/22 16:33 09/28/22 16:33 Temperature 96.2 F L Temperature Source Temporal Pulse Rate 58 L 59 L Respiratory Rate 18 14 Blood Pressure 161/66 H 149/62 H Blood Pressure Mean 97 91 Pulse Ox 100 100 100 Oxygen Delivery Method Room Air Room Air Room Air 09/28/22 17:13 09/28/22 18:00 Temperature Temperature Source Pulse Rate 59 L 59 L Respiratory Rate 16 15 Blood Pressure 136/63 H 135/76 H Blood Pressure Mean 87 95 Pulse Ox 97 96 Oxygen Delivery Method Room Air Room Air Positive well nourished and well developed General Appearance ED: well developed HEENT Reports normocephalic and head/scalp atraumatic Eyes PERRL and EOMs intact bilaterally Neck supple Chest Wall inspection of chest normal and palpation of chest normal Resp normal respiratory effort and clear to auscultation bilaterally Cardio regular rate and regular rhythm GI normal to inspection, nondistended, normoactive bowel sounds Palpation: soft Extremity normal to inspection Neuro oriented x3 and no sensory deficits noted Sensorium / Orientation: alert Motor Exam: strength 5/5 throughout Psych mental status grossly normal Skin no rashes or lesions noted Heart Score History: Slightly/Non-Suspicious ECG: Normal Age: >/= 65 years Risk Factors: >/= 3 Risk Factors or History of CAD Troponin: </= Normal Limit Score: 4 MDM MDM MDM Narrative Medical decision making narrative: Patient was given aspirin on arrival and placed on teletypesetter monitor. Labwork obtained to evaluate for leukocytosis, anemia, and electrolyte derangement. EKG obtained to evaluate for cardiac arrhythmia/ischemia. Chest x-ray obtained to evaluate for acute lung pathology, cardiac size, or mediastinal abnormality. Lab Data Attestation: I reviewed the patient's lab results. Labs: Laboratory Results - last 24 hr 09/28/22 09/28/2209/28/23 16:23 16:23 18:50 WBC 5.9 RBC 3.64 L Hgb 11.1 L Hct 33.8 L MCV 92.9 MCH 30.5 MCHC 32.8 RDW Std Deviation 44.3 H RDW Coeff of Onur 13.1 Plt Count 223 MPV 9.9 Immature Gran % (Auto) 0.500 Neut % (Auto) 55.8 Lymph % (Auto) 30.0 Dare % (Auto) 9.4 Eos % (Auto) 3.6 Baso % (Auto) 0.7 Absolute Neuts (auto) 3.3 Absolute Lymphs (auto) 1.76 Nucleated RBC % 0 Sodium 138 Potassium 3.7 Chloride 106 Carbon Dioxide 26.0 Anion Gap 6 BUN 29 H Creatinine 1.65 H Estim Creat Clear Calc 20.52 Est GFR (MDRD) Af Amer 38 L Est GFR (MDRD) Non-Af 32 L BUN/Creatinine Ratio 17.6 Glucose 95 Calcium 9.2 Troponin I High Sens 8 8 Radiography Chest X-Ray - ED: 1 View, Read by ED Physician, Chronic Changes and No Infiltrates Diagnostic Testing: Clinical Impression(s) from Imaging Studies Chest X-Ray 09/28/22 16:46 IMPRESSION: No radiographic evidence of acute cardiopulmonary disease. Electronically Signed: Cade Stringer MD at 17:13 EDT , EKG Initial EKG: Attestation: I personally reviewed and interpreted this EKG as follows: Interpretation: Sinus Bradycardia (Sinus bradycardia [address] change.) Treatment and Re-Evaluation :: CBC reveals normal white count and hemoglobin 11.1. This appears consistent with her prior values. Chemistry studies reveal a BUN of 29 and creatinine 1.65, again consistent with her prior values. Initial troponin is 8. 2-hour repeat troponin is also 8. Patient be discharged with plans to follow-up with cardiology. They are currently sending her a 2-week monitor and she will update them of any further symptoms. Discharge Plan Triage Chief Complaint: Chest Pain ED Provider: Rhoda Lance Dx/Rx/DC Orders Clinical Impression: Chest pain Instructions: ED Chest Pain, Uncertain Cause Prescriptions: No Action calcium polycarbophil [FiberCon] 625 mg tablet 1,250 mg PO DAILY ranolazine 500 mg tablet extended release 12 hr 1,000 mg PO BID Qty: 60 4RF hydroxyzine HCl 25 MG tablet 25 mg PO QHS Label Comments: anxiety azelastine 1 SPRAY aerosol,spray 2 spray NASAL BID Label Comments: nasal spray epinephrine 0.3 MG syringe 0.3 mg IM X1 Label Comments: ALERGIC REACTION latanoprost 1 DROP bottle 1 drp EACHEYE DAILY citalopram 20 MG tablet 20 mg PO DAILY ergocalciferol (vitamin D2) 50,000 unit capsule 50,000 unit PO .COMPLEX Label Comments: 50,000 unit PO twice weekly; Rx Instructions: 50,000 unit PO twice weekly Thursday and Thursday. sucralfate 1 GM tablet 1 gm PO BID PRN PRN (Reason: Indigestion) potassium chloride 20 mEq tablet,ER particles/crystals 20 meq PO BID levothyroxine 100 mcg tablet 100 mcg PO DAILY Qty: 30 2RF losartan 25 mg tablet 25 mg PO DAILY Qty: 30 2RF metoprolol tartrate 50 mg tablet 50 mg PO BID Qty: 60 1RF Label Comments: TAKE 1 TABLET TWICE DAILY clopidogrel 75 MG tablet 75 mg PO DAILY Qty: 30 3RF furosemide 40 mg tablet 40 mg PO DAILY Qty: 30 11RF amlodipine 5 mg tablet 5 mg PO DAILY Qty: 30 11RF Eliquis 5 mg tablet 5 mg PO BID Qty: 60 11RF rosuvastatin 20 mg tablet 20 mg PO DAILY Qty: 90 3RF Hold Instructions: Myalgias isosorbide mononitrate 30 mg tablet extended release 24 hr 30 mg PO DAILY Qty: 30 6RF nitroglycerin [Nitrostat] 0.4 mg tablet, sublingual 0.4 mg sublingual Q5-15M PRN (Reason: chest pain) Qty: 25 3RF Rx Instructions: do not exceed 3 doses per episode Primary Care Provider: Geeta Cruz Referrals: Jay Calix MD [Med Staff - Active Staff] - 1-2 Weeks Geeta Cruz DO [Primary Care Provider] - 1 Week Disposition Disposition: Home, Self Care
[2022-09-28 16:33] VITALS: BP 149/62; PULSE 59; RESP 14; O2SAT 100
[2022-09-28] MEDS: Aspirin 81 MG TAB.CHEW 324 MG PO (16:39)
--- NOTE | 2022-09-28 16:46 | RAD_ITS ---
INDICATION: chest pain EXAMINATION/TECHNIQUE: X-RAY - XR Chest 1 View COMPARISON: FINDINGS: LINES/DEVICES: None. LUNGS: No consolidation, edema or effusion. No pneumothorax. MEDIASTINUM AND CARDIOVASCULAR STRUCTURES: Cardiac silhouette not enlarged. Central airways and mediastinal contour are unremarkable. BONES AND SOFT TISSUES: Levoscoliosis of the thoracic spine. RAD/Chest 1 View (Portable) IMPRESSION: No radiographic evidence of acute cardiopulmonary disease. Electronically Signed: Cade Stringer MD at 17:13 EDT ,
[2022-09-28 16:48] LABS: Absolute Lymphocyte Count 1.76 X10^3/uL (0.83-4.51); Absolute Neutrophil Count 3.3 X10^3/uL (2.0-7.7); Basophil# 0.04 X10^3/uL; Basophil% 0.7 % (0-1); Eosinophil# 0.21 X10^3/uL; Eosinophils% 3.6 % (0-5); Hematocrit 33.8 % (37-47); Hemoglobin 11.1 g/dL (12.0-15.0); Lymphocyte # 1.76 X10^3/ul (0.83-4.51); Mean Corp Hgb Conc 32.8 g/dL (32-36); Mean Corpuscular Hgb 30.5 pg (27.0-32.0); Mean Corpuscular Volume 92.9 fL (81-99); Mean Platelet Vol. 9.9 fl (6.2-12.0); Monocyte# 0.55 X10^3/uL; Monocyte% 9.4 % (0-10); NRBC Flagged by Analyzer 0 % (0-5); Neutrophil # 3.28 X10^3/uL (2.7-7.7); Neutrophil % 55.8 % (47-70); Platelet Count 223 K/mm3 (150-450); RBC Distribution Width CV 13.1 % (11.6-14.6); RBC Distribution Width SD 44.3 fl (35.1-43.9); Red Blood Count 3.64 M/mm3 (4.2-5.4); White Blood Count 5.9 K/mm3 (4.4-11.0)
[2022-09-28 17:09] LABS: Anion Gap 6 (5-15); BUN 29 mg/dL (7-18); BUN/Creat Ratio 17.6 RATIO (10-20); Calcium,Total 9.2 mg/dL (8.5-10.1); Chloride 106 mmol/L (98-107); Creatinine, Serum 1.65 mg/dL (0.55-1.02); EST Glomerular Filtration Rate 32 mL/min (>60); Est Glom Filt Rate - Afr Amer 38 mL/min (>60); Estimated Creatinine Clearance 20.52 ml/min; Glucose 95 mg/dL (74-106); Potassium 3.7 mmol/L (3.5-5.1); Sodium Level 138 mmol/L (136-145); Troponin-I HS (w/2H Reflex) 8 pg/mL (3.0-54.0)
[2022-09-28 17:13] VITALS: BP 136/63; PULSE 59; RESP 16; O2SAT 97
[2022-09-28 18:00] VITALS: BP 135/76; PULSE 59; RESP 15; O2SAT 96
[2022-09-28 18:42] LABS: Reflex Troponin-HS? (from REC) Y
[2022-09-28 19:23] LABS: Troponin-I HS 8 pg/mL (3.0-54.0)
== END 2022-09-28 19:46 | disposition home or self-care (01) ==
PROVIDERS: Emergency Provider Emergency Medicine; PCP Internal Medicine; Visit Provider Emergency Medicine
DX: R07.9 Chest pain, unspecified (principal); I25.10 Atherosclerotic heart disease of native coronary artery without angina pectoris; I10 Essential (primary) hypertension; E78.5 Hyperlipidemia, unspecified; K21.9 Gastro-esophageal reflux disease without esophagitis; Z79.01 Long term (current) use of anticoagulants; Z79.02 Long term (current) use of antithrombotics/antiplatelets; Z79.890 Hormone replacement therapy; Z79.899 Other long term (current) drug therapy; I25.2 Old myocardial infarction; Z95.5 Presence of coronary angioplasty implant and graft; Z86.73 Personal history of transient ischemic attack (TIA), and cerebral infarction without residual deficits
CPT/HCPCS: 71045; 80048; 84484; 85025; 93005; 99284; A4216

== ENCOUNTER → 2022-10-16 | Outpatient (CLI) | payer MEDICARE, OTHER, SELFPAY ==
[2022-03-26 08:47] VITALS: BMI 28.7
--- NOTE | 2022-10-16 08:31 | BI_ITS ---
MAMMOGRAPHY - BILATERAL SCREENING REASON FOR EXAM: Female, 82 years old. Routine annual screening examination. PERTINENT HISTORY: Sister with breast cancer. TECHNIQUE: Digital bilateral breast marisol (3D mammographic acquisition) in the CC and MLO projections. 2-D mediolateral oblique (MLO) and craniocaudad (CC) views of both breasts were obtained. CAD: Full Field Digital Mammography with Computer Added Detection was performed. COMPARISON: Comparison is made with prior study dated October 04, 2021 and October 02, 2020. FINDINGS: Breast Composition: There are scattered areas of fibroglandular density. There are no dominant masses or suspicious calcifications. No other significant abnormalities are identified. There has been no significant change since the prior study. BI/SCRN MAMM (CAD)W/MARISOL BILAT IMPRESSION: Stable bilateral screening mammogram. Yearly follow-up mammogram recommended. (A) ASSESSMENT CATEGORY: BIRADS Category 1: Negative. A letter regarding these results will be sent to the patient by the facility within 30 days. Approximately 10% of breast cancers are not detected by mammography. A normal mammogram should not delay biopsy of a clinically suspicious abnormality. [id number] Electronically Signed: Ash Pizarro MD at 9:27 EDT ,
== END | disposition home or self-care (01) ==
LOC: OPBI 08:21
PROVIDERS: PCP Internal Medicine; Referring Provider Internal Medicine; Visit Provider Internal Medicine
DX: Z12.31 Encounter for screening mammogram for malignant neoplasm of breast (principal); Z80.3 Family history of malignant neoplasm of breast
CPT/HCPCS: 77063; 77067

== ENCOUNTER → 2023-04-16 | Outpatient (CLI) | payer MEDICARE, OTHER, SELFPAY ==
[2022-03-26 08:47] VITALS: BMI 28.7
--- NOTE | 2023-04-16 13:52 | CDU_ITS ---
Reason For Study: CVA Rt. Velocities/BP Lt. Velocities/BP Prox CCA 48.5/8.8 cm/sec. Prox CCA 68.3/9.7 cm/sec. Mid CCA 56/7.8 cm/sec. Mid CCA 66.4/8.8 cm/sec. Dist CCA 40.9/8.8 cm/sec. Dist CCA 58.9/6.9 cm/sec. Bulb, 143/17 cm/sec. Prox ICA 56.1/9.9 cm/sec. Prox ICA 101/13.3 cm/sec. Mid ICA 49.1/10.7 cm/sec. Mid ICA 102.8/11.5 cm/sec. Dist ICA 57.8/11.1 cm/sec. Dist ICA 67.3/13.3 cm/sec. Lt. ICA/CCA = 0.87. Rt. ICA/CCA = 2.95. Prox ECA 52.6 cm/sec. Prox ECA 143.2 cm/sec. Lt. Vert. 47.4/8.1 cm/sec. Rt. Vert. 37.1/8.8 cm/sec. Right Extracranial There is intimal thickening but no significant atherosclerotic plaque noted in the right common carotid artery. There is heterogeneous, irregular atherosclerotic plaque noted in the right internal carotid artery. There is heterogeneous, irregular atherosclerotic plaque noted in the right external carotid artery. Antegrade flow is noted in the right vertebral artery. There is heterogeneous, irregular atherosclerotic plaque noted in the right bulb. Left Extracranial There is intimal thickening but no significant atherosclerotic plaque noted in the left common carotid artery. There is heterogeneous, irregular atherosclerotic plaque noted in the left internal carotid artery. There is intimal thickening but no significant atherosclerotic plaque noted in the left external carotid artery. Antegrade flow is noted in the left vertebral artery. Procedure This is a Carotid Duplex examination using B-mode, color flow and specral Doppler. Carotid Duplex 44126. Exam performed in department. VL/Carotid Duplex Ultrasound Interpretation Summary Extensive irregular plaque with shadowing at the proximal right internal caroti d artery. Velocities slightly elevated within the right carotid bulb at 143 cm/s suspicio us for greater than 50% stenosis. The absolute velocities within the proximal mid and distal right internal carot id artery are and less than 50% stenosis. Less than 50% stenosis right external carotid Irregular plaque within the proximal left internal carotid artery though with l ess than 50% stenosis Less than 50% stenosis left external carotid artery Patent and antegrade vertebral arteries bilaterally Reference is made to a blood screening exam of March 18, 2022 for elevated ve locities were identified within the right internal carotid at that time. Ordering Physician: Gregorio Pride Referring Physician: Geeta Cruz M.D. Performed By: Marialuisa Nogueira RVT
== END | disposition home or self-care (01) ==
LOC: CVS 13:51
PROVIDERS: PCP Internal Medicine; Referring Provider Surgery; Visit Provider Surgery
DX: I73.9 Peripheral vascular disease, unspecified (principal); Z86.73 Personal history of transient ischemic attack (TIA), and cerebral infarction without residual deficits
CPT/HCPCS: 93880

== ENCOUNTER → 2023-05-11 | Outpatient (CLI) | payer MEDICARE, OTHER, SELFPAY ==
[2022-03-26 08:47] VITALS: BMI 28.7
[2023-05-11 10:20] LABS: Anion Gap 4 (5-15); BUN 27 mg/dL (7-18); BUN/Creat Ratio 17.9 RATIO (10-20); Calcium,Total 9.4 mg/dL (8.5-10.1); Chloride 115 mmol/L (98-107); Creatinine, Serum 1.51 mg/dL (0.55-1.02); EST Glomerular Filtration Rate 35 mL/min (>60); Est Glom Filt Rate - Afr Amer 43 mL/min (>60); Glucose 80 mg/dL (74-106); Potassium 4.4 mmol/L (3.5-5.1); Sodium Level 143 mmol/L (136-145)
== END | disposition home or self-care (01) ==
LOC: PAVLAB 09:33
PROVIDERS: PCP Internal Medicine; Referring Provider Surgery; Visit Provider Surgery
DX: I65.21 Occlusion and stenosis of right carotid artery (principal); I77.9 Disorder of arteries and arterioles, unspecified
CPT/HCPCS: 36415; 80048

== ENCOUNTER → 2023-08-28 | Outpatient (CLI) | payer MEDICARE, OTHER, SELFPAY ==
[2022-03-26 08:47] VITALS: BMI 28.7
--- NOTE | 2023-08-31 13:59 | STRESSREP_ITS ---
Stress Test Report Date: 08/28/2023 Procedure: Pharmacologic stress nuclear imaging study Indications: Dizziness Consent: Per the patient Procedure: The patient underwent pharmacologic (Regadenoson) evaluation with a peak heart rate of 89 beats per minute (64%predicted maximal heart rate) and a peak blood pressure of 142/70 mmHg. The baseline ECG demonstrated normal sinus rhythm. EKG during lexiscan infusion revealed no significant ischemic changes. EKG post infusion revealed no significant ischemic changes [There were no cardiac dysrhythmias pretest, during pharmacologic infusion, or recovery]. [There was no complaint of chest discomfort during pharmacologic infusion or recovery]. The examination was discontinued secondary to completion of protocol. Impression: 1. Lexiscan stress test test is negative for Lexiscan infusion induced EKG changes of ischemia. 2. Lexiscan stress test test is negative for Lexiscan infusion induced chest pain. 3. Results of the nuclear portion of the test is as below Myocardial perfusion imaging study: Technique: The patient was injected with 11.2 millicuries of technetium 99m Cardiolite and subsequently rest SPECT Cardiolite nuclear imaging was obtained in the horizontal long, vertical long, and short axis views. The patient underwent pharmacologic [Regadenoson 0.4mg] evaluation. Please see above for details. The patient was injected with 36 millicuries of technetium 99m Cardiolite and subsequently stress SPECT Cardiolite nuclear imaging was obtained in the horizontal long, vertical long, and short axis views. A gated Cardiolite study at peak stress was obtained. Interpretation: Rest and stress SPECT Cardiolite nuclear imaging status post realignment, normalization, and attenuation correction demonstrate no evidence of significant ischemia or infarction. Gated images reveal no significant regional wall motion abnormalities. The reported LVEF is greater than 70%. Impression: 1. There is no evidence of significant ischemia or infarction. 2. Estimated ejection fraction is greater than 70%. This note was generated with [employer] software. It may contain incorrect words, spelling, and punctuation that were not noted in checking the note before signing.
== END | disposition home or self-care (01) ==
LOC: CVS 06:42
PROVIDERS: PCP Internal Medicine
DX: R07.2 Precordial pain (principal)
CPT/HCPCS: 78452; 93017; A9500; J2785

== ENCOUNTER → 2023-11-06 | Outpatient (CLI) | payer MEDICARE, OTHER, SELFPAY ==
[2022-03-26 08:47] VITALS: BMI 28.7
--- NOTE | 2023-11-06 10:00 | BI_ITS ---
MAMMOGRAPHY - BILATERAL SCREENING REASON FOR EXAM: Female, 83 years old. Routine annual screening examination. PERTINENT HISTORY: Sister with breast cancer. Remote left needle breast biopsy. TECHNIQUE: Digital bilateral breast marisol (3D mammographic acquisition) in the CC and MLO projections. 2-D mediolateral oblique (MLO) and craniocaudad (CC) views of both breasts were obtained. CAD: Full Field Digital Mammography with Computer Added Detection was performed. COMPARISON: Comparison is made with prior study dated October 16, 2022 and October 04, 2021. FINDINGS: Breast Composition: There are scattered areas of fibroglandular density. There are no dominant masses or suspicious calcifications. No other significant abnormalities are identified. There has been no significant change since the prior study. BI/SCRN MAMM (CAD)W/MARISOL BILAT IMPRESSION: Stable bilateral screening mammogram. Yearly follow-up mammogram recommended. (A) ASSESSMENT CATEGORY: BIRADS Category 1: Negative. A letter regarding these results will be sent to the patient by the facility within 30 days. Approximately 10% of breast cancers are not detected by mammography. A normal mammogram should not delay biopsy of a clinically suspicious abnormality. [id number] Electronically Signed: Ash Pizarro MD at 10:32 EDT ,
== END | disposition home or self-care (01) ==
LOC: OPBI 09:58
PROVIDERS: PCP Internal Medicine; Referring Provider Internal Medicine; Visit Provider Internal Medicine
DX: Z12.31 Encounter for screening mammogram for malignant neoplasm of breast (principal); Z80.3 Family history of malignant neoplasm of breast
CPT/HCPCS: 77063; 77067

== ENCOUNTER → 2023-11-16 | Outpatient (CLI) | payer MEDICARE, OTHER, SELFPAY ==
[2022-03-26 08:47] VITALS: BMI 28.7
--- NOTE | 2023-11-16 11:52 | CT_ITS ---
STUDY: CT BRAIN WITH AND WITHOUT CONTRAST REASON FOR EXAM: Female, 83 years old. Memory loss RADIATION DOSAGE (If Supplied By Facility): CTDIvol = ( 44.99 ) mGy, DLP = ( 1479.73 ) mGycm TECHNIQUE: Transaxial CT imaging of the brain was performed pre and post contrast administration. The examination was performed with intravenous administration of 50 ml of Isovue 300 contrast material. Individualized dose optimization techniques were used for this CT. COMPARISON: Prior study dated: MRI 09/13/2016 FINDINGS: PARENCHYMA: There is no acute bleed or infarct. There are mild chronic ischemic changes. There is no abnormal enhancement following contrast administration. There is no intracranial mass identified. VENTRICLES: There is no hydrocephalus. MASTOID AIR CELLS AND PARANASAL SINUSES: The visualized paranasal sinuses are clear. The mastoid air cells are clear. BONES: There is no skull fracture. SOFT TISSUES: The visualized soft tissues are within normal limits. CT/Brain/Head W/WO Contrast IMPRESSION: No acute intracranial abnormality. Mild chronic ischemic change. No abnormal enhancement following contrast administration. No intracranial mass identified. Electronically Signed: Gustavo Souza MD at 9:37 EDT ,
[2023-11-16 12:14] LABS: CREATININE FINGERSTICK < 1.0 mg/dL (0.55-1.02); EGFR FINGERSTICK > 60.0000 mL/min (>60)
== END | disposition home or self-care (01) ==
LOC: CT 11:41
PROVIDERS: PCP Internal Medicine; Referring Provider Internal Medicine; Visit Provider Internal Medicine
DX: R41.3 Other amnesia (principal)
CPT/HCPCS: 70470; Q9967

== ENCOUNTER → 2023-12-16 | Outpatient (CLI) | payer MEDICARE, OTHER, SELFPAY ==
[2022-03-26 08:47] VITALS: BMI 28.7
[2023-12-16 13:09] LABS: Protein, Urine (Random) 36.7 mg/dL (<11.9); Protein:Creat Ratio 133 mg/g CRE (0-200)
== END | disposition home or self-care (01) ==
LOC: POLAB3 12:03
PROVIDERS: PCP Internal Medicine; Visit Provider Internal Medicine Nephrology
DX: N18.32 Chronic kidney disease, stage 3b (principal)
CPT/HCPCS: 82570; 84156

== ENCOUNTER 2023-12-24 05:06 | Emergency (ER) | payer MEDICARE, OTHER, SELFPAY ==
[2022-03-26 08:47] VITALS: BMI 28.7
[2023-12-24 05:06] VITALS: BP 152/62; PULSE 60; RESP 16; TEMP 36.5; O2SAT 100; BMI 27.1
--- NOTE | 2023-12-24 05:09 | RAD_ITS ---
INDICATION: CP EXAMINATION/TECHNIQUE: X-RAY - XR Chest 1 View COMPARISON: September 28, 2022. FINDINGS: LINES/DEVICES: None. LUNGS: No consolidation, edema or effusion. No pneumothorax. MEDIASTINUM AND CARDIOVASCULAR STRUCTURES: Cardiac silhouette not enlarged. BONES AND SOFT TISSUES: Unremarkable. Lateral curvature of the thoracolumbar spine. RAD/Chest 1 View (Portable) IMPRESSION: No radiographic evidence of acute cardiopulmonary disease. Electronically Signed: Tony Goldstein MD at 6:25 EDT ,
--- NOTE | 2023-12-24 05:09 | EKG12_ITS ---
Test Reason : CP Blood Pressure : / mmHG Vent. Rate : 059 BPM Atrial Rate : 059 BPM P-R Int : 170 ms QRS Dur : 084 ms QT Int : 444 ms P-R-T Axes : 071 028 048 degrees QTc Int : 439 ms Sinus bradycardia Otherwise normal ECG Confirmed by OTIS KRAMER, FABIO ([id number]), editor department SALVADOR STEVEN ([id number]) on 12/26/2023 8:08:17 AM Referred By: JUNIE Confirmed By:FABIO BERG MD
[2023-12-24 05:11] VITALS: O2SAT 100
[2023-12-24 05:22] LABS: Absolute Lymphocyte Count 1.75 X10^3/uL (0.83-4.51); Absolute Neutrophil Count 3.7 X10^3/uL (2.0-7.7); Basophil# 0.04 X10^3/uL; Basophil% 0.6 % (0-1); Eosinophil# 0.18 X10^3/uL; Eosinophils% 2.9 % (0-5); Hematocrit 36.3 % (37-47); Hemoglobin 11.9 g/dL (12.0-15.0); Lymphocyte # 1.75 X10^3/ul (0.83-4.51); Mean Corp Hgb Conc 32.8 g/dL (32-36); Mean Corpuscular Hgb 31.9 pg (27.0-32.0); Mean Corpuscular Volume 97.3 fL (81-99); Mean Platelet Vol. 9.9 fl (6.2-12.0); Monocyte# 0.56 X10^3/uL; NRBC Flagged by Analyzer 0 % (0-5); Neutrophil # 3.66 X10^3/uL (2.7-7.7); Neutrophil % 58.7 % (47-70); Platelet Count 215 K/mm3 (150-450); RBC Distribution Width CV 13.1 % (11.6-14.6); RBC Distribution Width SD 47.1 fl (35.1-43.9); Red Blood Count 3.73 M/mm3 (4.2-5.4); White Blood Count 6.2 K/mm3 (4.4-11.0)
--- NOTE | 2023-12-24 05:23 | EDS_ITS ---
HPI History of Present Illness Chief Complaint: Chest Pain Informant: patient and spouse/S.O. Onset/Context/Timing Onset: Today and - (Patient unsure when the chest pain started. Currently resolved.) Activity at onset: sudden Quality: Positive for - (States she felt like she was punched in the chest.) Location: Substernal Current Severity: Gone Maximum Severity: Moderate Worsened By: Nothing Relieved By: Nothing Associated Symptoms: Negative for Nausea, Vomiting, Diaphoresis, Dyspnea, Cough, Fever, Lightheadedness, Acid Reflux or Palpitations Narrative Narrative: 83-year-old female history of anemia, A-fib, IA, peripheral arterial disease, stroke and chronic kidney disease. Currently on both Eliquis and Plavix. We reportedly had an IA around last January. Said she was on the toilet this morning and developed midsternal chest pain. Says she felt like someone punched her in the chest. Denies other symptoms. No nausea. No diaphoresis or shortness of breath. Currently she is pain-free and symptom-free. Denies recent illness. Denies recent chest pain. Prior Similar Symptoms: Yes Recent Illness/Hospitalization: No CVD Risk Factors: Positive for Hypertension PE Risk Factors: Negative for Recent Travel/Surgery, Recent Immobilization, Prior DVT or PE, Cancer or OCP + Smoking + >/=35 TAD Risk Factors: Negative for Marfan's Syndrome [facility] Medical History History of non-ST elevation myocardial infarction (NSTEMI) (12/31/21) Syncope Cardiac dysrhythmia History of CVA (cerebrovascular accident) Essential (primary) hypertension Atherosclerotic heart disease of [place] coronary artery without angina pectoris Near syncope Hypothyroidism GERD (gastroesophageal reflux disease) Dyslipidemia SVT (supraventricular tachycardia) PVC (premature ventricular contraction) PAC (premature atrial contraction) Rectocele Diarrhea History of thyroid cancer Home Medications ?Medication ?Instructions ?Recorded ?Last Taken ?Type azelastine 137 mcg (0.1 %) nasal 2 spray NASAL BID allergies 12/16/15 12/30/21 History spray hydroxyzine HCl 25 mg tablet 25 mg PO QHS anxiety 12/16/15 12/30/21 History epinephrine 0.3 mg/0.3 mL 0.3 mg IM X1 allergic reaction 01/29/16 Unknown History injection, auto-injector citalopram 20 mg tablet 20 mg PO DAILY mood 09/28/17 12/30/21 History latanoprost 0.005 % eye drops 1 drp EACHEYE DAILY eye 09/28/17 12/30/21 History calcium polycarbophil 625 mg 1,250 mg PO DAILY laxative 02/08/18 12/30/21 History tablet (FiberCon) sucralfate 1 gram tablet 1 gm PO BID PRN PRN Indigestion 08/18/18 12/30/21 History potassium chloride 20 mEq 20 meq PO BID hypokalemia 12/31/21 12/30/21 History tablet,extended release(part/cryst) levothyroxine 100 mcg tablet 100 mcg PO DAILY #30 tabs 01/02/22 Unknown Rx metoprolol tartrate 50 mg tablet 50 mg PO BID blood pressure #60 01/02/22 Unknown Rx tabs nitroglycerin 0.4 mg sublingual 0.4 mg sublingual Q5-15M PRN chest 09/17/22 Unknown Rx tablet (Nitrostat) pain #25 tabs clopidogrel 75 mg tablet 75 mg PO DAILY blood thinner #90 11/11/22 Unknown Rx tabs rosuvastatin 20 mg tablet 20 mg PO DAILY cholesterol #90 tabs 09/08/23 Unknown Rx apixaban 5 mg tablet (Eliquis) 5 mg PO BID #60 tabs 10/19/23 Unknown Rx ranolazine 1,000 mg 1,000 mg PO BID #180 tabs 11/12/23 Unknown Rx tablet,extended release,12 hr alendronate 70 mg tablet 70 mg PO QWEEK 12/24/23 Unknown History Allergy/AdvReac Type Severity Reaction Status Date / Time cephalexin monohydrate (From Allergy Severe Vomiting Verified 12/24/23 05:07 Keflex) lisinopril Allergy Severe Anaphylaxis Verified 12/24/23 05:07 peanut Allergy Severe Unknown Verified 12/24/23 05:07 shellfish derived Allergy Severe Anaphylaxis Verified 12/24/23 05:07 Penicillins (PCN) Allergy Unknown Anaphylaxis Verified 12/24/23 05:07 cat dander AdvReac Severe NEEDS Verified 12/24/23 05:07 FOLLOW-UP cefixime (From Suprax) AdvReac Severe Vomiting Verified 12/24/23 05:07 doxycycline AdvReac Severe Vomiting Verified 12/24/23 05:07 erythromycin base AdvReac Severe hives Verified 12/24/23 05:07 grass pollen AdvReac Severe Unknown Verified 12/24/23 05:07 metronidazole (From Flagyl) AdvReac Severe Unknown Verified 12/24/23 05:07 ragweed pollen AdvReac Severe Unknown Verified 12/24/23 05:07 tetracycline AdvReac Severe Unknown Verified 12/24/23 05:07 tree and shrub pollen AdvReac Severe NEEDS Verified 12/24/23 05:07 FOLLOW-UP weed pollen AdvReac Severe NEEDS Verified 12/24/23 05:07 FOLLOW-UP Sulfa (Sulfonamide AdvReac Intermediate Unknown Verified 12/24/23 05:07 Antibiotics) adhesive tape AdvReac Mild Rash Verified 12/24/23 05:07 levofloxacin (From Levaquin) AdvReac Hives Verified 12/24/23 05:07 Family History Father Cancer Mother Arthritis Heart disease CVA (cerebral vascular accident) Tuberculosis Breast cancer Skin cancer Surgical History History of coronary artery stent placement (01/01/22) History of esophagogastroduodenoscopy (EGD) fundus repair H/O thyroidectomy History of cholecystectomy History of hysterectomy History of appendectomy History of repair of hiatal hernia Social History housing: house Smoking Status: Never smoker ROS ROS ED ROS Narrative Denies recent illness. Chest pain tonight resolved. Nonexertional. Constitutional Constitutional ED: Denies chills or fever(s) Eyes Eyes: Reports none ENT ENT ED: Denies ear pain Cardiovascular Cardiovascular: Reports as per HPI and chest pain; Denies palpitations or racing heartbeat Respiratory/Chest Respiratory/Chest: Denies cough, dyspnea or dyspnea on exertion Gastrointestinal Gastrointestinal: Denies abdominal pain, diarrhea, melena, nausea or vomiting Genitourinary Genitourinary ED: Denies dysuria or hematuria Musculoskeletal Musculoskeletal: Denies arthralgias Integumentary Denies abscess Neurologic Neurologic: Denies headache(s) Psychiatric Psychiatric: Denies anxiety Endocrine Endocrinology: Denies cold intolerance Hematologic/Lymphatic Hematologic/Lymphatic: Denies lymphadenopathy Allergic/Immunologic Allergic/Immunologic ED: Denies mouth swelling EXAM Physical Exam Narrative Exam Narrative: Well-appearing 83-year-old female. Vital signs are stable afebrile. Pulse ox 100% on room air no hypoxia. Brought in by squad. at bedside. Clinically looks well. No distress. H EENT exam unremarkable. Neck nontender. No lymphadenopathy. Lungs clear to auscultation bilaterally. Heart regular rate and rhythm rate about 60 no murmur. Chest wall ribs nontender. No ecchymosis or bruising. No reproducible pain. Abdomen soft and nontender. No peritoneal signs. Moving all 4 extremities. Calves are nontender without edema or cords. Equal and symmetrical radial pulses. 5 out of 5 supervisor steel division strength bilaterally. Dorsi plantarflexion intact. Back nontender. She is awake and alert. Answering questions and following commands. Const Vital Signs: 12/24/23 05:06 12/24/23 05:06 12/24/23 05:11 Temperature 97.7 F L Temperature Source Oral Pulse Rate 60 Respiratory Rate 16 Respiratory Effort Normal Non-Labored Blood Pressure 152/62 H Blood Pressure Mean 92 Pulse Ox 100 100 Oxygen Delivery Method Room Air Room Air 12/24/23 06:06 Temperature Temperature Source Pulse Rate 53 L Respiratory Rate 20 H Respiratory Effort Blood Pressure 159/80 H Blood Pressure Mean 106 Pulse Ox 96 Oxygen Delivery Method Room Air Positive well nourished and well developed; Negative for cachectic, contractures or unkempt General Appearance ED: well developed and NAD; Negative for unkempt, cachectic or contractures Nutritional Appearance: Negative for cachectic HEENT Reports moist mucous membranes normocephalic and atraumatic Eyes PERRL and EOMs intact bilaterally General Eye ED: Negative for pale conjunctiva or scleral icterus Neck no lymphadenopathy, supple and no JVD Chest Wall inspection of chest normal and palpation of chest normal Chest: Negative for tenderness Resp normal respiratory effort and clear to auscultation bilaterally Auscultation: Negative for rales, rhonchi or wheezes Cardio regular rate, regular rhythm, S1 normal heart sound, S2 normal heart sound and no murmurs Rate: Negative for bradycardia or tachycardic Rhythm: Negative for abnormal rhythm Peripheral Pulses: pulses 2+ throughout GI normal to inspection, nondistended, normoactive bowel sounds, soft to palpation, non-tender, non-distended and no masses Back/Spine no CVA tenderness and no thoracic nor lumbar tenderness General Back: Negative for CVA tenderness Cervical Spine: Negative for cervical spine tenderness Extremity normal to inspection General Extremety ED: Negative for edema, pulses abnormal or tenderness General Extremity: Negative for edema or pulses abnormal Neuro oriented x3 and CN's II-XII intact bilaterally Sensorium / Orientation: awake, alert, oriented to person, oriented to place and oriented to time; Negative for confused, lethargic or stuporous Motor Exam: strength 5/5 throughout Psych mental status grossly normal Appearance: Negative for unkempt Mood & Affect: Negative for depressed, anxious or tearful Skin no rashes or lesions noted and no wounds General Skin Exam: Negative for jaundice Rashes: No rashes noted Trauma: Negative for abrasion or laceration Heart Score History: Slightly/Non-Suspicious ECG: Normal Age: >/= 65 years Risk Factors: >/= 3 Risk Factors or History of CAD Troponin: </= Normal Limit Score: 4 MDM MDM MDM Narrative Medical decision making narrative: 83-year-old female with reported chest pain tonight with toilet. Patient is unsure when it started or how long it lasted. Currently is pain-free and s ymptom-free. Denies any recent chest pain or last several days or exertional symptoms. She has had a prior IA. She is on blood thinner Eliquis. Exam is normal. There is no reproducible pain. She will undergo cardiac workup. Repeat exam patient doing well at 6:25 AM. She has not had chest pain intact times has been in the emergency department. I went over test results with her I believe her and her brother present in her room. We will do a 2-hour repeat troponin. As long as she is doing well and that has not significantly changed uncomfortable with her being discharged to home. This was atypical, nonexertional chest pain without other symptoms that has resolved patient will be checked out to the oncoming morning physician who will check the second 2- hour troponin and make disposition. Patient and her family are comfortable with the plan. Patient doing well at 7 AM. She will be turned over to a.m. physician to make final disposition History & Record Review Discussion w/independent historian: Patient Additional record(s) reviewed:: Prior inpatient record, Prior outpatient record and Prior ED visit Lab Data Attestation: I reviewed the patient's lab results. Lab results narrative: CBC shows a white count 6.2. H&H 11.9 and 36.3. She has a baseline anemia. Platelets 215. Chemistries show gap is 6. BUN and creatinine are 23 and 1.31. Glucose 97. Initial troponin 14. 2-hour troponin is Chest x-ray and EKG unremarkable. Labs: Laboratory Results - last 24 hr 12/24/23 05:00 WBC 6.2 RBC 3.73 L Hgb 11.9 L Hct 36.3 L MCV 97.3 MCH 31.9 MCHC 32.8 RDW Std Deviation 47.1 H RDW Coeff of Onur 13.1 Plt Count 215 MPV 9.9 Immature Gran % (Auto) 0.800 Neut % (Auto) 58.7 Lymph % (Auto) 28.0 Gage % (Auto) 9.0 Eos % (Auto) 2.9 Baso % (Auto) 0.6 Absolute Neuts (auto) 3.7 Absolute Lymphs (auto) 1.75 Nucleated RBC % 0 Sodium 139 Potassium 4.1 Chloride 108 H Carbon Dioxide 25.0 Anion Gap 6 BUN 23 H Creatinine 1.31 H Estim Creat Clear Calc 29.14 Est GFR (MDRD) Af Amer 50 L Est GFR (MDRD) Non-Af 41 L BUN/Creatinine Ratio 17.6 Glucose 97 Calcium 9.6 Troponin I High Sens 14 Radiography Chest X-Ray - ED: 1 View, Read by ED Physician, Normal, Heart, Lungs, Media stinum, Bony Structures, No Acute Disease and Chronic Changes Diagnostic Testing: Clinical Impression(s) from Imaging Studies Chest X-Ray 12/24/23 05:09 IMPRESSION: No radiographic evidence of acute cardiopulmonary disease. Electronically Signed: Tony Goldstein MD at 6:25 EDT , Chest x-ray, portable, single view interpreted by myself shows normal cardiac silhouette. Normal mediastinum. Normal aortic knob. Normal lung chavez. Chronic changes. No acute process. Rhythm Strip Rhythm Strip: Sinus Rhythm Rate: 59 Ectopy: None EKG Initial EKG: Attestation: I personally reviewed and interpreted this EKG as follows: Interpretation: Sinus Rhythm, No Acute Injury Pattern and Sinus Bradycardia Comments: Sinus bradycardia rate of 59 no acute signs of IA or ischemia. No ST elevation or depression. No dysrhythmia. Discharge Plan Triage Chief Complaint: Chest Pain ED Provider: Rah Denson Dx/Rx/DC Orders Clinical Impression: Chest pain, History of IA (myocardial infarction), History of atrial fibrillation, Chronic anticoagulation Instructions: ED Chest Pain, Uncertain Cause Prescriptions: No Action calcium polycarbophil [FiberCon] 625 mg tablet 1,250 mg PO DAILY hydroxyzine HCl 25 MG tablet 25 mg PO QHS Patient Comments: anxiety azelastine 1 SPRAY aerosol,spray 2 spray NASAL BID Patient Comments: nasal spray epinephrine 0.3 MG syringe 0.3 mg IM X1 Patient Comments: ALERGIC REACTION latanoprost 1 DROP bottle 1 drp EACHEYE DAILY citalopram 20 MG tablet 20 mg PO DAILY sucralfate 1 GM tablet 1 gm PO BID PRN PRN (Reason: Indigestion) potassium chloride 20 mEq tablet,ER particles/crystals 20 meq PO BID levothyroxine 100 mcg tablet 100 mcg PO DAILY Qty: 30 2RF metoprolol tartrate 50 mg tablet 50 mg PO BID Qty: 60 1RF Patient Comments: TAKE 1 TABLET TWICE DAILY alendronate 70 mg tablet 70 mg PO QWEEK nitroglycerin [Nitrostat] 0.4 mg tablet, sublingual 0.4 mg sublingual Q5-15M PRN (Reason: chest pain) Qty: 25 3RF Rx Instructions: do not exceed 3 doses per episode clopidogrel 75 mg tablet 75 mg PO DAILY Qty: 90 3RF rosuvastatin 20 mg tablet 20 mg PO DAILY Qty: 90 3RF Eliquis 5 mg tablet 5 mg PO BID Qty: 60 11RF ranolazine 1,000 mg tablet extended release 12 hr 1,000 mg PO BID Qty: 180 4RF Primary Care Provider: Geeta Cruz Referrals: Geeta Cruz DO [Primary Care Provider] - As soon as possible Activity Restrictions/Additional Instructions: Your tests, chest x-ray and EKG along with your physical exam were unremarkable. We do not have a specific cause for your chest discomfort. There are no signs that it was a heart attack. Follow-up with your primary care physician. Return if you are feeling worse. Continue your regular medications. Print Language: Maori Disposition Disposition: Home, Self Care
[2023-12-24 05:43] LABS: Anion Gap 6 (5-15); BUN 23 mg/dL (7-18); BUN/Creat Ratio 17.6 RATIO (10-20); Calcium,Total 9.6 mg/dL (8.5-10.1); Chloride 108 mmol/L (98-107); Creatinine, Serum 1.31 mg/dL (0.55-1.02); EST Glomerular Filtration Rate 41 mL/min (>60); Est Glom Filt Rate - Afr Amer 50 mL/min (>60); Estimated Creatinine Clearance 29.14 ml/min; Glucose 97 mg/dL (74-106); Potassium 4.1 mmol/L (3.5-5.1); Sodium Level 139 mmol/L (136-145); Troponin-I HS (w/2H Reflex) 14 pg/mL (3.0-54.0)
[2023-12-24 06:06] VITALS: BP 159/80; PULSE 53; RESP 20; O2SAT 96
[2023-12-24 07:00] VITALS: BP 163/57; PULSE 53; RESP 16; O2SAT 98
[2023-12-24 07:12] LABS: Reflex Troponin-HS? (from REC) Y
[2023-12-24 07:38] LABS: Troponin-I HS 11 pg/mL (3.0-54.0)
[2023-12-24 08:00] VITALS: BP 161/58; PULSE 61; RESP 15; TEMP 36.2; O2SAT 97
== END 2023-12-24 08:01 | disposition home or self-care (01) ==
PROVIDERS: Emergency Provider Emergency Medicine; PCP Internal Medicine; Visit Provider Emergency Medicine
DX: R07.89 Other chest pain (principal); N18.9 Chronic kidney disease, unspecified; E78.5 Hyperlipidemia, unspecified; I12.9 Hypertensive chronic kidney disease with stage 1 through stage 4 chronic kidney disease, or unspecified chronic kidney disease; I25.10 Atherosclerotic heart disease of native coronary artery without angina pectoris; I25.2 Old myocardial infarction; E03.9 Hypothyroidism, unspecified; K21.9 Gastro-esophageal reflux disease without esophagitis; Z79.899 Other long term (current) drug therapy; Z79.890 Hormone replacement therapy; Z79.02 Long term (current) use of antithrombotics/antiplatelets; Z79.01 Long term (current) use of anticoagulants
CPT/HCPCS: 71045; 80048; 84484; 85025; 93005; 99285; A4216

== ENCOUNTER 2024-04-23 16:33 | Inpatient (IN) | payer MEDICARE, OTHER, SELFPAY ==
[2022-03-26 08:47] VITALS: BMI 28.7
[2024-04-23 16:34] VITALS: BP 161/66; PULSE 65; RESP 15; TEMP 36.6; O2SAT 97
[2024-04-23 16:40] VITALS: O2SAT 98
--- NOTE | 2024-04-23 16:40 | CT_ITS ---
INDICATION: fall, +loc, nausea/vomiting, on thinners, lac to eye EXAMINATION: CT CERVICAL SPINE - CT Spine Cervical W/O Contrast Injection TECHNIQUE: Helically acquired images were obtained of the cervical spine. 2D reformatted images were reviewed. A radiation dose optimization technique was used for this scan. IV Contrast dosage and agent: None. COMPARISON: None. FINDINGS: VERTEBRAE: No acute fracture of the cervical spine. Anatomic alignment. DISCS and SPINAL CANAL: Mild degenerative changes with multilevel facet joint hypertrophy. No critical stenosis. NECK SOFT TISSUES: No prevertebral soft tissue swelling. LUNG APICES: No acute pulmonary findings. CT/Spine Cervical without Contras IMPRESSION: Degenerative changes. No acute fracture of the cervical spine. Electronically Signed: Zach Vaughn MD at 17:36 EST ,
--- NOTE | 2024-04-23 16:40 | CT_ITS ---
INDICATION: fall, +loc, nausea/vomiting, on thinners, lac to eye EXAMINATION: CT BRAIN - CT Head or Brain W/O Contrast Injection TECHNIQUE: Multiple axial images were obtained of the head without intravenous contrast. A radiation dose optimization technique was used for this scan. IV Contrast dosage and agent: None. COMPARISON: 11/16/2023 FINDINGS: BRAIN PARENCHYMA: No intra- or extra-axial hemorrhage. No evidence of acute infarct. No intracranial mass or mass effect. There is preservation of the delcid/white matter interface. Posterior fossa structures are unremarkable. Stable volume loss. CSF SPACES: Stable. No hydrocephalus. Basal cisterns are patent. CALVARIUM, SKULL BASE, PARANASAL SINUSES AND MASTOID AIR CELLS: Clear. No acute fracture. Left frontal and right posterior parietal cephalhematomas. ORBITS: Both globes, extraocular muscles, optic nerves and retrobulbar fat appear unremarkable. CT/Brain/Head without Contrast IMPRESSION: No acute intracranial findings. Electronically Signed: Zach Vaughn MD at 17:31 EST ,
--- NOTE | 2024-04-23 16:45 | CT_ITS ---
INDICATION: fall, +loc, nausea/vomiting, on thinners, lac to eye EXAMINATION: CT FACIAL BONES - CT Maxillofacial W/O Contrast Injection TECHNIQUE: Helically acquired images were obtained of the facial bones. A radiation dose optimization technique was used for this scan. IV Contrast dosage and agent: None. COMPARISON: None. FINDINGS: SOFT TISSUES: Left supraorbital soft tissue edema. No discrete fluid collections. VISUALIZED PARANASAL SINUSES: Clear. VISUALIZED MASTOID AIR CELLS: Clear. FACIAL BONES, MANDIBLE AND TMJs: No displaced facial bone fracture. No lytic or blastic abnormality. VISUALIZED DENTITION: No periodontal osseous erosion. ORBITAL CONTENTS: Both globes, extraocular muscles and retrobulbar fat appear unremarkable. CT/Sinus/Facial Bone IMPRESSION: No acute fracture of the maxillofacial bones. Electronically Signed: Zach Vaughn MD at 17:41 EST ,
--- NOTE | 2024-04-23 16:46 | RAD_ITS ---
INDICATION: weakness EXAMINATION/TECHNIQUE: X-RAY - portable upright AP chest x-ray COMPARISON: 12/24/2023 FINDINGS: LINES/DEVICES: None. LUNGS: No consolidation, edema or effusion. No pneumothorax. MEDIASTINUM AND CARDIOVASCULAR STRUCTURES: Cardiac silhouette stable within normal limits. BONES AND SOFT TISSUES: No acute changes. RAD/Chest 1 View (Portable) IMPRESSION: No radiographic evidence of acute cardiopulmonary disease. Electronically Signed: Zach Vaughn MD at 17:26 EST ,
--- NOTE | 2024-04-23 16:46 | EKG12_ITS ---
Test Reason : FALL Blood Pressure : */* mmHG Vent. Rate : 60 BPM Atrial Rate : 60 BPM P-R Int : 174 ms QRS Dur : 86 ms QT Int : 446 ms P-R-T Axes : 103 53 77 degrees QTcB Int : 446 ms Normal sinus rhythm Normal ECG Confirmed by OTIS KRAMER, FABIO ([id number]), offline editor SALVADOR STEVEN ([id number]) on 04/25/2024 1:57:16 PM Referred By: Confirmed By: FABIO BERG MD
--- NOTE | 2024-04-23 16:48 | EDS_ITS ---
HPI <ROB Cao - Last Filed: 04/23/24 18:25> HPI - Fall History of Present Illness Chief Complaint: Fall Narrative Narrative: 84-year-old female with past medical history of HTN, HLD, A-fib, CAD, PAD, CVA, CKD had a syncopal episode resulting in head injury. She was standing and felt lightheaded and nauseous and went to the bathroom thinking she may vomit when she passed out and fell striking her head on the ground. She has a laceration to the left eyebrow area. Her brother called EMS and she was brought in for evaluation. She complains of still feeling dizzy and nauseated. When I questioned when the dizziness started she states it has been months since they put me on a bunch of new medications after my heart attack. Her states it has been 2 years. Her brother states she also slipped [place] the [place] 2 days ago and struck the back of her head on the ground and has a small bruise. She did not lose consciousness at that time. [facility] <ROB Cao - Last Filed: 04/23/24 18:25> [facility] Medical History Paroxysmal atrial fibrillation Chronic anemia CKD (chronic kidney disease), stage II History of non-ST elevation myocardial infarction (NSTEMI) (12/31/21) History of CVA (cerebrovascular accident) Essential (primary) hypertension Atherosclerotic heart disease of [place] coronary artery without angina pectoris Near syncope Hypothyroidism GERD (gastroesophageal reflux disease) Dyslipidemia SVT (supraventricular tachycardia) PVC (premature ventricular contraction) PAC (premature atrial contraction) Rectocele History of thyroid cancer Home Medications ?Medication ?Instructions ?Recorded ?Last Taken ?Type azelastine 137 mcg (0.1 %) nasal 2 spray NASAL BID allergies 12/16/15 04/23/24 History spray hydroxyzine HCl 25 mg tablet 25 mg PO QHS anxiety 12/16/15 04/22/24 History citalopram 20 mg tablet 20 mg PO DAILY mood 09/28/17 04/23/24 History latanoprost 0.005 % eye drops 1 drp EACHEYE DAILY eye 09/28/17 04/23/24 History calcium polycarbophil 625 mg 1,250 mg PO DAILY laxative 02/08/18 04/23/24 History tablet (FiberCon) sucralfate 1 gram tablet 1 gm PO BID PRN PRN Indigestion 08/18/18 04/23/24 History potassium chloride 20 mEq 20 meq PO BID hypokalemia 12/31/21 04/23/24 History tablet,extended release(part/cryst) levothyroxine 100 mcg tablet 100 mcg PO DAILY thyroid #30 tabs 01/02/22 04/23/24 Rx metoprolol tartrate 50 mg tablet 50 mg PO BID blood pressure #60 01/02/22 04/23/24 Rx tabs nitroglycerin 0.4 mg sublingual 0.4 mg sublingual Q5-15M PRN chest 09/17/22 Unknown Rx tablet (Nitrostat) pain #25 tabs clopidogrel 75 mg tablet 75 mg PO DAILY blood thinner #90 11/11/22 04/23/24 Rx tabs rosuvastatin 20 mg tablet 20 mg PO DAILY cholesterol #90 tabs 09/08/23 04/23/24 Rx apixaban 5 mg tablet (Eliquis) 5 mg PO BID #60 tabs 10/19/23 04/23/24 Rx ranolazine 1,000 mg 1,000 mg PO BID heart #180 tabs 11/12/23 04/23/24 Rx tablet,extended release,12 hr alendronate 70 mg tablet 70 mg PO SA osteoporosis 12/24/23 04/16/24 History Allergy/AdvReac Type Severity Reaction Status Date / Time cephalexin monohydrate (From Allergy Severe Vomiting Verified 04/23/24 16:39 Keflex) lisinopril Allergy Severe Anaphylaxis Verified 04/23/24 16:39 peanut Allergy Severe Unknown Verified 04/23/24 16:39 shellfish derived Allergy Severe Anaphylaxis Verified 12/24/23 05:07 Penicillins (PCN) Allergy Unknown Anaphylaxis Verified 04/23/24 16:39 cat dander AdvReac Severe NEEDS Verified 04/23/24 16:39 FOLLOW-UP cefixime (From Suprax) AdvReac Severe Vomiting Verified 04/23/24 16:39 doxycycline AdvReac Severe Vomiting Verified 04/23/24 16:39 erythromycin base AdvReac Severe hives Verified 04/23/24 16:39 grass pollen AdvReac Severe Unknown Verified 04/23/24 16:39 metronidazole (From Flagyl) AdvReac Severe Unknown Verified 04/23/24 16:39 ragweed pollen AdvReac Severe Unknown Verified 04/23/24 16:39 tetracycline AdvReac Severe Unknown Verified 04/23/24 16:39 tree and shrub pollen AdvReac Severe NEEDS Verified 04/23/24 16:39 FOLLOW-UP weed pollen AdvReac Severe NEEDS Verified 04/23/24 16:39 FOLLOW-UP Sulfa (Sulfonamide AdvReac Intermediate Unknown Verified 04/23/24 16:39 Antibiotics) adhesive tape AdvReac Mild Rash Verified 04/23/24 16:39 levofloxacin (From Levaquin) AdvReac Hives Verified 04/23/24 16:39 Family History Father Cancer Mother Arthritis Heart disease CVA (cerebral vascular accident) Tuberculosis Breast cancer Skin cancer Surgical History History of coronary artery stent placement (01/01/22) History of esophagogastroduodenoscopy (EGD) fundus repair H/O thyroidectomy History of cholecystectomy History of hysterectomy History of appendectomy History of repair of hiatal hernia Social History household members: spouse housing: house Smoking Status: Never smoker alcohol intake: never substance use type: does not use ROS <ROB Cao - Last Filed: 04/23/24 18:25> ROS ED ROS Narrative Constitutional: Negative for fever, chills CVS: Positive for syncope. Negative for palpitations, chest pain. Respiratory: Negative for shortness of breath, cough. GI: Positive for nausea and vomiting. Neuro: Negative for motor/sensory dysfunction. Musc: Negative for joint pain. EXAM <ROB Cao - Last Filed: 04/23/24 18:25> Physical Exam Narrative Exam Narrative: CONST: Patient sitting in no acute distress. EYES: Normal inspection. PERRL, EOMI. HEAD: Left periorbital edema and ecchymosis, 1 cm linear laceration under the left eyebrow. No active bleeding. Small bruise on mid occipital area. No Perry sign, no epistaxis or nasal hematoma, no CSF otorrhea or rhinorrhea. NECK: Normal inspection. No midline tenderness or step-offs. RESP: No respiratory distress, CTAB. CVS: Regular rate and rhythm, no murmur, no gallop. ABD: Soft and nontender, no guarding or rebound, nondistended. Back: Normal inspection, no midline tenderness. EXTREMITIES: Normal appearance of upper and lower extremities, no bony tender ness, 2+ radial DP pulses. NEURO: Alert and answering questions appropriately. Face symmetric, CN II through XII grossly intact, follows commands. PSYCH: Normal affect. Const Vital Signs: 04/23/24 16:34 04/23/24 16:40 Temperature 98 F Temperature Source Oral Pulse Rate 65 Respiratory Rate 15 Respiratory Effort Normal Non-Labored Respiratory Depth Normal Respiratory Pattern Normal Blood Pressure 161/66 H Blood Pressure Mean 97 Pulse Ox 97 98 Oxygen Delivery Method Room Air <Dr. Mike Jessica DO - Last Filed: 04/23/24 21:09> Physical Exam Const Vital Signs: 04/23/24 16:34 04/23/24 16:40 Temperature 98 F Temperature Source Oral Pulse Rate 65 Respiratory Rate 15 Respiratory Effort Normal Non-Labored Respiratory Depth Normal Respiratory Pattern Normal Blood Pressure 161/66 H Blood Pressure Mean 97 Pulse Ox 97 98 Oxygen Delivery Method Room Air MDM <ROB Cao - Last Filed: 04/23/24 18:25> [facility] Narrative Medical decision making narrative: History gathered from: Patient, , patient's brother Differential includes facial lacerations and contusion, concussion, skull fracture, intracranial hemorrhage 84-year-old female had a syncopal episode resulting in head injury. She has a small left eyebrow laceration. She is on Eliquis and Plavix. She reports pain and vomiting which improved after Zofran. She is awake and alert, GCS 15, stable vital signs. She has left periorbital bruising and a small laceration with no other notable injuries. No focal neurological deficits. CT scans of brain/facial bones/cervical spine all negative. Syncopal workup was ordered including labs and EKG. She has a stable anemia at 11.7. Electrolytes overall unremarkable. Creatinine of 1.41 appears to be her baseline with CKD. EKG is nonischemic and troponin is 9. I closed the left eyebrow laceration with skin glue and updated her tetanus. I discussed the case with the hospitalist for admission. ED attending interpretation 1 view chest x-ray shows normal heart size, no acute infiltrate. Lab Data Attestation: I reviewed the patient's lab results. Labs: Laboratory Results - last 24 hr 04/23/24 16:45 WBC 6.5 RBC 3.59 L Hgb 11.7 L Hct 35.6 L MCV 99.2 H MCH 32.6 H MCHC 32.9 RDW Std Deviation 48.3 H RDW Coeff of Onur 13.4 Plt Count 170 MPV 10.6 Immature Gran % (Auto) 0.500 Neut % (Auto) 64.8 Lymph % (Auto) 24.1 Karnes % (Auto) 9.0 Eos % (Auto) 1.1 Baso % (Auto) 0.5 Absolute Neuts (auto) 4.2 Absolute Lymphs (auto) 1.56 Nucleated RBC % 0 Sodium 141 Potassium 4.7 Chloride 111 H Carbon Dioxide 23.0 Anion Gap 7 BUN 22 H Creatinine 1.41 H Est GFR (MDRD) Af Amer 46 L Est GFR (MDRD) Non-Af 38 L BUN/Creatinine Ratio 15.6 Glucose 111 H Calcium 9.4 Troponin I High Sens 9 Radiography Diagnostic Testing: Clinical Impression(s) from Imaging Studies Brain CT 04/23/24 16:40 IMPRESSION: No acute intracranial findings. Electronically Signed: Zach Vaughn MD at 17:31 EST , Cervical Spine CT 04/23/24 16:40 IMPRESSION: Degenerative changes. No acute fracture of the cervical spine. Electronically Signed: Zach Vaughn MD at 17:36 EST , Facial/Sinus 04/23/24 16:45 IMPRESSION: No acute fracture of the maxillofacial bones. Electronically Signed: Zach Vaughn MD at 17:41 EST , Chest X-Ray 04/23/24 16:46 IMPRESSION: No radiographic evidence of acute cardiopulmonary disease. Electronically Signed: Zach Vaughn MD at 17:26 EST , EKG Initial EKG: Attestation: I personally reviewed and interpreted this EKG as follows: Interpretation: Sinus Rhythm and No Acute Injury Pattern Comments: Normal sinus rhythm at 60 bpm Normal axis, normal intervals, no acute ischemic change <Dr. Mike Jessica, DO - Last Filed: 04/23/24 21:09> [facility] Narrative Medical decision making narrative: History gathered from: Patient, , patient's brother Differential includes facial lacerations and contusion, concussion, skull fracture, intracranial hemorrhage 84-year-old female had a syncopal episode resulting in head injury. She has a small left eyebrow laceration. She is on Eliquis and Plavix. She reports pain and vomiting which improved after Zofran. She is awake and alert, GCS 15, stable vital signs. She has left periorbital bruising and a small laceration with no other notable injuries. No focal neurological deficits. CT scans of brain/facial bones/cervical spine all negative. Syncopal workup was ordered including labs and EKG. She has a stable anemia at 11.7. Electrolytes overall unremarkable. Creatinine of 1.41 appears to be her baseline with CKD. EKG is nonischemic and troponin is 9. I closed the left eyebrow laceration with skin glue and updated her tetanus. I discussed the case with the hospitalist for admission. ED attending interpretation 1 view chest x-ray shows normal heart size, no acute infiltrate. ED attending note: I evaluated the patient in conjunction with the IVANNA. I agree with his/her statements and above findings. I have personally performed a face to face assessment of the patient and have reviewed the IVANNA Note. I performed a substantive portion of the visit including all aspects of the following. I personally saw the patient performed chart review, physical exam, reviewed labs, imaging (if obtained), and formulated a treatment and management plan. I have personally reviewed the patient's chest x-ray. Chest x-ray is unremarkable for pulmonary edema, pneumothorax, pneumonia or focal cardiopulmonary abnormality. This note was generated with [employer] software. It may contain incorrect words, spelling, and punctuation that were not noted in review of the chart prior to signing. Lab Data Labs: Laboratory Results - last 24 hr 04/23/24 16:45 WBC 6.5 RBC 3.59 L Hgb 11.7 L Hct 35.6 L MCV 99.2 H MCH 32.6 H MCHC 32.9 RDW Std Deviation 48.3 H RDW Coeff of Onur 13.4 Plt Count 170 MPV 10.6 Immature Gran % (Auto) 0.500 Neut % (Auto) 64.8 Lymph % (Auto) 24.1 Karnes % (Auto) 9.0 Eos % (Auto) 1.1 Baso % (Auto) 0.5 Absolute Neuts (auto) 4.2 Absolute Lymphs (auto) 1.56 Nucleated RBC % 0 Sodium 141 Potassium 4.7 Chloride 111 H Carbon Dioxide 23.0 Anion Gap 7 BUN 22 H Creatinine 1.41 H Est GFR (MDRD) Af Amer 46 L Est GFR (MDRD) Non-Af 38 L BUN/Creatinine Ratio 15.6 Glucose 111 H Calcium 9.4 Troponin I High Sens 9 Radiography Diagnostic Testing: Clinical Impression(s) from Imaging Studies Brain CT 04/23/24 16:40 IMPRESSION: No acute intracranial findings. Electronically Signed: Zach Vaughn MD at 17:31 EST , Cervical Spine CT 04/23/24 16:40 IMPRESSION: Degenerative changes. No acute fracture of the cervical spine. Electronically Signed: Zach Vaughn MD at 17:36 EST , Facial/Sinus 04/23/24 16:45 IMPRESSION: No acute fracture of the maxillofacial bones. Electronically Signed: Zach Vaughn MD at 17:41 EST , Chest X-Ray 04/23/24 16:46 IMPRESSION: No radiographic evidence of acute cardiopulmonary disease. Electronically Signed: Zach Vaughn MD at 17:26 EST , Discharge Plan Dx/Rx/DC Orders Clinical Impression: Syncope, Closed head injury, Facial laceration, Anticoagulant long-term use Disposition Disposition: Acute Care Hospital [facility] Discharge Date/Time: 04/23/24 19:10
[2024-04-23] MEDS: Ondansetron 4 MG/2 ML Vial IV (16:50)
[2024-04-23 16:55] LABS: Absolute Lymphocyte Count 1.56 X10^3/uL (0.83-4.51); Absolute Neutrophil Count 4.2 X10^3/uL (2.0-7.7); Basophil# 0.03 X10^3/uL; Basophil% 0.5 % (0-1); Eosinophil# 0.07 X10^3/uL; Eosinophils% 1.1 % (0-5); Hematocrit 35.6 % (37-47); Hemoglobin 11.7 g/dL (12.0-15.0); Lymphocyte # 1.56 X10^3/ul (0.83-4.51); Lymphocyte % 24.1 % (19-41); Mean Corp Hgb Conc 32.9 g/dL (32-36); Mean Corpuscular Hgb 32.6 pg (27.0-32.0); Mean Corpuscular Volume 99.2 fL (81-99); Mean Platelet Vol. 10.6 fl (6.2-12.0); Monocyte# 0.58 X10^3/uL; NRBC Flagged by Analyzer 0 % (0-5); Neutrophil % 64.8 % (47-70); Platelet Count 170 K/mm3 (150-450); RBC Distribution Width CV 13.4 % (11.6-14.6); RBC Distribution Width SD 48.3 fl (35.1-43.9); Red Blood Count 3.59 M/mm3 (4.2-5.4); White Blood Count 6.5 K/mm3 (4.4-11.0)
[2024-04-23 17:14] LABS: Anion Gap 7 (5-15); BUN 22 mg/dL (7-18); BUN/Creat Ratio 15.6 RATIO (10-20); Calcium,Total 9.4 mg/dL (8.5-10.1); Chloride 111 mmol/L (98-107); Creatinine, Serum 1.41 mg/dL (0.55-1.02); EST Glomerular Filtration Rate 38 mL/min (>60); Est Glom Filt Rate - Afr Amer 46 mL/min (>60); Glucose 111 mg/dL (74-106); Potassium 4.7 mmol/L (3.5-5.1); Sodium Level 141 mmol/L (136-145); Troponin-I HS 9 pg/mL (3.0-54.0)
[2024-04-23] MEDS: Diphth,Pertuss(Acell),Tet Vac 0.5 ML Vial IM (17:17)
--- NOTE | 2024-04-23 18:07 | PCM.HP.STD ---
HPI - General General Date of Admission: 04/23/24 Date of Service: 04/23/24 Chief Complaint: LH/Dizzines, Nausea, Syncopal event HPI Narrative The patient is an 84 y/o F w/ PMHx: Anxiety and Depression, PAF, Hx CVA with carotid disease, HTN, HLD, Hx Thyroid CA s/p thyroidectomy w/ resulting Hypothyroidism, GERD, CAD s/p PCI, CKD stage III unclear subtype per GFR trending who presents to the [facility] [place] ED on 04/23/2024 with history of reportedly standing with onset of lightheadedness and dizziness with nausea prompting her to transition to the bathroom as she thought she may have a bout of emesis unfortunately passing out and striking her head on the ground with a laceration above her left eyebrow prompting her brother to call EMS to be evaluated. Patient notes that dizziness has been ongoing for approximately the last month since she was started on several new medications following the recent heart attack however states it has been at least 2 years. She also had a recent fall per her brother 2 days prior slipping on ice unfortunately Julio Bianchi striking the back of her head on the ground with no loss of consciousness at that time. From discussion with patient's brother he notes that both her and her have had more falls recently and he is concerned about their ability to safely live in the home. Discussed several options and at this time he notes intention to take her home with him where he will stay temporarily or potentially stay with him in his home. Recommended he contact patient's 's primary care physician to discuss assistance in transitioning him to potentially assisted living. Patient's brother also believes that patient would benefit from assisted living as well. Patient reports that she did not take her evening Eliquis dose. She did take Plavix in the a.m. on day of presentation. She notes currently she is not nauseated. Brother notes that this all occurred just following discussion about potentially needing to transition to assisted living given her 's decline. Workup in the ED included T98, heart rate 65, BP 161/66, respiratory rate 15, 97% room air, CBC with WBC 6.5, hemoglobin 11.7, MCV 99.2, platelet 170 without marked shift, BMP with chloride 111, BUN/creatinine 22/1.41, GFR 38, glucose 111, troponin 9, CT the brain with no acute intracranial findings, CT cervical spine with degenerative changes with no acute fracture, chest x-ray with no acute cardiopulmonary findings, CT facial/sinus no acute fracture of the maxillofacial bones, EKG SR without acute evidence of ischemia. In the ED patient ministered Zofran 4 mg IV x 1. Tetanus also updated. [facility] Medical History Paroxysmal atrial fibrillation Chronic anemia CKD (chronic kidney disease), stage II History of non-ST elevation myocardial infarction (NSTEMI) (12/31/21) History of CVA (cerebrovascular accident) Essential (primary) hypertension Atherosclerotic heart disease of [place] coronary artery without angina pectoris Near syncope Hypothyroidism GERD (gastroesophageal reflux disease) Dyslipidemia SVT (supraventricular tachycardia) PVC (premature ventricular contraction) PAC (premature atrial contraction) Rectocele History of thyroid cancer Home Medications ?Medication ?Instructions ?Recorded ?Last Taken ?Type azelastine 137 mcg (0.1 %) nasal 2 spray NASAL BID allergies 12/16/15 04/23/24 History spray hydroxyzine HCl 25 mg tablet 25 mg PO QHS anxiety 12/16/15 04/22/24 History citalopram 20 mg tablet 20 mg PO DAILY mood 09/28/17 04/23/24 History latanoprost 0.005 % eye drops 1 drp EACHEYE DAILY eye 09/28/17 04/23/24 History calcium polycarbophil 625 mg 1,250 mg PO DAILY laxative 02/08/18 04/23/24 History tablet (FiberCon) sucralfate 1 gram tablet 1 gm PO BID PRN PRN Indigestion 08/18/18 04/23/24 History potassium chloride 20 mEq 20 meq PO BID hypokalemia 12/31/21 04/23/24 History tablet,extended release(part/cryst) levothyroxine 100 mcg tablet 100 mcg PO DAILY #30 tabs 01/02/22 04/23/24 Rx metoprolol tartrate 50 mg tablet 50 mg PO BID blood pressure #60 01/02/22 04/23/24 Rx tabs nitroglycerin 0.4 mg sublingual 0.4 mg sublingual Q5-15M PRN chest 09/17/22 Unknown Rx tablet (Nitrostat) pain #25 tabs clopidogrel 75 mg tablet 75 mg PO DAILY blood thinner #90 11/11/22 04/23/24 Rx tabs rosuvastatin 20 mg tablet 20 mg PO DAILY cholesterol #90 tabs 09/08/23 04/23/24 Rx apixaban 5 mg tablet (Eliquis) 5 mg PO BID #60 tabs 10/19/23 04/23/24 Rx ranolazine 1,000 mg 1,000 mg PO BID #180 tabs 11/12/23 04/23/24 Rx tablet,extended release,12 hr alendronate 70 mg tablet 70 mg PO SA 12/24/23 04/16/24 History Allergy/AdvReac Type Severity Reaction Status Date / Time cephalexin monohydrate (From Allergy Severe Vomiting Verified 04/23/24 16:39 Keflex) lisinopril Allergy Severe Anaphylaxis Verified 04/23/24 16:39 peanut Allergy Severe Unknown Verified 04/23/24 16:39 shellfish derived Allergy Severe Anaphylaxis Verified 12/24/23 05:07 Penicillins (PCN) Allergy Unknown Anaphylaxis Verified 04/23/24 16:39 cat dander AdvReac Severe NEEDS Verified 04/23/24 16:39 FOLLOW-UP cefixime (From Suprax) AdvReac Severe Vomiting Verified 04/23/24 16:39 doxycycline AdvReac Severe Vomiting Verified 04/23/24 16:39 erythromycin base AdvReac Severe hives Verified 04/23/24 16:39 grass pollen AdvReac Severe Unknown Verified 04/23/24 16:39 metronidazole (From Flagyl) AdvReac Severe Unknown Verified 04/23/24 16:39 ragweed pollen AdvReac Severe Unknown Verified 04/23/24 16:39 tetracycline AdvReac Severe Unknown Verified 04/23/24 16:39 tree and shrub pollen AdvReac Severe NEEDS Verified 04/23/24 16:39 FOLLOW-UP weed pollen AdvReac Severe NEEDS Verified 04/23/24 16:39 FOLLOW-UP Sulfa (Sulfonamide AdvReac Intermediate Unknown Verified 04/23/24 16:39 Antibiotics) adhesive tape AdvReac Mild Rash Verified 04/23/24 16:39 levofloxacin (From Levaquin) AdvReac Hives Verified 04/23/24 16:39 Family History Father Cancer Mother Arthritis Heart disease CVA (cerebral vascular accident) Tuberculosis Breast cancer Skin cancer Surgical History History of coronary artery stent placement (01/01/22) History of esophagogastroduodenoscopy (EGD) fundus repair H/O thyroidectomy History of cholecystectomy History of hysterectomy History of appendectomy History of repair of hiatal hernia Social History household members: spouse housing: house Smoking Status: Never smoker alcohol intake: never substance use type: does not use ROS ROS Narrative Admission Review of Systems: CONSTITUTIONAL: No weight loss, fever, chills, + weakness or fatigue. HEENT: + Lightheadedness, dizziness with syncopal event, small laceration above the left eye. Eyes: No visual loss, blurred vision, double vision or yellow sclerae. Ears, Nose, Throat: No hearing loss, sneezing, congestion, runny nose or sore throat. SKIN: No rash or itching, lesions, wounds except + very stage ecchymoses, abrasion, recent fall with left lateral eyelid small laceration with ecchymoses evident CARDIOVASCULAR: + Lightheadedness, dizziness, syncopal event. No chest pain, chest pressure or chest discomfort, palpitations, edema, orthopnea. RESPIRATORY: No shortness of breath, cough or sputum, wheezing, hemoptysis. GASTROINTESTINAL: + Nausea. No recent anorexia, vomiting or diarrhea, abdominal pain, melena, BRBPR. GENITOURINARY: No dysuria, frequency, urgency or retention. NEUROLOGICAL: + Lightheadedness, dizziness, syncopal event. History of previous CVA. No paralysis, ataxia, numbness or tingling in the extremities, change in bowel or bladder control, seizure. MUSCULOSKELETAL: + muscle, back pain, joint pain or stiffness. HEMATOLOGIC: + Chronic anemia, easy bleeding/bruising. LYMPHATICS: No enlarged nodes. No history of splenectomy. PSYCHIATRIC: + History of anxiety and depression. ENDOCRINOLOGIC: No reports of sweating, cold or heat intolerance. No polyuria or polydipsia. ALLERGIES: + History of allergic rhinitis, hives, anaphylaxis. Vital Signs Vital Signs Vital Signs: 04/23/24 16:34 04/23/24 16:40 Temperature 98 F Temperature Source Oral Pulse Rate 65 Respiratory Rate 15 Respiratory Effort Normal Non-Labored Respiratory Depth Normal Respiratory Pattern Normal Blood Pressure 161/66 H Blood Pressure Mean 97 Pulse Ox 97 98 Oxygen Delivery Method Room Air Physical Exam Narrative Physical Examination: General: Awake, alert, oriented to self, place, month, year and incoming president, remains cooperative, laying in the ED bed, notes currently she is not feeling nauseous at all or lightheaded. Skin: Normal color, normal turgor, no icterus, no cyanosis except occasional stage ecchymoses, abrasion, most recent injury with ecchymoses to the left upper eyelid region with small laceration, no active bleeding. HEENT: Head atraumatic aside from noted section and skin region/NC, EOMI, PERRLA, mildly dry MM, no carotid bruits or JVD noted. Lungs: Mildly diminished, greater bases, appropriate effort, no rales, ronchi or wheezing. Heart: Mildly bradycardic with regular rhythm; no gallop, rub audible. Abdomen: Soft, NTTP, ND, mildly hypoactive BS, no appreciated HSM. Extremities: No cyanosis, no clubbing, no marked peripheral edema noted. Neurological: Patient awake, alert, oriented as noted, cognitive function intact; pupils equally reactive to light and accommodation, cranial nerves grossly normal, moving all 4 extremities, strength moderately to severely globally decreased. Psychiatric: Affect appears fatigued, mildly flat, no acute evidence of depressive or anxiety feelings but does have underlying history. Brother who is present notes that she was anxious today just prior to this event as they were discussing need to potentially transition to assisted living given her 's decline and falls in both him and herself. Results Lab / Micro Data 04/23/24 16:45 04/23/24 16:45 Labs: Laboratory Results - last 24 hr 04/23/24 16:45: WBC 6.5, RBC 3.59 L, Hgb 11.7 L, Hct 35.6 L, MCV 99.2 H, MCH 32.6 H, MCHC 32.9, RDW Std Deviation 48.3 H, RDW Coeff of [place] 13.4, Plt Count 170, MPV 10.6, Immature Gran % (Auto) 0.500, Neut % (Auto) 64.8, Lymph % (Auto) 24.1, [place] % (Auto) 9.0, Eos % (Auto) 1.1, Baso % (Auto) 0.5, Absolute Neuts (auto) 4.2, Absolute Lymphs (auto) 1.56, Nucleated RBC % 0, Sodium 141, Potassium 4.7, Chloride 111 H, Carbon Dioxide 23.0, Anion Gap 7, BUN 22 H, Creatinine 1.41 H, Est GFR (MDRD) Af Amer 46 L, Est GFR (MDRD) Non-Af 38 L, BUN/Creatinine Ratio 15.6, Glucose 111 H, Calcium 9.4, Troponin I High Sens 9 Imaging Radiology Impression Brain CT 04/23/24 16:40 IMPRESSION: No acute intracranial findings. Electronically Signed: Zach Vaughn MD at 17:31 EST , Cervical Spine CT 04/23/24 16:40 IMPRESSION: Degenerative changes. No acute fracture of the cervical spine. Electronically Signed: Zach Vaughn MD at 17:36 EST , Facial/Sinus 04/23/24 16:45 IMPRESSION: No acute fracture of the maxillofacial bones. Electronically Signed: Zach Vaughn MD at 17:41 EST , Chest X-Ray 04/23/24 16:46 IMPRESSION: No radiographic evidence of acute cardiopulmonary disease. Electronically Signed: Zach Vaughn MD at 17:26 EST , Assessment & Plan Assessment/Plan (1) Syncope: PLAN: Plan The patient is an 84 y/o F w/ PMHx: Anxiety and Depression, PAF, Hx CVA with carotid disease, HTN, HLD, Hx Thyroid CA s/p thyroidectomy w/ resulting Hypothyroidism, GERD, CAD s/p PCI, CKD stage III unclear subtype per GFR trending who presents to the [facility] [place] ED on 04/23/2024 with history of reportedly standing with onset of lightheadedness and dizziness with nausea prompting her to transition to the bathroom as she thought she may have a bout of emesis unfortunately passing out and striking her head on the ground with a laceration above her left eyebrow prompting her brother to call EMS to be evaluated. #1. Episode of lightheadedness, dizziness, nausea without emesis with eventual syncopal event with closed head injury with laceration above the left eye: Unclear exact etiology but reportedly has frequent episodes of lightheadedness potentially related with cardiac medications but unclear. EKG in ED w/ sinus rhythm without evidence of acute ischemia, CXR w/ no acute cardiopulmonary findings, CT of the head as well as cervical spine and facial sinus CT unremarkable, initial trop normal. Will admit to PCU, place on a monitored bed to assure no acute myocardial infarction with serial cardiac enzymes and EKGs. Will maintain on fall precautions, will obtain admission orthostatic and repeat in a.m. if notable, will place hold parameters on patient metoprolol regimen, judiciously hydrate, will obtain full respiratory viral panel/COVID PCR to be cautious given high frequency in the community, procalcitonin requested, mag requested, most recent noted echocardiogram 07/17/2021 thus will request but if clinically improving with IV fluids may consider potential outpatient. Start with clears and ADAT. PT/OT/case management consulted for discharge planning #2. Chronic Kidney Disease Stage III, unclear subtype per GFR trend: Admission BUN/Cr 22/1.41, GFR 30, baseline renal function primarily 1.3-1.8 although most recently 12/24/2023 creatinine 1.31, repeat BMP in AM. #3. Chronic anemia, current MCV consistent with macrocytic, primarily normocytic: Admission hemoglobin 11.7, MCV 99.2, baseline hemoglobin similar primarily ranging 10-11, stable, continue to trend CBC. #4. History NSTEMI, CAD: Status post remote cardiac catheterization 08/2018 with high-grade obtuse marginal stenosis status post DYLLAN stent placement with then proximal circumflex artery subjected to fractional flow reserve which was unremarkable however during that presentation the left circumflex artery had been noted to be 95% stenosis with an additional angioplasty and drug-eluting stent placed, cautiously continue apixaban given recent falls as well as Plavix therapy but may need to reconsider if continues, continue statin therapy, metoprolol with hold parameters as well as Ranexa. #5. History of thyroid cancer status post thyroidectomy with resulting hypothyroidism: Patient with diagnosis of thyroid nodule status post thyroid resection of the left lobe 12/07/2007 with an additional noted node on the right thyroid lobe with additional resection demonstrating multifocal thyroid cancer/papillary thyroid cancer with follicular variant with follow-up CT with no evidence of any disease, following outpatient with oncology and ENT, most recent note 12/03/[address] Wynne. Continue follow-up as previously arranged. #6. Carotid disease: Most recently noted carotid duplex 04/16/2023 with extensive irregular plaque with shadowing at the proximal right internal carotid artery suspicious for greater than 50% stenosis, absolute velocities in the proximal mid and distal right internal carotid artery are less than 50% stenosis, less than 50% stenosis right external carotid, irregular plaque within the proximal left internal carotid artery with less than 50% stenosis, less than 50% stenosis of the left external carotid artery, patent antegrade vertebral arteries bilaterally. Patient following previously with Dr. Pride with last evaluation noted 05/11/23. Encourage continued outpatient follow-up with vascular surgery. As noted we will continue Plavix, temporally holding Eliquis this evening with resumption in a.m. if appropriate, continue statin and hypertensive regimen with hold parameters as noted. #7. History CVA with carotid disease as noted: Will cautiously continue Plavix, statin therapy, hypertensive regimen as noted however continued evaluation given syncopal event. Temporally holding this evening's Eliquis dose and will resume in the a.m. if appropriate. #8. PAF: We will cautiously continue metoprolol with hold parameters as needed as noted in addition to Eliquis however will hold this evening's dose and resume in the a.m. if clinically appropriate. #9. Hypertension: Continue home regimen including metoprolol with hold parameters as needed, PRN hydralazine. Orthostatics requested as noted above. #10. Hyperlipidemia: We will continue patient on statin therapy. #11. Anxiety and Depression: We will continue patient home citalopram regimen. Also, will monitor patient and if appears calm will hold hydroxyzine as patient takes hydroxyzine nightly 25 mg and given advanced age certainly could be contributing to disorientation/falls. #12. Glaucoma, unclear type: Will continue patient home eyedrop regimen. #13. Hypothyroidism: We will continue patient home levothyroxine regimen. #14. GERD: Per current list noted to be on sucralfate as needed only, will have as needed Mylanta in addition. #15. DVT prophylaxis: Will cautiously continue home apixaban regimen starting tomorrow but hold this evening's dose. If any concerns arise may certainly hold further. #16. CODE status: Patient JAMAL is her and her brother who is present and living will is currently in place. Discussed CODE status at length including difference between FULL code, DNR-CCA and DNR-CC status. Following discussions about the differences in these status, requested DNR-CCA, no intubation which was confirmed with her brother. Advanced Care Planning Face to Face Time: 16 minutes. Charges/Coding Visit Charges Inpatient E&M: 57809 Init Hosp L3 Procedures Hospitalists Procedures: 80619 Advncd Care Plan 30 Min
[2024-04-23 18:26] VITALS: BP 156/68; PULSE 58; RESP 18; TEMP 36.8; O2SAT 98
[2024-04-23 19:00] LABS: Magnesium 1.9 mg/dL (1.6-2.6)
[2024-04-23 19:11] LABS: Procalcitonin 0.06 ng/mL (0.00-0.09)
--- NOTE | 2024-04-23 19:27 | ECHOD_ITS ---
Version 2 Reason For Study: SYNCOPE Procedure This was a 2D Doppler, Color Flow transthoracic echocardiogram. Exam performed portable in patient room. Left Ventricle Normal left ventricular thickness. Left ventricular systolic function is normal. The left ventricular ejection fraction is 60 %. Stage 2 diastolic dysfunction. No regional wall motion abnormalities noted. Right Ventricle Normal RV size. Normal systolic function. Mitral Valve There is mild mitral annular calcification. Mild focal mitral valve calcification, bileaflet. Mild (1+) eccentric mitral valve insufficiency. Tricuspid Valve Normal tricuspid valve. Mild tricuspid valve insufficiency. Pulmonary artery systolic pressure is 30 mmHg. Aortic Valve Trisinus/trileaflet aortic valve. Mild focal aortic valve calcification. Mild (1+) aortic valve insufficiency. Great Vessels Calcified aortic root. The pulmonary artery is normal size. Inferior vena cava collapse with respiration. Pericardium/Pleural No pericardial effusion. MMode/2D Measurements & Calculations LVIDd: 5.0 cm IVSd: 0.90 cm LVOT diam: 2.0 cm LVIDs: 3.9 cm LVPWd: 0.86 cm LVOT area: 3.1 cm2 RVDd: 3.0 cm FS: 22.6 % LAV(MOD-bp): 41.3 ml SV(MOD-sp4): 50.2 ml LVAd ap4: 24.6 cm2 LAV(MOD-bp) Indexed: 26.2 ml/m2 LVLd ap4: 7.1 cm SI(MOD-sp4): 31.9 ml/m2 LAV(MOD-sp2): 37.5 ml EDV(MOD-sp4): 72.4 ml LAV(MOD-sp4): 45.2 ml EDV(sp4-el): 73.0 ml LVAs ap4: 12.2 cm2 LVLs ap4: 5.9 cm ESV(MOD-sp4): 22.2 ml ESV(sp4-el): 21.4 ml EF(MOD-sp4): 69.3 % EF(sp4-el): 70.7 % SV(sp4-el): 51.6 ml LA dimension(2D): 3.7 cm LA A4 area: 17.3 cm2 RA A4 area: 11.7 cm2 Time Measurements MV dec time: 0.22 sec Doppler Measurements & Calculations MV E max anoop: 91.4 cm/sec Lat Peak E' Anoop: 11.4 cm/sec Med Peak E' Anoop: 7.9 cm/sec MV A max anoop: 62.2 cm/sec E/E' lat: 8.0 E/E' med: 11.5 MV E/A: 1.5 MV V2 max: 101.2 cm/sec Ao V2 max: 159.7 cm/sec MV max P.1 mmHg MV dec slope: 432.1 cm/sec2 Ao max P.2 mmHg MV V2 mean: 48.6 cm/sec Ao V2 mean: 104.0 cm/sec MV mean P.2 mmHg Ao mean P.0 mmHg MV V2 VTI: 35.2 cm Ao V2 VTI: 37.5 cm AV (velocity ratio): 0.87 MVA(VTI): 2.9 cm2 PRINCESS(I,D): 2.7 cm2 PRINCESS(V,D): 2.5 cm2 AI max anoop: 377.7 cm/sec LV V1 max: 128.6 cm/sec SV(LVOT): 102.0 ml AI max P.2 mmHg LV V1 max P.6 mmHg AI dec slope: 194.5 cm/sec2 LV V1 mean P.9 mmHg AI P1/2t: 568.8 msec LV V1 mean: 94.6 cm/sec LV V1 VTI: 32.5 cm PA V2 max: 138.2 cm/sec TR max anoop: 255.3 cm/sec PA V2 mean: 91.9 cm/sec TR max P.1 mmHg ECHO/Echo Complete Interpretation Summary Normal left ventricular thickness. Left ventricular systolic function is normal. The left ventricular ejection fraction is 60 %. Pulmonary artery systolic pressure is 30 mmHg. Stage 2 diastolic dysfunction. Ordering Physician: Courtney Gale Referring Physician: Geeta Cruz M.D. Performed By: Temi Loyd RCS
[2024-04-23 19:41] VITALS: BP 171/73; PULSE 66; RESP 18; TEMP 36.6; O2SAT 97
[2024-04-23 19:50] VITALS: BMI 25.7
[2024-04-23] MEDS: 0.9% Normal Saline (1000mL) 1,000 ML 100 ML IV (20:00)
[2024-04-23 21:02] VITALS: BP 171/73; PULSE 66
[2024-04-23] MEDS: Metoprolol Tartrate 50 MG Tablet PO (21:02)
[2024-04-23] MEDS: Potassium Chloride Oral Tablet 20 MEQ PO (21:02)
[2024-04-23] MEDS: Atorvastatin Calcium 40 MG Tablet PO (21:02)
[2024-04-23] MEDS: Azelastine HCl NASAL.SRY 2 SPRAY NASAL (21:02)
[2024-04-23] MEDS: Ranolazine 500 MG Tablet 1000 MG PO (21:03)
[2024-04-23] MEDS: hydrOXYzine PAM 25 MG Capsule PO (21:03)
[2024-04-23 21:14] LABS: Troponin-I HS 87 pg/mL (3.0-54.0)
[2024-04-24] VITALS (11 sets, daily range): BP systolic 118–157; BP diastolic 50–74; PULSE 50–62; RESP 16–20; TEMP 36.3–36.8; O2SAT 93–98; BMI 26.8
[2024-04-24 00:39] LABS: Troponin-I HS 106 pg/mL (3.0-54.0)
[2024-04-24 03:26] LABS: Absolute Lymphocyte Count 1.32 X10^3/uL (0.83-4.51); Absolute Neutrophil Count 2.8 X10^3/uL (2.0-7.7); Basophil# 0.02 X10^3/uL; Basophil% 0.4 % (0-1); Eosinophil# 0.04 X10^3/uL; Eosinophils% 0.8 % (0-5); Hematocrit 28.9 % (37-47); Hemoglobin 9.6 g/dL (12.0-15.0); Lymphocyte # 1.32 X10^3/ul (0.83-4.51); Lymphocyte % 27.9 % (19-41); Mean Corp Hgb Conc 33.2 g/dL (32-36); Mean Corpuscular Hgb 32.7 pg (27.0-32.0); Mean Corpuscular Volume 98.3 fL (81-99); Mean Platelet Vol. 10.6 fl (6.2-12.0); Monocyte# 0.53 X10^3/uL; Monocyte% 11.2 % (0-10); NRBC Flagged by Analyzer 0 % (0-5); Neutrophil # 2.81 X10^3/uL (2.7-7.7); Neutrophil % 59.5 % (47-70); Platelet Count 131 K/mm3 (150-450); RBC Distribution Width CV 13.3 % (11.6-14.6); RBC Distribution Width SD 47.5 fl (35.1-43.9); Red Blood Count 2.94 M/mm3 (4.2-5.4); White Blood Count 4.7 K/mm3 (4.4-11.0)
[2024-04-24 03:43] LABS: ALB/GLOB Ratio 1.4 RATIO (0.9-2.4); AST(SGOT) 21 U/L (15-37); Alanine Aminotransfer ALT/SGPT 24 U/L (13-56); Alkaline Phosphatase 60 U/L (45-117); Anion Gap 3 (5-15); BUN 17 mg/dL (7-18); Calcium,Total 8.3 mg/dL (8.5-10.1); Chloride 111 mmol/L (98-107); Creatinine, Serum 1.21 mg/dL (0.55-1.02); EST Glomerular Filtration Rate 45 mL/min (>60); Est Glom Filt Rate - Afr Amer 55 mL/min (>60); Estimated Creatinine Clearance 28.98 ml/min; Globulin 2.2 g/dL (2.2-4.2); Glucose 95 mg/dL (74-106); Potassium 4.1 mmol/L (3.5-5.1); Protein, Total 5.2 g/dL (6.4-8.2); Sodium Level 140 mmol/L (136-145)
[2024-04-24 03:47] LABS: Troponin-I HS 88 pg/mL (3.0-54.0)
[2024-04-24] MEDS: Levothyroxine 100 MCG Tablet PO (05:51)
[2024-04-24 06:40] LABS: Color, Urine Yellow (Yellow); Glucose, Dipstick Normal (Normal); Ketone-Dipstick 5 mg/dl (Negative); Leukocyte Esterase-Dipstick 500 /ul (Negative); Nitrite-Dipstick Positive (Negative); Occult Blood-Urine 150 /ul (Negative); Protein-Dipstick 15 mg/dl (Negative); Specific Gravity, Urine 1.025 (1.002-1.030); Urine Bilirubin Dipstick Negative (Negative); Urine Clarity Sl. Cloudy (Clear); Urine Urobilinogen Normal (Normal)
[2024-04-24 06:49] LABS: Red Blood Cells-Urine 5-10 SEEN /hpf (0-5); White Blood Cells 10-25 SEEN /hpf (0-5)
[2024-04-24 06:50] LABS: Bacteria 3+ /hpf (None Seen); Mucous, Urine 1+ /hpf (<or=2+); Squamous Epithelial Cells - UA 5-10 SEEN /hpf (5-10)
--- NOTE | 2024-04-24 11:25 | PCM.PN.HOSP ---
Reason for Visit Reason for Visit: Diagnoses Syncope and collapse (04/23/24) Subjective Subjective Patient was seen and examined today, her was in the room at the time my examination-he appears confused about his home medications. I briefly talked with his PCP by phone (Dr. Cruz), she told me that they would get back with him tomorrow to discuss his medical problems. Patient is alert and in no distress, she carries on conversation with me appropriately. Objective Data Objective Data Vital Signs: Vital Signs Temp Pulse Resp BP Pulse Ox O2 Del Method 97.9 F 50 L 16 151/64 H 98 Room Air 04/24/24 08:04 04/24/24 08:04 04/24/24 08:04 04/24/24 08:04 04/24/24 08:04 04/24/24 08:04 Oxygen Delivery Method Room Air Weight: 62.3 kg Body Mass Index (BMI) 26.8 Intake & Output: Intake and Output for Last 24 Hours 04/22/24 04/23/24 04/24/24 23:59 23:59 23:59 Intake Total 120 / 120 1120 / 1120 Balance 120 / 120 1120 / 1120 Lab / Micro Data 04/24/24 03:02 04/24/24 03:02 Labs: Laboratory Results - last 24 hr 04/23/24 16:45: WBC 6.5, RBC 3.59 L, Hgb 11.7 L, Hct 35.6 L, MCV 99.2 H, MCH 32.6 H, MCHC 32.9, RDW Std Deviation 48.3 H, RDW Coeff of Onur 13.4, Plt Count 170, MPV 10.6, Immature Gran % (Auto) 0.500, Neut % (Auto) 64.8, Lymph % (Auto) 24.1, Walker % (Auto) 9.0, Eos % (Auto) 1.1, Baso % (Auto) 0.5, Absolute Neuts (auto) 4.2, Absolute Lymphs (auto) 1.56, Nucleated RBC % 0, Sodium 141, Potassium 4.7, Chloride 111 H, Carbon Dioxide 23.0, Anion Gap 7, BUN 22 H, Creatinine 1.41 H, Est GFR (MDRD) Af Amer 46 L, Est GFR (MDRD) Non-Af 38 L, BUN/Creatinine Ratio 15.6, Glucose 111 H, Calcium 9.4, Troponin I High Sens 9 04/23/24 18:30: Magnesium 1.9, Procalcitonin 0.06 04/23/24 20:27: Troponin I High Sens 87 H 04/23/24 22:38: Troponin I High Sens 106 H 04/24/24 03:02: WBC 4.7, RBC 2.94 L, Hgb 9.6 L, Hct 28.9 L, MCV 98.3, MCH 32.7 H, MCHC 33.2, RDW Std Deviation 47.5 H, RDW Coeff of Onur 13.3, Plt Count 131 L, MPV 10.6, Immature Gran % (Auto) 0.200, Neut % (Auto) 59.5, Lymph % (Auto) 27.9, Walker % (Auto) 11.2 H, Eos % (Auto) 0.8, Baso % (Auto) 0.4, Absolute Neuts (auto) 2.8, Absolute Lymphs (auto) 1.32, Nucleated RBC % 0, Sodium 140, Potassium 4.1, Chloride 111 H, Carbon Dioxide 26.0, Anion Gap 3 L, BUN 17, Creatinine 1.21 H, Estim Creat Clear Calc 28.98, Est GFR (MDRD) Af Amer 55 L, Est GFR (MDRD) Non-Af 45 L, BUN/Creatinine Ratio 14.0, Glucose 95, Calcium 8.3 L, Total Bilirubin 0.60, AST 21, ALT 24, Alkaline Phosphatase 60, Troponin I High Sens 88 H, Total Protein 5.2 L, Albumin 3.0 L, Globulin 2.2, Albumin/Globulin Ratio 1.4 04/24/24 06:00: Urine Color Yellow, Urine Clarity Sl. Cloudy, Urine pH 5.0, Ur Specific Sweeny 1.025, Urine Protein 15 H, Urine Glucose (UA) Normal, Urine Ketones 5 H, Urine Occult Blood 150 H, Urine Nitrite Positive H, Urine Bilirubin Negative, Urine Urobilinogen Normal, Ur Leukocyte Esterase 500 H, Urine RBC 5-10 SEEN, Urine WBC 10-25 SEEN, Ur Squamous Epith Cells 5-10 SEEN, Urine Bacteria 3+, Urine Mucus 1+ Micro: Microbiology 04/24/24 00:10 Mucosa - Nasopharyngeal Coronavirus COVID-19 PCR - Final 04/24/24 00:10 Mucosa - Nasopharyngeal Respiratory Panel (PCR) - Final Radiography Diagnostic Testing: Radiology Impression Brain CT 04/23/24 16:40 IMPRESSION: No acute intracranial findings. Electronically Signed: Zach Vaughn MD at 17:31 EST , Cervical Spine CT 04/23/24 16:40 IMPRESSION: Degenerative changes. No acute fracture of the cervical spine. Electronically Signed: Zach Vaughn MD at 17:36 EST , Facial/Sinus 04/23/24 16:45 IMPRESSION: No acute fracture of the maxillofacial bones. Electronically Signed: Zach Vaughn MD at 17:41 EST , Chest X-Ray 04/23/24 16:46 IMPRESSION: No radiographic evidence of acute cardiopulmonary disease. Electronically Signed: Zach Vaughn MD at 17:26 EST , Physical Exam Const alert, oriented x3 and no apparent distress General Appearance: cooperative, well kempt and well developed Orientation / Consciousness: awake, oriented to person, oriented to place and oriented to time HEENT normocephalic and moist oral mucous membranes HEENT Narrative: Patient has periorbital ecchymosis around her left eye, there is a bandage over her left eyelid Head and Scalp: normocephalic Eyes PERRL and EOMs intact bilaterally Neck supple, no JVD and thyroid normal General: trachea midline Resp normal respiratory effort, no retractions, no use of accessory muscles and clear to auscultation bilaterally Auscultation: Negative for rales, rhonchi or wheezes Cardio regular rate, regular rhythm, S1 normal heart sound, S2 normal heart sound, no murmurs, no rub and no gallops GI normal to inspection, nondistended, normoactive bowel sounds, soft to palpation, non-tender and non-distended Extremity no clubbing, cyanosis or edema Skin no rashes or lesions noted General Skin Exam: no breakdown Neuro oriented x3, CN's II-XII intact bilaterally, moves all extremities, no focal motor deficits and no sensory deficits noted Sensorium / Orientation: awake and alert Speech: speech normal Psych affect normal Assessment & Plan Assessment/Plan (1) Closed head injury: PLAN: Plan 1. Syncopal episode with closed head injury to the left orbital area and laceration over the left eyelid-patient will be monitored on telemetry and she will be seen by PT and OT, I do not know if the patient is able to take care of herself at home, her appears to have cognitive impairment today while he was in the room visiting her. I am unable to contact the patient's brother-there is a notation in the medical record that her brother is taking care of of her currently. I will talk with discharge planning tomorrow. #2 chronic kidney disease stage IIIb-complicates care, management, recovery, and prognosis #3 coronary artery disease-this appears stable at this time, her medications may need adjusted if she continues to have symptoms of dizziness/lightheadedness, I have elected to decrease the patient's beta-nury and monitor her heart rate. #4 paroxysmal atrial fib-patient is currently on Eliquis and metoprolol, again I have elected to reduce the patient's metoprolol to 25 mg twice daily. Total clinical time spent by myself addressing the patient's medical issues, reviewing all of her data, and collaborating with patient's care team: 50 minutes Charges/Coding Visit Charges Inpatient E&M: 43929 [facility] L3
[2024-04-24] MEDS: Azelastine HCl NASAL.SRY 2 SPRAY NASAL ×2 (12:11→21:54)
[2024-04-24] MEDS: cefuroxime axetiL 250 MG TABLET PO ×2 (12:13→21:55)
[2024-04-24] MEDS: APIXABAN 5 MG TABLET PO ×2 (12:14→21:55)
[2024-04-24] MEDS: Citalopram 20 MG Tablet PO (12:14)
[2024-04-24] MEDS: Potassium Chloride Oral Tablet 20 MEQ PO ×2 (12:15→21:55)
[2024-04-24] MEDS: Clopidogrel Bisulfate 75 MG Tablet PO (12:18)
[2024-04-24] MEDS: Ranolazine 500 MG Tablet 1000 MG PO ×2 (12:19→21:56)
[2024-04-24] MEDS: Latanoprost 0.005% 1 Bottle 1 DRP EACH EYE (12:20)
[2024-04-24] MEDS: 0.9% Saline Lock 10 ML Syringe IV ×2 (18:31→21:56)
[2024-04-24] MEDS: Atorvastatin Calcium 40 MG Tablet PO (21:55)
[2024-04-24] MEDS: Metoprolol Tartrate 25 MG Tablet PO (22:02)
[2024-04-24] MEDS: MELATONIN 3 MG TABLET PO (22:02)
[2024-04-25] VITALS (8 sets, daily range): BP systolic 132–151; BP diastolic 57–75; PULSE 57–62; RESP 14–16; TEMP 36.4–36.8; O2SAT 94–99; BMI 25.4
[2024-04-25] MEDS: Levothyroxine 100 MCG Tablet PO (06:15)
[2024-04-25] MEDS: Azelastine HCl NASAL.SRY 2 SPRAY NASAL (09:50)
[2024-04-25] MEDS: Latanoprost 0.005% 1 Bottle 1 DRP EACH EYE (09:50)
[2024-04-25] MEDS: Potassium Chloride Oral Tablet 20 MEQ PO ×2 (09:55→22:33)
[2024-04-25] MEDS: Ranolazine 500 MG Tablet 1000 MG PO ×2 (09:55→22:34)
[2024-04-25] MEDS: cefuroxime axetiL 250 MG TABLET PO ×2 (09:55→22:33)
[2024-04-25] MEDS: Clopidogrel Bisulfate 75 MG Tablet PO (09:55)
[2024-04-25] MEDS: Citalopram 20 MG Tablet PO (09:55)
[2024-04-25] MEDS: APIXABAN 5 MG TABLET PO ×2 (09:55→22:33)
[2024-04-25] MEDS: Metoprolol Tartrate 25 MG Tablet PO ×2 (11:30→22:34)
--- NOTE | 2024-04-25 12:16 | CASEMGMT ---
SARA HUNTER Assessment: Face to Face with pt for initial transition planning/care coordination assessment. SARA HUNTER introduced self and role at [facility], pt voices understanding and consents to assessment. Pt is A&O x4 and answers all questions appropriately at this time. Pt , nephew and niece in the room. Pt agreeable to answering questions with family present. Pt states Niece and Nephew are HCPOA. Care providers, pharmacy, and demographics verified/updated. Strata: 3 Admitting Dx: Syncopal Episode PCP: Anthony Specialists: NeurologistLauren; Scientist Engineer at [facility] Preferred Pharmacy: [facility] Insurance: [employer], [employer] Experience Prescription Benefit: yes LNOK: , [place]; [place], Brother Living Arrangements: Pt lives wtih in a 1 story home with 1 step to enter. ADLs: Pt reports I at baseline Transportation: Pt drives self and denies concerns with transportation. DME: walker, cane HHC/SNF: Denies Hx of. Pt states no concerns with going home at time of dc. SARA HUNTER spoke with Pt about additional therapy, Pt denies wanting therapy or having any additional needs at time of DC. Pt states no further concerns/needs. CM to follow. Advised pt to ask CM if any further question/concerns/needs arise, voices understanding. Pt Goal: Home Plan: Home with family support. Omid RUIZ CM
--- NOTE | 2024-04-25 19:31 | PCM.PN.HOSP ---
Reason for Visit Reason for Visit: Diagnoses Syncope and collapse (04/24/24) Unspecified injury of head, initial encounter (04/24/24) Subjective Subjective Patient was seen and examined today, she feels that she is on too much medication, I told her I would review her medicines and make adjustments to them. Patient has had no more episodes of syncope or lightheadedness. Objective Data Objective Data Vital Signs: Vital Signs Temp Pulse Resp BP Pulse Ox O2 Del Method 98.1 F 61 16 151/74 H 97 Room Air 04/25/24 15:02 04/25/24 15:02 04/25/24 15:02 04/25/24 15:02 04/25/24 15:02 04/25/24 15:02 Oxygen Delivery Method Room Air Weight: 59.1 kg Body Mass Index (BMI) 25.4 Intake & Output: Intake and Output for Last 24 Hours 04/23/24 04/24/24 04/25/24 23:59 23:59 23:59 Intake Total 120 / 120 1420 / 1420 1140 / 1140 Balance 120 / 120 1420 / 1420 1140 / 1140 Lab / Micro Data 04/24/24 03:02 04/24/24 03:02 Micro: Microbiology 04/24/24 00:10 Mucosa - Nasopharyngeal Coronavirus COVID-19 PCR - Final 04/24/24 00:10 Mucosa - Nasopharyngeal Respiratory Panel (PCR) - Final Radiography Diagnostic Testing: Radiology Impression Echocardiogram 04/23/24 19:27 Interpretation Summary Normal left ventricular thickness. Left ventricular systolic function is normal. The left ventricular ejection fraction is 60 %. Pulmonary artery systolic pressure is 30 mmHg. Stage 2 diastolic dysfunction. Ordering Physician: Courtney Gale Referring Physician: Geeta Cruz M.D. Performed By: Temi Loyd RCS Physical Exam Narrative alert, oriented x3 and no apparent distress General Appearance: cooperative, well kempt and well developed Orientation / Consciousness: awake, oriented to person, oriented to place and oriented to time HEENT normocephalic and moist oral mucous membranes HEENT Narrative: Patient has periorbital ecchymosis around her left eye, there is a bandage over her left eyelid Head and Scalp: normocephalic Eyes PERRL and EOMs intact bilaterally Neck supple, no JVD and thyroid normal General: trachea midline Resp normal respiratory effort, no retractions, no use of accessory muscles and clear to auscultation bilaterally Auscultation: Negative for rales, rhonchi or wheezes Cardio regular rate, regular rhythm, S1 normal heart sound, S2 normal heart sound, no murmurs, no rub and no gallops GI normal to inspection, nondistended, normoactive bowel sounds, soft to palpation, non-tender and non-distended Extremity no clubbing, cyanosis or edema Skin no rashes or lesions noted General Skin Exam: no breakdown Neuro oriented x3, CN's II-XII intact bilaterally, moves all extremities, no focal motor deficits and no sensory deficits noted Sensorium / Orientation: awake and alert Speech: speech normal Psych affect normal Assessment & Plan Assessment/Plan (1) Closed head injury: PLAN: Plan 1. Syncopal episode with closed head injury to the left orbital area and laceration over the left eyelid-patient will be monitored on telemetry and she will be seen by PT and OT, I suspect the patient will need to go to a intermediate facility, I talked with her briefly about this and she was okay with it. #2 chronic kidney disease stage IIIb-complicates care, management, recovery, and prognosis #3 coronary artery disease-this appears stable at this time, her medications may need adjusted if she continues to have symptoms of dizziness/lightheadedness, I have elected to decrease the patient's beta-nury and monitor her heart rate. #4 paroxysmal atrial fib-patient is currently on Eliquis and metoprolol, again I have elected to reduce the patient's metoprolol to 25 mg twice daily. Total clinical time spent by myself addressing the patient's medical issues, reviewing all of her data, and collaborating with patient's care team: 35 minutes Charges/Coding Visit Charges Inpatient E&M: 39719 [facility] L2
[2024-04-25] MEDS: Atorvastatin Calcium 40 MG Tablet PO (22:33)
[2024-04-25] MEDS: 0.9% Saline Lock 10 ML Syringe IV (22:35)
[2024-04-25] MEDS: MELATONIN 3 MG TABLET PO (22:43)
[2024-04-26 04:50] VITALS: BMI 25.7
[2024-04-26 06:02] VITALS: BP 130/71; PULSE 55; RESP 16; TEMP 35.5; O2SAT 100
[2024-04-26] MEDS: Levothyroxine 100 MCG Tablet PO (06:08)
[2024-04-26 08:37] VITALS: O2SAT 98
[2024-04-26 08:51] VITALS: BP 146/58; PULSE 56; RESP 14; TEMP 36.6; O2SAT 98
--- NOTE | 2024-04-26 10:00 | CASEMGMT ---
Discharge Planning A list of HH providers including quality and resource use data and consistent with the patient's preferred geographic region, medical needs, and insurance network was created in [facility] Guide.? This list was provided to the RN DALE. Carey Krause, Discharge Planning Asst.
[2024-04-26] MEDS: cefuroxime axetiL 250 MG TABLET PO (10:16)
[2024-04-26] MEDS: Clopidogrel Bisulfate 75 MG Tablet PO (10:16)
[2024-04-26] MEDS: Citalopram 20 MG Tablet PO (10:16)
[2024-04-26] MEDS: APIXABAN 5 MG TABLET PO (10:17)
[2024-04-26] MEDS: Potassium Chloride Oral Tablet 20 MEQ PO (10:17)
[2024-04-26 10:18] VITALS: PULSE 61
[2024-04-26] MEDS: Metoprolol Tartrate 25 MG Tablet PO (10:18)
[2024-04-26] MEDS: Ranolazine 500 MG Tablet 1000 MG PO (10:18)
[2024-04-26] MEDS: Latanoprost 0.005% 1 Bottle 1 DRP EACH EYE (10:25)
--- NOTE | 2024-04-26 12:50 | CASEMGMT ---
Addendum entered by Marialuisa Early 04/26/24 14:43: Patient was accepted by [facility] with planned start of care for . SARA HUNTER in to update patient and family. SARA HUNTER inquired about DME angecy for walker, patient prefers [employer]. Patient and family had no further questions or concerns. Script received for walker and sent to [employer] via [employer] and arranged for delivery to patient room. DC plan updated. Original Note: SARA HUNTER in to discuss discharge planning with patient, , and family. SARA HUNTER reviewed progress with therapy 180ft contact guard and explained that patient is appropriate to discharge to home. SARA HUNTER discussed concerns with recent falls at home by both patient and . SARA HUNTER reviewed [facility] services with patient and family, patient agreeable to [facility] at discharge. SARA HUNTER also encouraged patient and family to discuss possible assisted living and provided Assisted Living Facility list and Private Duty List. Patient and states that they have been discussing Assisted Living but want to take their time with the transition. RN DALE encouraged patient and family start looking at facilities and process now, patient and family voiced understanding. Patient states she would also like at walker as currently they are sharing a walker. Patient and family had no further questions or concerns. SARA HUNTER made referral to [facility], awaiting acceptance.
--- NOTE | 2024-04-26 14:34 | DCINST_ITS ---
Discharge Instructions Diet Discharge Diet: No restrictions DC O2, CPAP, BIPAP needs Home O2 Discharge instructions: No Dressing / Incision Discharge Activity: Return to Normal Activity and Use Walker Weight Bearing Status: Weight bearing as tolerated Follow Up Care Test Results: Test results from this visit will be discussed in further detail at your follow- up appointment, if applicable. Discharge Plan Admission Admit Date/Time: 04/24/24 11:36 Primary Reason for Your Visit: debility Attending Provider: Sascha Mcneill Primary Care Provider: Geeta Cruz Consulting Providers: Courtney Gale Discharge Orders/Prescriptions Prescriptions: New cefuroxime axetil 250 mg Tablet 250 mg PO Q12 Qty: 11 0RF Rx Instructions: start this evening metoprolol tartrate 25 mg Tablet 25 mg PO BID Qty: 60 0RF Continued calcium polycarbophil [FiberCon] 625 mg tablet 1,250 mg PO DAILY latanoprost 1 DROP bottle 1 drp EACHEYE DAILY citalopram 20 MG tablet 20 mg PO DAILY levothyroxine 100 mcg tablet 100 mcg PO DAILY Qty: 30 2RF alendronate 70 mg tablet 70 mg PO SA nitroglycerin [Nitrostat] 0.4 mg tablet, sublingual 0.4 mg sublingual Q5-15M PRN (Reason: chest pain) Qty: 25 3RF Rx Instructions: do not exceed 3 doses per episode clopidogrel 75 mg tablet 75 mg PO DAILY Qty: 90 3RF rosuvastatin 20 mg tablet 20 mg PO DAILY Qty: 90 3RF Eliquis 5 mg tablet 5 mg PO BID Qty: 60 11RF ranolazine 1,000 mg tablet extended release 12 hr 1,000 mg PO BID Qty: 180 4RF Discontinued hydroxyzine HCl 25 MG tablet 25 mg PO QHS Patient Comments: anxiety azelastine 1 SPRAY aerosol,spray 2 spray NASAL BID Patient Comments: nasal spray sucralfate 1 GM tablet 1 gm PO BID PRN PRN (Reason: Indigestion) metoprolol tartrate 50 mg tablet 50 mg PO BID Qty: 60 1RF No Action potassium chloride 20 mEq tablet,ER particles/crystals 20 meq PO BID Referrals / Follow Up: Geeta Cruz DO [Primary Care Provider] - In 1 Week (for office visit and s uture removal) Disposition Disposition (needs filled in before D/C Order can be placed): Home, Self Care
--- NOTE | 2024-04-26 14:47 | PCM.DC.SUM ---
Providers Date of Admission: 04/24/24 Date of Discharge: 04/26/24 Primary Care Physician: Dr. Geeta Cruz DO Reason For Visit: SYNCOPAL EVENT Diagnosis Discharge Diagnosis (1) Closed head injury: Status: Acute Code(s): S09.90XA - Unspecified injury of head, initial encounter Plan 1. Syncopal episode with closed head injury to the left orbital area and laceration over the left eyelid-patient will be monitored on telemetry and she will be seen by PT and OT, I suspect the patient will need to go to a nursing home facility, I talked with her briefly about this and she was okay with it. #2 chronic kidney disease stage IIIb-complicates care, management, recovery, and prognosis #3 coronary artery disease-this appears stable at this time, her medications may need adjusted if she continues to have symptoms of dizziness/lightheadedness, I have elected to decrease the patient's beta-nury and monitor her heart rate. #4 paroxysmal atrial fib-patient is currently on Eliquis and metoprolol, again I have elected to reduce the patient's metoprolol to 25 mg twice daily. Total clinical time spent by myself addressing the patient's medical issues, reviewing all of her data, and collaborating with patient's care team: 35 minutes Medications at Discharge Home Medications citalopram 20 mg tablet 20 mg PO DAILY mood 09/28/17 latanoprost 0.005 % eye drops 1 drp EACHEYE DAILY eye 09/28/17 calcium polycarbophil 625 mg tablet (FiberCon) 1,250 mg PO DAILY laxative 02/08/18 potassium chloride 20 mEq tablet,extended release(part/cryst) 20 meq PO BID hypokalemia 12/31/21 levothyroxine 100 mcg tablet 100 mcg PO DAILY thyroid #30 tabs 01/02/22 nitroglycerin 0.4 mg sublingual tablet (Nitrostat) 0.4 mg sublingual Q5-15M PRN chest pain #25 tabs 09/17/22 clopidogrel 75 mg tablet 75 mg PO DAILY blood thinner #90 tabs 11/11/22 rosuvastatin 20 mg tablet 20 mg PO DAILY cholesterol #90 tabs 09/08/23 apixaban 5 mg tablet (Eliquis) 5 mg PO BID #60 tabs 07/08/24 ranolazine 1,000 mg tablet,extended release,12 hr 1,000 mg PO BID heart #180 tabs 11/12/23 alendronate 70 mg tablet 70 mg PO SA osteoporosis 12/24/23 cefuroxime axetil 250 mg tablet 250 mg PO Q12 #11 tabs 04/26/24 metoprolol tartrate 25 mg tablet 25 mg PO BID #60 tabs 04/26/24 Hospital Course Operations None Procedures 2-D Echocardiogram Summary of Care Provided Minutes Spent on Discharge: 31 Hospital Course: This 84-year-old white female was seen in the emergency room at [facility] after sustaining a fall at home striking the left side of her head. She had a laceration above her left eyelid. Imaging studies did not show any intracranial pathology. Patient was admitted to PCU for generalized weakness, she was seen by PT and OT and her medications were adjusted during her hospitalization. Patient improved during her hospitalization and she was felt to be stable for discharge home on 04/26/2024, on that date she was seen and examined: On examination she appeared in good health and spirits, she does not appear to be in any distress. Vital signs as documented. Skin warm and dry and without overt rashes. Neck without JVD, thyroid appears normal, trachea is midline, neck is supple. Lungs clear, normal air movement was noted. Heart exam notable for regular rhythm, normal sounds and absence of murmurs, rubs or gallops. Abdomen unremarkable and without evidence of organomegaly, masses, or abdominal aortic enlargement, bowel sounds are present in all 4 quadrants, no abdominal tenderness was noted. Extremities nonedematous, no cyanosis was noted, no clubbing was noted. Neuro: Cranial nerves II through XII are grossly intact, no focal motor deficits were noted, sensation to light touch and pinprick is intact, motor exam 5/5 throughout. Psych: Patient is alert and oriented x3, she does not appear anxious or depressed, she does not appear agitated. Weight / BMI Weight Weight: 59.9 kg Body Mass Index (BMI) 25.7 ABG / Lab / Microbiology Data 04/24/24 03:02 04/24/24 03:02 Microbiology: Microbiology 04/24/24 00:10 Mucosa - Nasopharyngeal Coronavirus COVID-19 PCR - Final 04/24/24 00:10 Mucosa - Nasopharyngeal Respiratory Panel (PCR) - Final D/C Instructions Discharge Diet: No restrictions Weight Bearing Status: Weight bearing as tolerated DC O2, CPAP, BIPAP Needs Home O2 Discharge instructions: No Meaningful Use Info Meaningful Use Meaningful Use Diagnoses (Choose all that apply): None applicable Ischemic Stroke Statin Dosing Therapy Reference: STATIN DOSE THERAPY REFERENCE: * Patients > 75 years receive moderate or high dose statin therapy. * Patients 75 years or YOUNGER should receive HIGH intensity statin dose unless contraindicated. You will be required to document reason for non-treatment if statin daily dose does not meet guidelines. HIGH DOSE STATIN THERAPY DAILY Atorvastatin > than or = to 40 mg Rosuvastatin > than or = to 20 mg Amlodipine + Atorvastatin > than or = to 2.5/40 mg Ezetimibe + Simvastatin 10/80 mg Simvastatin 80mg Discharge Plan Admission Admit Date/Time: 04/24/24 11:36 Primary Reason for Your Visit: debility Attending Provider: Sascha Mcneill Primary Care Provider: Geeta Cruz Consulting Providers: Courtney Gale Discharge Orders/Prescriptions Prescriptions: New cefuroxime axetil 250 mg Tablet 250 mg PO Q12 Qty: 11 0RF Rx Instructions: start this evening metoprolol tartrate 25 mg Tablet 25 mg PO BID Qty: 60 0RF Continued calcium polycarbophil [FiberCon] 625 mg tablet 1,250 mg PO DAILY latanoprost 1 DROP bottle 1 drp EACHEYE DAILY citalopram 20 MG tablet 20 mg PO DAILY levothyroxine 100 mcg tablet 100 mcg PO DAILY Qty: 30 2RF alendronate 70 mg tablet 70 mg PO SA nitroglycerin [Nitrostat] 0.4 mg tablet, sublingual 0.4 mg sublingual Q5-15M PRN (Reason: chest pain) Qty: 25 3RF Rx Instructions: do not exceed 3 doses per episode clopidogrel 75 mg tablet 75 mg PO DAILY Qty: 90 3RF rosuvastatin 20 mg tablet 20 mg PO DAILY Qty: 90 3RF Eliquis 5 mg tablet 5 mg PO BID Qty: 60 11RF ranolazine 1,000 mg tablet extended release 12 hr 1,000 mg PO BID Qty: 180 4RF Discontinued hydroxyzine HCl 25 MG tablet 25 mg PO QHS Patient Comments: anxiety azelastine 1 SPRAY aerosol,spray 2 spray NASAL BID Patient Comments: nasal spray sucralfate 1 GM tablet 1 gm PO BID PRN PRN (Reason: Indigestion) metoprolol tartrate 50 mg tablet 50 mg PO BID Qty: 60 1RF No Action potassium chloride 20 mEq tablet,ER particles/crystals 20 meq PO BID Referrals / Follow Up: Geeta Cruz DO [Primary Care Provider] - 05/02/24 10:30 am (for office visit and suture removal) Disposition Disposition (needs filled in before D/C Order can be placed): Home Health Service Charges/Coding Visit Charges Inpatient E&M: 17983 Disch Hosp >30min
[2024-04-26 15:50] VITALS: BP 130/61; PULSE 62; RESP 16; TEMP 36.7; O2SAT 98
== END 2024-04-26 15:57 | disposition home health service (06) | DRG 312 ==
LOC: ED 17:19 → PCU 18:36
PROVIDERS: Hospitalist; Physician Assistant; Admitting Provider Family Medicine; Emergency Provider Emergency Medicine; PCP Internal Medicine; Visit Provider Internal Medicine
DX: R55 Syncope and collapse (principal); D64.9 Anemia, unspecified; N18.32 Chronic kidney disease, stage 3b; E89.0 Postprocedural hypothyroidism; I65.23 Occlusion and stenosis of bilateral carotid arteries; I12.9 Hypertensive chronic kidney disease with stage 1 through stage 4 chronic kidney disease, or unspecified chronic kidney disease; F32.A Depression, unspecified; I48.0 Paroxysmal atrial fibrillation; E78.5 Hyperlipidemia, unspecified; I25.10 Atherosclerotic heart disease of native coronary artery without angina pectoris; S01.112A Laceration without foreign body of left eyelid and periocular area, initial encounter; K21.9 Gastro-esophageal reflux disease without esophagitis; F41.9 Anxiety disorder, unspecified; W01.198A Fall on same level from slipping, tripping and stumbling with subsequent striking against other object, initial encounter; I25.2 Old myocardial infarction; R53.1 Weakness; H40.9 Unspecified glaucoma; Z11.52 Encounter for screening for COVID-19; Z79.01 Long term (current) use of anticoagulants; Z79.02 Long term (current) use of antithrombotics/antiplatelets; Z79.890 Hormone replacement therapy; Z79.899 Other long term (current) drug therapy; Z86.73 Personal history of transient ischemic attack (TIA), and cerebral infarction without residual deficits; Z85.850 Personal history of malignant neoplasm of thyroid; Z95.5 Presence of coronary angioplasty implant and graft
CPT/HCPCS: 36415; 70450; 70486; 71045; 72125; 80048; 80053; 81001; 83735; 84145; 84484; 85025; 87633; 87635; 90715; 93005; 93306; 97110; 97116; 97162; 97165; 97530; 97535; 99285; A4216; J2405

== ENCOUNTER → 2024-05-05 | Outpatient (CLI) | payer MEDICARE, OTHER, SELFPAY ==
[2022-03-26 08:47] VITALS: BMI 28.7
[2024-05-05 14:22] LABS: Absolute Lymphocyte Count 0.92 X10^3/uL (0.83-4.51); Absolute Neutrophil Count 1.7 X10^3/uL (2.0-7.7); Basophil# 0.01 X10^3/uL; Basophil% 0.3 % (0-1); Eosinophil# 0.05 X10^3/uL; Eosinophils% 1.7 % (0-5); Hematocrit 31.5 % (37-47); Hemoglobin 10.1 g/dL (12.0-15.0); Lymphocyte # 0.92 X10^3/ul (0.83-4.51); Lymphocyte % 31.1 % (19-41); Mean Corp Hgb Conc 32.1 g/dL (32-36); Mean Corpuscular Volume 99.7 fL (81-99); Mean Platelet Vol. 10.1 fl (6.2-12.0); Monocyte# 0.32 X10^3/uL; Monocyte% 10.8 % (0-10); NRBC Flagged by Analyzer 0 % (0-5); Neutrophil # 1.65 X10^3/uL (2.7-7.7); Neutrophil % 55.8 % (47-70); Platelet Count 161 K/mm3 (150-450); RBC Distribution Width CV 13.9 % (11.6-14.6); RBC Distribution Width SD 50.4 fl (35.1-43.9); Red Blood Count 3.16 M/mm3 (4.2-5.4)
[2024-05-05 14:39] LABS: Albumin, Serum 3.2 g/dL (3.2-5.0); BUN 18 mg/dL (7-18); BUN/Creat Ratio 14.2 RATIO (10-20); Calcium,Total 8.8 mg/dL (8.5-10.1); Chloride 108 mmol/L (98-107); Creatinine, Serum 1.27 mg/dL (0.55-1.02); EST Glomerular Filtration Rate 43 mL/min (>60); Est Glom Filt Rate - Afr Amer 52 mL/min (>60); Glucose 84 mg/dL (74-106); Phosphorus 2.9 mg/dL (2.5-4.9); Sodium Level 139 mmol/L (136-145)
[2024-05-05 14:56] LABS: PTHIN 80.8 pg/mL (18.4-80.1)
== END | disposition home or self-care (01) ==
LOC: LAB 13:30
PROVIDERS: PCP Internal Medicine; Referring Provider Internal Medicine Nephrology; Visit Provider Internal Medicine Nephrology
DX: R55 Syncope and collapse (principal); N18.32 Chronic kidney disease, stage 3b; R19.7 Diarrhea, unspecified; E86.0 Dehydration; R35.0 Frequency of micturition
CPT/HCPCS: 36415; 80069; 83970; 85025

== ENCOUNTER → 2024-05-09 | Outpatient (CLI) | payer MEDICARE, OTHER, SELFPAY ==
[2022-03-26 08:47] VITALS: BMI 28.7
== END | disposition home or self-care (01) ==
LOC: LABSPEC 11:36
PROVIDERS: PCP Internal Medicine; Referring Provider Internal Medicine; Visit Provider Internal Medicine
DX: R05.9 Cough, unspecified (principal)
CPT/HCPCS: 87070; 87205

== ENCOUNTER 2024-06-17 18:58 | Emergency (ER) | payer MEDICARE, OTHER, SELFPAY ==
[2022-03-26 08:47] VITALS: BMI 28.7
[2024-06-17] VITALS (8 sets, daily range): BP systolic 117–149; BP diastolic 68–80; PULSE 77–142; RESP 18–33; TEMP 36.6; O2SAT 97–100; BMI 24.5
[2024-06-17] MEDS: Ondansetron 4 MG/2 ML Vial IV (19:53)
[2024-06-17] MEDS: 0.9% Normal Saline (1000mL) 1,000 ML 1000 ML IV (19:53)
[2024-06-17 20:11] LABS: Mucous, Urine 0 SEEN /hpf (<or=2+)
--- NOTE | 2024-06-17 20:15 | RAD_ITS ---
PROCEDURE: CHEST PA AND LATERAL REASON FOR EXAM: Cough TECHNIQUE: Frontal and lateral views of the chest. COMPARISON: 04/23/2024 FINDINGS: Cardiomediastinal silhouette is within normal limits. Lungs are clear. No sizable pneumothorax. RAD/Chest PA and Lateral IMPRESSION: No acute airspace abnormality. Reading Location: [facility]
[2024-06-17 20:17] LABS: Absolute Neutrophil Count 5.6 X10^3/uL (2.0-7.7); Basophil# 0.01 X10^3/uL; Basophil% 0.2 % (0-1); Eosinophil# 0.03 X10^3/uL; Eosinophils% 0.5 % (0-5); Hematocrit 40.1 % (37-47); Hemoglobin 13.3 g/dL (12.0-15.0); Lymphocyte % 4.8 % (19-41); Mean Corp Hgb Conc 33.2 g/dL (32-36); Mean Corpuscular Volume 99.5 fL (81-99); Monocyte# 0.28 X10^3/uL; Monocyte% 4.5 % (0-10); NRBC Flagged by Analyzer 0 % (0-5); Neutrophil % 89.7 % (47-70); POSITIVE DIFFERENTIAL YES; Platelet Count 171 K/mm3 (150-450); RBC Distribution Width CV 14.4 % (11.6-14.6); RBC Distribution Width SD 52.3 fl (35.1-43.9); Red Blood Count 4.03 M/mm3 (4.2-5.4); White Blood Count 6.2 K/mm3 (4.4-11.0)
[2024-06-17 20:20] LABS: Color, Urine Amber (Yellow); Glucose, Dipstick Normal (Normal); Leukocyte Esterase-Dipstick 25 /ul (Negative); Nitrite-Dipstick Positive (Negative); Occult Blood-Urine 150 /ul (Negative); Protein-Dipstick 30 mg/dl (Negative); Specific Gravity, Urine 1.025 (1.002-1.030); Urine Clarity Sl. Cloudy (Clear); Urine Urobilinogen 4 mg/dl (Normal)
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
[2024-06-17 20:49] LABS: Ketone-Dipstick 150 mg/dl (Negative); Urine Bilirubin Dipstick 1 mg/dL (Negative)
[2024-06-17 20:57] LABS: Bacteria 1+ /hpf (None Seen); Hyaline Cast 0-5 SEEN /lpf (0-5); Red Blood Cells-Urine 25-50 SEEN /hpf (0-5); Squamous Epithelial Cells - UA 0-5 SEEN /hpf (5-10); White Blood Cells 10-25 SEEN /hpf (0-5)
[2024-06-17 21:26] LABS: Anion Gap 17 (5-15); BUN 24 mg/dL (4-19); BUN/Creat Ratio 17.7 RATIO (10-20); Calcium,Total 9.7 mg/dL (7.6-11.0); Carbon Dioxide 19.7 mmol/L (21.0-32.0); Chloride 105 mmol/L (98-108); Creatinine, Serum 1.33 mg/dL (0.70-1.20); EST Glomerular Filtration Rate 40 (>60); Estimated Creatinine Clearance 25.77 ml/min (50-250); Glucose 119 mg/dL (70-99); Potassium 4.1 mmol/L (3.3-5.1); Sodium Level 141 mmol/L (133-145)
[2024-06-17] MEDS: Metoprolol Tartrate 5 MG/5 ML Vial IV ×3 (21:34→22:01)
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
[2024-06-17] MEDS: dilTIAZem 25 MG/5 ML Vial 10 MG IV BOLUS (22:40)
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
[2024-06-18] MEDS: Ciprofloxacin 500 MG Tablet PO (00:05)
[2024-06-18] MEDS: dilTIAZem CD 120 MG Capsule PO (00:05)
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
== END 2024-06-18 00:08 | disposition home or self-care (01) ==
PROVIDERS: Emergency Provider Emergency Medicine; PCP Internal Medicine; Visit Provider Emergency Medicine
DX: I48.0 Paroxysmal atrial fibrillation (principal); N39.0 Urinary tract infection, site not specified; R11.2 Nausea with vomiting, unspecified; I12.9 Hypertensive chronic kidney disease with stage 1 through stage 4 chronic kidney disease, or unspecified chronic kidney disease; Z11.52 Encounter for screening for COVID-19; N18.2 Chronic kidney disease, stage 2 (mild); R19.7 Diarrhea, unspecified; I49.3 Ventricular premature depolarization; E78.5 Hyperlipidemia, unspecified; I25.10 Atherosclerotic heart disease of native coronary artery without angina pectoris; R42 Dizziness and giddiness; I25.2 Old myocardial infarction; Z79.01 Long term (current) use of anticoagulants; Z79.02 Long term (current) use of antithrombotics/antiplatelets; Z79.899 Other long term (current) drug therapy; Z86.73 Personal history of transient ischemic attack (TIA), and cerebral infarction without residual deficits; Z95.5 Presence of coronary angioplasty implant and graft
CPT/HCPCS: 71046; 80048; 81001; 85025; 87086; 87088; 87631; 93005; 96361; 96374; 96375; 99283; A4216; J2405

== ENCOUNTER → 2024-08-03 | Outpatient (CLI) | payer MEDICARE, OTHER, SELFPAY ==
[2022-03-26 08:47] VITALS: BMI 28.7
[2024-08-03 16:35] LABS: Absolute Lymphocyte Count 1.12 X10^3/uL (0.83-4.51); Basophil# 0.04 X10^3/uL; Basophil% 0.7 % (0-1); Eosinophil# 0.18 X10^3/uL; Eosinophils% 3.1 % (0-5); Hematocrit 34.9 % (37-47); Hemoglobin 11.4 g/dL (12.0-15.0); Lymphocyte # 1.12 X10^3/ul (0.83-4.51); Lymphocyte % 19.2 % (19-41); Mean Corp Hgb Conc 32.7 g/dL (32-36); Mean Corpuscular Hgb 32.8 pg (27.0-32.0); Mean Corpuscular Volume 100.3 fL (81-99); Mean Platelet Vol. 10.6 fl (6.2-12.0); Monocyte# 0.49 X10^3/uL; Monocyte% 8.4 % (0-10); NRBC Flagged by Analyzer 0 % (0-5); Neutrophil # 3.96 X10^3/uL (2.7-7.7); Neutrophil % 68.1 % (47-70); Platelet Count 234 K/mm3 (150-450); RBC Distribution Width CV 14.8 % (11.6-14.6); Red Blood Count 3.48 M/mm3 (4.2-5.4); White Blood Count 5.8 K/mm3 (4.4-11.0)
[2024-08-03 17:43] LABS: ALB/GLOB Ratio 1.4 RATIO (0.9-2.4); AST(SGOT) 29 U/L (<=31); Alanine Aminotransfer ALT/SGPT 17 U/L (<=34); Albumin, Serum 3.9 g/dL (3.4-4.8); Alkaline Phosphatase 98 U/L (35-104); Anion Gap 12 (5-15); BUN 18 mg/dL (4-19); BUN/Creat Ratio 16.2 RATIO (10-20); Calcium,Total 9.2 mg/dL (7.6-11.0); Carbon Dioxide 22.2 mmol/L (21.0-32.0); Chloride 106 mmol/L (98-108); Creatinine, Serum 1.11 mg/dL (0.70-1.20); EST Glomerular Filtration Rate 50 (>60); Globulin 2.7 g/dL (2.2-4.2); Glucose 100 mg/dL (70-99); Hepatitis C Antibody Nonreactive (Nonreactive); Potassium 3.6 mmol/L (3.3-5.1); Protein, Total 6.7 g/dL (5.9-8.4); Sodium Level 141 mmol/L (133-145); Total Bilirubin 0.67 mg/dL (0.00-1.30)
== END | disposition home or self-care (01) ==
LOC: LAB 16:01
PROVIDERS: PCP Internal Medicine; Referring Provider Family Medicine Geriatric Medicine; Visit Provider Family Medicine Geriatric Medicine
DX: I95.1 Orthostatic hypotension (principal); E03.9 Hypothyroidism, unspecified; E55.9 Vitamin D deficiency, unspecified; Z13.89 Encounter for screening for other disorder
CPT/HCPCS: 36415; 80053; 82306; 84443; 85025; 86803

== ENCOUNTER → 2024-08-19 | Outpatient (CLI) | payer MEDICARE, OTHER, SELFPAY ==
[2022-03-26 08:47] VITALS: BMI 28.7
[2024-08-19 09:03] LABS: Absolute Lymphocyte Count 1.33 X10^3/uL (0.83-4.51); Absolute Neutrophil Count 4.5 X10^3/uL (2.0-7.7); Basophil# 0.06 X10^3/uL; Basophil% 0.9 % (0-1); Eosinophil# 0.39 X10^3/uL; Eosinophils% 5.7 % (0-5); Hematocrit 35.2 % (37-47); Hemoglobin 11.6 g/dL (12.0-15.0); Lymphocyte # 1.33 X10^3/ul (0.83-4.51); Lymphocyte % 19.6 % (19-41); Mean Corpuscular Hgb 32.4 pg (27.0-32.0); Mean Corpuscular Volume 98.3 fL (81-99); Mean Platelet Vol. 10.4 fl (6.2-12.0); Monocyte# 0.49 X10^3/uL; Monocyte% 7.2 % (0-10); NRBC Flagged by Analyzer 0 % (0-5); Neutrophil # 4.49 X10^3/uL (2.7-7.7); Neutrophil % 66.2 % (47-70); Platelet Count 220 K/mm3 (150-450); RBC Distribution Width CV 13.6 % (11.6-14.6); RBC Distribution Width SD 49.6 fl (35.1-43.9); Red Blood Count 3.58 M/mm3 (4.2-5.4); White Blood Count 6.8 K/mm3 (4.4-11.0)
[2024-08-19 09:56] LABS: Anion Gap 11 (5-15); BUN 23 mg/dL (4-19); BUN/Creat Ratio 19.9 RATIO (10-20); Calcium,Total 9.2 mg/dL (7.6-11.0); Carbon Dioxide 24.5 mmol/L (21.0-32.0); Chloride 106 mmol/L (98-108); Creatinine, Serum 1.15 mg/dL (0.70-1.20); EST Glomerular Filtration Rate 48 (>60); Glucose 96 mg/dL (70-99); Potassium 3.2 mmol/L (3.3-5.1); Pro- Brain NATRIURETIC PEPTIDE 878 pg/mL (<=1800); Sodium Level 142 mmol/L (133-145)
== END | disposition home or self-care (01) ==
PROVIDERS: Nurse Practitioner Gerontology; PCP Family Medicine Geriatric Medicine; Referring Provider Family Medicine Geriatric Medicine; Visit Provider Family Medicine Geriatric Medicine
DX: E03.9 Hypothyroidism, unspecified (principal); R06.02 Shortness of breath; R06.09 Other forms of dyspnea
CPT/HCPCS: 36415; 80048; 83880; 84443; 85025

== ENCOUNTER → 2024-11-02 | Outpatient (CLI) | payer MEDICARE, OTHER, SELFPAY ==
[2022-03-26 08:47] VITALS: BMI 28.7
[2024-11-02 13:28] LABS: Hematocrit 37.6 % (37-47); Hemoglobin 12.5 g/dL (12.0-15.0); Immature Granulocytes Count 0.010 X10^3/uL (0.0-0.0); Mean Corp Hgb Conc 33.2 g/dL (32-36); Mean Corpuscular Volume 93.8 fL (81-99); Mean Platelet Vol. 10.5 fl (6.2-12.0); NRBC Flagged by Analyzer 0 % (0-5); Platelet Count 195 K/mm3 (150-450); RBC Distribution Width CV 13.4 % (11.6-14.6); RBC Distribution Width SD 46.3 fl (35.1-43.9); Red Blood Count 4.01 M/mm3 (4.2-5.4); White Blood Count 5.9 K/mm3 (4.4-11.0)
[2024-11-02 14:55] LABS: Vitamin D,25 Hydroxy 80.9 ng/mL (30-100)
[2024-11-02 14:59] LABS: AST(SGOT) 23 U/L (<=31); Alanine Aminotransfer ALT/SGPT 21 U/L (<=34); Albumin, Serum 4.0 g/dL (3.4-4.8); Alkaline Phosphatase 95 U/L (35-104); Anion Gap 13 (5-15); BUN 21 mg/dL (4-19); BUN/Creat Ratio 16.6 RATIO (10-20); Calcium,Total 9.2 mg/dL (7.6-11.0); Carbon Dioxide 21.9 mmol/L (21.0-32.0); Chloride 104 mmol/L (98-108); Globulin 2.6 g/dL (2.2-4.2); Glucose 121 mg/dL (70-99); Potassium 4.2 mmol/L (3.3-5.1)
[2024-11-02 21:07] LABS: Xtra Tube Kwok EXTRA TUBE
== END | disposition home or self-care (01) ==
LOC: POLAB3 13:07
PROVIDERS: PCP Family Medicine Geriatric Medicine; Visit Provider Family Medicine Geriatric Medicine
DX: E55.9 Vitamin D deficiency, unspecified (principal); R53.83 Other fatigue
CPT/HCPCS: 36415; 80053; 82306; 84443; 85025

== ENCOUNTER → 2024-12-16 | Outpatient (CLI) | payer MEDICARE, OTHER, SELFPAY ==
[2022-03-26 08:47] VITALS: BMI 28.7
[2024-12-16 13:16] LABS: Hematocrit 38.2 % (37-47); Hemoglobin 12.7 g/dL (12.0-15.0); Immature Granulocytes Count 0.030 X10^3/uL (0.0-0.0); Mean Corp Hgb Conc 33.2 g/dL (32-36); Mean Corpuscular Volume 93.6 fL (81-99); Mean Platelet Vol. 10.3 fl (6.2-12.0); NRBC Flagged by Analyzer 0 % (0-5); Platelet Count 172 K/mm3 (150-450); RBC Distribution Width CV 14.7 % (11.6-14.6); RBC Distribution Width SD 51.0 fl (35.1-43.9); Red Blood Count 4.08 M/mm3 (4.2-5.4); White Blood Count 7.8 K/mm3 (4.4-11.0)
[2024-12-16 13:54] LABS: AST(SGOT) 27 U/L (<=31); Alanine Aminotransfer ALT/SGPT 11 U/L (<=34); Albumin, Serum 4.3 g/dL (3.4-4.8); Alkaline Phosphatase 91 U/L (35-104); Bilirubin, Direct 0.28 mg/dL (0.00-0.30); Globulin 2.6 g/dL (2.2-4.2)
[2024-12-16 13:56] LABS: AST(SGOT) 28 U/L (<=31); Alanine Aminotransfer ALT/SGPT 11 U/L (<=34); Albumin, Serum 4.3 g/dL (3.4-4.8); Alkaline Phosphatase 92 U/L (35-104); Anion Gap 10 (5-15); BUN 19 mg/dL (4-19); BUN/Creat Ratio 15.2 RATIO (10-20); Calcium,Total 9.4 mg/dL (7.6-11.0); Carbon Dioxide 24.9 mmol/L (21.0-32.0); Chloride 103 mmol/L (98-108); Globulin 2.6 g/dL (2.2-4.2); Glucose 93 mg/dL (70-99); LDH 217 U/L (84-246); Potassium 4.2 mmol/L (3.3-5.1)
[2024-12-16 15:16] LABS: Cholesterol 163 mg/dL (<=200); Low Density Lipoprotein Calc. 67 mg/dL; Triglycerides 123 mg/dL; Very Low Density Lipoprotein 25 mg/dL (5-40); cholesterol:hdl ratio screen 2.29
[2024-12-19 19:08] LABS: Thyroglobulin, Serum Qt. 0.1 ng/mL (1.5-38.5)
== END | disposition home or self-care (01) ==
LOC: LAB 12:59
PROVIDERS: Student in an Organized Health Care Education/Training Program; PCP Family Medicine Geriatric Medicine; Referring Provider Internal Medicine Medical Oncology; Visit Provider Internal Medicine Medical Oncology
DX: D64.9 Anemia, unspecified (principal); I25.10 Atherosclerotic heart disease of native coronary artery without angina pectoris; Z85.850 Personal history of malignant neoplasm of thyroid
CPT/HCPCS: 36415; 80053; 80061; 80076; 83615; 84432; 85025; 86800

== ENCOUNTER → 2024-12-22 | Outpatient (CLI) | payer MEDICARE, OTHER, SELFPAY ==
[2022-03-26 08:47] VITALS: BMI 28.7
== END | disposition home or self-care (01) ==
LOC: LAB 15:53
PROVIDERS: PCP Family Medicine Geriatric Medicine; Referring Provider Internal Medicine Medical Oncology; Visit Provider Internal Medicine Medical Oncology
DX: Z00.00 Encounter for general adult medical examination without abnormal findings (principal)

== ENCOUNTER → 2025-02-03 | Outpatient (CLI) | payer MEDICARE, OTHER, SELFPAY ==
[2022-03-26 08:47] VITALS: BMI 28.7
[2025-02-03 11:50] LABS: Hematocrit 43.4 % (37-47); Hemoglobin 14.3 g/dL (12.0-15.0); Immature Granulocytes Count 0.020 X10^3/uL (0.0-0.0); Mean Corp Hgb Conc 32.9 g/dL (32-36); Mean Corpuscular Volume 93.7 fL (81-99); Mean Platelet Vol. 10.5 fl (6.2-12.0); NRBC Flagged by Analyzer 0 % (0-5); Platelet Count 210 K/mm3 (150-450); RBC Distribution Width CV 14.5 % (11.6-14.6); RBC Distribution Width SD 49.6 fl (35.1-43.9); Red Blood Count 4.63 M/mm3 (4.2-5.4); White Blood Count 6.1 K/mm3 (4.4-11.0)
[2025-02-03 13:01] LABS: AST(SGOT) 36 U/L (<=31); Alanine Aminotransfer ALT/SGPT 7 U/L (<=34); Albumin, Serum 4.2 g/dL (3.4-4.8); Alkaline Phosphatase 89 U/L (35-104); Anion Gap 12 (5-15); BUN 23 mg/dL (4-19); BUN/Creat Ratio 15.4 RATIO (10-20); Calcium,Total 9.8 mg/dL (7.6-11.0); Carbon Dioxide 25.1 mmol/L (21.0-32.0); Chloride 105 mmol/L (98-108); Globulin 3.0 g/dL (2.2-4.2); Glucose 118 mg/dL (70-99); Potassium 4.1 mmol/L (3.3-5.1); Vitamin D,25 Hydroxy 83.4 ng/mL (30-100)
[2025-02-03 19:25] LABS: Xtra Tube Kwok EXTRA TUBE
== END | disposition home or self-care (01) ==
LOC: POLAB3 11:24
PROVIDERS: PCP Family Medicine Geriatric Medicine; Visit Provider Family Medicine Geriatric Medicine
DX: E03.9 Hypothyroidism, unspecified (principal); E55.9 Vitamin D deficiency, unspecified; R53.83 Other fatigue
CPT/HCPCS: 36415; 80053; 82306; 84443; 85025